=== PATIENT | female | born 1945 | race Hispanic/Latino ===

== ENCOUNTER 2024-02-04 16:41 | Emergency (ER) | payer OTHER ==
[~2024-02-04] VITALS: Ht 152.4 cm; Wt 75.7 kg
[2024-02-04] MEDS: acetaMINOPHEN 500 MG TABLET PO ONE (17:45)
[2024-02-04 19:49] VITALS: BP 136/56; PULSE 60; RESP 16; TEMP 98; O2SAT 98
== END 2024-02-04 19:55 | disposition home or self-care (01) ==
LOC: EDH 16:41
DX: S00.03XA Contusion of scalp, initial encounter (principal); S40.011A Contusion of right shoulder, initial encounter; S20.211A Contusion of right front wall of thorax, initial encounter; E78.00 Pure hypercholesterolemia, unspecified; I11.9 Hypertensive heart disease without heart failure; Z88.8 Allergy status to other drugs, medicaments and biological substances; W01.0XXA Fall on same level from slipping, tripping and stumbling without subsequent striking against object, initial encounter; Y93.89 Activity, other specified; Y92.89 Other specified places as the place of occurrence of the external cause; Y99.8 Other external cause status
CPT/HCPCS: 70450; 71101; 73030

== ENCOUNTER 2025-03-06 18:46 | Inpatient (IN) | payer OTHER ==
[~2025-03-06] VITALS: Ht 147.3 cm; Wt 81.6 kg
[2025-03-06 19:29] LABS: IMMATURE GRANULOCYTE ABSOLUTE 0.02 K/uL (0-1); NUCLEATED RED BLOOD CELLS 0.0 % (0.0-0.19); PLATELET COUNT (AUTO) 297 K/uL (130-400); RED BLOOD CELL COUNT(AUTO) 3.65 MIL/uL (4.00-5.50); RED CELL DISTRIBUTION WIDTH 14.0 % (11.0-15.5); WHITE BLOOD COUNT (AUTO) 6.7 K/uL (4.8-10.8)
--- NOTE | 2025-03-06 19:31 | EKG ---
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
[2025-03-06 19:39] LABS: CREATININE 1.0 mg/dL (0.5-1.0); GLOMERULAR FILTR. RATE CALC 57.0 mL/min (>90); GLUCOSE,RANDOM 98.0 mg/dL (70-105); SODIUM SERUM 144.0 mmol/L (136-145); UREA NITROGEN, BLOOD 17.0 mg/dL (7-18)
[2025-03-06 19:41] LABS: INR 1.01 (0.85-1.15)
--- NOTE | 2025-03-06 20:30 | HMCIMG ---
EXAMINATION: DUPLEX ULTRASOUND EXAMINATION OF THE BILATERAL LOWER EXTREMITY ARTERIES. CLINICAL HISTORY: PAD. COMPARISON: None. FINDINGS: Peak systolic velocities within the right lower arteries are as follows: Common femoral artery: 71 cm/s. Superficial femoral artery: 63 cm/s at proximal, 46 cm/s at mid, and 44 cm/s at distal segments. Popliteal artery: 17 cm/s at proximal and 22 cm/s at distal segments. Posterior tibial artery: 14 cm/s. Anterior tibial artery: 11 cm/s. Dorsalis pedis artery: 22 cm/s. The right lower limb arteries demonstrate monophasic waveforms in all arteries. Peak systolic velocities within the left lower arteries are as follows: Common femoral artery: 85 cm/s. Superficial femoral artery: 55 cm/s at proximal, 37 cm/s at mid, and 40 cm/s at distal segments. Popliteal artery: 19 cm/s at proximal and 25 cm/s at distal segments. Posterior tibial artery: 14 cm/s. Anterior tibial artery: 70 cm/s. Dorsalis pedis artery: 10 cm/s. The left lower limb arteries demonstrate monophasic waveforms in all arteries. There is intimal wall thickening in both the lower limb arteries. IMPRESSION: Mild intimal wall thickening in both the lower limb arteries. Both lower limb arteries demonstrate monophasic post stenotic dampened waveforms. Recommend CT/MRI angiogram including from the abdominal aorta. /[place]
--- NOTE | 2025-03-06 22:47 | HP ---
History of Present Illness History of Present Illness Ms. Peacock is a 79-year-old female that was seen and examined today on 03/06/2025. Patient is a good historian of personal health Patient states that she came to the emergency department with a chief complaint of lower extremity pain. Onset was two weeks ago. Location is to bilateral lower extremities primarily the feet. Duration is on and off. Character is described as sharp and tingling pain. There was no alleviating factors. Symptoms are aggravated with physical activity. Patient reports associated discoloration to tips of her toes. Today in the emergency department CBC unremarkable, chemistry unremarkable, urinalysis unremarkable, arterial ultrasound shows Both lower limb arteries demonstrate monophasic post stenotic dampened waveforms, chest x-ray shows mild COPD, mild atelectatic opacities in the bilateral lung bases. Emergency room physician recommended that patient be admitted with a diagnosis of intractable leg pain and PID. Past Medical History ADDITIONAL PAST MEDICAL HISTORY: [Hyperlipidemia, hypertension, hypothyroidism, peripheral artery disease] SOCIAL HISTORY: [Negative for smoking, alcohol use, drug use. Patient lives with the daughter, Jessica Gomez. Patient is typically independent of her ADLs. Patient denies difficulty paying her bills.] SURGICAL HISTORY: [Denies] Review of Systems General: No Fever, No Chills, No Night Sweats, No Fatigue, No Malaise, No Appetite, No Other HEENT: No Head Aches, No Visual Changes, No Eye Pain, No Ear Pain, No Dysphasia, No Sinus Congestion, No Post Nasal Drip, No Sore Throat, No Other Pulmonary: No Dyspnea, No Cough, No Pleuritic Chest Pain, No Other Cardiovascular: No: Chest Pain, Palpitations, Orthopnea, Paroxysmal Noc. Dyspnea, Edema, Lt Headedness, Other Gastrointestinal: No: Nausea, Vomiting, Abdominal Pain, Diarrhea, Constipation, Melena, Hematochezia, Other Genitourinary: No Dysuria, No Frequency, No Incontinence, No Hematuria, No Retention, No Other Musculoskeletal: leg pain, foot pain; No: other, neck pain, shoulder pain, arm pain, back pain, hand pain Skin: No Urticaria, No Rash, No Other Neurological: No: Weakness, Numbness, Incoordination, Change in speech, Confusion, Seizures, Other Allergies: Coded Allergies: iron (Unverified Allergy, Unknown, 02/04/24) Exam Vital Signs Vital Signs Date Time Temp Pulse Resp B/P (MAP) Pulse Ox O2 Delivery O2 Flow Rate FiO2 03/06/25 21:24 64 18 190/64 97 Room Air* 0 21 03/06/25 18:49 98.1 General Appearance: Alert, Oriented X3, Cooperative, No acute distress HEENT: Atraumatic, EOMI, Mucous membr. moist/pink Respiratory: Clear to auscultation, Normal air movement, NL respiratory effort Cardiovascular: Regular rate, Regular rhythm, Normal S1, Normal S2 Abdominal: Normal bowel sounds, Soft, No tenderness Extremities: Other (Decreased pedal pulses) Skin: Other (Positive erythema, discoloration to bilateral toes) Neuro: Strength at 5/5 X4 ext, Sensation intact, Cranial nerves 3-12 NL Psych/Mental Status: Mental status NL, Mood NL, Thoughts/Content NL Assessment/Plan ASSESSMENT: [ Peripheral artery disease, POA Intractable leg pain, POA Hyperlipidemia Hypertension Hypothyroidism] PLAN: [ Admit patient to medical floor as inpatient status. Physical therapy for evaluation and treatment. DAPT Consider having patient follow up outpatient with her vascular surgeon, Dr. Dank Cline from [facility] Consider consulting in-house cardiology service if patient unable to tolerate PD until her scheduled procedure on 03/17/2025. As needed analgesia with morphine Consider resuming home medications once they have been reconciled At time of admission home medications has been reconciled For now: Atorvastatin 40 mg by mouth once daily Hydralazine 10 mg IV every 4 hours for systolic blood pressure greater than 160 mmHg Check TSH in a.m. GI prophylaxis, famotidine DVT prophylaxis, Lovenox ADVANCED CARE PLANNING 1. Which of the following were discussed? Hospice Care - Yes Therapeutic options - yes Advance Directives - Yes - patient states he does not have any advance directives in place at this time, however her daughter can make decisions for her if she becomes unable. Other discussions - patient wishes to remain a full code 2. Discussed with who? Patient 3. Voluntary nature of this service was explained to the patient? Yes 4. Amount of time spent - ___16 minutes____ 5. Reviewed by Physician? (if this service was performed by NPP) Yes This document was generated in part using voice recognition software, occasional wrong word or sound alike substitutions may have occurred due to the inherent limitations of voice recognition software. Read the chart carefully and recognize using context, where the substitutions have occurred. Although every effort was made to edit the content, coffee break attendant and typing errors may occur ] [facility] Mar 06, 2025 22:47
--- NOTE | 2025-03-06 22:55 | ERN ---
General Chief Complaint: FOOT INJURY/PAIN Stated Complaint: BILATERAL FEET PAIN,NUMBNESS,AND SWELLING Time Seen by MD: 18:49 Time Seen by Midlevel: 18:49 Source: patient History of Present Illness Initial Comments 79-year-old female presents to the emergency department for evaluation of bilateral foot discoloration with the associated numbness and tingling. Patient reports being diagnosed with peripheral artery disease and has a procedure pending on March 17, [address] Amezquita at [facility]. She called his office in the recommended to come to the ER if pain persistent. Patient reports increased bilateral pain to her feet worse with exertion Allergies: Coded Allergies: iron (Unverified Allergy, Unknown, 02/04/24) Past Medical History Past Medical History: High Cholesterol, Hypertension, Hypothyroid Medical History Other: PAD Past Surgical History: None Female( History) History: Not Applicable ROS Dictation CONSTITUTIONAL: Negative except for HPI HEAD/FACE: Negative except for HPI EENT: Negative except for HPI RESPIRATORY: Negative except for HPI GASTROINTESTINAL/ABDOMINAL: Negative except for HPI GENITOURINARY: Negative except for HPI MUSCULOSKELETAL: Negative except for HPI INTEGUMENTARY: Negative except for HPI NEUROLOGICAL/PSYCH: Negative except for HPI HEMATOLOGIC/LYMPHATIC: Negative except for HPI All Systems Negative, Except as noted above. 13 point review of systems assessed and all negative except for above. Physical Exam Physical Exam Dictation Vital Signs reviewed General Appearance: Alert, oriented x 3, no acute distress, well developed, nourished. Head and Face: non-traumatic. Eyes: PERRL, pink conjunctivas, eyelid no trauma, anterior chamber with arcus senilis. Ears: Pinnas intact and no signs of trauma or erythema ear canals clear and no discharge TM no erythema Nose: No discharge, no bleeding. Oropharynx: Mouth normal, tongue pink, pharynx clear,no erythema, tonsils no exudates, no abscesses noted, mucous membrane moist Neck: Supple, non-tender, no thyromegaly, no masses, no JVD, no bruits Breast:Deferred Chest:No tenderness, no crepitus, no paradoxical movement, no retractions Lungs:Clear, well-ventilated, symmetric, no rales, no wheezing, no rhonchi, no stridor, good breath sounds bilaterally Heart: Regular rate, regular rhythm, no murmur, no gallops Vascular: no peripheral edema, Abdomen: Soft, positive bowel sounds, nondistended, no guarding, nontender, no rebound, no masses no hepatomegaly, no splenomegaly, no Valencia's sign, no hernias. Rectal: Deferred Genital: Deferred Neurological: Normal speech, motor function intact, sensory function intact Musculoskeletal: Neck nontender, full range of motion, back nontender, full range of motion, Extremities: nontender, full range of motion Skin: Color pink, dry, no turgor, no rash, no lacerations, no abrasions, no contusions. Lymphatic: Deferred Results Laboratory and Microbiology Lab and Micro Result Laboratory Tests Test 03/06/25 19:23 White Blood Count 6.7 K/uL (4.8-10.8) Red Blood Count 3.65 MIL/uL (4.00-5.50) L Hemoglobin 10.2 g/dL (12.0-16.0) L Hematocrit 32.8 % (36-48) L Mean Corpuscular Volume 89.9 fL (79-99) Mean Corpuscular Hemoglobin 27.9 pg (27.0-33.0) Mean Corpuscular Hemoglobin Concent 31.1 g/dL (32.0-36.0) L Red Cell Distribution Width 14.0 % (11.0-15.5) Platelet Count 297 K/uL (130-400) Mean Platelet Volume 9.3 fL (7.5-10.5) Immature Granulocyte % (Auto) 0.3 % (0-1) Neutrophils (%) (Auto) 62.0 % (40.0-77.0) Lymphocytes (%) (Auto) 25.0 % (21.0-51.0) Monocytes (%) (Auto) 10.5 % (3.0-13.0) Eosinophils (%) (Auto) 1.6 % (0.0-8.0) Basophils (%) (Auto) 0.6 % (0.0-5.0) Neutrophils # (Auto) 4.1 K/uL (1.8-7.7) Lymphocytes # (Auto) 1.7 K/uL (1.0-4.8) Monocytes # (Auto) 0.7 K/uL (0.1-1.0) Eosinophils # (Auto) 0.11 K/uL (0.00-0.70) Basophils # (Auto) 0.04 K/uL (0.00-0.20) Absolute Immature Granulocyte (auto 0.02 K/uL (0-1) Nucleated Red Blood Cells 0.0 % (0.0-0.19) Prothrombin Time 10.7 SEC (9.6-11.6) Prothromb Time International Ratio 1.01 (0.85-1.15) Activated Partial Thromboplast Time 24.8 SEC (26.3-35.5) L Sodium Level 144 mmol/L (136-145) Potassium Level 4.2 mmol/L (3.5-5.1) Chloride Level 107 mmol/L (101-111) Carbon Dioxide Level 28 mmol/L (21-32) Blood Urea Nitrogen 17 mg/dL (7-18) Creatinine 1.0 mg/dL (0.5-1.0) Glomerular Filtration Rate Calc 57 mL/min (>90) Random Glucose 98 mg/dL (70-105) Total Calcium 8.9 mg/dL (8.5-10.1) Troponin I High Sensitivity 36 ng/L (4-50) B-Type Natriuretic Peptide 57 pg/mL (0-100) Labs Reviewed?: Yes MDM MDM: Differential diagnosis: Severe peripheral arterial disease, arterial occlusion, Rationale: Tests considered and ordered secondary to shared decision making include: Previous outside records reviewed: Old ER visits. Risk of complication and/or morbidity or mortality of patient management: None Medications-Per medication reconciliation Need for hospitalization: Patient does meet criteria for hospitalization. Need for emergency major/minor surgery: No There are no social concerns with this patient. Prescription drug management Prescriptions will include symptomatic care Patient's prior external medical records from other ER visits were reviewed by me as indicated. Prior testing and results from previous visits were reviewed. Prior tests were taken into account with medical decision making and resource utilization, independent historian/historians were used to obtain complete medical history. I independently interpreted the test that were performed, results were reviewed by me and considered findings on radiology if ordered. Medical management and examination interpretation discussions were had by me with other qualified healthcare professionals as indicated for the patient's care. ED Course Orders Procedure Category Date Status Time Cbc With Differential LAB 03/06/25 Complete 19:04 Basic Metabolic Panel LAB 03/06/25 Complete 19:04 Pt And Ptt LAB 03/06/25 Complete 19:04 Troponin I High LAB 03/06/25 Complete Sensitivity 19:23 12 Lead Ekg Tracing- EKG 03/06/25 Complete Technical 19:23 Chest 1vw RAD 03/06/25 Taken 19:23 Us Arterial Bilat Low US 03/06/25 Resulted Ext Dupl 19:23 B-Type Natriuretic LAB 03/06/25 Complete Peptide 19:23 Vital Signs Date Time Temp Pulse Resp B/P (MAP) Pulse Ox O2 Delivery O2 Flow Rate FiO2 03/06/25 21:24 64 18 190/64 97 Room Air* 0 21 03/06/25 18:49 98.1 75 18 206/59 97 Room Air [facility] [address] [place] [id number] IMAGING REPORT Signed PATIENT: ROGER DE LEÓN MR#: [id number] : 1945 SEX: F AGE: 79 LOCATION: [facility] ORDER 23 STATUS: REG ER [facility] REPORT#: [id number] SERVICE 22 REASON: PAD ORDERING PHYSICIAN: DESTINEE DEXTER PAC PROCEDURE: ART B LE - US ARTERIAL BILAT LOW EXT DUPL EXAMINATION: DUPLEX ULTRASOUND EXAMINATION OF THE BILATERAL LOWER EXTREMITY ARTERIES. CLINICAL HISTORY: PAD. COMPARISON: None. FINDINGS: Peak systolic velocities within the right lower arteries are as follows: Common femoral artery: 71 cm/s. Superficial femoral artery: 63 cm/s at proximal, 46 cm/s at mid, and 44 cm/s at distal segments. Popliteal artery: 17 cm/s at proximal and 22 cm/s at distal segments. Posterior tibial artery: 14 cm/s. Anterior tibial artery: 11 cm/s. Dorsalis pedis artery: 22 cm/s. The right lower limb arteries demonstrate monophasic waveforms in all arteries. Peak systolic velocities within the left lower arteries are as follows: Common femoral artery: 85 cm/s. Superficial femoral artery: 55 cm/s at proximal, 37 cm/s at mid, and 40 cm/s at distal segments. Popliteal artery: 19 cm/s at proximal and 25 cm/s at distal segments. Posterior tibial artery: 14 cm/s. Anterior tibial artery: 70 cm/s. Dorsalis pedis artery: 10 cm/s. The left lower limb arteries demonstrate monophasic waveforms in all arteries. There is intimal wall thickening in both the lower limb arteries. IMPRESSION: Mild intimal wall thickening in both the lower limb arteries. Both lower limb arteries demonstrate monophasic post stenotic dampened waveforms. Recommend CT/MRI angiogram including from the abdominal aorta. /[place] DICTATED BY: KENRICK DUARTE MD DATE: 03/06/252128 ELECTRONICALLY SIGNED BY: KENRICK DUARTE MD DATE: 03/06/252128 DX & DISP Disposition: Inpatient Departure Impression: Primary Impression: PAD (peripheral artery disease) Additional Impression: Lower extremity pain, bilateral Condition: Stable Referrals: SUZANNA GUARDADO MD (PCP) I have reviewed the case, and I agree with, Diagnosis and Plan I performed the substantive portion of the visit. I have reviewed and loni sargent made and approve the management plan that is documented in the note by myself or the AMRITA. I acknowledge for responsibility for the patient's management plan. DESTINEE DEXTER PAC Mar 06, 2025 22:55
--- NOTE | 2025-03-06 23:18 | HMCIMG ---
EXAM: CR Chest, 1 view CLINICAL HISTORY: Shortness of breath. COMPARISON: None provided. FINDINGS: The lungs show no infiltrates or other acute findings. Mild atelectatic opacities in the bilateral lung bases. No pleural effusion or pneumothorax. Hyperinflated lungs, likely mild COPD. Mild cardiomegaly. Mild atherosclerotic aorta. No acute osseous abnormality. IMPRESSION: Mild COPD. Mild cardiomegaly. Mild atelectatic opacities in the bilateral lung bases. /[place]
[2025-03-07] VITALS (10 sets, daily range): BP systolic 107–174; BP diastolic 45–70; PULSE 61–84; RESP 16–20; TEMP 97.7–98.8; O2SAT 93–97
[2025-03-07] MEDS ORDERED: GABA-529 PO (05:12)
[2025-03-07] MEDS ORDERED: ATOR10 PO ×3 (05:12→05:13)
[2025-03-07] MEDS ORDERED: LISI20TA24 PO (05:12)
[2025-03-07] MEDS ORDERED: METO-391 PO (05:12)
[2025-03-07] MEDS ORDERED: ASPI-1005 PO (05:12)
[2025-03-07] MEDS ORDERED: LEVO88CA5 PO (05:12)
[2025-03-07] MEDS ORDERED: TRAM100T34 PO (05:12)
[2025-03-07] MEDS ORDERED: AMLO-258 PO (05:12)
[2025-03-07 06:41] LABS: IMMATURE GRANULOCYTE ABSOLUTE 0.01 K/uL (0-1); NUCLEATED RED BLOOD CELLS 0.0 % (0.0-0.19); PLATELET COUNT (AUTO) 273 K/uL (130-400); RED BLOOD CELL COUNT(AUTO) 3.53 MIL/uL (4.00-5.50); RED CELL DISTRIBUTION WIDTH 14.0 % (11.0-15.5); WHITE BLOOD COUNT (AUTO) 4.8 K/uL (4.8-10.8)
[2025-03-07 07:03] LABS: CREATININE 0.5 mg/dL (0.5-1.0); GLOMERULAR FILTR. RATE CALC 95.0 mL/min (>90); GLUCOSE,RANDOM 101.0 mg/dL (70-105); PHOSPHORUS 3.4 mg/dL (2.5-4.9); SODIUM SERUM 143.0 mmol/L (136-145); UREA NITROGEN, BLOOD 11.0 mg/dL (7-18)
[2025-03-07] MEDS: FAMOTIDINE 20MG TAB PO SCH (08:34)
[2025-03-07] MEDS: ASPIRIN 81 MG EC TAB PO SCH (08:34)
[2025-03-07] MEDS: ENOXAPARIN SODIUM 30 MG/0.3 ML SQ SCH (08:35)
--- NOTE | 2025-03-07 13:02 | PN ---
[facility] PROGRESS NOTE Date of Service: Mar 07, 2025 Time of Service: 12:57 SUBJECTIVE: [Patient presents to the emergency department with a chief complaint of lower extremity pain. She reports onset of symptoms two weeks ago, primarily affecting both feet. The pain is described as sharp and tingling, occurring intermittently. There are no alleviating factors, and symptoms are aggravated by physical activity. She also reports associated discoloration at the tips of her toes. ] REVIEW OF SYSTEMS CONSTITUTIONAL: Denies fevers, chills, or night sweats. No unintentional weight loss reported. NEUROLOGICAL: Denies headache, amaurosis fugax, motor weakness, sensory deficit, vertigo/spinning sensation, gait abnormalities, or tremors. ENT: No hearing loss, otalgia, otorrhea, rhinitis, rhinorrhea, hoarseness, or sore throat. CARDIOVASCULAR: Denies any exertional angina, dyspnea on exertion, orthopnea, p aroxysmal nocturnal dyspnea, palpitations, life-threatening arrhythmias, claudication. PULMONARY: Denies any shortness of breath, cough, phlegm/sputum, hemoptysis, pleuritic chest pain. SLEEP: Denies morning headaches, daytime somnolence or napping. Denies difficulty falling asleep, staying asleep, waking from sleep. Denies knowledge of snoring. GASTROINTESTINAL: Denies any type of dysphagia to either liquids or solids. Denies nausea, vomiting, pyrosis, early satiety, abdominal pain, diarrhea, constipation, or changes in stool consistency or caliber. Denies coffee-ground emesis, hematemesis, hematochezia, or melanotic stools. GENITOURINARY: Denies frequency, urgency, nocturia, hematuria or incontinence (Storage/Irritative symptoms.) Low urinary stream, straining to void, urinary intermittency or hesitancy, splitting of the voiding stream, terminal dribbling. ENDOCRINOLOGIC: Denies polyuria, polydipsia, polyphagia or heat/cold intolerances. HEMATOLOGIC: Denies thrombophilia/previous clots, or coagulopathy/bleeding disorders. ONCOLOGIC: Denies personal history of malignancy. DERMATOLOGIC: Denies rashes or pruritus. PSYCHIATRIC: Denies any suicidal or homicidal ideation. Denies hallucinations. PHYSICAL EXAM GENERAL APPEARANCE: The patient is awake, alert, and oriented, in no acute cardiopulmonary distress. NEUROLOGICAL: Cranial nerves II-XII grossly intact. Motor is 5/5 in bilateral upper and lower extremities proximal to distal. No sensory deficits. HEENT: Face is symmetric. Pupils are equal and reactive. Extraocular movements are intact. NECK: Supple. No JVD. No thyromegaly. No submental, submandibular, pre- /postauricular, occipital or supraclavicular lymphadenopathy. CHEST: Normal chest expansion. No Telemetry. LUNGS: Absence of any rales, rhonchi or any wheezing. CARDIOVASCULAR: Regular. S1 and S2 normal. No appreciable rubs, murmurs or gallops. ABDOMEN: Soft, nontender, and nondistended. There is no rebound, voluntary guarding, or rigidity. : Deferred. No Pace. EXTREMITIES: Bilateral feet: Severe pain reported, especially to touch. Right 2nd toe: Small ulcer noted. Left 3rd toe: Pain to touch. Plantar surfaces: Blackish discoloration observed. Heels: Pain on palpation. SKIN: No skin breakdown. Vital Signs (last 8hr) Date Time Temp Pulse Resp B/P (MAP) Pulse Ox O2 Delivery O2 Flow Rate FiO2 03/07/25 12:15 65 169/68 03/07/25 11:40 98.4 65 18 169/68 95 Room Air 03/07/25 07:31 98.4 61 18 126/51 93 Room Air 03/07/25 05:21 65 130/61 03/07/25 05:21 65 130/61 LABS: Laboratory: Test 03/07/25 11:09 03/07/25 06:32 03/06/25 19:23 Range/Units Whole Blood Glucose 101 70-110 MG/DL White Blood Count 4.8 # 4.8-10.8 K/uL Red Blood Count 3.53 L 4.00-5.50 MIL/uL Hemoglobin 9.9 L 12.0-16.0 g/dL Hematocrit 30.5 L 36-48 % Mean Corpuscular Volume 86.4 79-99 fL Mean Corpuscular Hemoglobin 28.0 27.0-33.0 pg Mean Corpuscular Hemoglobin Concent 32.5 32.0-36.0 g/dL Red Cell Distribution Width 14.0 11.0-15.5 % Platelet Count 273 130-400 K/uL Mean Platelet Volume 9.3 7.5-10.5 fL Immature Granulocyte % (Auto) 0.2 0-1 % Neutrophils (%) (Auto) 53.4 40.0-77.0 % Lymphocytes (%) (Auto) 31.7 21.0-51.0 % Monocytes (%) (Auto) 10.4 3.0-13.0 % Eosinophils (%) (Auto) 3.1 0.0-8.0 % Basophils (%) (Auto) 1.2 0.0-5.0 % Neutrophils # (Auto) 2.6 1.8-7.7 K/uL Lymphocytes # (Auto) 1.5 1.0-4.8 K/uL Monocytes # (Auto) 0.5 0.1-1.0 K/uL Eosinophils # (Auto) 0.15 0.00-0.70 K/uL Basophils # (Auto) 0.06 0.00-0.20 K/uL Absolute Immature Granulocyte (auto 0.01 0-1 K/uL Nucleated Red Blood Cells 0.0 0.0-0.19 % Sodium Level 143 136-145 mmol/L Potassium Level 4.1 3.5-5.1 mmol/L Chloride Level 107 101-111 mmol/L Carbon Dioxide Level 31 21-32 mmol/L Blood Urea Nitrogen 11 7-18 mg/dL Creatinine 0.5 0.5-1.0 mg/dL Glomerular Filtration Rate Calc 95 >90 mL/min Random Glucose 101 70-105 mg/dL Total Calcium 9.0 8.5-10.1 mg/dL Phosphorus Level 3.4 2.5-4.9 mg/dL Magnesium Level 2.00 1.80-2.40 mg/dL Thyroid Stimulating Hormone (TSH) 3.87 H 0.36-3.74 uIU/mL Prothrombin Time 10.7 9.6-11.6 SEC Prothromb Time International Ratio 1.01 0.85-1.15 Activated Partial Thromboplast Time 24.8 L 26.3-35.5 SEC Troponin I High Sensitivity 36 4-50 ng/L B-Type Natriuretic Peptide 57 0-100 pg/mL Current Medications Medications (Trade) Dose Ordered Sig/Lucie Route PRN Reason Start Time Stop Time Status Last Admin Dose Admin Acetaminophen (TYLenol 325MG TAB) 650 mg Q6H PRN PO TEMPERATURE GREATER THAN 101.5 03/06/25 23:00 04/05/25 22:59 Aspirin (Aspirin 81mg Ec Tab) 81 mg DAILY PO 03/07/25 09:00 04/06/25 08:59 03/07/25 08:34 81 MG Atorvastatin Calcium (LIPItor 40MG) 40 mg HS PO 03/07/25 21:00 04/06/25 20:59 Clopidogrel Bisulfate (plaVIX 75MG) 75 mg DAILY PO 03/07/25 09:00 04/06/25 08:59 03/07/25 08:35 75 MG Enoxaparin Sodium (Lovenox) 30 mg DAILY SQ 03/07/25 09:00 04/06/25 08:59 03/07/25 08:35 30 MG Famotidine (Pepcid 20mg Tab) 20 mg DAILY PO 03/07/25 09:00 04/06/25 08:59 03/07/25 08:34 20 MG Hydralazine HCl (APRESOLine 20MG INJ) 10 mg Q6H PRN IV For:SBP above 160;DBP above 90 03/06/25 23:00 04/05/25 22:59 03/07/25 12:15 10 MG Lactulose (Constulose 20gm/ 30ml Udcup) 20 gm BID PRN PO CONSTIPATION 03/06/25 23:00 04/05/25 22:59 Morphine Sulfate (morPHINE 4MG SYG) 2 mg Q4H PRN IVP SEVERE PAIN (7-10) 03/06/25 23:00 03/13/25 22:59 03/07/25 05:16 2 MG Ondansetron HCl (zoFRAN 4MG INJ) 4 mg Q6H PRN IV NAUSEA/VOMITING 03/06/25 23:00 04/05/25 22:59 03/07/25 00:01 4 MG DIAGNOSTICS / RADIOLOGY: [ ] ASSESSMENT: [Intractable bilateral lower extremity pain Peripheral arterial disease (PAD) Digital discoloration and ulceration, concerning for possible ischemia Hyperlipidemia Hypertension Hypothyroidism PLAN: [Admit patient to medical floor as inpatient status. Physical therapy for evaluation and treatment. Continue dual antiplatelet therapy (DAPT). Consult Dr. Wu, re: abn doppler studies Analgesia as needed with morphine. Resume home medications once reconciled (medication reconciliation completed at time of admission). GI prophylaxis: Famotidine DVT prophylaxis: Lovenox Vascular surgery consult for assessment of lower extremity ischemia. Wound care consult for toe ulcer management. Monitor for progression of discoloration or development of new ulcers. We will repeat labs tomorrow Case discussed with Dr. Rebollar, above plan was formulated ] ATTESTATION BY PHYSICIAN I have seen and examined the patient. I reviewed the documentation, medical decision making, and treatment plan as noted by the mid-level provider above. I agree with the findings and plan of care. Ankit Rebollar IV, MD, [facility] Mar 07, 2025 13:02
[2025-03-07] MEDS ORDERED: IOHEXOL-350 75 ML VIAL IV ONE (16:14)
[2025-03-07] MEDS ORDERED: IOHEXOL-350 50ML VIAL IV ONE (16:14)
--- NOTE | 2025-03-07 18:14 | CONS ---
Cardiology Consult Note Cardiology Attending: Jerry Wu Consulting Physician: Hospitalist Date of Service: 03/07/25 Reason for Consult: PAD HPI: This is an 79-year-old female with a past medical history of HTN, HLP, hypothyroidism, and former tobacco abuse who presents with pain in her bilateral lower extremities, of 8 weeks in duration. The symptoms began spontaneously and over the ensuing timeframe progressively worsened. The pain was specifically located in the bilateral feet and was described as pinprick in quality, 10/10 in intensity, and affects the bilateral feet and digits equally. The pain is exacerbated by walking or prolonged standing, varies in duration from minutes to hours, and improves with the pain medication. Associated symptoms include ulcers on the tips of the digits. Pertinent negatives include fever, chills, he adache, dizziness, syncope, chest pain, chest pressure, palpitations, shortness or breath, dyspnea on exertion, PND, orthopnea, abdominal pain, weight gain, or lower extremity swelling/edema. The persistence of symptoms prompted the patient to come to the hospital where she underwent bilateral lower extremity arterial Dopplers which identified monophasic waveforms in the right-sided infrapopliteal arteries, and monophasic waveforms in all the arteries of the left lower extremity. Cardiology was consulted for treatment recommendations regarding these findings. PMH: listed above PSH: None FH: Significant for CAD, HTN, DMII, and CVA. SH: Positive for former tobacco abuse. Denies alcohol or illicit drug use. Allergies: Coded Allergies: iron (Unverified Allergy, Unknown, 02/04/24) Review of systems: General: Denies fever or chills HEENT: Denies changes in vision, earache or sore throat Neck: Denies pain or stiffness Cardio: As per the HPI Pulm: Denies SOB, coughing or wheezing GI: Denies abdominal pain, nausea, vomiting, diarrhea, or constipation. MSK: As per the HPI. Heme: Denies anemia, easy bruising, or bleeding. Neuro: Denies headache, dizziness, or syncope. Psych: Denies anxiety, depression, or suicidal ideations. Physical Exam: Vital Signs Date Time Temp Pulse Resp B/P (MAP) Pulse Ox O2 Delivery O2 Flow Rate FiO2 03/07/25 15:46 98.8 69 18 119/46 96 Room Air 03/07/25 08:34 0 21 General: Alert and oriented x 3. NAD HEENT: NC/AT. Oral mucosa is moist. Neck: No masses, JVD, or carotid bruits Lungs: NRD. SCM. B/L CTA. No wheezing, rales or rhonchi. Cardio: Rate @ 77bpm. Normal S1 and S2. +S4. PMI was not displaced. Abdomen: Soft. NT. ND. Normal active bowel sounds x 4 quadrants. Extremities: No edema, clubbing or cyanosis. Pulses were not palpable in the bilateral dorsalis pedis or posterior tibial arteries. The bilateral feet are cool to touch. There are small ulcer seen on tips of multiple digits in the bilateral feet. Neuro: CN II-XII were grossly intact. No focal deficits. Labs: Laboratory Tests Test 03/06/25 19:23 03/07/25 06:32 03/07/25 11:09 Range/Units White Blood Count 6.7 4.8 # 4.8-10.8 K/uL Red Blood Count 3.65 L 3.53 L 4.00-5.50 MIL/uL Hemoglobin 10.2 L 9.9 L 12.0-16.0 g/dL Hematocrit 32.8 L 30.5 L 36-48 % Mean Corpuscular Volume 89.9 86.4 79-99 fL Mean Corpuscular Hemoglobin 27.9 28.0 27.0-33.0 pg Mean Corpuscular Hemoglobin Concent 31.1 L 32.5 32.0-36.0 g/dL Red Cell Distribution Width 14.0 14.0 11.0-15.5 % Platelet Count 297 273 130-400 K/uL Mean Platelet Volume 9.3 9.3 7.5-10.5 fL Immature Granulocyte % (Auto) 0.3 0.2 0-1 % Neutrophils (%) (Auto) 62.0 53.4 40.0-77.0 % Lymphocytes (%) (Auto) 25.0 31.7 21.0-51.0 % Monocytes (%) (Auto) 10.5 10.4 3.0-13.0 % Eosinophils (%) (Auto) 1.6 3.1 0.0-8.0 % Basophils (%) (Auto) 0.6 1.2 0.0-5.0 % Neutrophils # (Auto) 4.1 2.6 1.8-7.7 K/uL Lymphocytes # (Auto) 1.7 1.5 1.0-4.8 K/uL Monocytes # (Auto) 0.7 0.5 0.1-1.0 K/uL Eosinophils # (Auto) 0.11 0.15 0.00-0.70 K/uL Basophils # (Auto) 0.04 0.06 0.00-0.20 K/uL Absolute Immature Granulocyte (auto 0.02 0.01 0-1 K/uL Nucleated Red Blood Cells 0.0 0.0 0.0-0.19 % Prothrombin Time 10.7 9.6-11.6 SEC Prothromb Time International Ratio 1.01 0.85-1.15 Activated Partial Thromboplast Time 24.8 L 26.3-35.5 SEC Sodium Level 144 143 136-145 mmol/L Potassium Level 4.2 4.1 3.5-5.1 mmol/L Chloride Level 107 107 101-111 mmol/L Carbon Dioxide Level 28 31 21-32 mmol/L Blood Urea Nitrogen 17 11 7-18 mg/dL Creatinine 1.0 0.5 0.5-1.0 mg/dL Glomerular Filtration Rate Calc 57 95 >90 mL/min Random Glucose 98 101 70-105 mg/dL Total Calcium 8.9 9.0 8.5-10.1 mg/dL Troponin I High Sensitivity 36 4-50 ng/L B-Type Natriuretic Peptide 57 0-100 pg/mL Phosphorus Level 3.4 2.5-4.9 mg/dL Magnesium Level 2.00 1.80-2.40 mg/dL Thyroid Stimulating Hormone (TSH) 3.87 H 0.36-3.74 uIU/mL Whole Blood Glucose 101 70-110 MG/DL Bilateral lower extremity arterial Doppler 03/06/2025 Peak systolic velocities within the right lower arteries are as follows: Common femoral artery: 71 cm/s. Superficial femoral artery: 63 cm/s at proximal, 46 cm/s at mid, and 44 cm/s at distal segments. Popliteal artery: 17 cm/s at proximal and 22 cm/s at distal segments. Posterior tibial artery: 14 cm/s. Anterior tibial artery: 11 cm/s. Dorsalis pedis artery: 22 cm/s. The right lower limb arteries demonstrate monophasic waveforms in all arteries. Peak systolic velocities within the left lower arteries are as follows: Common femoral artery: 85 cm/s. Superficial femoral artery: 55 cm/s at proximal, 37 cm/s at mid, and 40 cm/s at distal segments. Popliteal artery: 19 cm/s at proximal and 25 cm/s at distal segments. Posterior tibial artery: 14 cm/s. Anterior tibial artery: 70 cm/s. Dorsalis pedis artery: 10 cm/s. The left lower limb arteries demonstrate monophasic waveforms in all arteries. There is intimal wall thickening in both the lower limb arteries. IMPRESSION: Mild intimal wall thickening in both the lower limb arteries. Both lower limb arteries demonstrate monophasic post stenotic dampened waveforms. Assessment: 1. PAD, [place] category 5 symptoms, affecting the bilateral lower extremities (R > L) 2. Peripheral neuropathy 3. Former tobacco abuse 3. HTN 4. HLP 5. Hypothyroidism Plan: 1. PAD, [place] category 5 symptoms affecting the bilateral lower extremities (R>L) -Stable -PE: No edema, clubbing or cyanosis. Pulses were not palpable in the bilateral dorsalis pedis or posterior tibial arteries. The bilateral feet are cool to touch. There are small ulcer seen on tips of multiple digits in the bilateral feet. -bilateral lower extremity arterial Doppler 03/06/2025: Monophasic waveforms in the right-sided infrapopliteal arteries. Monophasic waveforms in all the arteries of the left lower extremity. The findings are diagnostic for severe PAD affecting the bilateral lower extremities. -the patient complains of pain in her bilateral lower extremities, of 8 weeks in duration. The symptoms began spontaneously and over the ensuing timeframe progressively worsened. The pain was specifically located in the bilateral feet and was described as pinprick in quality, 10/10 in intensity, and affected the bilateral feet and digits equally. The pain is exacerbated by walking, or prolonged standing, varies in durations from minutes to hours and improves with the pain medication. Associated symptoms include ulcers on the tips of the digits. -the patient's symptoms are suggestive of PAD, [place] category 5 symptoms affecting the bilateral lower extremities. In order to address this issue we recommend a peripheral angiogram with possible intervention (right lower extremity, then left lower extremity. The risks and benefits of the procedure were explained to the patient and she is in agreement with proceeding. In the meantime we will order a CTA of the abdominal aorta with bilateral lower extremity arterial runoff to determine our access point. In addition we will start the patient on cilostazol 100 mg BID. She will continue on aspirin 81 mg daily and statin therapy. We will tentatively plan on doing the procedure on Sunday. Thank you for this interesting consult and allowing us to participate in the care of your patient. Further recommendations to follow. JERRY WU MD Mar 07, 2025 18:14
[2025-03-07] MEDS: LISINOPRIL 20 MG TABLET PO SCH (19:54)
[2025-03-08] VITALS (7 sets, daily range): BP systolic 91–144; BP diastolic 48–67; PULSE 67–73; RESP 16–20; TEMP 97.9–98.1; O2SAT 96–98
[2025-03-08 06:17] LABS: NUCLEATED RED BLOOD CELLS 0.0 % (0.0-0.19); PLATELET COUNT (AUTO) 267 K/uL (130-400); RED BLOOD CELL COUNT(AUTO) 3.46 MIL/uL (4.00-5.50); RED CELL DISTRIBUTION WIDTH 14.3 % (11.0-15.5); WHITE BLOOD COUNT (AUTO) 6.1 K/uL (4.8-10.8)
[2025-03-08 06:35] LABS: ASPARTATE AMINOTRANSFERASE 13.0 U/L (10-37); CREATININE 0.6 mg/dL (0.5-1.0); GLOMERULAR FILTR. RATE CALC 91.0 mL/min (>90); GLUCOSE,RANDOM 136.0 mg/dL (70-105); SODIUM SERUM 143.0 mmol/L (136-145); TOTAL PROTEIN, SERUM 6.3 g/dL (6.0-8.3); UREA NITROGEN, BLOOD 11.0 mg/dL (7-18)
[2025-03-08] MEDS: amLODIPine 5 MG TAB PO SCH (08:14)
[2025-03-08] MEDS: ASPIRIN 81MG CHEW TAB PO SCH (08:15)
[2025-03-08] MEDS ORDERED: TRAMADOL HCL 50 MG PO PRN (09:00)
--- NOTE | 2025-03-08 12:10 | PN ---
[facility] PROGRESS NOTE Date of Service: Mar 08, 2025 Time of Service: 12:01 SUBJECTIVE: [Patient presents to the emergency department with a chief complaint of lower extremity pain. She reports onset of symptoms two weeks ago, primarily affecting both feet. The pain is described as sharp and tingling, occurring intermittently. There are no alleviating factors, and symptoms are aggravated by physical activity. She also reports associated discoloration at the tips of her toes. 03/08/25 Patient was evaluated today, she has been seen by form grader already. Had CT runoff pending reading. Dr Wu recommending Peripheral angio, plans to do tomorrow. We will continue to follow recommendations and managed patient's symptoms. No other complaints, she is afebrile. Labs reviewed. ] REVIEW OF SYSTEMS CONSTITUTIONAL: Denies fevers, chills, or night sweats. No unintentional weight loss reported. NEUROLOGICAL: Denies headache, amaurosis fugax, motor weakness, sensory deficit, vertigo/spinning sensation, gait abnormalities, or tremors. ENT: No hearing loss, otalgia, otorrhea, rhinitis, rhinorrhea, hoarseness, or sore throat. CARDIOVASCULAR: Denies any exertional angina, dyspnea on exertion, orthopnea, paroxysmal nocturnal dyspnea, palpitations, life-threatening arrhythmias, lanre dication. PULMONARY: Denies any shortness of breath, cough, phlegm/sputum, hemoptysis, pleuritic chest pain. SLEEP: Denies morning headaches, daytime somnolence or napping. Denies difficulty falling asleep, staying asleep, waking from sleep. Denies knowledge of snoring. GASTROINTESTINAL: Denies any type of dysphagia to either liquids or solids. Denies nausea, vomiting, pyrosis, early satiety, abdominal pain, diarrhea, constipation, or changes in stool consistency or caliber. Denies coffee-ground emesis, hematemesis, hematochezia, or melanotic stools. GENITOURINARY: Denies frequency, urgency, nocturia, hematuria or incontinence (Storage/Irritative symptoms.) Low urinary stream, straining to void, urinary intermittency or hesitancy, splitting of the voiding stream, terminal dribbling. ENDOCRINOLOGIC: Denies polyuria, polydipsia, polyphagia or heat/cold intolerances. HEMATOLOGIC: Denies thrombophilia/previous clots, or coagulopathy/bleeding disorders. ONCOLOGIC: Denies personal history of malignancy. DERMATOLOGIC: Denies rashes or pruritus. PSYCHIATRIC: Denies any suicidal or homicidal ideation. Denies hallucinations. PHYSICAL EXAM GENERAL APPEARANCE: The patient is awake, alert, and oriented, in no acute cardiopulmonary distress. NEUROLOGICAL: Cranial nerves II-XII grossly intact. Motor is 5/5 in bilateral upper and lower extremities proximal to distal. No sensory deficits. HEENT: Face is symmetric. Pupils are equal and reactive. Extraocular movements are intact. NECK: Supple. No JVD. No thyromegaly. No submental, submandibular, pre- /postauricular, occipital or supraclavicular lymphadenopathy. CHEST: Normal chest expansion. No Telemetry. LUNGS: Absence of any rales, rhonchi or any wheezing. CARDIOVASCULAR: Regular. S1 and S2 normal. No appreciable rubs, murmurs or gallops. ABDOMEN: Soft, nontender, and nondistended. There is no rebound, voluntary guarding, or rigidity. : Deferred. No Pace. EXTREMITIES: Bilateral feet: Severe pain reported, especially to touch. Right 2nd toe: Small ulcer noted. Left 3rd toe: Pain to touch. Plantar surfaces: Blackish discoloration observed. Heels: Pain on palpation. SKIN: No skin breakdown. Vital Signs (last 8hr) Date Time Temp Pulse Resp B/P (MAP) Pulse Ox O2 Delivery O2 Flow Rate FiO2 03/08/25 11:43 98.1 68 18 91/67 94 Room Air 03/08/25 08:14 96 Room Air* 0 21 03/08/25 07:54 97.9 73 18 144/60 96 Room Air LABS: Laboratory: Test 03/08/25 06:08 03/07/25 11:09 03/07/25 06:32 03/06/25 19:23 Range/Units White Blood Count 6.1 # 4.8-10.8 K/uL Red Blood Count 3.46 L 4.00-5.50 MIL/uL Hemoglobin 9.7 L 12.0-16.0 g/dL Hematocrit 31.5 L 36-48 % Mean Corpuscular Volume 91.0 79-99 fL Mean Corpuscular Hemoglobin 28.0 27.0-33.0 pg Mean Corpuscular Hemoglobin Concent 30.8 L 32.0-36.0 g/dL Red Cell Distribution Width 14.3 11.0-15.5 % Platelet Count 267 130-400 K/uL Mean Platelet Volume 9.1 7.5-10.5 fL Nucleated Red Blood Cells 0.0 0.0-0.19 % Red Blood Cell Morphology See comments Sodium Level 143 136-145 mmol/L Potassium Level 3.9 3.5-5.1 mmol/L Chloride Level 107 101-111 mmol/L Carbon Dioxide Level 30 21-32 mmol/L Blood Urea Nitrogen 11 7-18 mg/dL Creatinine 0.6 0.5-1.0 mg/dL Glomerular Filtration Rate Calc 91 >90 mL/min Random Glucose 136 H 70-105 mg/dL Total Calcium 8.7 8.5-10.1 mg/dL Total Bilirubin 0.3 0.2-1.0 mg/dL Aspartate Amino Transf (AST/SGOT) 13 10-37 U/L Alanine Aminotransferase (ALT/SGPT) 11 L 12-78 U/L Alkaline Phosphatase 67 50-136 U/L Total Protein 6.3 6.0-8.3 g/dL Albumin 3.0 L 3.5-5.0 g/dL Whole Blood Glucose 101 70-110 MG/DL Immature Granulocyte % (Auto) 0.2 0-1 % Neutrophils (%) (Auto) 53.4 40.0-77.0 % Lymphocytes (%) (Auto) 31.7 21.0-51.0 % Monocytes (%) (Auto) 10.4 3.0-13.0 % Eosinophils (%) (Auto) 3.1 0.0-8.0 % Basophils (%) (Auto) 1.2 0.0-5.0 % Neutrophils # (Auto) 2.6 1.8-7.7 K/uL Lymphocytes # (Auto) 1.5 1.0-4.8 K/uL Monocytes # (Auto) 0.5 0.1-1.0 K/uL Eosinophils # (Auto) 0.15 0.00-0.70 K/uL Basophils # (Auto) 0.06 0.00-0.20 K/uL Absolute Immature Granulocyte (auto 0.01 0-1 K/uL Phosphorus Level 3.4 2.5-4.9 mg/dL Magnesium Level 2.00 1.80-2.40 mg/dL Thyroid Stimulating Hormone (TSH) 3.87 H 0.36-3.74 uIU/mL Prothrombin Time 10.7 9.6-11.6 SEC Prothromb Time International Ratio 1.01 0.85-1.15 Activated Partial Thromboplast Time 24.8 L 26.3-35.5 SEC Troponin I High Sensitivity 36 4-50 ng/L B-Type Natriuretic Peptide 57 0-100 pg/mL Current Medications Medications (Trade) Dose Ordered Sig/Lucie Route PRN Reason Start Time Stop Time Status Last Admin Dose Admin Acetaminophen (TYLenol 325MG TAB) 650 mg Q6H PRN PO TEMPERATURE GREATER THAN 101.5 03/06/25 23:00 04/05/25 22:59 Amlodipine Besylate (NorvASC 5MG TAB) 10 mg DAILY PO 03/08/25 09:00 04/07/25 08:59 03/08/25 08:14 5 MG Aspirin (Aspirin 81mg Chew Tab) 81 mg DAILY PO 03/08/25 09:00 04/07/25 08:59 03/08/25 08:15 81 MG Aspirin (Aspirin 81mg Ec Tab) 81 mg DAILY PO 03/07/25 09:00 03/07/25 13:12 DC 03/07/25 08:34 81 MG Atorvastatin Calcium (LIPItor 10MG) 10 mg HS PO 03/07/25 21:00 03/07/25 13:14 DC Atorvastatin Calcium (LIPItor 40MG) 40 mg HS PO 03/07/25 21:00 04/06/25 20:59 03/07/25 19:54 40 MG Cilostazol (PLETal 100MG TAB) 100 mg BID PO 03/07/25 21:00 04/06/25 20:59 03/08/25 08:14 100 MG Clopidogrel Bisulfate (plaVIX 75MG) 75 mg DAILY PO 03/07/25 09:00 03/07/25 19:38 DC 03/07/25 08:35 75 MG Enoxaparin Sodium (Lovenox) 30 mg DAILY SQ 03/07/25 09:00 04/06/25 08:59 03/08/25 08:20 30 MG Famotidine (Pepcid 20mg Tab) 20 mg DAILY PO 03/07/25 09:00 04/06/25 08:59 03/08/25 08:14 20 MG Gabapentin (NEURontin 100 mg CAP) 100 mg TID PO 03/07/25 14:00 03/07/25 16:06 DC 03/07/25 13:55 100 MG Home Med (Home Medication) (Tramadol HCl 50MG ER) 1 TAB) Q8H PRN PO MODERATE PAIN (4-6) 03/08/25 09:00 04/07/25 08:59 Hydralazine HCl (APRESOLine 20MG INJ) 10 mg Q6H PRN IV For:SBP above 160;DBP above 90 03/06/25 23:00 04/05/25 22:59 03/07/25 12:15 10 MG Lactulose (Constulose 20gm/ 30ml Udcup) 20 gm BID PRN PO CONSTIPATION 03/06/25 23:00 04/05/25 22:59 Levothyroxine Sodium (SYNTHroid 88MCG TAB) 88 mcg SYN PO 03/08/25 06:30 04/07/25 06:29 03/08/25 06:18 88 MCG Lisinopril (Prinivil 20mg) 20 mg BID PO 03/07/25 21:00 04/06/25 20:59 03/08/25 08:13 20 MG Metoprolol Succinate (TopROL XL) 50 mg DAILY PO 03/08/25 09:00 04/07/25 08:59 03/08/25 08:14 50 MG Morphine Sulfate (morPHINE 4MG SYG) 2 mg Q4H PRN IVP SEVERE PAIN (7-10) 03/06/25 23:00 03/13/25 22:59 03/08/25 00:06 2 MG Ondansetron HCl (zoFRAN 4MG INJ) 4 mg Q6H PRN IV NAUSEA/VOMITING 03/06/25 23:00 04/05/25 22:59 03/07/25 00:01 4 MG Pregabalin ([id number]) 75 mg BID PO 03/07/25 21:00 04/06/25 20:59 03/08/25 08:13 75 MG DIAGNOSTICS / RADIOLOGY: [ ] ASSESSMENT: [Severe Peripheral Arterial Disease (PAD), [place] Category 5: Bilateral lower extremity involvement (R>L) Intractable bilateral lower extremity pain Peripheral arterial disease (PAD) Digital discoloration and ulceration, concerning for possible ischemia Hyperlipidemia Hypertension Hypothyroidism PLAN: [Vascular Imaging and Intervention -Cardio planning peripheral angiogram with possible intervention (right lower extremity first, then left) -Ordered CTA of the abdominal aorta with bilateral lower extremity arterial runoff to determine vascular access- pending final reading Medical Management -Cardio Initiated cilostazol 100 mg PO BID, continue aspirin 81 mg PO daily, continue statin therapy -Analgesia as needed with morphine. -Resumed home medications -GI prophylaxis: Famotidine -DVT prophylaxis: Lovenox Wound Care -Local wound care for digital ulcers -Monitor for signs of infection or progression Pain Management -Continue current pain management regimen as needed Procedure Planning -Tentatively schedule angiogram/intervention for Sunday -Dr. Wu discussed with patient on risks/benefits and consents to proceed Monitoring and Follow-up -Monitor for changes in symptoms, ulcer progression, or signs of critical limb ischemia -Reassess after imaging and intervention Case discussed with Dr. Rebollar, above plan was formulated ] ATTESTATION BY PHYSICIAN I have seen and examined the patient. I reviewed the documentation, medical decision making, and treatment plan as noted by the mid-level provider above. I agree with the findings and plan of care. Ankit Rebollar IV, MD, [facility] Mar 08, 2025 12:10
--- NOTE | 2025-03-08 13:38 | HMCIMG ---
EXAM: CTA Abdomen and Pelvis With Runoff to the Lower Extremities with Intravenous Contrast. CLINICAL HISTORY: PAD TECHNIQUE: Axial CTA images of the abdomen, pelvis and lower extremities with intravenous contrast in the arterial phase with coronal and sagittal reformatted images generated and reviewed. 3-D reformatted images generated on an independent workstation and also reviewed. CONTRAST: was injected intravenously without incident. COMPARISON: None provided. FINDINGS: VASCULATURE: Aorta: Extensive peripheral wall atherocalcific changes along the entire course of abdominal aorta, most prominent in the immediate infrarenal aorta, causing up to 80% luminal stenosis. No abdominal aortic aneurysm. No dissection. Celiac trunk: No acute finding. No occlusion or significant stenosis. Superior mesenteric artery: No acute finding. No occlusion or significant stenosis. Inferior mesenteric artery: No acute finding. No occlusion or significant stenosis. Renal arteries: No acute finding. No occlusion or significant stenosis. Right iliac arteries: Peripheral atherocalcific changes causing up to 50% luminal narrowing. Right femoral arteries: Peripheral atherocalcific changes causing mild luminal narrowing. Right popliteal artery Peripheral atherocalcific changes, not causing significant luminal narrowing. Right calf arteries: Peripheral atherocalcific changes, not causing significant luminal narrowing. Left iliac arteries Peripheral atherocalcific changes causing up to 40% luminal narrowing. Left femoral arteries Peripheral atherocalcific changes causing mild luminal narrowing. Left popliteal artery: Peripheral atherocalcific changes, not causing significant luminal narrowing. Left calf arteries: Peripheral atherocalcific changes, not causing significant luminal narrowing. Lower thorax: Bibasilar atelectasis ABDOMEN: Liver: Unremarkable. No mass. Gallbladder and bile ducts: No calcified stone. No ductal dilation. Pancreas: Unremarkable. No ductal dilation. Spleen: Unremarkable. Adrenals: No mass. Kidneys and ureters: The kidneys enhance symmetrically. No hydronephrosis. No solid mass. Bilateral renal cortical cysts largest of which is 2.8 cm in left kidney. Stomach and bowel: No obstruction. No bowel wall thickening. No CT evidence of acute diverticulitis. Appendix: No evidence of appendicitis. PELVIS: Bladder: Decompressed. Reproductive: Unremarkable as visualized. Peritoneum: No free fluid. No free air. Lymph nodes: No lymphadenopathy is evident. Bones: Degenerative changes along visualized spine. No acute osseous abnormality. LOWER EXTREMITIES: Soft tissues: The soft tissues are unremarkable. Lymph nodes: No lymphadenopathy is evident. Bones: No acute osseous abnormality. IMPRESSION: 1. Extensive peripheral wall atherocalcific changes along the abdominal aorta, most prominent in the immediate infrarenal aorta, causing up to 80% luminal stenosis. 2. Peripheral atherocalcific changes in iliac arteries, causing up to 50% luminal narrowing on the right and up to 40% on the left. 3. Mild atherocalcific changes in femoral, popliteal, and calf arteries bilaterally, without significant stenosis. 4. No other acute findings. /[place]
--- NOTE | 2025-03-08 14:47 | PN ---
This is an 79-year-old female with a history of hypertension, hyperlipidemia, hypothyroidism and former tobacco abuse. She was admitted 03/06/2025 due to bilateral leg pain of eight weeks' duration. She underwent arterial Doppler bilateral lower extremities showing monophasic waveforms in the right-sided infrapopliteal arteries and monophasic waveforms in all arteries of the left lower extremity. She subsequently underwent CTA of the abdominal aorta with runoff which showed extensive peripheral wall atherosclerotic changes along the entire course of the abdominal aorta most prominent in the immediate infrarenal aorta causing up to 80% luminal stenosis without evidence of abdominal aortic aneurysm or dissection. She also had 50% luminal narrowing to the right iliac artery and 40% luminal narrowing to the left iliac artery. Her most recent blood pressure is 91/67. Chest x-ray shows mild chronic obstructive pulmonary disease with mild cardiomegaly and mild atelectatic opacities in the bilateral lung [place]. White blood count 6.1, hemoglobin 9.7, hematocrit 31.5, platelets 267, creatinine 0.6, potassium 3.9. She reports mild persistent pain to bilateral feet. On exam, she is in no acute distress, regular rate and rhythm, lungs are clear to auscultation bilaterally, bilateral feet are cold to touch. She has small ulcerations seen on the tips of multiple digits on bilateral feet. Assessment: 1. 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 2. PAD, [place] category 5 symptoms. 3. Former smoker. 4. Hypertension. 5. Hyperlipidemia. Plan: Discussed with Dr. Wu. 1. She underwent CTA of the abdominal aorta with runoffs and was found to have 80% luminal stenosis of the infrarenal abdominal aorta. We will proceed with peripheral angiogram with possible endoluminal grafting versus axillary to femoral bypass. The procedure was discussed with the patient and her daughter and she wishes to proceed. Dr. Recinos will be consulted regarding the procedure. 2. Continue aspirin 81 mg once daily, atorvastatin 40 mg once daily, cilostazol 100 mg twice daily, lisinopril 20 mg twice daily and metoprolol succinate 50 mg once daily. 3. She is pending echocardiogram. 4. Make NPO after midnight. Hold Lovenox in the a.m.. Vitals/Labs Vital Signs Date Time Temp Pulse Resp B/P (MAP) Pulse Ox O2 Delivery O2 Flow Rate FiO2 10//25 11:43 98.1 68 18 91/67 94 Room Air 03/08/25 08:14 0 21 Laboratory Tests 03/08/25 06:08 ANDREW RAPP PAC Mar 08, 2025 14:47
--- NOTE | 2025-03-08 15:46 | NUR ---
DCP: INITIAL ASSESSMENT Patient lives with daughter, Jessica Peacock. She has [facility] that is coming in X 3 week to do wound care. Patient has BPM at home. She is able to complete ADLs independently and drives. PCP is Dr. Stepan Calderón. Pharmacy is [facility] located on [facility] in [place]. Patient voiced no safety concerns regarding returning home and states she has no difficulty with housing or buying food. DCP is home. Addendum: 03/08/25 at 1548 by MONTY JAMES SS Amended: Links added.
--- NOTE | 2025-03-08 15:50 | NUR ---
EMERGENCY CONTACTS Jessica Peacock (daughter) [phone] Angela Villarreal (daughter) [phone]
[2025-03-09] VITALS (7 sets, daily range): BP systolic 133–168; BP diastolic 48–60; PULSE 65–80; RESP 18–19; TEMP 97.5–98.2; O2SAT 96–97
--- NOTE | 2025-03-09 00:08 | HMCSR ---
APPROVED REPORT EXAM: Two-dimensional and M-mode echocardiogram with Doppler and color Doppler. Study Details: HTN , HLD , PVD INDICATION ICD: Assess LV Function 2D Dimensions RVDd5.4 cmLVEF(%)65.7 (>50%)LVED Vol(simp.)83.2 mL IVSd1.0 (0.7-1.1cm)FS(%)36 %LVES Vol(simp.)44.2 mL LVDd4.0 (3.8-5.6cm)LA (2D)3.9 (1.6-4.0cm)LVEF(%, simp.)47 % PWd0.9 (0.7-1.1cm)Ao Root(2D)3.2 (2.0-3.7cm)LA ESV INDEX (BP)36.32 mL/m2 IVSs1.2 cmLVOT diam2.1 (1.8-2.4cm) LVDs2.6 (2.5-4.0cm) PWs1.2 cm M-Mode Dimensions EPSS0.4 cm LA (MM)3.9 (1.6-4.0cm) Ao Root(MM)2.5 (2.0-3.7cm) Aortic Valve AoV Vmax1.7 m/Elisabeth Peak GR11.8 mmHgLVOT Vmax1.2 m/s AoV VTI0.3 mAo Mean GR5.8 mmHgLVOT VTI0.25 m DOC (VMAX)2.39 cm2AVA (VTI) 2.6 cm2 Mitral Valve MV E Vmax46.1 cm/sDECEL Ljpy137 ms MV A Vmax73.7 cm/sP 1/2 T102 ms E/A ratio0.6MVA (PHT)2.2 cm2 TDI E/E' Drueyp95.8E/E' Gluuqac31.8 Medial E' Peak V4.28 cm/sLateral E' Peak V4.28 cm/s Pulmonary Valve PV Vmax1.0 m/sPV VTI0.24 mPV Mean GR2.3 mmHg PV Peak GR4.1 mmHg Tricuspid Valve TR Vmax2.8 m/sRVSP28.0 mmHg TR Peak GR31.0 mmHg Left Ventricle The left ventricle is normal in size. No regional wall motion abnormalities noted. Mild concentric le ft ventricular hypertrophy. Left ventricular systolic function is normal, estimated LVEF is 55%. Stag e I diastolic dysfunction. Right Ventricle The right ventricle is dilated. The right ventricular systolic function is normal. Atria The left atrium is mildly dilated, 36 mL/m. The right atrium is dilated. Aortic Valve Aortic valve is trileaflet. The leaflets are moderately thickened and calcified. Trace aortic regurgi tation. There is aortic sclerosis without stenosis. Mitral Valve Mild mitral annular calcification is noted. The leaflets are mildly thickened and calcified. Trace mi tral regurgitation. There is no mitral valve stenosis. Tricuspid Valve The tricuspid valve leaflets are mildly thickened. Mild tricuspid regurgitation. RVSP is 31 mmHg. Pulmonic Valve Pulmonic valve is not well visualized. Great Vessels The aortic root is normal in size. The ascending aorta is normal in size. The IVC is normal in size a nd collapses >50% with inspiration. Pericardium No pericardial effusion. Conclusion The left atrium is mildly dilated, 36 mL/m. The right atrium is dilated. The right ventricle is dilated. Mild concentric left ventricular hypertrophy. No regional wall motion abnormalities noted. Left ventricular systolic function is normal, estimated LVEF is 55%. Stage I diastolic dysfunction. Trace aortic regurgitation. Trace mitral regurgitation. Mild tricuspid regurgitation. PASP is 34 mmHg. No pericardial effusion.
[2025-03-09 06:33] LABS: NUCLEATED RED BLOOD CELLS 0.0 % (0.0-0.19); PLATELET COUNT (AUTO) 266.0 K/uL (130-400); RED BLOOD CELL COUNT(AUTO) 3.27 MIL/uL (4.00-5.50); RED CELL DISTRIBUTION WIDTH 14.6 % (11.0-15.5); WHITE BLOOD COUNT (AUTO) 5.0 K/uL (4.8-10.8)
[2025-03-09 06:49] LABS: INR 0.97 (0.85-1.15)
[2025-03-09 06:50] LABS: CREATININE 0.7 mg/dL (0.5-1.0); GLOMERULAR FILTR. RATE CALC 87.0 mL/min (>90); GLUCOSE,RANDOM 117.0 mg/dL (70-105); SODIUM SERUM 141.0 mmol/L (136-145); UREA NITROGEN, BLOOD 13.0 mg/dL (7-18)
--- NOTE | 2025-03-09 12:53 | PN ---
PROBLEM LIST: 1. Critical peripheral vascular disease, [place] class 5 symptoms bilateral lower extremity, right more than left. 2. Diabetes mellitus type 2 with neuropathy. 3. Hypertension. 4. Hyperlipoproteinemia. 5. Hypothyroidism on supplement, history of tobacco use, critical vascular disease by ultrasound studies and by CT angiography. This patient has been evaluated and hospitalized because of recurrent symptoms of bilateral lower extremity discomfort. On carefully questioning her, her symptoms started a number of months ago. She had been seen by Podiatry and was told that she had calluses. She was evaluated by her primary care team and was sent to the vascular specialist in [place] for additional evaluation. Ultrasound studies documented what was described as infrapopliteal disease and the patient was scheduled to undergo a percutaneous intervention. Today that was the scheduling time. Unfortunately, because of resting symptoms that were worsening, the patient was assessed in the Emergency Department and hospitalized. During this hospitalization, she underwent an echocardiogram that documented preserved LV systolic function with moderate concentric left ventricular hypertrophy and grade 1 diastolic dysfunction. There was no significant valvular pathology. Arterial flow studies of the lower extremities had documented severe disease as mentioned previously. The patient was noted to have monophasic flow. CT angiography was performed, which I personally reviewed carefully. The CT angiogram has documented extensive peripheral atherosclerotic changes with a heavily calcified segment in the abdominal aorta just distal to the renal arteries with approximately 80% luminal narrowing stenosis. I also noted a distal aortic shelf-like lesion. The patient had bilateral moderate iliac artery stenosis with mild changes in the femoral and popliteal arteries bilaterally with findings of infrapopliteal disease as well. On evaluating the patient today, her feet are remarkable for pallor and she also has some ulceration on the tip of the toe on the right and a toe on the left. Over the last 24 hours, the patient's vital signs have been stable. She has had no evidence . The patient has been afebrile. Her blood pressure is in the 135-140 systolic range. She is saturating at 97% on room air and appears to be currently comfortable. In my assessment, this patient has critical aortic disease, which is a high risk for any form of intervention and ideally should be considered for endoluminal grafting because of areas of dissection and because of extensive calcification that is not likely to respond well to simple angioplasty. She will likely require lithotripsy of the abdominal aorta, followed by placement of a graft. The patient has infrapopliteal disease, which may need to be addressed either at the same setting or a different setting. At this point, I would like to add clopidogrel to the aspirin and cilostazol as well as the statins. I will also place the bed in reverse Trendelenburg position. I will obtain a Lexiscan Cardiolite because of extensive calcification noted in the coronary arteries on evaluation as the patient may require general anesthesia for endoluminal grafting. I will obtain measurements for potential endoluminal grafting at some time in the future. In the meantime, we will continue to keep the patient with comfort measures for pain. TID: [id number] RECEIPT: [id number]
--- NOTE | 2025-03-09 15:07 | PN ---
[facility] PROGRESS NOTE Date of Service: Mar 09, 2025 Time of Service: 15:04 SUBJECTIVE: [Patient presents to the emergency department with a chief complaint of lower extremity pain. She reports onset of symptoms two weeks ago, primarily affecting both feet. The pain is described as sharp and tingling, occurring intermittently. There are no alleviating factors, and symptoms are aggravated by physical activity. She also reports associated discoloration at the tips of her toes. 03/08/25 Patient was evaluated today, she has been seen by surgical lead already. Had CT runoff pending reading. Dr Wu recommending Peripheral angio, plans to do tomorrow. We will continue to follow recommendations and managed patient's symptoms. No other complaints, she is afebrile. Labs reviewed. 03/09/25 The patient was evaluated in the room. According to the patient and family, the scheduled angiogram was canceled today. Dr. Recinos recommended against proceeding due to the patient's critical aortic stenosis, which presents a high risk for any intervention. He advised that, given the presence of aortic dissection and extensive calcification, the patient is unlikely to benefit from simple angioplasty and should instead be considered for endoluminal grafting. Lithotripsy of the abdominal aorta followed by graft placement will likely be required. Additionally, the patient has infrapopliteal disease, which may need to be addressed either during the same procedure or at a later date. At this time, Dr. Recinos recommended holding clopidogrel, aspirin, cilostazol, and statins. The patient is now scheduled for a Lexiscan Cardiolite study due to extensive coronary artery calcification noted on evaluation, as general anesthesia may be required for the planned endoluminal grafting. No other complaints, we will continue with supportive care as appropriate. The patient and family verbalized understanding of the current plan and recommendations. ] REVIEW OF SYSTEMS CONSTITUTIONAL: Denies fevers, chills, or night sweats. No unintentional weight loss reported. NEUROLOGICAL: Denies headache, amaurosis fugax, motor weakness, sensory deficit, vertigo/spinning sensation, gait abnormalities, or tremors. ENT: No hearing loss, otalgia, otorrhea, rhinitis, rhinorrhea, hoarseness, or sore throat. CARDIOVASCULAR: Denies any exertional angina, dyspnea on exertion, orthopnea, paroxysmal nocturnal dyspnea, palpitations, life-threatening arrhythmias, claudication. PULMONARY: Denies any shortness of breath, cough, phlegm/sputum, hemoptysis, pleuritic chest pain. SLEEP: Denies morning headaches, daytime somnolence or napping. Denies difficulty falling asleep, staying asleep, waking from sleep. Denies knowledge of snoring. GASTROINTESTINAL: Denies any type of dysphagia to either liquids or solids. Denies nausea, vomiting, pyrosis, early satiety, abdominal pain, diarrhea, constipation, or changes in stool consistency or caliber. Denies coffee-ground emesis, hematemesis, hematochezia, or melanotic stools. GENITOURINARY: Denies frequency, urgency, nocturia, hematuria or incontinence (Storage/Irritative symptoms.) Low urinary stream, straining to void, urinary intermittency or hesitancy, splitting of the voiding stream, terminal dribbling. ENDOCRINOLOGIC: Denies polyuria, polydipsia, polyphagia or heat/cold intolerances. HEMATOLOGIC: Denies thrombophilia/previous clots, or coagulopathy/bleeding disorders. ONCOLOGIC: Denies personal history of malignancy. DERMATOLOGIC: Denies rashes or pruritus. PSYCHIATRIC: Denies any suicidal or homicidal ideation. Denies hallucinations. PHYSICAL EXAM GENERAL APPEARANCE: The patient is awake, alert, and oriented, in no acute c ardiopulmonary distress. NEUROLOGICAL: Cranial nerves II-XII grossly intact. Motor is 5/5 in bilateral upper and lower extremities proximal to distal. No sensory deficits. HEENT: Face is symmetric. Pupils are equal and reactive. Extraocular movements are intact. NECK: Supple. No JVD. No thyromegaly. No submental, submandibular, pre- /postauricular, occipital or supraclavicular lymphadenopathy. CHEST: Normal chest expansion. No Telemetry. LUNGS: Absence of any rales, rhonchi or any wheezing. CARDIOVASCULAR: Regular. S1 and S2 normal. No appreciable rubs, murmurs or gallops. ABDOMEN: Soft, nontender, and nondistended. There is no rebound, voluntary guarding, or rigidity. : Deferred. No Pace. EXTREMITIES: Bilateral feet: Severe pain reported, especially to touch. Right 2nd toe: Small ulcer noted. Left 3rd toe: Pain to touch. Plantar surfaces: Blackish discoloration observed. Heels: Pain on palpation. SKIN: No skin breakdown. Vital Signs (last 8hr) Date Time Temp Pulse Resp B/P (MAP) Pulse Ox O2 Delivery O2 Flow Rate FiO2 03/09/25 11:51 97.5 72 18 168/60 95 Nasal Cannula 03/09/25 07:43 97.5 74 18 141/49 97 Room Air LABS: Laboratory: Test 03/09/25 05:58 03/08/25 06:08 Range/Units White Blood Count 5.0 4.8-10.8 K/uL Red Blood Count 3.27 L 4.00-5.50 MIL/uL Hemoglobin 9.1 L 12.0-16.0 g/dL Hematocrit 29.0 L 36-48 % Mean Corpuscular Volume 88.7 79-99 fL Mean Corpuscular Hemoglobin 27.8 27.0-33.0 pg Mean Corpuscular Hemoglobin Concent 31.4 L 32.0-36.0 g/dL Red Cell Distribution Width 14.6 11.0-15.5 % Platelet Count 266 130-400 K/uL Mean Platelet Volume 9.8 7.5-10.5 fL Nucleated Red Blood Cells 0.0 0.0-0.19 % Prothrombin Time 10.3 9.6-11.6 SEC Prothromb Time International Ratio 0.97 0.85-1.15 Activated Partial Thromboplast Time 25.4 L 26.3-35.5 SEC Sodium Level 141 136-145 mmol/L Potassium Level 3.2 L 3.5-5.1 mmol/L Chloride Level 106 101-111 mmol/L Carbon Dioxide Level 27 21-32 mmol/L Blood Urea Nitrogen 13 7-18 mg/dL Creatinine 0.7 0.5-1.0 mg/dL Glomerular Filtration Rate Calc 87 >90 mL/min Random Glucose 117 H 70-105 mg/dL Total Calcium 8.5 8.5-10.1 mg/dL Red Blood Cell Morphology See comments Total Bilirubin 0.3 0.2-1.0 mg/dL Aspartate Amino Transf (AST/SGOT) 13 10-37 U/L Alanine Aminotransferase (ALT/SGPT) 11 L 12-78 U/L Alkaline Phosphatase 67 50-136 U/L Total Protein 6.3 6.0-8.3 g/dL Albumin 3.0 L 3.5-5.0 g/dL Current Medications Medications (Trade) Dose Ordered Sig/Lucie Route PRN Reason Start Time Stop Time Status Last Admin Dose Admin Acetaminophen (TYLenol 325MG TAB) 650 mg Q6H PRN PO TEMPERATURE GREATER THAN 101.5 03/06/25 23:00 04/05/25 22:59 Acetaminophen/ Codeine Phosphate (TYLenol-coDEINE TAB) 1 tab Q6H PRN PO MODERATE PAIN (4-6) 03/09/25 09:30 04/08/25 09:29 Acetaminophen/ Codeine Phosphate (TYLenol-coDEINE TAB) 2 tab Q6H PRN PO SEVERE PAIN (7-10) 03/09/25 09:30 04/08/25 09:29 Amlodipine Besylate (NorvASC 5MG TAB) 10 mg DAILY PO 03/08/25 09:00 04/07/25 08:59 03/08/25 08:14 5 MG Aspirin (Aspirin 81mg Chew Tab) 81 mg DAILY PO 03/08/25 09:00 04/07/25 08:59 03/08/25 08:15 81 MG Aspirin (Aspirin 81mg Ec Tab) 81 mg DAILY PO 03/07/25 09:00 03/07/25 13:12 DC 03/07/25 08:34 81 MG Atorvastatin Calcium (LIPItor 10MG) 10 mg HS PO 03/07/25 21:00 03/07/25 13:14 DC Atorvastatin Calcium (LIPItor 40MG) 40 mg HS PO 03/07/25 21:00 04/06/25 20:59 03/08/25 20:16 40 MG Cilostazol (PLETal 100MG TAB) 100 mg BID PO 03/07/25 21:00 04/06/25 20:59 03/08/25 20:16 100 MG Clopidogrel Bisulfate (plaVIX 75MG) 75 mg DAILY PO 03/07/25 09:00 03/07/25 19:38 DC 03/07/25 08:35 75 MG Clopidogrel Bisulfate (plaVIX 75MG) 75 mg DAILY PO 03/09/25 09:30 04/08/25 09:29 Enoxaparin Sodium (Lovenox) 30 mg DAILY SQ 03/07/25 09:00 04/06/25 08:59 03/08/25 08:20 30 MG Famotidine (Pepcid 20mg Tab) 20 mg DAILY PO 03/07/25 09:00 04/06/25 08:59 03/08/25 08:14 20 MG Gabapentin (NEURontin 100 mg CAP) 100 mg TID PO 03/07/25 14:00 03/07/25 16:06 DC 03/07/25 13:55 100 MG Home Med (Home Medication) (Tramadol HCl 50MG ER) 1 TAB) Q8H PRN PO MODERATE PAIN (4-6) 03/08/25 09:00 04/07/25 08:59 Hydralazine HCl (APRESOLine 20MG INJ) 10 mg Q6H PRN IV For:SBP above 160;DBP above 90 03/06/25 23:00 04/05/25 22:59 03/07/25 12:15 10 MG Lactulose (Constulose 20gm/ 30ml Udcup) 20 gm BID PRN PO CONSTIPATION 03/06/25 23:00 04/05/25 22:59 Levothyroxine Sodium (SYNTHroid 88MCG TAB) 88 mcg SYN PO 03/08/25 06:30 04/07/25 06:29 03/09/25 06:05 88 MCG Lisinopril (Prinivil 20mg) 20 mg BID PO 03/07/25 21:00 04/06/25 20:59 03/08/25 20:16 20 MG Metoprolol Succinate (TopROL XL) 50 mg DAILY PO 03/08/25 09:00 04/07/25 08:59 03/08/25 08:14 50 MG Morphine Sulfate (morPHINE 4MG SYG) 2 mg Q4H PRN IVP SEVERE PAIN (7-10) 03/06/25 23:00 03/09/25 09:27 DC 03/09/25 06:05 2 MG Ondansetron HCl (zoFRAN 4MG INJ) 4 mg Q6H PRN IV NAUSEA/VOMITING 03/06/25 23:00 04/05/25 22:59 03/07/25 00:01 4 MG Pregabalin ([id number]) 75 mg BID PO 03/07/25 21:00 04/06/25 20:59 03/08/25 20:16 75 MG DIAGNOSTICS / RADIOLOGY: [ ] ASSESSMENT: [Severe Peripheral Arterial Disease (PAD), [place] Category 5: Bilateral lower extremity involvement (R>L) Intractable bilateral lower extremity pain Peripheral arterial disease (PAD) Digital discoloration and ulceration, concerning for possible ischemia Hyperlipidemia Hypertension Hypothyroidism PLAN: [Vascular Imaging and Intervention -Angiogram canceled per Dr. Zepeda recommendations. -Patient is not a candidate for simple angioplasty due to critical aortic stenosis, aortic dissection, and extensive vascular calcification. -Plan for possible lithotripsy of the abdominal aorta followed by endoluminal graft placement. -Infrapopliteal disease to be addressed either during the same procedure or at a later date. Cardiac Evaluation: -Proceed with Lexiscan Cardiolite study due to extensive coronary artery calcification and anticipated need for general anesthesia for endoluminal grafting. Supportive Care: -Continue supportive care for other complaints as indicated (e.g., pain management, hemodynamic monitoring, DVT prophylaxis, wound care as appropriate). Medical Management -Hold clopidogrel, aspirin, cilostazol, and statins as per vascular surgery recommendations. -Analgesia as needed with morphine. -Resumed home medications -GI prophylaxis: Famotidine -DVT prophylaxis: Lovenox Wound Care -Local wound care for digital ulcers -Monitor for signs of infection or progression Pain Management -Continue current pain management regimen as needed Follow-up: -Monitor for any changes in clinical status. -Await results of Lexiscan Cardiolite. -Reassess plan following cardiac evaluation and further vascular surgery input. Case discussed with Dr. Rebollar, above plan was formulated ] ATTESTATION BY PHYSICIAN I have seen and examined the patient. I reviewed the documentation, medical decision making, and treatment plan as noted by the mid-level provider above. I agree with the findings and plan of care. Ankit Rebollar IV, MD, [facility] Mar 09, 2025 15:07
[2025-03-10] VITALS (8 sets, daily range): BP systolic 109–169; BP diastolic 44–73; PULSE 68–82; RESP 18; TEMP 97.8–98.7; O2SAT 92–97
[2025-03-10 05:09] LABS: NUCLEATED RED BLOOD CELLS 0.0 % (0.0-0.19); PLATELET COUNT (AUTO) 237.0 K/uL (130-400); RED BLOOD CELL COUNT(AUTO) 3.22 MIL/uL (4.00-5.50); RED CELL DISTRIBUTION WIDTH 14.4 % (11.0-15.5); WHITE BLOOD COUNT (AUTO) 4.8 K/uL (4.8-10.8)
[2025-03-10 05:24] LABS: CREATININE 0.5 mg/dL (0.5-1.0); GLOMERULAR FILTR. RATE CALC 95.0 mL/min (>90); GLUCOSE,RANDOM 121.0 mg/dL (70-105); SODIUM SERUM 143.0 mmol/L (136-145); UREA NITROGEN, BLOOD 11.0 mg/dL (7-18)
--- NOTE | 2025-03-10 07:50 | HMCSR ---
APPROVED REPORT Height: 4 ft 10in Weight: 154 lbs TEST INDICATIONS Peripheral Artery Disease The imaging protocol used to acquire images was Rest Tc-99m/stress Tc-99m 1 day Consent: The procedure was explained and understood by the patient. Informerd consent was witnessed Radha Quiles RN First, low dose rest was performed then high dose stress. RESTING DATA: The resting ekg shows: NSR Rest SPECT myocardial perfusion imaging was performed in supine position minutes following the intra venous injection of 11 mCi of Tc-99 Sestamibi. Time of rest injection: 10:10: Date: 03/09/2025 PHARMACOLOGIC STRESS: Pharmacologic stress test was performed by injecting regadenoson 0.4 mg IV push followed by the intra venous injection of 30 mCi of Tc-99 Sestamibi. Time of stress injection: 11:38: Date: 03/09/2025 Heart Rate at time of stress injection: 71 bpm. Gated Stress SPECT was performed 60 minutes after stress injection. The images were gated to evaluate regional wall motion and calculate left ventricular ejection fracti on. STRESS DETAILS Reason for Termination: Infusion complete Stress Symptoms: Chest Discomfort Max HR Achieved: 90 bpm % of APMHR Achieved: 75 Max Blood Pressure: 182/59 mmHg Stress ECG: NSR Study quality was good. Lung uptake was Normal. Artifact: breast and diaphragmatic artifact LEFT VENTRICLE Size: The left ventricular size is small. Systolic Function:The left ventricular systolic function is hyperdynamic. Wall Motion: No regional wall motion abnormalities noted. The left ventricular ejection fraction was calculated to be 79%.TID = 0.83. LV PERFUSION The rest and stress images show normal perfusion. IMPRESSION Normal pharmacologic nuclear stress test. Global LV Function: Normal Stress ECG Summary: Normal LV Perfusion Summary: Normal Conclusion Normal pharmacologic nuclear stress test. Global LV Function: Normal Stress ECG Summary: Normal LV Perfusion Summary: Normal Low risk scan
[2025-03-10] MEDS: REGADENOSON 0.4 MG/5 ML PF SYG IVP ONE (07:59)
--- NOTE | 2025-03-10 08:05 | PN ---
PROGRESS NOTE PROBLEM LIST: 1. 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 2. PAD, [place] category 5 symptoms. 3. Former smoker. 4. Hypertension. 5. Hyperlipidemia. INTERIM HISTORY OF PRESENT ILLNESS: The patient did have stress testing performed yesterday under the direction of as patient is felt to need endoluminal intervention secondary to critical infrarenal stenosis of greater than 80%. She may also need intervention to infrapopliteal vessels in same setting. Patient currently is in severe pain secondary to occur critical limb ischemia. No tele noted REVIEW OF SYSTEMS: No fever, headache, chest pain, abdominal pain, nausea, vomiting, or diarrhea. VITAL SIGNS Vital Signs Date Time Temp Pulse Resp B/P (MAP) Pulse Ox O2 Delivery O2 Flow Rate FiO2 03/10/25 04:00 97.9 72 18 139/44 95 Room Air 03/09/25 20:00 0 21 Laboratory Tests 03/10/25 04:53 LABS/MEDS Laboratory Tests Test 03/10/25 04:53 White Blood Count 4.8 K/uL (4.8-10.8) Red Blood Count 3.22 MIL/uL (4.00-5.50) L Hemoglobin 9.1 g/dL (12.0-16.0) L Hematocrit 29.2 % (36-48) L Mean Corpuscular Volume 90.7 fL (79-99) Mean Corpuscular Hemoglobin 28.3 pg (27.0-33.0) Mean Corpuscular Hemoglobin Concent 31.2 g/dL (32.0-36.0) L Red Cell Distribution Width 14.4 % (11.0-15.5) Platelet Count 237 K/uL (130-400) Mean Platelet Volume 9.4 fL (7.5-10.5) Nucleated Red Blood Cells 0.0 % (0.0-0.19) Sodium Level 143 mmol/L (136-145) Potassium Level 3.3 mmol/L (3.5-5.1) L Chloride Level 108 mmol/L (101-111) Carbon Dioxide Level 29 mmol/L (21-32) Blood Urea Nitrogen 11 mg/dL (7-18) Creatinine 0.5 mg/dL (0.5-1.0) Glomerular Filtration Rate Calc 95 mL/min (>90) Random Glucose 121 mg/dL (70-105) H Total Calcium 8.7 mg/dL (8.5-10.1) Current Medications Acetaminophen 650 mg Q6H PRN PO; Start 03/06/25 at 23:00; Stop 04/05/25 at 22:59 Aspirin 81 mg DAILY PO Last administered on 03/07/25at 08:34; Start 03/07/25 at 09:00; Stop 03/07/25 at 13:12; Status DC Atorvastatin Calcium 40 mg HS PO Last administered on 03/09/25at 21:24; Start 03/07/25 at 21:00; Stop 04/06/25 at 20:59 Enoxaparin Sodium 30 mg DAILY SQ Last administered on 03/08/25at 08:20; Start 03/07/25 at 09:00; Stop 04/06/25 at 08:59 Famotidine 20 mg DAILY PO Last administered on 03/08/25at 08:14; Start 03/07/25 at 09:00; Stop 04/06/25 at 08:59 Hydralazine HCl 10 mg Q6H PRN IV Last administered on 03/07/25at 12:15; Start 03/06/25 at 23:00; Stop 04/05/25 at 22:59 Lactulose 20 gm BID PRN PO; Start 03/06/25 at 23:00; Stop 04/05/25 at 22:59 Morphine Sulfate 2 mg Q4H PRN IVP Last administered on 03/09/25at 06:05; Start 03/06/25 at 23:00; Stop 03/09/25 at 09:27; Status DC Ondansetron HCl 4 mg Q6H PRN IV Last administered on 03/07/25at 00:01; Start 03/06/25 at 23:00; Stop 04/05/25 at 22:59 Clopidogrel Bisulfate 75 mg DAILY PO Last administered on 03/07/25at 08:35; Start 03/07/25 at 09:00; Stop 03/07/25 at 19:38; Status DC Aspirin 81 mg DAILY PO Last administered on 03/08/25at 08:15; Start 03/08/25 at 09:00; Stop 04/07/25 at 08:59 Atorvastatin Calcium 10 mg HS PO; Start 03/07/25 at 21:00; Stop 03/07/25 at 13:14; Status DC Gabapentin 100 mg TID PO Last administered on 03/07/25at 13:55; Start 03/07/25 at 14:00; Stop 03/07/25 at 16:06; Status DC Lisinopril 20 mg BID PO Last administered on 03/09/25at 21:24; Start 03/07/25 at 21:00; Stop 04/06/25 at 20:59 Metoprolol Succinate 50 mg DAILY PO Last administered on 03/08/25at 08:14; Start 03/08/25 at 09:00; Stop 04/07/25 at 08:59 Amlodipine Besylate 10 mg DAILY PO Last administered on 03/08/25at 08:14; Start 03/08/25 at 09:00; Stop 04/07/25 at 08:59 Levothyroxine Sodium 88 mcg SYN PO Last administered on 03/10/25at 06:10; Start 03/08/25 at 06:30; Stop 04/07/25 at 06:29 Home Med (Tramadol HCl 50MG ER) 1 TAB) Q8H PRN PO; Start 03/08/25 at 09:00; Stop 04/07/25 at 08:59 Pregabalin 75 mg BID PO Last administered on 03/09/25at 21:24; Start 03/07/25 at 21:00; Stop 04/06/25 at 20:59 Iohexol 75 ml STK-MED ONCE IV; Start 03/07/25 at 16:14; Stop 03/07/25 at 16:15; Status DC Iohexol 50 ml STK-MED ONCE IV; Start 03/07/25 at 16:14; Stop 03/07/25 at 16:15; Status DC Cilostazol 100 mg BID PO Last administered on 03/09/25at 21:24; Start 03/07/25 at 21:00; Stop 04/06/25 at 20:59 Acetaminophen/ Codeine Phosphate 1 tab Q6H PRN PO; Start 03/09/25 at 09:30; Stop 04/08/25 at 09:29 Acetaminophen/ Codeine Phosphate 2 tab Q6H PRN PO Last administered on 03/09/25at 22:43; Start 03/09/25 at 09:30; Stop 04/08/25 at 09:29 Clopidogrel Bisulfate 75 mg DAILY PO; Start 03/09/25 at 09:30; Stop 04/08/25 at 09:29 Regadenoson 0.4 mg STK-MED ONCE IVP; Start 03/09/25 at 12:02; Stop 03/09/25 at 12:02; Status DC Bacitracin 1 each DAILY ONCE TP; Start 03/10/25 at 09:00; Stop 03/10/25 at 09:01 PHYSICAL EXAMINATION: GENERAL: No acute distress. HEENT: Normocephalic, atraumatic. EXTREMITIES: No edema bilaterally. NEUROLOGIC: Cranial nerves 2-12 grossly intact. PSYCHIATRIC: Calm. TELEMETRY: None ASSESSMENT: 1. 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 2. PAD, [place] category 5 symptoms. 3. Former smoker. 4. Hypertension. 5. Hyperlipidemia. 6. Normal Lexiscan Cardiolite with a without ischemia or infarct on 03/09/2025 PLAN: At this time patient has been cleared from a cardiac standpoint to proceed with any endoluminal intervention required. This will be discussed further with regarding timing of intervention week. Because the patient's severe pain we will change morphine to q.2 hours and continue with oral medications for pain control. MONICA MARTIN MD Mar 10, 2025 08:05
[2025-03-10] MEDS: BACITRACIN 1 EACH PACKET TP ONE (08:31)
[2025-03-10 10:51] LABS: APPEARANCE,URINE CLEAR (CLEAR); GLUCOSE, URINE (UA) NEGATIVE (NEGATIVE); LEUKOCYTE ESTERASE ,URINE 75 Leu/uL (NEGATIVE); NITRATE,URINE NEGATIVE (NEGATIVE); OCCULT BLOOD,URINE NEGATIVE (NEGATIVE)
[2025-03-10 11:13] LABS: ADD UA MICROSCOPIC YES
[2025-03-10 11:17] LABS: SQUAMOUS EPITHELIAL CELL,UR RARE /HPF (0-2)
--- NOTE | 2025-03-10 16:53 | PN ---
[facility] PROGRESS NOTE Date of Service: Mar 10, 2025 Time of Service: 16:[address] Dixon SUBJECTIVE: [Patient presents to the emergency department with a chief complaint of lower extremity pain. She reports onset of symptoms two weeks ago, primarily affecting both feet. The pain is described as sharp and tingling, occurring intermittently. There are no alleviating factors, and symptoms are aggravated by physical activity. She also reports associated discoloration at the tips of her toes. 03/08/25 Patient was evaluated today, she has been seen by coach mechanic already. Had CT runoff pending reading. Dr Wu recommending Peripheral angio, plans to do tomorrow. We will continue to follow recommendations and managed patient's symptoms. No other complaints, she is afebrile. Labs reviewed. 03/09/25 The patient was evaluated in the room. According to the patient and family, the scheduled angiogram was canceled today. Dr. Recinos recommended against proceeding due to the patient's critical aortic stenosis, which presents a high risk for any intervention. He advised that, given the presence of aortic dissection and extensive calcification, the patient is unlikely to benefit from simple angioplasty and should instead be considered for endoluminal grafting. L ithotripsy of the abdominal aorta followed by graft placement will likely be required. Additionally, the patient has infrapopliteal disease, which may need to be addressed either during the same procedure or at a later date. At this time, Dr. Recinos recommended holding clopidogrel, aspirin, cilostazol, and statins. The patient is now scheduled for a Lexiscan Cardiolite study due to extensive coronary artery calcification noted on evaluation, as general anesthesia may be required for the planned endoluminal grafting. No other complaints, we will continue with supportive care as appropriate. The patient and family verbalized understanding of the current plan and recommendations. ] 03/10/25 patient was seen by MOTOR COACH OPERATOR and physician during rounding in room 324. Jaime becerra was cleared by Dr. Amezquita/coach mechanic for endoluminal grafting to be performed with Dr. Recinos. At this moment we are pending further recommendations regards endoluminal grafting. We will continue to monitor patient in the meantime. A.m. labs. REVIEW OF SYSTEMS CONSTITUTIONAL: Denies fevers, chills, or night sweats. No unintentional weight loss reported. NEUROLOGICAL: Denies headache, amaurosis fugax, motor weakness, sensory defici t, vertigo/spinning sensation, gait abnormalities, or tremors. ENT: No hearing loss, otalgia, otorrhea, rhinitis, rhinorrhea, hoarseness, or sore throat. CARDIOVASCULAR: Denies any exertional angina, dyspnea on exertion, orthopnea, paroxysmal nocturnal dyspnea, palpitations, life-threatening arrhythmias, claudication. PULMONARY: Denies any shortness of breath, cough, phlegm/sputum, hemoptysis, pleuritic chest pain. SLEEP: Denies morning headaches, daytime somnolence or napping. Denies difficulty falling asleep, staying asleep, waking from sleep. Denies knowledge of snoring. GASTROINTESTINAL: Denies any type of dysphagia to either liquids or solids. Denies nausea, vomiting, pyrosis, early satiety, abdominal pain, diarrhea, constipation, or changes in stool consistency or caliber. Denies coffee-ground emesis, hematemesis, hematochezia, or melanotic stools. GENITOURINARY: Denies frequency, urgency, nocturia, hematuria or incontinence (Storage/Irritative symptoms.) Low urinary stream, straining to void, urinary intermittency or hesitancy, splitting of the voiding stream, terminal dribbling. ENDOCRINOLOGIC: Denies polyuria, polydipsia, polyphagia or heat/cold intolerances. HEMATOLOGIC: Denies thrombophilia/previous clots, or coagulopathy/bleeding disorders. ONCOLOGIC: Denies personal history of malignancy. DERMATOLOGIC: Denies rashes or pruritus. PSYCHIATRIC: Denies any suicidal or homicidal ideation. Denies hallucinations. PHYSICAL EXAM GENERAL APPEARANCE: The patient is awake, alert, and oriented, in no acute cardiopulmonary distress. NEUROLOGICAL: Cranial nerves II-XII grossly intact. Motor is 5/5 in bilateral upper and lower extremities proximal to distal. No sensory deficits. HEENT: Face is symmetric. Pupils are equal and reactive. Extraocular movements are intact. NECK: Supple. No JVD. No thyromegaly. No submental, submandibular, pre- /postauricular, occipital or supraclavicular lymphadenopathy. CHEST: Normal chest expansion. No Telemetry. LUNGS: Absence of any rales, rhonchi or any wheezing. CARDIOVASCULAR: Regular. S1 and S2 normal. No appreciable rubs, murmurs or gallops. ABDOMEN: Soft, nontender, and nondistended. There is no rebound, voluntary guarding, or rigidity. : Deferred. No Pace. EXTREMITIES: Bilateral feet: Severe pain reported, especially to touch. Right 2nd toe: Small ulcer noted. Left 3rd toe: Pain to touch. Plantar surfaces: Blackish discoloration observed. Heels: Pain on palpation. SKIN: No skin breakdown. Vital Signs (last 8hr) Date Time Temp Pulse Resp B/P (MAP) Pulse Ox O2 Delivery O2 Flow Rate FiO2 03/10/25 16:00 97.9 78 18 116/52 92 Room Air 03/10/25 11:31 98.1 74 18 121/50 92 Room Air LABS: Laboratory: Test 03/10/25 10:43 03/10/25 04:53 03/09/25 05:58 Range/Units Urine Color LIGHT-YELLOW YELLOW Urine Appearance CLEAR CLEAR Urine pH 6.0 5.0-8.0 Urine Specific [place] 1.005 1.001-1.031 Urine Protein NEGATIVE NEGATIVE mg/dL Urine Glucose (UA) NEGATIVE NEGATIVE mg/dL Urine Ketones NEGATIVE NEGATIVE mg/dL Urine Occult Blood NEGATIVE NEGATIVE Urine Nitrate NEGATIVE NEGATIVE Urine Bilirubin NEGATIVE NEGATIVE mg/dL Urine Urobilinogen 0.2 0.2-1.0 mg/dL Urine Leukocyte Esterase 75 H NEGATIVE [place]/uL Urine RBC None 0-1 /HPF Urine WBC 11-25 H 0-1 /HPF Urine Squamous Epithelial Cells RARE 0-2 /HPF Urine Bacteria MANY None Seen /HPF White Blood Count 4.8 4.8-10.8 K/uL Red Blood Count 3.22 L 4.00-5.50 MIL/uL Hemoglobin 9.1 L 12.0-16.0 g/dL Hematocrit 29.2 L 36-48 % Mean Corpuscular Volume 90.7 79-99 fL Mean Corpuscular Hemoglobin 28.3 27.0-33.0 pg Mean Corpuscular Hemoglobin Concent 31.2 L 32.0-36.0 g/dL Red Cell Distribution Width 14.4 11.0-15.5 % Platelet Count 237 130-400 K/uL Mean Platelet Volume 9.4 7.5-10.5 fL Nucleated Red Blood Cells 0.0 0.0-0.19 % Sodium Level 143 136-145 mmol/L Potassium Level 3.3 L 3.5-5.1 mmol/L Chloride Level 108 101-111 mmol/L Carbon Dioxide Level 29 21-32 mmol/L Blood Urea Nitrogen 11 7-18 mg/dL Creatinine 0.5 0.5-1.0 mg/dL Glomerular Filtration Rate Calc 95 >90 mL/min Random Glucose 121 H 70-105 mg/dL Total Calcium 8.7 8.5-10.1 mg/dL Prothrombin Time 10.3 9.6-11.6 SEC Prothromb Time International Ratio 0.97 0.85-1.15 Activated Partial Thromboplast Time 25.4 L 26.3-35.5 SEC Current Medications Medications (Trade) Dose Ordered Sig/Lucie Route PRN Reason Start Time Stop Time Status Last Admin Dose Admin Acetaminophen (TYLenol 325MG TAB) 650 mg Q6H PRN PO TEMPERATURE GREATER THAN 101.5 03/06/25 23:00 04/05/25 22:59 Acetaminophen/ Codeine Phosphate (TYLenol-coDEINE TAB) 1 tab Q6H PRN PO MODERATE PAIN (4-6) 03/09/25 09:30 04/08/25 09:29 Acetaminophen/ Codeine Phosphate (TYLenol-coDEINE TAB) 2 tab Q4HPRN PRN PO SEVERE PAIN (7-10) 03/10/25 08:00 04/08/25 09:29 Acetaminophen/ Codeine Phosphate (TYLenol-coDEINE TAB) 2 tab Q6H PRN PO SEVERE PAIN (7-10) 03/09/25 09:30 03/10/25 07:57 DC 03/09/25 22:43 2 TAB Amlodipine Besylate (NorvASC 5MG TAB) 10 mg DAILY PO 03/08/25 09:00 04/07/25 08:59 03/10/25 08:30 10 MG Aspirin (Aspirin 81mg Chew Tab) 81 mg DAILY PO 03/08/25 09:00 04/07/25 08:59 03/10/25 08:30 81 MG Aspirin (Aspirin 81mg Ec Tab) 81 mg DAILY PO 03/07/25 09:00 03/07/25 13:12 DC 03/07/25 08:34 81 MG Atorvastatin Calcium (LIPItor 10MG) 10 mg HS PO 03/07/25 21:00 03/07/25 13:14 DC Atorvastatin Calcium (LIPItor 40MG) 40 mg HS PO 03/07/25 21:00 04/06/25 20:59 03/09/25 21:24 40 MG Cilostazol (PLETal 100MG TAB) 100 mg BID PO 03/07/25 21:00 04/06/25 20:59 03/10/25 08:30 100 MG Clopidogrel Bisulfate (plaVIX 75MG) 75 mg DAILY PO 03/07/25 09:00 03/07/25 19:38 DC 03/07/25 08:35 75 MG Clopidogrel Bisulfate (plaVIX 75MG) 75 mg DAILY PO 03/09/25 09:30 04/08/25 09:29 03/10/25 08:30 75 MG Enoxaparin Sodium (Lovenox) 30 mg DAILY SQ 03/07/25 09:00 04/06/25 08:59 03/10/25 08:31 30 MG Famotidine (Pepcid 20mg Tab) 20 mg DAILY PO 03/07/25 09:00 04/06/25 08:59 03/10/25 08:31 20 MG Gabapentin (NEURontin 100 mg CAP) 100 mg TID PO 03/07/25 14:00 03/07/25 16:06 DC 03/07/25 13:55 100 MG Home Med (Home Medication) (Tramadol HCl 50MG ER) 1 TAB) Q8H PRN PO MODERATE PAIN (4-6) 03/08/25 09:00 04/07/25 08:59 Hydralazine HCl (APRESOLine 20MG INJ) 10 mg Q6H PRN IV For:SBP above 160;DBP above 90 03/06/25 23:00 04/05/25 22:59 03/07/25 12:15 10 MG Lactulose (Constulose 20gm/ 30ml Udcup) 20 gm BID PRN PO CONSTIPATION 03/06/25 23:00 04/05/25 22:59 Levothyroxine Sodium (SYNTHroid 88MCG TAB) 88 mcg SYN PO 03/08/25 06:30 04/07/25 06:29 03/10/25 06:10 88 MCG Lisinopril (Prinivil 20mg) 20 mg BID PO 03/07/25 21:00 04/06/25 20:59 03/10/25 08:30 20 MG Metoprolol Succinate (TopROL XL) 50 mg DAILY PO 03/08/25 09:00 04/07/25 08:59 03/10/25 08:30 50 MG Morphine Sulfate (morPHINE 4MG SYG) 2 mg Q4H PRN IVP SEVERE PAIN (7-10) 03/06/25 23:00 03/09/25 09:27 DC 03/09/25 06:05 2 MG Morphine Sulfate (morPHINE 4MG SYG) 3 mg Q2HPRN PRN IVP SEVERE PAIN (7-10) 03/10/25 08:00 03/17/25 07:59 Ondansetron HCl (zoFRAN 4MG INJ) 4 mg Q6H PRN IV NAUSEA/VOMITING 03/06/25 23:00 04/05/25 22:59 03/07/25 00:01 4 MG Pregabalin ([id number]) 75 mg BID PO 03/07/25 21:00 04/06/25 20:59 03/10/25 08:30 75 MG DIAGNOSTICS / RADIOLOGY: [ ] ASSESSMENT: [Severe Peripheral Arterial Disease (PAD), [place] Category 5: Bilateral lower extremity involvement (R>L) Intractable bilateral lower extremity pain Peripheral arterial disease (PAD) Digital discoloration and ulceration, concerning for possible ischemia Hyperlipidemia Hypertension Hypothyroidism PLAN: [ Patient was cleared by Dr. Amezquita/coach mechanic for endoluminal grafting to be performed with Dr. Recinos. At this moment we are pending further recommendations regards endoluminal grafting. We will continue to monitor patient in the meantime. A.m. labs. Vascular Imaging and Intervention -Angiogram canceled per Dr. Zepeda recommendations. -Patient is not a candidate for simple angioplasty due to critical aortic stenosis, aortic dissection, and extensive vascular calcification. -Plan for possible lithotripsy of the abdominal aorta followed by endoluminal graft placement. -Infrapopliteal disease to be addressed either during the same procedure or at a later date. Cardiac Evaluation: -Proceed with Lexiscan Cardiolite study due to extensive coronary artery calcification and anticipated need for general anesthesia for endoluminal grafting. Supportive Care: -Continue supportive care for other complaints as indicated (e.g., pain management, hemodynamic monitoring, DVT prophylaxis, wound care as appropriate). Medical Management -Hold clopidogrel, aspirin, cilostazol, and statins as per vascular surgery recommendations. -Analgesia as needed with morphine. -Resumed home medications -GI prophylaxis: Famotidine -DVT prophylaxis: Lovenox Wound Care -Local wound care for digital ulcers -Monitor for signs of infection or progression Pain Management -Continue current pain management regimen as needed Follow-up: -Monitor for any changes in clinical status. -Await results of Lexiscan Cardiolite. -Reassess plan following cardiac evaluation and further vascular surgery input. Case discussed with Dr. Rebollar, above plan was formulated ] ATTESTATION BY PHYSICIAN I have seen and examined the patient. I reviewed the documentation, medical de cision making, and treatment plan as noted by the mid-level provider above. I agree with the findings and plan of care. Coty Dixon MD, [employer] DIS[employer] PROGRAM NAVIGATOR Mar 10, 2025 16:53
[2025-03-10] MEDS: LACTULOSE 20 GM/30 ML UDCUP PO PRN (18:00)
[2025-03-10] MEDS: PoTASSium chloRIDE 20MEQ ER 20 MEQ ERTAB PO ONE (20:48)
[2025-03-11] VITALS (7 sets, daily range): BP systolic 86–181; BP diastolic 49–60; PULSE 69–72; RESP 16–18; TEMP 97.6–98.6; O2SAT 94–97
[2025-03-11 05:25] LABS: IMMATURE GRANULOCYTE ABSOLUTE 0.01 K/uL (0-1); NUCLEATED RED BLOOD CELLS 0.0 % (0.0-0.19); PLATELET COUNT (AUTO) 249 K/uL (130-400); RED BLOOD CELL COUNT(AUTO) 3.24 MIL/uL (4.00-5.50); RED CELL DISTRIBUTION WIDTH 14.6 % (11.0-15.5); WHITE BLOOD COUNT (AUTO) 5.0 K/uL (4.8-10.8)
[2025-03-11 05:38] LABS: ASPARTATE AMINOTRANSFERASE 16.0 U/L (10-37); CREATININE 0.6 mg/dL (0.5-1.0); GLOMERULAR FILTR. RATE CALC 91.0 mL/min (>90); GLUCOSE,RANDOM 114.0 mg/dL (70-105); SODIUM SERUM 144.0 mmol/L (136-145); TOTAL PROTEIN, SERUM 6.1 g/dL (6.0-8.3); UREA NITROGEN, BLOOD 12.0 mg/dL (7-18)
--- NOTE | 2025-03-11 13:59 | CCATH ---
PROBLEM LIST: * Critical peripheral vascular disease with [place] V classification by symptoms, bilateral lower extremities. * Diabetes mellitus, type 2 with vascular manifestations. * Hypertension. * Hyperlipidemia. * Hypothyroidism, on supplement. * History of tobacco use. 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 * Negative Lexiscan Cardiolite for ischemia on this admission. HISTORY OF PRESENT ILLNESS: This patient has been hospitalized because of critical limb ischemia and resting pain in both lower extremities with ulcerations to the feet. She has documented infrapopliteal disease by prior non-invasive studies; however, the most recent CT angiogram had documented critical disease involving the mid abdominal aorta with extensive calcification and dissection in the distal area of the abdominal aorta. In reviewing the images, I was somewhat concerned about proceeding with any form of intervention for the lower extremities or the abdominal aorta without the protection of an endoluminal graft because of the dissection and the extensive calcification and the potential for rupture with plain balloon angioplasty. It is evident that the patient will likely require shockwave lithotripsy. She will also require evaluation of both lower extremities and proceeding with endoluminal grafting of the abdominal aorta and possibly both iliac arteries depending on the findings on the imaging during the procedure. I had reviewed the findings with the patient's evaluation and her overall status with the patient and with her daughter. The patient has had some improvement in the reverse Trendelenburg position with the legs down; however, she continues to have rest pain. Her exam continues to reveal pallor in both lower extremities with both feet being cold. She does have dystrophic ulcers on the distal toe on both legs. The patient has no calf or thigh tenderness. In anticipation of the procedure, which is scheduled for tomorrow and general anesthesia, a Cardiolite scan was obtained, which has been fairly benign. The patient's vital signs have been stable. She has been afebrile. Her heart rate has been in the 60s and 70s. Her blood pressure is 110-130 systolic range and she is saturating at 96% on room air. Laboratory parameters this morning will be a white count of 5.0, H and H of 9.1 and 28.9 respectively. These are chronic anemic findings for her. The platelet count is 249,000. The chemistries revealed a sodium of 144, potassium 4.9, chloride 109, CO2 is 28. Her BUN is 12. Creatinine is 0.6 with a GFR of 91. The patient's random glucose is 114. Her magnesium is 1.9. Liver enzymes are normal. Albumin is low at 2.7 consistent with protein malnutrition. The patient is currently maintained on morphine, clopidogrel, acetaminophen, amlodipine, metoprolol, baby aspirin, levothyroxine, cilostazol, pregabalin, lisinopril, atorvastatin, famotidine, low-dose Lovenox, and additional p.r.n. medications. PLAN: Today, I have had a detailed discussion with the patient and her daughter once more. I have reviewed alternative modes of management once again. I have discussed the planned procedure with the hope of being able to address her lower extremity disease as well as abdominal disease in the same setting; however, I did explain to them that it may not be possible to tackle all these issues at once in the same setting and that she may require staged procedures. The most important aspect now is addressing the abdominal aorta and the iliac system. They understand the specific risks that we had discussed yesterday and once again today including the potential for complications with bleeding, infection, vascular compromise, loss of limb, kidney failure, and . All their questions were invited and answered. They have requested to proceed. TID: [id number] RECEIPT: [id number]
--- NOTE | 2025-03-11 15:18 | PN ---
[facility] PROGRESS NOTE Date of Service: Mar 11, 2025 Time of Service: 15:[address] Dixon SUBJECTIVE: [Patient presents to the emergency department with a chief complaint of lower extremity pain. She reports onset of symptoms two weeks ago, primarily affecting both feet. The pain is described as sharp and tingling, occurring intermittently. There are no alleviating factors, and symptoms are aggravated by physical activity. She also reports associated discoloration at the tips of her toes. 03/08/25 Patient was evaluated today, she has been seen by gin inspector already. Had CT runoff pending reading. Dr Wu recommending Peripheral angio, plans to do tomorrow. We will continue to follow recommendations and managed patient's symptoms. No other complaints, she is afebrile. Labs reviewed. 03/09/25 The patient was evaluated in the room. According to the patient and family, the scheduled angiogram was canceled today. Dr. Recinos recommended against proceeding due to the patient's critical aortic stenosis, which presents a high risk for any intervention. He advised that, given the presence of aortic dissection and extensive calcification, the patient is unlikely to benefit from simple angioplasty and should instead be considered for endoluminal grafting. L ithotripsy of the abdominal aorta followed by graft placement will likely be required. Additionally, the patient has infrapopliteal disease, which may need to be addressed either during the same procedure or at a later date. At this time, Dr. Recinos recommended holding clopidogrel, aspirin, cilostazol, and statins. The patient is now scheduled for a Lexiscan Cardiolite study due to extensive coronary artery calcification noted on evaluation, as general anesthesia may be required for the planned endoluminal grafting. No other complaints, we will continue with supportive care as appropriate. The patient and family verbalized understanding of the current plan and recommendations. ] 03/10/25 patient was seen by GAS CUTTER and physician during rounding in room 324. Jaime becerra was cleared by Dr. Amezquita/gin inspector for endoluminal grafting to be performed with Dr. Recinos. At this moment we are pending further recommendations regards endoluminal grafting. We will continue to monitor patient in the meantime. A.m. labs. 03/11 patient was seen by nurse practitioner and physician during rounding in room 324. Patient was evaluated by gin inspector and that is pending endoluminal grafting tomorrow 03/12/2025. Patient NPO after midnight. Patient will receive also potassium 40 mEq to replace the potassium of 3.3. Final urine culture pending. As per case management patient to be discharged home once medically cleared. We will continue to monitor patient in the meantime. A.m. labs. REVIEW OF SYSTEMS CONSTITUTIONAL: Denies fevers, chills, or night sweats. No unintentional weight loss reported. NEUROLOGICAL: Denies headache, amaurosis fugax, motor weakness, sensory deficit, vertigo/spinning sensation, gait abnormalities, or tremors. ENT: No hearing loss, otalgia, otorrhea, rhinitis, rhinorrhea, hoarseness, or sore throat. CARDIOVASCULAR: Denies any exertional angina, dyspnea on exertion, orthopnea, paroxysmal nocturnal dyspnea, palpitations, life-threatening arrhythmias, claudication. PULMONARY: Denies any shortness of breath, cough, phlegm/sputum, hemoptysis, pleuritic chest pain. SLEEP: Denies morning headaches, daytime somnolence or napping. Denies difficulty falling asleep, staying asleep, waking from sleep. Denies knowledge of snoring. GASTROINTESTINAL: Denies any type of dysphagia to either liquids or solids. Denies nausea, vomiting, pyrosis, early satiety, abdominal pain, diarrhea, constipation, or changes in stool consistency or caliber. Denies coffee-ground emesis, hematemesis, hematochezia, or melanotic stools. GENITOURINARY: Denies frequency, urgency, nocturia, hematuria or incontinence (Storage/Irritative symptoms.) Low urinary stream, straining to void, urinary intermittency or hesitancy, splitting of the voiding stream, terminal dribbling. ENDOCRINOLOGIC: Denies polyuria, polydipsia, polyphagia or heat/cold intolerances. HEMATOLOGIC: Denies thrombophilia/previous clots, or coagulopathy/bleeding disorders. ONCOLOGIC: Denies personal history of malignancy. DERMATOLOGIC: Denies rashes or pruritus. PSYCHIATRIC: Denies any suicidal or homicidal ideation. Denies hallucinations. PHYSICAL EXAM GENERAL APPEARANCE: The patient is awake, alert, and oriented, in no acute cardiopulmonary distress. NEUROLOGICAL: Cranial nerves II-XII grossly intact. Motor is 5/5 in bilateral upper and lower extremities proximal to distal. No sensory deficits. HEENT: Face is symmetric. Pupils are equal and reactive. Extraocular movements are intact. NECK: Supple. No JVD. No thyromegaly. No submental, submandibular, pre- /postauricular, occipital or supraclavicular lymphadenopathy. CHEST: Normal chest expansion. No Telemetry. LUNGS: Absence of any rales, rhonchi or any wheezing. CARDIOVASCULAR: Regular. S1 and S2 normal. No appreciable rubs, murmurs or gallops. ABDOMEN: Soft, nontender, and nondistended. There is no rebound, voluntary guarding, or rigidity. : Deferred. No Pace. EXTREMITIES: Bilateral feet: Severe pain reported, especially to touch. Right 2nd toe: Small ulcer noted. Left 3rd toe: Pain to touch. Plantar surfaces: Blackish discoloration observed. Heels: Pain on palpation. SKIN: No skin breakdown. Vital Signs (last 8hr) Date Time Temp Pulse Resp B/P (MAP) Pulse Ox O2 Delivery O2 Flow Rate FiO2 03/11/25 11:40 98.1 72 17 130/58 95 Room Air 03/11/25 08:03 98.1 69 17 181/60 97 Room Air 03/11/25 08:00 97 Room Air* 0 21 LABS: Laboratory: Test 03/11/25 05:10 03/10/25 10:43 Range/Units White Blood Count 5.0 4.8-10.8 K/uL Red Blood Count 3.24 L 4.00-5.50 MIL/uL Hemoglobin 9.1 L 12.0-16.0 g/dL Hematocrit 28.9 L 36-48 % Mean Corpuscular Volume 89.2 79-99 fL Mean Corpuscular Hemoglobin 28.1 27.0-33.0 pg Mean Corpuscular Hemoglobin Concent 31.5 L 32.0-36.0 g/dL Red Cell Distribution Width 14.6 11.0-15.5 % Platelet Count 249 130-400 K/uL Mean Platelet Volume 9.5 7.5-10.5 fL Immature Granulocyte % (Auto) 0.2 0-1 % Neutrophils (%) (Auto) 57.5 40.0-77.0 % Lymphocytes (%) (Auto) 26.5 21.0-51.0 % Monocytes (%) (Auto) 11.0 3.0-13.0 % Eosinophils (%) (Auto) 4.0 0.0-8.0 % Basophils (%) (Auto) 0.8 0.0-5.0 % Neutrophils # (Auto) 2.9 1.8-7.7 K/uL Lymphocytes # (Auto) 1.3 1.0-4.8 K/uL Monocytes # (Auto) 0.6 0.1-1.0 K/uL Eosinophils # (Auto) 0.20 0.00-0.70 K/uL Basophils # (Auto) 0.04 0.00-0.20 K/uL Absolute Immature Granulocyte (auto 0.01 0-1 K/uL Nucleated Red Blood Cells 0.0 0.0-0.19 % Sodium Level 144 136-145 mmol/L Potassium Level 4.9 3.5-5.1 mmol/L Chloride Level 109 101-111 mmol/L Carbon Dioxide Level 28 21-32 mmol/L Blood Urea Nitrogen 12 7-18 mg/dL Creatinine 0.6 0.5-1.0 mg/dL Glomerular Filtration Rate Calc 91 >90 mL/min Random Glucose 114 H 70-105 mg/dL Total Calcium 8.8 8.5-10.1 mg/dL Magnesium Level 1.90 1.80-2.40 mg/dL Total Bilirubin 0.2 0.2-1.0 mg/dL Aspartate Amino Transf (AST/SGOT) 16 10-37 U/L Alanine Aminotransferase (ALT/SGPT) 14 12-78 U/L Alkaline Phosphatase 53 50-136 U/L Total Protein 6.1 6.0-8.3 g/dL Albumin 2.7 L 3.5-5.0 g/dL Urine Color LIGHT-YELLOW YELLOW Urine Appearance CLEAR CLEAR Urine pH 6.0 5.0-8.0 Urine Specific [place] 1.005 1.001-1.031 Urine Protein NEGATIVE NEGATIVE mg/dL Urine Glucose (UA) NEGATIVE NEGATIVE mg/dL Urine Ketones NEGATIVE NEGATIVE mg/dL Urine Occult Blood NEGATIVE NEGATIVE Urine Nitrate NEGATIVE NEGATIVE Urine Bilirubin NEGATIVE NEGATIVE mg/dL Urine Urobilinogen 0.2 0.2-1.0 mg/dL Urine Leukocyte Esterase 75 H NEGATIVE [place]asha/uL Urine RBC None 0-1 /HPF Urine WBC 11-25 H 0-1 /HPF Urine Squamous Epithelial Cells RARE 0-2 /HPF Urine Bacteria MANY None Seen /HPF Current Medications Medications (Trade) Dose Ordered Sig/Lucie Route PRN Reason Start Time Stop Time Status Last Admin Dose Admin Acetaminophen (TYLenol 325MG TAB) 650 mg Q6H PRN PO TEMPERATURE GREATER THAN 101.5 03/06/25 23:00 04/05/25 22:59 Acetaminophen/ Codeine Phosphate (TYLenol-coDEINE TAB) 1 tab Q6H PRN PO MODERATE PAIN (4-6) 03/09/25 09:30 04/08/25 09:29 Acetaminophen/ Codeine Phosphate (TYLenol-coDEINE TAB) 2 tab Q4HPRN PRN PO SEVERE PAIN (7-10) 03/10/25 08:00 04/08/25 09:29 03/10/25 22:07 2 TAB Acetaminophen/ Codeine Phosphate (TYLenol-coDEINE TAB) 2 tab Q6H PRN PO SEVERE PAIN (7-10) 03/09/25 09:30 03/10/25 07:57 DC 03/09/25 22:43 2 TAB Amlodipine Besylate (NorvASC 5MG TAB) 10 mg DAILY PO 03/08/25 09:00 04/07/25 08:59 03/11/25 10:25 10 MG Aspirin (Aspirin 81mg Chew Tab) 81 mg DAILY PO 03/08/25 09:00 04/07/25 08:59 03/11/25 10:25 81 MG Aspirin (Aspirin 81mg Ec Tab) 81 mg DAILY PO 03/07/25 09:00 03/07/25 13:12 DC 03/07/25 08:34 81 MG Atorvastatin Calcium (LIPItor 10MG) 10 mg HS PO 03/07/25 21:00 03/07/25 13:14 DC Atorvastatin Calcium (LIPItor 40MG) 40 mg HS PO 03/07/25 21:00 04/06/25 20:59 03/10/25 20:48 40 MG Cilostazol (PLETal 100MG TAB) 100 mg BID PO 03/07/25 21:00 04/06/25 20:59 03/11/25 10:25 100 MG Clopidogrel Bisulfate (plaVIX 75MG) 75 mg DAILY PO 03/07/25 09:00 03/07/25 19:38 DC 03/07/25 08:35 75 MG Clopidogrel Bisulfate (plaVIX 75MG) 75 mg DAILY PO 03/09/25 09:30 04/08/25 09:29 03/11/25 10:25 75 MG Enoxaparin Sodium (Lovenox) 30 mg DAILY SQ 03/07/25 09:00 04/06/25 08:59 03/10/25 08:31 30 MG Famotidine (Pepcid 20mg Tab) 20 mg DAILY PO 03/07/25 09:00 04/06/25 08:59 03/11/25 10:24 20 MG Gabapentin (NEURontin 100 mg CAP) 100 mg TID PO 03/07/25 14:00 03/07/25 16:06 DC 03/07/25 13:55 100 MG Home Med (Home Medication) (Tramadol HCl 50MG ER) 1 TAB) Q8H PRN PO MODERATE PAIN (4-6) 03/08/25 09:00 04/07/25 08:59 Hydralazine HCl (APRESOLine 20MG INJ) 10 mg Q6H PRN IV For:SBP above 160;DBP above 90 03/06/25 23:00 04/05/25 22:59 03/07/25 12:15 10 MG Lactulose (Constulose 20gm/ 30ml Udcup) 20 gm BID PRN PO CONSTIPATION 03/06/25 23:00 04/05/25 22:59 03/10/25 18:00 20 GM Levothyroxine Sodium (SYNTHroid 88MCG TAB) 88 mcg SYN PO 03/08/25 06:30 04/07/25 06:29 03/11/25 06:00 88 MCG Lisinopril (Prinivil 20mg) 20 mg BID PO 03/07/25 21:00 04/06/25 20:59 03/11/25 10:25 20 MG Metoprolol Succinate (TopROL XL) 50 mg DAILY PO 03/08/25 09:00 04/07/25 08:59 03/11/25 10:25 50 MG Morphine Sulfate (morPHINE 4MG SYG) 2 mg Q4H PRN IVP SEVERE PAIN (7-10) 03/06/25 23:00 03/09/25 09:27 DC 03/09/25 06:05 2 MG Morphine Sulfate (morPHINE 4MG SYG) 3 mg Q2HPRN PRN IVP SEVERE PAIN (7-10) 03/10/25 08:00 03/17/25 07:59 03/11/25 10:26 3 MG Ondansetron HCl (zoFRAN 4MG INJ) 4 mg Q6H PRN IV NAUSEA/VOMITING 03/06/25 23:00 04/05/25 22:59 03/07/25 00:01 4 MG Pregabalin ([id number]) 75 mg BID PO 03/07/25 21:00 04/06/25 20:59 03/11/25 10:25 75 MG DIAGNOSTICS / RADIOLOGY: [ ] ASSESSMENT: [Severe Peripheral Arterial Disease (PAD), [place] Category 5: Bilateral lower extremity involvement (R>L) Intractable bilateral lower extremity pain Peripheral arterial disease (PAD) Digital discoloration and ulceration, concerning for possible ischemia Hyperlipidemia Hypertension Hypothyroidism PLAN: [ Patient was cleared by Dr. Amezquita/gin inspector for endoluminal grafting. Patient is pending endoluminal grafting tomorrow 03/12/[address] Recinos We will continue to monitor patient in the meantime. A.m. labs. Vascular Imaging and Intervention -Angiogram canceled per Dr. Zepeda recommendations. -Patient is not a candidate for simple angioplasty due to critical aortic stenosis, aortic dissection, and extensive vascular calcification. -Plan for possible lithotripsy of the abdominal aorta followed by endoluminal graft placement. -Infrapopliteal disease to be addressed either during the same procedure or at a later date. Cardiac Evaluation: -Proceed with Lexiscan Cardiolite study due to extensive coronary artery calcification and anticipated need for general anesthesia for endoluminal grafting. Supportive Care: -Continue supportive care for other complaints as indicated (e.g., pain management, hemodynamic monitoring, DVT prophylaxis, wound care as appropriate). Medical Management -Hold clopidogrel, aspirin, cilostazol, and statins as per vascular surgery recommendations. -Analgesia as needed with morphine. -Resumed home medications -GI prophylaxis: Famotidine -DVT prophylaxis: Lovenox Wound Care -Local wound care for digital ulcers -Monitor for signs of infection or progression Pain Management -Continue current pain management regimen as needed Follow-up: -Monitor for any changes in clinical status. -Await results of Lexiscan Cardiolite. -Reassess plan following cardiac evaluation and further vascular surgery input. Case discussed with Dr. Rebollar, above plan was formulated ] ATTESTATION BY PHYSICIAN I have seen and examined the patient. I reviewed the documentation, medical decision making, and treatment plan as noted by the mid-level provider above. I agree with the findings and plan of care. Coty Dixon MD, [facility] Mar 11, 2025 15:18
--- NOTE | 2025-03-11 15:25 | PN ---
PROGRESS NOTE PROBLEM LIST: 1. 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 2. PAD, [place] category 5 symptoms. 3. Former smoker. 4. Hypertension. 5. Hyperlipidemia. 6. Normal Lexiscan Cardiolite with an ejection fraction at 79% with no ischemia or infarct INTERIM HISTORY OF PRESENT ILLNESS: Patient has been seen and evaluated today by Dr. CHARLOTTE PORTILLO and patient is prepared to proceed with possible endoluminal graft placement tomorrow with possible lithotripsy to be performed. Patient did have a family member at bedside and I did answer all questions to their to light. Plan will be that patient proceed with procedure 1st thing in the morning under general anesthesia. REVIEW OF SYSTEMS: No fever, headache, chest pain, abdominal pain, nausea, vomiting, or diarrhea. VITAL SIGNS Vital Signs Date Time Temp Pulse Resp B/P (MAP) Pulse Ox O2 Delivery O2 Flow Rate FiO2 03/11/25 11:40 98.1 72 17 130/58 95 Room Air 03/11/25 08:00 0 21 Laboratory Tests 03/11/25 05:10 LABS/MEDS Laboratory Tests Test 03/11/25 05:10 White Blood Count 5.0 K/uL (4.8-10.8) Red Blood Count 3.24 MIL/uL (4.00-5.50) L Hemoglobin 9.1 g/dL (12.0-16.0) L Hematocrit 28.9 % (36-48) L Mean Corpuscular Volume 89.2 fL (79-99) Mean Corpuscular Hemoglobin 28.1 pg (27.0-33.0) Mean Corpuscular Hemoglobin Concent 31.5 g/dL (32.0-36.0) L Red Cell Distribution Width 14.6 % (11.0-15.5) Platelet Count 249 K/uL (130-400) Mean Platelet Volume 9.5 fL (7.5-10.5) Immature Granulocyte % (Auto) 0.2 % (0-1) Neutrophils (%) (Auto) 57.5 % (40.0-77.0) Lymphocytes (%) (Auto) 26.5 % (21.0-51.0) Monocytes (%) (Auto) 11.0 % (3.0-13.0) Eosinophils (%) (Auto) 4.0 % (0.0-8.0) Basophils (%) (Auto) 0.8 % (0.0-5.0) Neutrophils # (Auto) 2.9 K/uL (1.8-7.7) Lymphocytes # (Auto) 1.3 K/uL (1.0-4.8) Monocytes # (Auto) 0.6 K/uL (0.1-1.0) Eosinophils # (Auto) 0.20 K/uL (0.00-0.70) Basophils # (Auto) 0.04 K/uL (0.00-0.20) Absolute Immature Granulocyte (auto 0.01 K/uL (0-1) Nucleated Red Blood Cells 0.0 % (0.0-0.19) Sodium Level 144 mmol/L (136-145) Potassium Level 4.9 mmol/L (3.5-5.1) Chloride Level 109 mmol/L (101-111) Carbon Dioxide Level 28 mmol/L (21-32) Blood Urea Nitrogen 12 mg/dL (7-18) Creatinine 0.6 mg/dL (0.5-1.0) Glomerular Filtration Rate Calc 91 mL/min (>90) Random Glucose 114 mg/dL (70-105) H Total Calcium 8.8 mg/dL (8.5-10.1) Magnesium Level 1.90 mg/dL (1.80-2.40) Total Bilirubin 0.2 mg/dL (0.2-1.0) Aspartate Amino Transf (AST/SGOT) 16 U/L (10-37) Alanine Aminotransferase (ALT/SGPT) 14 U/L (12-78) Alkaline Phosphatase 53 U/L (50-136) Total Protein 6.1 g/dL (6.0-8.3) Albumin 2.7 g/dL (3.5-5.0) L Current Medications Acetaminophen 650 mg Q6H PRN PO; Start 03/06/25 at 23:00; Stop 04/05/25 at 22:59 Aspirin 81 mg DAILY PO Last administered on 03/07/25at 08:34; Start 03/07/25 at 09:00; Stop 03/07/25 at 13:12; Status DC Atorvastatin Calcium 40 mg HS PO Last administered on 03/10/25at 20:48; Start 03/07/25 at 21:00; Stop 04/06/25 at 20:59 Enoxaparin Sodium 30 mg DAILY SQ Last administered on 03/10/25at 08:31; Start 03/07/25 at 09:00; Stop 04/06/25 at 08:59 Famotidine 20 mg DAILY PO Last administered on 03/11/25at 10:24; Start 03/07/25 at 09:00; Stop 04/06/25 at 08:59 Hydralazine HCl 10 mg Q6H PRN IV Last administered on 03/07/25at 12:15; Start 03/06/25 at 23:00; Stop 04/05/25 at 22:59 Lactulose 20 gm BID PRN PO Last administered on 03/10/25at 18:00; Start 03/06/25 at 23:00; Stop 04/05/25 at 22:59 Morphine Sulfate 2 mg Q4H PRN IVP Last administered on 03/09/25at 06:05; Start 03/06/25 at 23:00; Stop 03/09/25 at 09:27; Status DC Ondansetron HCl 4 mg Q6H PRN IV Last administered on 03/07/25at 00:01; Start 03/06/25 at 23:00; Stop 04/05/25 at 22:59 Clopidogrel Bisulfate 75 mg DAILY PO Last administered on 03/07/25at 08:35; Start 03/07/25 at 09:00; Stop 03/07/25 at 19:38; Status DC Aspirin 81 mg DAILY PO Last administered on 03/11/25at 10:25; Start 03/08/25 at 09:00; Stop 04/07/25 at 08:59 Atorvastatin Calcium 10 mg HS PO; Start 03/07/25 at 21:00; Stop 03/07/25 at 13:14; Status DC Gabapentin 100 mg TID PO Last administered on 03/07/25at 13:55; Start 03/07/25 at 14:00; Stop 03/07/25 at 16:06; Status DC Lisinopril 20 mg BID PO Last administered on 03/11/25at 10:25; Start 03/07/25 at 21:00; Stop 04/06/25 at 20:59 Metoprolol Succinate 50 mg DAILY PO Last administered on 03/11/25at 10:25; Start 03/08/25 at 09:00; Stop 04/07/25 at 08:59 Amlodipine Besylate 10 mg DAILY PO Last administered on 03/11/25at 10:25; Start 03/08/25 at 09:00; Stop 04/07/25 at 08:59 Levothyroxine Sodium 88 mcg SYN PO Last administered on 03/11/25at 06:00; Start 03/08/25 at 06:30; Stop 04/07/25 at 06:29 Home Med (Tramadol HCl 50MG ER) 1 TAB) Q8H PRN PO; Start 03/08/25 at 09:00; Stop 04/07/25 at 08:59 Pregabalin 75 mg BID PO Last administered on 03/11/25at 10:25; Start 03/07/25 at 21:00; Stop 04/06/25 at 20:59 Iohexol 75 ml STK-MED ONCE IV; Start 03/07/25 at 16:14; Stop 03/07/25 at 16:15; Status DC Iohexol 50 ml STK-MED ONCE IV; Start 03/07/25 at 16:14; Stop 03/07/25 at 16:15; Status DC Cilostazol 100 mg BID PO Last administered on 03/11/25at 10:25; Start 03/07/25 at 21:00; Stop 04/06/25 at 20:59 Acetaminophen/ Codeine Phosphate 1 tab Q6H PRN PO; Start 03/09/25 at 09:30; Stop 04/08/25 at 09:29 Acetaminophen/ Codeine Phosphate 2 tab Q6H PRN PO Last administered on 03/09/25at 22:43; Start 03/09/25 at 09:30; Stop 03/10/25 at 07:57; Status DC Clopidogrel Bisulfate 75 mg DAILY PO Last administered on 03/11/25at 10:25; Start 03/09/25 at 09:30; Stop 04/08/25 at 09:29 Regadenoson 0.4 mg STK-MED ONCE IVP; Start 03/09/25 at 12:02; Stop 03/09/25 at 12:02; Status DC Bacitracin 1 each DAILY ONCE TP Last administered on 03/10/25at 08:31; Start 03/10/25 at 09:00; Stop 03/10/25 at 09:01; Status DC Acetaminophen/ Codeine Phosphate 2 tab Q4HPRN PRN PO Last administered on 03/10/25at 22:07; Start 03/10/25 at 08:00; Stop 04/08/25 at 09:29 Morphine Sulfate 3 mg Q2HPRN PRN IVP Last administered on 03/11/25at 10:26; Start 03/10/25 at 08:00; Stop 03/17/25 at 07:59 Potassium Chloride 40 meq ONCE ONCE PO Last administered on 03/10/25at 20:48; Start 03/10/25 at 21:00; Stop 03/10/25 at 21:01; Status DC PHYSICAL EXAMINATION: GENERAL: No acute distress. HEENT: Normocephalic, atraumatic.y. NEUROLOGIC: Cranial nerves 2-12 grossly intact. PSYCHIATRIC: Calm. TELEMETRY: Not utilized ASSESSMENT: 1. 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 2. PAD, [place] category 5 symptoms. 3. Former smoker. 4. Hypertension. 5. Hyperlipidemia. PLAN: Plan will be to proceed with endoluminal graft placement tomorrow with possible lithotripsy angioplasty as well. Iliac vessels may be involved. Risks and goals of procedure were discussed with the patient and family member and they are willing to proceed. They are aware of potential bleeding risk need for repeat procedure possible infection and other cardiac complications which may ensue with this complex procedure. Informed consent has been obtained. All questions have been answered. MONICA MARTIN MD Mar 11, 2025 15:25
[2025-03-11 19:05] LABS: CREATININE 0.9 mg/dL (0.5-1.0); GLOMERULAR FILTR. RATE CALC 65.0 mL/min (>90); GLUCOSE,RANDOM 127.0 mg/dL (70-105); SODIUM SERUM 144.0 mmol/L (136-145); UREA NITROGEN, BLOOD 14.0 mg/dL (7-18)
[2025-03-11 19:11] LABS: INR 0.97 (0.85-1.15)
[2025-03-12] VITALS (57 sets, daily range): BP systolic 61–185; BP diastolic 34–104; PULSE 74–121; RESP 4–57; TEMP 97.9–101.3; O2SAT 95–100
[2025-03-12 06:05] LABS: IMMATURE GRANULOCYTE ABSOLUTE 0.01 K/uL (0-1); NUCLEATED RED BLOOD CELLS 0.0 % (0.0-0.19); PLATELET COUNT (AUTO) 257 K/uL (130-400); RED BLOOD CELL COUNT(AUTO) 3.26 MIL/uL (4.00-5.50); RED CELL DISTRIBUTION WIDTH 14.6 % (11.0-15.5); WHITE BLOOD COUNT (AUTO) 5.1 K/uL (4.8-10.8)
[2025-03-12] MEDS ORDERED: MIDAZOLAM HCL 1 MG/ML 2ML VIAL ONE (06:43)
[2025-03-12 06:44] LABS: ASPARTATE AMINOTRANSFERASE 16.0 U/L (10-37); CREATININE 0.8 mg/dL (0.5-1.0); GLOMERULAR FILTR. RATE CALC 74.0 mL/min (>90); GLUCOSE,RANDOM 119.0 mg/dL (70-105); SODIUM SERUM 143.0 mmol/L (136-145); TOTAL PROTEIN, SERUM 6.0 g/dL (6.0-8.3); UREA NITROGEN, BLOOD 15.0 mg/dL (7-18)
[2025-03-12] MEDS ORDERED: HEParin-NS 1,000 UNIT/500 ML 1,000 ML IV ONE ×2 (06:56→08:47)
[2025-03-12] MEDS ORDERED: VANCOMYCIN 1G/250ML KIT 250 ML IV ONE (07:10)
[2025-03-12] MEDS ORDERED: IODIXANOL 320 MG/ML 100 ML VIAL ONE (07:31)
--- NOTE | 2025-03-12 07:45 | PN ---
PROBLEM LIST: * Critical peripheral vascular disease with [place] Class IV symptoms with threatened limb, bilateral lower extremities. 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 * Hypertension. * Hyperlipoproteinemia. * Hypothyroidism, on supplement. * History of tobacco use, counseled extensively. 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 * Negative Lexiscan Cardiolite for ischemia. This patient has been hospitalized predominantly because of bilateral lower extremity discomfort at rest. She has been evaluated by multiple disciplines including primary care, Cardiology, and by me for assessment of her aortic disease. On assessing the patient this morning, she states that her leg discomfort is still there; however, she has improved slightly after placing her in a reverse Trendelenburg position and continuing her medications. The patient is afebrile. Her heart rate is in the 70s. She has a respiratory rate of 16-20. Blood pressure is anywhere from 140-145 systolic this morning. She is saturating at 98% on room air. Laboratory studies this morning revealed a white count of 5.1, H and H of 9.2 and 28.2 respectively. The platelet count is currently 257,000. Chemistries revealed a sodium of 143, potassium 4.3, chloride 107, CO2 of 31. BUN is 15, creatinine is 0.8 with a GFR of 74. Liver enzymes are normal and the magnesium is 1.8. The patient's albumin is low at 2.8, consistent with protein malnutrition. The patient's PT and INR were normal. This patient is currently maintained on morphine for pain relief. She is on Tylenol with codeine as well. She is on clopidogrel, amlodipine, metoprolol, baby aspirin, levothyroxine, cilostazol, pregabalin, lisinopril, atorvastatin, famotidine, low-dose Lovenox, and p.r.n. medications. Yesterday, I had a detailed discussion with the patient's family in regards to the findings and her presentation. We reviewed the alternative modes of management including continued medical management and the option of vascular surgical evaluation and consideration for axillobifemoral graft as well as the option of an attempt at endoluminal grafting. After a detailed discussion and review of the alternative modes of management, they have requested to proceed with an attempt at endoluminal grafting of the abdominal aorta for the extensive dissection that she has and the critical stenosis. I have once again reviewed the patient's status and the procedure with benefits, goals, and risks with the patient and her two daughters. They do understand that I have asked Dr. Edouard to be on standby and he has been already informed and will be available for the procedure in the event that he is needed. They understand that the procedure is a higher risk given the critical stenosis of the small size of the distal abdominal aorta in particular. They do understand that we will attempt to evaluate her entire vascular tree for the lower extremities and the abdominal aorta; however, they do understand also that we may not be able to address all issues at the same setting given the extensive nature of her disease. The main goal and focus of our approach today is to address the abdominal aorta and iliac vessels. As mentioned, I will evaluate the lower extremity vessels, but this may be managed at a different setting. We will continue the current supportive measures. All their questions were invited and answered. They have requested to proceed. TID: [id number] RECEIPT: [id number]
[2025-03-12] MEDS ORDERED: GLYCOPYRROLATE 0.2 MG/ML 5 ML VIAL ONE (08:21)
[2025-03-12 08:33] LABS: ABG BASE EXCESS -1.5 mmol/L (-2.0-3.0); ABG HCO3 23.8 mmol/L (21.0-28.0); ABG OXYGEN SATURATION 99.5 % (94.0-98.0); ABG PCO2 43 mmHg (32-45); ABG PH 7.362 (7.350-7.450); CARBON MONOXIDE 0.6 % (0.5-1.5); PO2, ARTERIAL BG 452.8 mmHg (83.0-108.0); TEMPERATURE, CELSIUS BG 37.0 CELSIUS (35.5-37.0); VENT MODE, BG ANT VENT (ROOM AIR)
[2025-03-12 10:33] LABS: ABG BASE EXCESS -5.6 mmol/L (-2.0-3.0); ABG HCO3 20.1 mmol/L (21.0-28.0); ABG OXYGEN SATURATION 99.2 % (94.0-98.0); ABG PCO2 40 mmHg (32-45); ABG PH 7.315 (7.350-7.450); CARBON MONOXIDE 0.4 % (0.5-1.5); PO2, ARTERIAL BG 277.6 mmHg (83.0-108.0); TEMPERATURE, CELSIUS BG 37.0 CELSIUS (35.5-37.0); VENT MODE, BG ANT VENT (ROOM AIR)
[2025-03-12] MEDS ORDERED: SODIUM BICARB 50MEQ 50ML VIAL 50 ML ONE (10:38)
[2025-03-12] MEDS ORDERED: NITROGLYCERIN 50MG/D5W 250ML 250 BOT IV SCH (11:00)
[2025-03-12] MEDS ORDERED: IOHEXOL 350 MG/ML 100ML INFUS..BTL IV ONE (11:11)
--- NOTE | 2025-03-12 11:19 | PN ---
[facility] PROGRESS NOTE Date of Service: Mar 12, 2025 Time of Service: 11:[address] Rebollar SUBJECTIVE: [Patient presents to the emergency department with a chief complaint of lower extremity pain. She reports onset of symptoms two weeks ago, primarily affecting both feet. The pain is described as sharp and tingling, occurring intermittently. There are no alleviating factors, and symptoms are aggravated by physical activity. She also reports associated discoloration at the tips of her toes. 03/08/25 Patient was evaluated today, she has been seen by crimping machine operator already. Had CT runoff pending reading. Dr Wu recommending Peripheral angio, plans to do tomorrow. We will continue to follow recommendations and managed patient's symptoms. No other complaints, she is afebrile. Labs reviewed. 03/09/25 The patient was evaluated in the room. According to the patient and family, the scheduled angiogram was canceled today. Dr. Recnios recommended against proceeding due to the patient's critical aortic stenosis, which presents a high risk for any intervention. He advised that, given the presence of aortic dissection and extensive calcification, the patient is unlikely to benefit from simple angioplasty and should instead be considered for endoluminal grafting. Lithotripsy of the abdominal aorta followed by graft placement will likely be required. Additionally, the patient has infrapopliteal disease, which may need to be addressed either during the same procedure or at a later date. At this time, Dr. Recinos recommended holding clopidogrel, aspirin, cilostazol, and statins. The patient is now scheduled for a Lexiscan Cardiolite study due to extensive coronary artery calcification noted on evaluation, as general anesthesia may be required for the planned endoluminal grafting. No other complaints, we will continue with supportive care as appropriate. The patient and family verbalized understanding of the current plan and recommendations. ] 03/10/25 patient was seen by DRAINAGE ENGINEER and physician during rounding in room 324. Patient was cleared by Dr. Amezquita/crimping machine operator for endoluminal grafting to be performed with Dr. Recinos. At this moment we are pending further recommendations regards endoluminal grafting. We will continue to monitor patient in the meantime. A.m. labs. 03/11 patient was seen by nurse practitioner and physician during rounding in room 324. Patient was evaluated by crimping machine operator and that is pending endoluminal grafting tomorrow 03/12/2025. Patient NPO after midnight. Patient will receive also potassium 40 mEq to replace the potassium of 3.3. Final urine culture pending. As per case management patient to be discharged home once medically cleared. We will continue to monitor patient in the meantime. A.m. labs. 03/12 patient was seen by nurse practitioner and physician during rounding in room 324. Patient is pending endoluminal grafting with Dr. Ashley hdz on standby and we will be for the procedure in the event that if it is needed. Family and the patient understand the procedure is a high-risk given the critical stenosis of the small size of the distal abdominal aorta in particular. They understand that we will attempt to evaluate entire vascular tree for the lower extremities and abdominal aorta. Also they do understand that crimping machine operator might not be able to address all issues at the same settings given the extensive nature of the disease. Continue current supportive measurements. We will continue to monitor patient in the meantime. A.m. labs. After procedure patient will go to ICU. REVIEW OF SYSTEMS CONSTITUTIONAL: Denies fevers, chills, or night sweats. No unintentional weight loss reported. NEUROLOGICAL: Denies headache, amaurosis fugax, motor weakness, sensory defi cit, vertigo/spinning sensation, gait abnormalities, or tremors. ENT: No hearing loss, otalgia, otorrhea, rhinitis, rhinorrhea, hoarseness, or sore throat. CARDIOVASCULAR: Denies any exertional angina, dyspnea on exertion, orthopnea, paroxysmal nocturnal dyspnea, palpitations, life-threatening arrhythmias, claudication. PULMONARY: Denies any shortness of breath, cough, phlegm/sputum, hemoptysis, pleuritic chest pain. SLEEP: Denies morning headaches, daytime somnolence or napping. Denies difficulty falling asleep, staying asleep, waking from sleep. Denies knowledge of snoring. GASTROINTESTINAL: Denies any type of dysphagia to either liquids or solids. Denies nausea, vomiting, pyrosis, early satiety, abdominal pain, diarrhea, constipation, or changes in stool consistency or caliber. Denies coffee-ground emesis, hematemesis, hematochezia, or melanotic stools. GENITOURINARY: Denies frequency, urgency, nocturia, hematuria or incontinence (Storage/Irritative symptoms.) Low urinary stream, straining to void, urinary intermittency or hesitancy, splitting of the voiding stream, terminal dribbling. ENDOCRINOLOGIC: Denies polyuria, polydipsia, polyphagia or heat/cold intolerances. HEMATOLOGIC: Denies thrombophilia/previous clots, or coagulopathy/bleeding disorders. ONCOLOGIC: Denies personal history of malignancy. DERMATOLOGIC: Denies rashes or pruritus. PSYCHIATRIC: Denies any suicidal or homicidal ideation. Denies hallucinations. PHYSICAL EXAM GENERAL APPEARANCE: The patient is awake, alert, and oriented, in no acute cardiopulmonary distress. NEUROLOGICAL: Cranial nerves II-XII grossly intact. Motor is 5/5 in bilateral upper and lower extremities proximal to distal. No sensory deficits. HEENT: Face is symmetric. Pupils are equal and reactive. Extraocular movements are intact. NECK: Supple. No JVD. No thyromegaly. No submental, submandibular, pre- /postauricular, occipital or supraclavicular lymphadenopathy. CHEST: Normal chest expansion. No Telemetry. LUNGS: Absence of any rales, rhonchi or any wheezing. CARDIOVASCULAR: Regular. S1 and S2 normal. No appreciable rubs, murmurs or gallops. ABDOMEN: Soft, nontender, and nondistended. There is no rebound, voluntary guarding, or rigidity. : Deferred. No Pace. EXTREMITIES: Bilateral feet: Severe pain reported, especially to touch. Right 2nd toe: Small ulcer noted. Left 3rd toe: Pain to touch. Plantar surfaces: Blackish discoloration observed. Heels: Pain on palpation. SKIN: No skin breakdown. Vital Signs (last 8hr) Date Time Temp Pulse Resp B/P (MAP) Pulse Ox O2 Delivery O2 Flow Rate FiO2 03/12/25 04:00 98.2 75 20 147/62 98 Room Air LABS: Laboratory: Test 03/12/25 10:30 03/12/25 06:02 03/11/25 18:46 Range/Units Blood Gas Specimen Type Arterial Arterial Blood pH 7.315 L 7.350-7.450 Arterial Blood Partial Pressure CO2 40 32-45 mmHg Arterial Blood Partial Pressure O2 277.6 H 83.0-108.0 mmHg Arterial Blood HCO3 20.1 L 21.0-28.0 mmol/L Arterial Blood Oxygen Saturation 99.2 H 94.0-98.0 % Arterial Blood Base Excess -5.6 L -2.0-3.0 mmol/L Hemoglobin (Blood Gas) 9.1 L 12.0-16.0 g/dL Sodium (Blood Gas) 137 136-145 MMOL/L Bedside Potassium (Blood Gas) 4.1 3.4-4.5 MMOL/L Bedside Chloride (Blood Gas) 112 H 98-107 MMOL/L Bedside Glucose (Blood Gas) 172 H 65-95 MG/DL Bedside Ionized Calcium (Blood Gas) 1.43 H 1.15-1.33 MMOL/L Bedside Lactic Acid (Blood Gas) 1.09 H 0.36-0.75 MMOL/L Blood Gas Temperature 37.0 35.5-37.0 CELSIUS Blood Gas Vent Mode ANT VENT ROOM AIR FiO2 100.0 % Blood Gas Specimen Comment YAN MELENDEZ White Blood Count 5.1 4.8-10.8 K/uL Red Blood Count 3.26 L 4.00-5.50 MIL/uL Hemoglobin 9.2 L 12.0-16.0 g/dL Hematocrit 28.8 L 36-48 % Mean Corpuscular Volume 88.3 79-99 fL Mean Corpuscular Hemoglobin 28.2 27.0-33.0 pg Mean Corpuscular Hemoglobin Concent 31.9 L 32.0-36.0 g/dL Red Cell Distribution Width 14.6 11.0-15.5 % Platelet Count 257 130-400 K/uL Mean Platelet Volume 9.3 7.5-10.5 fL Immature Granulocyte % (Auto) 0.2 0-1 % Neutrophils (%) (Auto) 56.2 40.0-77.0 % Lymphocytes (%) (Auto) 27.3 21.0-51.0 % Monocytes (%) (Auto) 10.4 3.0-13.0 % Eosinophils (%) (Auto) 5.1 0.0-8.0 % Basophils (%) (Auto) 0.8 0.0-5.0 % Neutrophils # (Auto) 2.9 1.8-7.7 K/uL Lymphocytes # (Auto) 1.4 1.0-4.8 K/uL Monocytes # (Auto) 0.5 0.1-1.0 K/uL Eosinophils # (Auto) 0.26 0.00-0.70 K/uL Basophils # (Auto) 0.04 0.00-0.20 K/uL Absolute Immature Granulocyte (auto 0.01 0-1 K/uL Nucleated Red Blood Cells 0.0 0.0-0.19 % Sodium Level 143 136-145 mmol/L Potassium Level 4.3 3.5-5.1 mmol/L Chloride Level 107 101-111 mmol/L Carbon Dioxide Level 31 21-32 mmol/L Blood Urea Nitrogen 15 7-18 mg/dL Creatinine 0.8 0.5-1.0 mg/dL Glomerular Filtration Rate Calc 74 >90 mL/min Random Glucose 119 H 70-105 mg/dL Total Calcium 8.5 8.5-10.1 mg/dL Magnesium Level 1.80 1.80-2.40 mg/dL Total Bilirubin 0.3 0.2-1.0 mg/dL Aspartate Amino Transf (AST/SGOT) 16 10-37 U/L Alanine Aminotransferase (ALT/SGPT) 14 12-78 U/L Alkaline Phosphatase 59 50-136 U/L Total Protein 6.0 6.0-8.3 g/dL Albumin 2.8 L 3.5-5.0 g/dL Prothrombin Time 10.3 9.6-11.6 SEC Prothromb Time International Ratio 0.97 0.85-1.15 Activated Partial Thromboplast Time 25.6 L 26.3-35.5 SEC Current Medications Medications (Trade) Dose Ordered Sig/Lucie Route PRN Reason Start Time Stop Time Status Last Admin Dose Admin Acetaminophen (TYLenol 325MG TAB) 650 mg Q6H PRN PO TEMPERATURE GREATER THAN 101.5 03/06/25 23:00 04/05/25 22:59 Acetaminophen/ Codeine Phosphate (TYLenol-coDEINE TAB) 1 tab Q6H PRN PO MODERATE PAIN (4-6) 03/09/25 09:30 04/08/25 09:29 Acetaminophen/ Codeine Phosphate (TYLenol-coDEINE TAB) 2 tab Q4HPRN PRN PO SEVERE PAIN (7-10) 03/10/25 08:00 04/08/25 09:29 03/11/25 23:53 2 TAB Acetaminophen/ Codeine Phosphate (TYLenol-coDEINE TAB) 2 tab Q6H PRN PO SEVERE PAIN (7-10) 03/09/25 09:30 03/10/25 07:57 DC 03/09/25 22:43 2 TAB Amlodipine Besylate (NorvASC 5MG TAB) 10 mg DAILY PO 03/08/25 09:00 04/07/25 08:59 03/11/25 10:25 10 MG Aspirin (Aspirin 81mg Chew Tab) 81 mg DAILY PO 03/08/25 09:00 04/07/25 08:59 03/11/25 10:25 81 MG Aspirin (Aspirin 81mg Ec Tab) 81 mg DAILY PO 03/07/25 09:00 03/07/25 13:12 DC 03/07/25 08:34 81 MG Atorvastatin Calcium (LIPItor 10MG) 10 mg HS PO 03/07/25 21:00 03/07/25 13:14 DC Atorvastatin Calcium (LIPItor 40MG) 40 mg HS PO 03/07/25 21:00 04/06/25 20:59 03/11/25 21:22 40 MG Cilostazol (PLETal 100MG TAB) 100 mg BID PO 03/07/25 21:00 04/06/25 20:59 03/11/25 21:23 100 MG Clopidogrel Bisulfate (plaVIX 75MG) 75 mg DAILY PO 03/07/25 09:00 03/07/25 19:38 DC 03/07/25 08:35 75 MG Clopidogrel Bisulfate (plaVIX 75MG) 75 mg DAILY PO 03/09/25 09:30 04/08/25 09:29 03/11/25 10:25 75 MG Enoxaparin Sodium (Lovenox) 30 mg DAILY SQ 03/07/25 09:00 04/06/25 08:59 03/10/25 08:31 30 MG Famotidine (Pepcid 20mg Tab) 20 mg DAILY PO 03/07/25 09:00 04/06/25 08:59 03/11/25 10:24 20 MG Gabapentin (NEURontin 100 mg CAP) 100 mg TID PO 03/07/25 14:00 03/07/25 16:06 DC 03/07/25 13:55 100 MG Home Med (Home Medication) (Tramadol HCl 50MG ER) 1 TAB) Q8H PRN PO MODERATE PAIN (4-6) 03/08/25 09:00 04/07/25 08:59 Hydralazine HCl (APRESOLine 20MG INJ) 10 mg Q6H PRN IV For:SBP above 160;DBP above 90 03/06/25 23:00 04/05/25 22:59 03/07/25 12:15 10 MG Lactulose (Constulose 20gm/ 30ml Udcup) 20 gm BID PRN PO CONSTIPATION 03/06/25 23:00 04/05/25 22:59 03/10/25 18:00 20 GM Levothyroxine Sodium (SYNTHroid 88MCG TAB) 88 mcg SYN PO 03/08/25 06:30 04/07/25 06:29 03/11/25 06:00 88 MCG Lisinopril (Prinivil 20mg) 20 mg BID PO 03/07/25 21:00 04/06/25 20:59 03/11/25 21:22 20 MG Metoprolol Succinate (TopROL XL) 50 mg DAILY PO 03/08/25 09:00 04/07/25 08:59 03/11/25 10:25 50 MG Morphine Sulfate (morPHINE 4MG SYG) 2 mg Q4H PRN IVP SEVERE PAIN (7-10) 03/06/25 23:00 03/09/25 09:27 DC 03/09/25 06:05 2 MG Morphine Sulfate (morPHINE 4MG SYG) 3 mg Q2HPRN PRN IVP SEVERE PAIN (7-10) 03/10/25 08:00 03/17/25 07:59 03/11/25 10:26 3 MG Nitroglycerin/ Dextrose 250 ml @ 0 mls/hr PROTOCOL IV 03/12/25 11:00 04/11/25 10:59 Norepinephrine 250 ml @ 0 mls/hr PROTOCOL IV 03/12/25 11:00 04/11/25 10:59 Ondansetron HCl (zoFRAN 4MG INJ) 4 mg Q6H PRN IV NAUSEA/VOMITING 03/06/25 23:00 04/05/25 22:59 03/07/25 00:01 4 MG Pregabalin ([id number]) 75 mg BID PO 03/07/25 21:00 04/06/25 20:59 03/11/25 21:23 75 MG Sodium Chloride 1,000 ml @ 100 mls/hr Q10H IV 03/12/25 11:00 04/11/25 10:59 DIAGNOSTICS / RADIOLOGY: [ ] ASSESSMENT: [Severe Peripheral Arterial Disease (PAD), Dai Category 5: Bilateral lo wer extremity involvement (R>L) Intractable bilateral lower extremity pain Peripheral arterial disease (PAD) Digital discoloration and ulceration, concerning for possible ischemia Hyperlipidemia Hypertension Hypothyroidism PLAN: [ Patient is pending endoluminal grafting with Dr. Ashley Hart node on standby and we will be for the procedure in the event that if it is needed. Family and the patient understand the procedure is a high-risk given the critical stenosis of the small size of the distal abdominal aorta in particular. They understand that we will attempt to evaluate entire vascular tree for the lower extremities and abdominal aorta. Also they do understand that crimping machine operator might not be able to address all issues at the same settings given the extensive nature of the disease. Continue current supportive measurements. We will continue to monitor patient in the meantime. A.m. labs. After procedure patient will go to ICU. Vascular Imaging and Intervention -Angiogram canceled per Dr. Zepeda recommendations. -Patient is not a candidate for simple angioplasty due to critical aortic steno sis, aortic dissection, and extensive vascular calcification. -Infrapopliteal disease to be addressed either during the same procedure or at a later date. Cardiac Evaluation: -Proceed with Lexiscan Cardiolite study due to extensive coronary artery calcifi cation and anticipated need for general anesthesia for endoluminal grafting. Supportive Care: -Continue supportive care for other complaints as indicated (e.g., pain management, hemodynamic monitoring, DVT prophylaxis, wound care as appropriate). Medical Management -Hold clopidogrel, aspirin, cilostazol, and statins as per vascular surgery recommendations. -Analgesia as needed with morphine. -Resumed home medications -GI prophylaxis: Famotidine -DVT prophylaxis: Lovenox Wound Care -Local wound care for digital ulcers -Monitor for signs of infection or progression Pain Management -Continue current pain management regimen as needed Follow-up: -Monitor for any changes in clinical status. -Await results of Lexiscan Cardiolite. -Reassess plan following cardiac evaluation and further vascular surgery input. Case discussed with Dr. Rebollar, above plan was formulated ] ATTESTATION BY PHYSICIAN I have seen and examined the patient. I reviewed the documentation, medical decision making, and treatment plan as noted by the mid-level provider above. I agree with the findings and plan of care. Ankit Rebollar IV, MD, [facility] [employer] Mar 12, 2025 11:19
--- NOTE | 2025-03-12 12:23 | HMCIMG ---
EXAM: CT Abdomen and Pelvis Without IV contrast CLINICAL HISTORY: R/O RETROPERITONEAL BLEED TECHNIQUE: Axial computed tomography images of the abdomen and pelvis without intravenous contrast. CONTRAST: No IV contrast. COMPARISON: None provided. FINDINGS: LUNG BASES: Bilateral mild pleural effusion with subsegmental collapse and consolidation. LIVER: The liver is enlarged in size. The right hepatic lobe measures up to 18 cm. GALLBLADDER AND BILE DUCTS: The gallbladder appears within normal limits. No radioopaque gallstones are seen. No biliary ductal dilatation is evident. PANCREAS: Unremarkable. SPLEEN: Unremarkable. ADRENAL GLANDS: Unremarkable. KIDNEYS, URETERS, AND BLADDER: Few simple cortical cysts in the right kidney. Largest, 4.2 x 6.1 cm, in the lower pole of the right kidney. Simple cortical cyst measuring 4 x 4 cm in the lower pole of the left kidney. Pace's bulb in the urinary bladder. There is hyperdense material in the left retroperitoneum surrounding the left kidney, extending into the anterior pararenal space, tracking along the left psoas muscle, and continuing into the pelvis. The appearance is most consistent with retroperitoneal hemorrhage. Recommend contrast-enhanced CT for further assessment. The kidneys appear within normal limits. There is no hydronephrosis or hydroureter. No urinary calculi are seen. STOMACH AND BOWEL: Unremarkable appearance of the stomach and bowel. No evidence of bowel obstruction. No evidence suggesting enteritis or colitis. APPENDIX: No evidence of acute appendicitis on CT examination. PERITONEUM: No free fluid. No free air. LYMPH NODES: No lymphadenopathy is evident. REPRODUCTIVE: Unremarkable as visualized. VASCULATURE: No evidence of abdominal aortic aneurysm. Extensive atherosclerotic changes in the aorta. Stent in place in the infrarenal aorta. BONES: No aggressive appearing osseous lesion. No acute osseous pathology evident. Severe degenerative changes in the spine. IMPRESSION: 1. Left retroperitoneal hemorrhage extending from the kidney to the pelvis. Recommend contrast-enhanced CT for further assessment. 2. Bilateral mild pleural effusions with subsegmental atelectasis and consolidation. 3. Hepatomegaly with right lobe measuring up to 18 cm. /[place]
[2025-03-12 12:24] LABS: NUCLEATED RED BLOOD CELLS 0.0 % (0.0-0.19); PLATELET COUNT (AUTO) 165.0 K/uL (130-400); RED BLOOD CELL COUNT(AUTO) 2.84 MIL/uL (4.00-5.50); RED CELL DISTRIBUTION WIDTH 14.1 % (11.0-15.5); WHITE BLOOD COUNT (AUTO) 4.0 K/uL (4.8-10.8)
[2025-03-12] MEDS: NOREPINEPHRIN 4MG/NS 250ML 250 ML IV SCH (12:31)
[2025-03-12] MEDS: 0.9%NACL 1000ML 1,000 ML IV SCH (12:47)
--- NOTE | 2025-03-12 13:01 | HMCIMG ---
EXAM: CTA Chest, Abdomen, and Pelvis with and without Intravenous Contrast CLINICAL HISTORY: R/O RETROPERITONEAL BEED TECHNIQUE: Axial CTA images of the abdomen and pelvis with and without intravenous contrast. Reformatted images were created and reviewed. CONTRAST: IV was injected intravenously without incident. COMPARISON: 03/12 - CT - CT ABDOMEN/PELVIS W/O CONTRAST 03/08 - CT - CT ANGIO ABD AORTA IF MYRTLE FINDINGS: VASCULATURE: Aorta: Extensive peripheral wall atherosclerotic changes along the entire course of the abdominal aorta, most prominent in the immediate infrarenal aorta, causing up to 80% luminal stenosis. Stent within the aorta. Great vessels of the aortic arch: No acute finding. No dissection. No arterial occlusion or significant stenosis. Celiac trunk: There is moderate stenosis of the celiac trunk, causing approximately 50% luminal narrowing; however, there is a smooth passage of contrast to its distal branches. No acute finding. No occlusion. Superior mesenteric artery: No acute finding. No occlusion or significant stenosis. Inferior mesenteric artery: No acute finding. No occlusion or significant stenosis. Renal arteries: There is attenuation of contrast-related enhancement in the distal 2/3rd of the left-sided renal artery, causing approximately 40%-50% luminal narrowing; however, there is smooth passage of contrast up to its distal branches No acute finding. No occlusion. Iliac arteries: No acute finding. No occlusion or significant stenosis. There is no acute extravasation of contrast on the scan LUNG BASES: Bilateral mild pleural effusion with subsegmental collapse and consolidation. LIVER: The liver is enlarged in size. The right hepatic lobe measures up to 18 cm. GALLBLADDER AND BILE DUCTS: The gallbladder appears within normal limits. No radioopaque gallstones are seen. No biliary ductal dilatation is evident. PANCREAS: Unremarkable. SPLEEN: Unremarkable. ADRENAL GLANDS: Unremarkable. KIDNEYS, URETERS, AND BLADDER: Few simple cortical cysts in the right kidney. Largest, 4.2 x 6.1 cm, in the lower pole of the right kidney. Simple cortical cyst measuring 4 x 4 cm in the lower pole of the left kidney. Pace's bulb in the urinary bladder. There is hyperdense material in the left retroperitoneum surrounding the left kidney, extending into the anterior pararenal space, tracking along the left psoas muscle, and continuing into the pelvis. The appearance is most consistent with retroperitoneal haemorrhage. There are no significant interval changes compared to the prior report dated October 16th 2025. The kidneys appear within normal limits. There is no hydronephrosis or hydroureter. No urinary calculi are seen. STOMACH AND BOWEL: Unremarkable appearance of the stomach and bowel. No evidence of bowel obstruction. No evidence suggesting enteritis or colitis. APPENDIX: No evidence of acute appendicitis on CT examination. PERITONEUM: No free fluid. No free air. LYMPH NODES: No lymphadenopathy is evident. REPRODUCTIVE: Unremarkable as visualised. BONES: No aggressive appearing osseous lesion. No acute osseous pathology evident. Severe degenerative changes in the spine. IMPRESSION: 1. No acute retroperitoneal hemorrhage. 2. Stable left retroperitoneal hematoma surrounding the left kidney, extending into the anterior pararenal space, along the left psoas muscle, and into the pelvis. 3. Extensive atherosclerotic changes in the abdominal aorta, most prominent in the infrarenal region, causing up to 80% luminal stenosis. 4. Moderate celiac trunk stenosis (approximately 50%). 5. Left renal artery stenosis (40-50%) in the distal 2/3. 6. Bilateral mild pleural effusions with subsegmental collapse and consolidation. 7. Hepatomegaly with right hepatic lobe measuring up to 18 cm. 8. Multiple renal cysts, largest measuring 4.2 x 6.1 cm in the lower pole of the right kidney. 9. Severe degenerative changes in the spine. /[place]
[2025-03-12 16:08] LABS: ABG BASE EXCESS -5.4 mmol/L (-2.0-3.0); ABG HCO3 19.6 mmol/L (21.0-28.0); ABG OXYGEN SATURATION 98.7 % (94.0-98.0); ABG PCO2 36 mmHg (32-45); ABG PH 7.350 (7.350-7.450); CARBON MONOXIDE 0.7 % (0.5-1.5); DEVICE COMMENT ALINE JOSE; PO2, ARTERIAL BG 173.4 mmHg (83.0-108.0); TEMPERATURE, CELSIUS BG 37.0 CELSIUS (35.5-37.0); VENT MODE, BG SIMV PS 10 (ROOM AIR)
[2025-03-12] MEDS: SODIUM BICARB 50MEQ 50ML VIAL IV ONE (16:41)
--- NOTE | 2025-03-12 16:47 | NUR ---
1200 Received patient in bed, accompanied by Sandeep DALE and CATERINA Paige. Patient arrived intubated/sedated, propofol infusing at 20m/hr. Pupils equal, patient not following commands at this time. Patient is hypothermic, unable to obtain oral/axillary temperature, last hugger applied and large blankets. Bilateral pressure dressings noted to groin area, visible dry blood present on patient perineal area as well. Abdomen is firm, but non-tender. Bilateral lower extremity pulses are faint, but palpable. Esmer DALE at bedside to assist with patient and updated. 1230 Patient experiencing an episode of hypotension, BP 75/41. Levophed initiated at this time for blood pressure support. Bilateral lower extremity pulses not palpable at this time, noted only via doppler, right foot is cool to touch. Dr. Recinos notified of CT scan results and of current findings. New orders provided by Dr. Recinos at this time and to continue to monitor patient. 1430 Currently unsuccessful at obtaining body temperature, last hugger therapy continues at this time. Dr. Recinos aware. 1550 Patient oral temperature achieved at this time, current temperature 97.9. 1608 ABG results sent to Dr. Recinos at this time.
[2025-03-12 18:56] LABS: CREATININE 0.7 mg/dL (0.5-1.0); GLOMERULAR FILTR. RATE CALC 87.0 mL/min (>90); GLUCOSE,RANDOM 189.0 mg/dL (70-105); SODIUM SERUM 145.0 mmol/L (136-145); UREA NITROGEN, BLOOD 15.0 mg/dL (7-18)
[2025-03-13] VITALS (105 sets, daily range): BP systolic 81–185; BP diastolic 28–92; PULSE 80–129; RESP 5–20; TEMP 98.1–99.7; O2SAT 96–100
[2025-03-13] MEDS: MAGNESIUM 2GM PREMIX 50ML 50 ML IV PRN (00:13)
[2025-03-13 00:44] LABS: NUCLEATED RED BLOOD CELLS 0.0 % (0.0-0.19); PLATELET COUNT (AUTO) 226.0 K/uL (130-400); RED BLOOD CELL COUNT(AUTO) 4.3 MIL/uL (4.00-5.50); RED CELL DISTRIBUTION WIDTH 14.6 % (11.0-15.5); WHITE BLOOD COUNT (AUTO) 22.4 K/uL (4.8-10.8)
--- NOTE | 2025-03-13 00:49 | CCATH ---
PROCEDURE NOTE PROCEDURES: 1. Placement of a pigtail catheter in the abdominal aorta. 2. Abdominal aortogram. 3. Selective left renal artery angiogram. 4. Left renal artery stent placement. 5. Shockwave lithotripsy of the abdominal aorta. 6. Placement of an endoluminal graft in the abdominal aorta x 3. 7. Placement of an IntraStent in the abdominal aorta. 8. Percutaneous access and repair of the right and left common femoral arteries for 12-St Lucian sheath and 7-St Lucian sheath respectively. INDICATIONS: 1. Critical peripheral vascular disease. 2. Critical limb ischemia with rest pain and foot ulceration. 3. Severe stenosis of the abdominal aorta, heavily calcified. COMPLICATIONS: Possible minimal extravasation of contrast from the calcified segment in the proximal abdominal aorta after IntraStent placement, managed with placement of an additional endoluminal graft. ANESTHESIA: General anesthesia with endotracheal intubation. TOTAL CONTRAST: 165 mL. ESTIMATED BLOOD LOSS: Less than 20 mL. DESCRIPTION OF PROCEDURE: The patient was taken to the [facility] after appropriate operative consents were signed. The patient was prepped and draped in the usual fashion. After general anesthesia was induced, the right and left common femoral artery regions were accessed utilizing ultrasound guidance. The 6-St Lucian sheaths were advanced bilaterally. Perclose sutures were deployed on the right at 12 and 2 o'clock respectively. On the left, we deployed them at 11 and 1 o'clock respectively. The sheaths were upsized to a 9-St Lucian sheath. At this point, attempts at advancing the wires across the distal and mid and proximal abdominal aorta were challenging, so we had to utilize a glidewire to be able to advance the wire to the thoracic aorta. We were able to advance Omniflush Pigtail catheter via the right common femoral artery access. The catheter was placed above the level of the abdominal aorta. Abdominal aortogram was performed in the AP projection with digital acquisition. This identified distal stenosis in the abdominal aorta just proximal to the right renal artery approximately 20%. The right renal artery ostium had 60% ostial stenotic lesion and some evidence of fibromuscular dysplasia, but was nonocclusive. The abdominal aorta had heavily calcified approximately 90% stenotic lesion in the proximal infrarenal abdominal aorta and the distal infrarenal abdominal aorta. There was evidence of extensive calcification and marked lumen restriction. Both iliac arteries and internal and external iliac arteries were patent; however, there were two areas of stenosis in the right and left external iliac artery at 20%. A gradient was obtained across the aortic stenosis in the mid area of the abdominal aorta and the femoral and we obtained a 100-mm gradient. At this point, we were able to advance two shockwave lithotripsy balloons 8 x 60 from the right and the left and they placed side by side in the abdominal aorta and proximal and distal segment and we delivered all the available therapies. Following that, we were able to advance an endoluminal graft in the distal abdominal aorta above the level of the bifurcation that was deployed. Through that, we were able to advance another endoluminal graft within the previously deployed graft to extend all the way to the left renal artery. Because of the proximity of the left renal artery to the calcific segment, the graft had to be placed higher and unfortunately that encroached upon the left renal artery. We then cannulated the left renal artery and placed a Herculink 6 x 12 stent with excellent results and widely patent renal arteries. Because of the calcific lesion and the degree of compromise, particularly on lateral projections, we elected to proceed with an IntraStent and we utilized an IntraStent 36 mm balloon that was deployed on an 18-mm balloon. This was crimped manually and advanced under fluoroscopic guidance and positioned in the proximal area of the abdominal aorta in the previously deployed area where the graft had been placed. This was inflated to normal pressure. Angiography was performed after that and there was suspicion of some minor leak on the left lateral aspect of the endoluminal graft. Given that, we elected to advance a second graft that was placed to cover that area with marked improvement in that contrast leak. The entire body of the graft in the proximal and distal abdominal area was inflated with a [employer] Reliant balloon. The final angiographic result was good with patency of the renals, abdominal aorta, right and left internal and external iliacs. The left internal iliac had a 90% stenotic lesion. At this point, the patient will be monitored closely in the intensive care unit. We will obtain a CT scan of the abdomen without contrast to assess the possibility of retroperitoneal bleed. The patient was given protamine at the end of the procedure. FINAL IMPRESSION: Complex procedure with successful placement of endoluminal graft in the abdominal aorta proximally and distally with IntraStent placement. The patient had an Endurant II 20 x 20 x 82 distally and 24 x 82 proximally and a second 24 x 82 overlapping proximally as well as an IntraStent on an 18-mm balloon with shockwave lithotripsy to prep the lesions with good angiographic results. PLAN: Medical management. TID: [id number] RECEIPT: [id number]
--- NOTE | 2025-03-13 01:57 | HMCIMG ---
EXAM: CR Chest, 1 view CLINICAL HISTORY: PICC line placement. COMPARISON: Chest radiograph dated 03/12/2025. FINDINGS: The right side PICC line tip overlies the proximal superior vena cava. The endotracheal tube tip is 5.7 cm above the jimmy. The gastric tube tip is below the diaphragm and not completely included in this image. Moderate right and small left pleural effusion and lower zone airspace disease. No pneumothorax. The cardiomediastinal silhouette is within normal limits. Mild atherosclerotic aorta. No acute osseous abnormality. IMPRESSION: The right side PICC line tip overlies the proximal superior vena cava. The endotracheal tube tip is 5.7 cm above the jimmy. The gastric tube tip is below the diaphragm and not completely included in this image. Moderate right and small left pleural effusion and lower zone airspace disease. Compared to the prior study, there is no significant interval change. /Mobile
[2025-03-13] MEDS: CALCIUM GLUC 1GM 1 GM in 0.9%NACL 100ML 90 ML IV PRN (02:03)
[2025-03-13] MEDS ORDERED: VASOpressin 20 UNITS/ML 1ML Vi 40 UNITS in 0.9%NACL 50ML 40 ML IV PRN (02:30)
[2025-03-13] MEDS: NOREPINEPHRIN 8MG/250ML NS 250 ML IV PRN (03:25)
[2025-03-13] MEDS ORDERED: COMPOUND IV REFRIGERATED 1 EACH IVSOLN MISC PRN (03:30)
[2025-03-13 04:00] LABS: IMMATURE GRANULOCYTE ABSOLUTE 0.10 K/uL (0-1); NUCLEATED RED BLOOD CELLS 0.0 % (0.0-0.19); PLATELET COUNT (AUTO) 195 K/uL (130-400); RED BLOOD CELL COUNT(AUTO) 3.73 MIL/uL (4.00-5.50); RED CELL DISTRIBUTION WIDTH 14.6 % (11.0-15.5); WHITE BLOOD COUNT (AUTO) 18.1 K/uL (4.8-10.8)
[2025-03-13 04:07] LABS: APPEARANCE,URINE CLEAR (CLEAR); GLUCOSE, URINE (UA) NEGATIVE (NEGATIVE); LEUKOCYTE ESTERASE ,URINE 75 Leu/uL (NEGATIVE); NITRATE,URINE NEGATIVE (NEGATIVE); OCCULT BLOOD,URINE SMALL (NEGATIVE)
[2025-03-13 04:09] LABS: ADD UA MICROSCOPIC YES
[2025-03-13 04:20] LABS: ASPARTATE AMINOTRANSFERASE 19.0 U/L (10-37); CREATININE 0.9 mg/dL (0.5-1.0); GLOMERULAR FILTR. RATE CALC 65.0 mL/min (>90); GLUCOSE,RANDOM 192.0 mg/dL (70-105); SODIUM SERUM 148.0 mmol/L (136-145); TOTAL PROTEIN, SERUM 5.2 g/dL (6.0-8.3); UREA NITROGEN, BLOOD 18.0 mg/dL (7-18)
[2025-03-13 06:34] LABS: NUCLEATED RED BLOOD CELLS 0.0 % (0.0-0.19); PLATELET COUNT (AUTO) 206.0 K/uL (130-400); RED BLOOD CELL COUNT(AUTO) 3.73 MIL/uL (4.00-5.50); RED CELL DISTRIBUTION WIDTH 14.8 % (11.0-15.5); WHITE BLOOD COUNT (AUTO) 18.2 K/uL (4.8-10.8)
[2025-03-13 06:44] LABS: ABG BASE EXCESS -5.8 mmol/L (-2.0-3.0); ABG HCO3 18.4 mmol/L (21.0-28.0); ABG OXYGEN SATURATION 98.1 % (94.0-98.0); ABG PCO2 33 mmHg (32-45); ABG PH 7.365 (7.350-7.450); DEVICE COMMENT ALINE YVONNE; PO2, ARTERIAL BG 113.9 mmHg (83.0-108.0); TEMPERATURE, CELSIUS BG 37.0 CELSIUS (35.5-37.0); VENT MODE, BG SIMV PS 10 (ROOM AIR)
[2025-03-13 06:57] LABS: ASPARTATE AMINOTRANSFERASE 25.0 U/L (10-37); CREATININE 1.0 mg/dL (0.5-1.0); GLOMERULAR FILTR. RATE CALC 57.0 mL/min (>90); GLUCOSE,RANDOM 193.0 mg/dL (70-105); SODIUM SERUM 145.0 mmol/L (136-145); TOTAL PROTEIN, SERUM 5.5 g/dL (6.0-8.3); UREA NITROGEN, BLOOD 19.0 mg/dL (7-18)
[2025-03-13] MEDS: VANCOMYCIN KIT 1 GM/250 ML IV.KIT IV ONE (08:03)
[2025-03-13] MEDS: MAGNESIUM 2GM PREMIX 50ML 50 ML IV SCH (08:03)
--- NOTE | 2025-03-13 08:48 | PN ---
PROBLEM LIST: * Critical limb ischemia with severe peripheral vascular disease, Ocean Class IV symptoms with threatened limbs, and nonhealing ulcers in the toes of both feet. * Diabetes mellitus with vascular manifestations. * Hypertension. * Hyperlipoproteinemia. * Hypothyroidism, on supplement. * History of tobacco use. 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 * Negative Lexiscan Cardiolite for ischemia on this admission. * Status post complex percutaneous intervention for severe stenosis of the abdominal aorta with extensive calcification, requiring shock wave lithotripsy, placement of 3 tube endoluminal grafts, and placement of IntraStent with complications of impingement on the left renal artery treated with left renal artery stenting and retroperitoneal bleeding treated with a covered graft and resolved. This patient has presented to the hospital with severe peripheral vascular disease and critical limb ischemia. She has had rest pain that was not abating. She had been evaluated by the vascular specialist for peripheral artery disease in [place] and the plan was to consider infrapopliteal intervention bilaterally; however, when I assessed the patient in the hospital due to refractory and intractable pain of both legs, my feeling was that the level of disease was at a much higher segment. Indeed, the patient had a CT angiogram that documented critical disease involving the entire infrarenal abdominal aorta with evidence of calcific stenosis of critical magnitude in the proximal segment of the infrarenal abdominal aorta as well as in the distal segment. There was also a small flap of dissection noted in the distal segment. The iliacs appeared to be patent. Yesterday, the patient went to the cardiac label paster for endoluminal graft placement because of the concern about the degree of calcification and potential compromise with balloon angioplasty and shock wave without the protection of an endoluminal graft. The patient had 2 Medtronic endoluminal grafts, one in the proximal segment in the infrarenal area and one in the distal segment, which were overlapping. Because of the fact that the calcium burden was extensive and severe and also was fairly high in the infrarenal abdominal area very close to the renal arteries, we deployed the graft as high as possible. This resulted in some impingement on the left renal artery, which was treated with balloon angioplasty and stent placement with a Herculink stent with good angiographic results. Because of the persistent stenosis in the area of the proximal infrarenal abdominal aorta after shock wave and after endoluminal graft placement and after Reliant balloon inflation, we elected to proceed with placement of an IntraStent, which was sized appropriately to the aortic size. After the IntraStent was placed, the patient developed transient hypotension and angiography confirmed evidence of leaking in the aorta to the left lateral segment. Because of that, we added another graft that covered the area of leakage with resolution of the problem. Because of the critical nature of the patient's presentation, we elected to keep her intubated and monitor her closely. Critical care was involved in her management. I had discussed her care with Dr. Roshan Edouard, who was already aware of her status and we elected to continue with conservative management. CT angiography was obtained and documented sizable left lateral retroperitoneal bleed. Because of that, CT angiography was performed and that documented no additional extravasation or contrast leak. Overnight, the patient has been stable. She has been maintained on ventilatory support at low levels. The patient has had adequate urine output and has felt generally well. On assessing the patient this morning, her abdomen is soft. She is intubated and on low-dose propofol. She is also on low-dose Levophed. She has warm bilateral lower extremities with minimal edema. The pulses are palpable this morning in both dorsalis pedis positions in contrast to her status previously. The patient had a temperature of 101 yesterday; however, currently she is down to 99. I had sent urine for UA and C and S as well as blood cultures. It is important to note that the patient had positive Klebsiella in the urine prior to the procedure. The patient has a blood pressure in the 120-145 systolic range this morning. She is on FiO2 of 40% with a tidal volume of 500 mL and a PEEP of 5 with a pulse oximeter measurement of 100%. Blood gases this morning revealed the patient to be afebrile. Her pH is slightly low at 7.35, the pCO2 is 33, the pO2 is 113.9 and the bicarb is mildly diminished at 18.4 with a base excess of -5.8 and the total CO2 is 19.4. The laboratory studies this morning revealed a white count of 18.1 down from 22.4 last night. H and H have been stable at 10.4 and 32.6 respectively. The platelet count is 195,000. The patient's chemistry revealed sodium 148, potassium 3.5, being managed per protocol, chloride is 114, CO2 is 22, BUN is 18, creatinine is 0.9 with GFR of 65. The patient's random glucose is 192. Calcium is 7.5, however, the albumin is low at 2.4, commensurate with her hypocalcemia and consistent with protein malnutrition. The patient's liver enzymes are normal. Her magnesium had been low at 1.4 and was replaced and is currently 1.8. The lactic acid this morning was mildly elevated at 1.9. The patient is currently maintained on vancomycin, low-dose Levophed, acetaminophen, propofol, morphine, clopidogrel, amlodipine, metoprolol, baby aspirin, levothyroxine, cilostazol, Lyrica, lisinopril, atorvastatin, famotidine, and p.r.n. medications. At this point, I have recommended that we continue the care and supportive measures. I am hopeful that we can wean this patient off of the ventilator as soon as possible. Her PEEP has been reduced to 3. I will discuss her management with pulmonary critical care in the hope of getting her extubated this morning so we can get her ambulated and assess her response. In the meantime, I will give her 1 amp of sodium bicarb. I had a detailed discussion with the patient's daughters in regards to the events that transpired and the complications that we encountered. TID: [id number] RECEIPT: [id number]
[2025-03-13] MEDS: SODIUM BICARB 50MEQ 50ML VIAL IV ONE (09:01)
--- NOTE | 2025-03-13 09:24 | CONS ---
[facility] CONSULTATION NOTE Date Patient Seen: Mar 12, 2025 Time of Visit: 14:22 Supervising Physician: Dr Nate Argueta Reason for Consultation: ICU medical management Primary Care Physician: [ ] Outpatient Specialists: [ ] Inpatient Consults: [ ] PROBLEM LIST: s/p endoluminal graft placement 03/12/2025 Severe Peripheral Arterial Disease Intractable bilateral lower extremity pain Lower limb ischemia Hyperlipidemia Hypertension Hypothyroidism HPI: Patient is an 79-year-old female presenting to the CV unit status post endoluminal graft placement, she is presenting intubated, anesthesia reporting patient tolerated procedure well but requiring boluses of pressors and 1 unit PRBCs. Patient's initially presenting to the hospital with critical limb ischem ia secondary to severe peripheral vascular disease. She has a past medical history for hyperlipidemia, hypertension and hypothyroidism. Patient is sedated, intubated pulses present by Doppler. Critical Care consulted by ICU medical management confirmed full code status PAST MEDICAL HX: see above PAST SURGICAL HX: noncontributory SOCIAL HISTORY: No tobacco, ETOH, or illicit drug use Coded Allergies: iron (Unverified Allergy, Unknown, 02/04/24) REVIEW OF SYSTEMS: 12 point ROS reviewed with patient. Pertinent positives mentioned above. Otherwise negative. PHYSICAL EXAM: GENERAL: alert, weak, awake oriented x 3 HEENT: EOMI, Sclera non icteric, moist mucosa NECK: Supple, no JVD, trachea midline LUNGS: Clear breath sounds bilaterally. No wheezes HEART: Regular rate and rhythm. Normal S1 and S2, without murmurs ABD: Abdomen soft, nontender. Bowel sounds present EXT: No clubbing cyanosis or edema NEURO: Alert and oriented to person, follows commands Vital Signs (last 8hr) Date Time Temp Pulse Resp B/P (MAP) Pulse Ox O2 Delivery O2 Flow Rate FiO2 03/13/25 08:00 98.2 03/13/25 08:00 98 18 129/43 (71) 98 40 142/59 (86) 03/13/25 07:45 98.1 98 18 129/43 (71) 98 40 142/59 (86) 03/13/25 07:30 111 18 133/44 (73) 98 40 03/13/25 07:15 117 17 112/55 (74) 100 40 135/92 (106) 03/13/25 07:00 105 15 90/42 (58) 98 40 98/41 (60) 03/13/25 06:49 87 30 03/13/25 06:46 30 03/13/25 06:45 101 15 124/43 (70) 98 40 03/13/25 06:00 90 9 124/43 (70) 100 40 03/13/25 05:15 83 15 154/58 (90) 100 40 148/48 (81) 03/13/25 05:00 80 129/49 (75) 100 40 136/54 (81) 03/13/25 04:45 82 127/55 (79) 100 40 135/57 (83) 03/13/25 04:30 83 12 122/50 (74) 100 40 127/60 (82) 03/13/25 04:15 94 126/57 (80) 100 40 124/53 (76) 03/13/25 04:00 99.1 104 15 130/50 (76) 98 40 124/64 (84) 03/13/25 04:00 99.1 Ventilator 40 03/13/25 04:00 100 Ventilator+ 0 40 03/13/25 03:45 104 14 156/59 (91) 100 40 155/45 (81) 03/13/25 03:30 102 17 119/37 (64) 100 40 132/32 (65) 03/13/25 03:25 146/67 03/13/25 03:18 101 40 03/13/25 03:15 107 10 85/34 (51) 99 40 90/53 (65) 03/13/25 03:09 104 16 131/47 (75) 100 40 140/64 (89) 03/13/25 03:00 98 16 145/51 (82) 100 40 146/67 (93) 03/13/25 02:45 98 16 117/49 (71) 100 40 134/61 (85) 03/13/25 02:30 98 17 127/49 (75) 100 40 142/59 (86) 03/13/25 02:15 101 16 129/47 (74) 100 40 139/64 (89) 03/13/25 02:02 129/54 03/13/25 02:00 105 16 139/42 (74) 100 40 03/13/25 01:45 99 17 156/55 (88) 100 40 162/66 (98) 03/13/25 01:30 103 16 135/51 (79) 100 40 145/60 (88) LABS: Hematology Labs: Test 03/13/25 06:11 03/13/25 03:48 Range/Units White Blood Count 18.2 H 4.8-10.8 K/uL Red Blood Count 3.73 L 4.00-5.50 MIL/uL Hemoglobin 11.0 L 12.0-16.0 g/dL Hematocrit 32.3 L 36-48 % Mean Corpuscular Volume 86.6 79-99 fL Mean Corpuscular Hemoglobin 29.5 27.0-33.0 pg Mean Corpuscular Hemoglobin Concent 34.1 32.0-36.0 g/dL Red Cell Distribution Width 14.8 11.0-15.5 % Platelet Count 206 130-400 K/uL Mean Platelet Volume 10.2 7.5-10.5 fL Nucleated Red Blood Cells 0.0 0.0-0.19 % Immature Granulocyte % (Auto) 0.6 0-1 % Neutrophils (%) (Auto) 86.3 H 40.0-77.0 % Lymphocytes (%) (Auto) 5.3 L 21.0-51.0 % Monocytes (%) (Auto) 7.6 3.0-13.0 % Eosinophils (%) (Auto) 0.0 0.0-8.0 % Basophils (%) (Auto) 0.2 0.0-5.0 % Neutrophils # (Auto) 15.6 H 1.8-7.7 K/uL Lymphocytes # (Auto) 1.0 1.0-4.8 K/uL Monocytes # (Auto) 1.4 H 0.1-1.0 K/uL Eosinophils # (Auto) 0.00 0.00-0.70 K/uL Basophils # (Auto) 0.04 0.00-0.20 K/uL Absolute Immature Granulocyte (auto 0.10 0-1 K/uL White Cell Morphology Comment See comments Chemistry Labs: Test 03/13/25 06:11 03/13/25 03:48 03/12/25 13:11 Range/Units Sodium Level 145 136-145 mmol/L Potassium Level 4.4 3.5-5.1 mmol/L Chloride Level 112 H 101-111 mmol/L Carbon Dioxide Level 24 21-32 mmol/L Blood Urea Nitrogen 19 H 7-18 mg/dL Creatinine 1.0 0.5-1.0 mg/dL Glomerular Filtration Rate Calc 57 >90 mL/min Random Glucose 193 H 70-105 mg/dL Total Calcium 7.6 L 8.5-10.1 mg/dL Total Bilirubin 0.3 0.2-1.0 mg/dL Aspartate Amino Transf (AST/SGOT) 25 10-37 U/L Alanine Aminotransferase (ALT/SGPT) 17 12-78 U/L Alkaline Phosphatase 54 50-136 U/L Total Protein 5.5 L 6.0-8.3 g/dL Albumin 2.5 L 3.5-5.0 g/dL Lactic Acid Level 1.9 0.8-2.5 mmol/L Magnesium Level 1.80 1.80-2.40 mg/dL Whole Blood Glucose 134 H 70-110 MG/DL Coagulation Labs: Test 03/11/25 18:46 Range/Units Prothrombin Time 10.3 9.6-11.6 SEC Prothromb Time International Ratio 0.97 0.85-1.15 Activated Partial Thromboplast Time 25.6 L 26.3-35.5 SEC DIAGNOSTICS / RADIOLOGY RESULTS: [ ] PLAN Patient admitted to the CV unit, patient intubated, vent management, sedated Pending an ABG, chest x-ray, we will start spontaneous breathing trials Patient requiring low-dose levo, we will wean pressors Neurovascular checks per protocol Pending hemoglobin recheck, we will transfuse if needed NEURO: Minimize central acting medications as possible. Fall Precautions. Well lighted room through the day and minimize interruptions through the night to prevent acute delirium. PULMONARY: Supplemental 02 as needed Titrate Fio2 to keep Spo2 > or = 90% DuoNebs and CPT as needed IS hourly while awake for pulmonary hygiene Out of bed to chair as tolerated VAP Bundle Vent/BIPAP Settings: [ ] Driving pressure: [ ] P Plat: [ ] Static C: [ ] Static R: [ ] P/F Ratio: [ ] CARDIOVASCULAR: Follow hemodynamics. Titrate vasopressor to keep MAP >65 or systolic blood pressure >95mmHg DIPS: [ ] LINES: [ ] GI & NUTRITION: Continue nutritional support Aspirations precautions Prokinetic agents and laxatives as needed KIDNEYS & ELECTROLYTES: Strict monitoring of intake and output Daily weights Avoid nephrotoxic agents Monitor electrolytes and replace as needed Goal urine output of 30mL/hr or 0.5mL/kg/hr Urine output: [ ] Fluid Balance: [ ] ENDOCRINE: Maintain blood glucose between 100-180 at all times. Insulin sliding scale for blood glucose management INFECTIOUS DISEASE: Trend temperature. Cardenas-culture if febrile. Micro: [ ] Antibiotics: [ ] HEMATOLOGY & COAGULATION: Monitor H&H. Keep Hgb > 7 Transfuse 1 unit of PRBC for Hgb < 7 Transfuse 1 pack of platelets of platelets < 20, 000 Watch for any signs and symptoms of bleeding SKIN: Pressure ulcer prevention per facility protocol Rehab: PT/OT Prophylaxis: GI: [ ] DVT: [ ] Code Status: Full Resuscitation Disposition: [ ] Other: Total patient care time exceeds 35 minutes excluding all procedures. Case was discussed and seen with my supervising physician. The above plan was formulated and agreed upon. JERRY THRASHER PAC Mar 13, 2025 09:24
--- NOTE | 2025-03-13 09:37 | PN ---
[facility] PROGRESS NOTE Date Patient Seen: Mar 13, 2025 Time of Visit: 09:34 Supervising Physician: Dr Oscar Flores Primary Care Physician: [ ] Outpatient Specialists: [ ] Inpatient Consults: [ ] PROBLEM LIST: Intubated patient s/p endoluminal graft placement 03/12/2025 Severe Peripheral Arterial Disease Intractable bilateral lower extremity pain Lower limb ischemia Hyperlipidemia Hypertension Hypothyroidism INTERVAL HISTORY: Patient was seen and examined, patient is sedated, intubated, She is status post the endoluminal grafting yesterday, nursing reports pulses by Doppler Extremities are warm Patient remains on low-dose levo, her hemoglobin 11, no transfusions overnight, no active signs of bleeding Her vital signs are stable Good saturations Chest x-ray reveals a moderate right lower pleural effusion otherwise chest is clear She was started on spontaneous breathing this morning and we are weaning sedation Plan: Following cardiology and Cardiothoracic surgery's are postop protocols and recom mendations Patient continues on Lovenox, SCDs and her Plavix has been resumed Vent weaning, spontaneous breathing trials hopefully extubation Trending patient's hemoglobin monitoring for signs of bleeding Telemetry Total critical care time 46 minutes, this excludes any time spent with education or procedures. Patient at high risk for deterioration REVIEW OF SYSTEMS: 12 point ROS reviewed with patient. Pertinent positives mentioned above. Otherwise negative. PHYSICAL EXAM: GENERAL: alert, weak, awake oriented x 3 HEENT: EOMI, Sclera non icteric, moist mucosa NECK: Supple, no JVD, trachea midline LUNGS: Clear breath sounds bilaterally. No wheezes HEART: Regular rate and rhythm. Normal S1 and S2, without murmurs ABD: Abdomen soft, nontender. Bowel sounds present EXT: No clubbing cyanosis or edema NEURO: Alert and oriented to person, follows commands Vital Signs (last 8hr) Date Time Temp Pulse Resp B/P (MAP) Pulse Ox O2 Delivery O2 Flow Rate FiO2 03/13/25 08:00 98.2 03/13/25 08:00 98 18 129/43 (71) 98 40 142/59 (86) 03/13/25 07:45 98.1 98 18 129/43 (71) 98 40 142/59 (86) 03/13/25 07:30 111 18 133/44 (73) 98 40 03/13/25 07:15 117 17 112/55 (74) 100 40 135/92 (106) 03/13/25 07:00 105 15 90/42 (58) 98 40 98/41 (60) 03/13/25 06:49 87 30 03/13/25 06:46 30 03/13/25 06:45 101 15 124/43 (70) 98 40 03/13/25 06:00 90 9 124/43 (70) 100 40 03/13/25 05:15 83 15 154/58 (90) 100 40 148/48 (81) 03/13/25 05:00 80 129/49 (75) 100 40 136/54 (81) 03/13/25 04:45 82 127/55 (79) 100 40 135/57 (83) 03/13/25 04:30 83 12 122/50 (74) 100 40 127/60 (82) 03/13/25 04:15 94 126/57 (80) 100 40 124/53 (76) 03/13/25 04:00 99.1 104 15 130/50 (76) 98 40 124/64 (84) 03/13/25 04:00 99.1 Ventilator 40 03/13/25 04:00 100 Ventilator+ 0 40 03/13/25 03:45 104 14 156/59 (91) 100 40 155/45 (81) 03/13/25 03:30 102 17 119/37 (64) 100 40 132/32 (65) 03/13/25 03:25 146/67 03/13/25 03:18 101 40 03/13/25 03:15 107 10 85/34 (51) 99 40 90/53 (65) 03/13/25 03:09 104 16 131/47 (75) 100 40 140/64 (89) 03/13/25 03:00 98 16 145/51 (82) 100 40 146/67 (93) 03/13/25 02:45 98 16 117/49 (71) 100 40 134/61 (85) 03/13/25 02:30 98 17 127/49 (75) 100 40 142/59 (86) 03/13/25 02:15 101 16 129/47 (74) 100 40 139/64 (89) 03/13/25 02:02 129/54 03/13/25 02:00 105 16 139/42 (74) 100 40 03/13/25 01:45 99 17 156/55 (88) 100 40 162/66 (98) LABS: Hematology Labs: Test 03/13/25 06:11 03/13/25 03:48 Range/Units White Blood Count 18.2 H 4.8-10.8 K/uL Red Blood Count 3.73 L 4.00-5.50 MIL/uL Hemoglobin 11.0 L 12.0-16.0 g/dL Hematocrit 32.3 L 36-48 % Mean Corpuscular Volume 86.6 79-99 fL Mean Corpuscular Hemoglobin 29.5 27.0-33.0 pg Mean Corpuscular Hemoglobin Concent 34.1 32.0-36.0 g/dL Red Cell Distribution Width 14.8 11.0-15.5 % Platelet Count 206 130-400 K/uL Mean Platelet Volume 10.2 7.5-10.5 fL Nucleated Red Blood Cells 0.0 0.0-0.19 % Immature Granulocyte % (Auto) 0.6 0-1 % Neutrophils (%) (Auto) 86.3 H 40.0-77.0 % Lymphocytes (%) (Auto) 5.3 L 21.0-51.0 % Monocytes (%) (Auto) 7.6 3.0-13.0 % Eosinophils (%) (Auto) 0.0 0.0-8.0 % Basophils (%) (Auto) 0.2 0.0-5.0 % Neutrophils # (Auto) 15.6 H 1.8-7.7 K/uL Lymphocytes # (Auto) 1.0 1.0-4.8 K/uL Monocytes # (Auto) 1.4 H 0.1-1.0 K/uL Eosinophils # (Auto) 0.00 0.00-0.70 K/uL Basophils # (Auto) 0.04 0.00-0.20 K/uL Absolute Immature Granulocyte (auto 0.10 0-1 K/uL White Cell Morphology Comment See comments Chemistry Labs: Test 03/13/25 06:11 03/13/25 03:48 03/12/25 13:11 Range/Units Sodium Level 145 136-145 mmol/L Potassium Level 4.4 3.5-5.1 mmol/L Chloride Level 112 H 101-111 mmol/L Carbon Dioxide Level 24 21-32 mmol/L Blood Urea Nitrogen 19 H 7-18 mg/dL Creatinine 1.0 0.5-1.0 mg/dL Glomerular Filtration Rate Calc 57 >90 mL/min Random Glucose 193 H 70-105 mg/dL Total Calcium 7.6 L 8.5-10.1 mg/dL Total Bilirubin 0.3 0.2-1.0 mg/dL Aspartate Amino Transf (AST/SGOT) 25 10-37 U/L Alanine Aminotransferase (ALT/SGPT) 17 12-78 U/L Alkaline Phosphatase 54 50-136 U/L Total Protein 5.5 L 6.0-8.3 g/dL Albumin 2.5 L 3.5-5.0 g/dL Lactic Acid Level 1.9 0.8-2.5 mmol/L Magnesium Level 1.80 1.80-2.40 mg/dL Whole Blood Glucose 134 H 70-110 MG/DL Coagulation Labs: Test 03/11/25 18:46 Range/Units Prothrombin Time 10.3 9.6-11.6 SEC Prothromb Time International Ratio 0.97 0.85-1.15 Activated Partial Thromboplast Time 25.6 L 26.3-35.5 SEC DIAGNOSTICS / RADIOLOGY RESULTS: [ ] PLAN NEURO: Minimize central acting medications as possible. Fall Precautions. Well lighted room through the day and minimize interruptions through the night to prevent acute delirium. PULMONARY: Supplemental 02 as needed Titrate Fio2 to keep Spo2 > or = 90% DuoNebs and CPT as needed IS hourly while awake for pulmonary hygiene Out of bed to chair as tolerated VAP Bundle Vent/BIPAP Settings: [ ] Driving pressure: [ ] P Plat: [ ] Static C: [ ] Static R: [ ] P/F Ratio: [ ] CARDIOVASCULAR: Follow hemodynamics. Titrate vasopressor to keep MAP >65 or systolic blood pressure >95mmHg DIPS: [ ] LINES: [ ] GI & NUTRITION: Continue nutritional support Aspirations precautions Prokinetic agents and laxatives as needed KIDNEYS & ELECTROLYTES: Strict monitoring of intake and output Daily weights Avoid nephrotoxic agents Monitor electrolytes and replace as needed Goal urine output of 30mL/hr or 0.5mL/kg/hr Urine output: [ ] Fluid Balance: [ ] ENDOCRINE: Maintain blood glucose between 100-180 at all times. Insulin sliding scale for blood glucose management INFECTIOUS DISEASE: Trend temperature. Cardenas-culture if febrile. Micro: [ ] Antibiotics: [ ] HEMATOLOGY & COAGULATION: Monitor H&H. Keep Hgb > 7 Transfuse 1 unit of PRBC for Hgb < 7 Transfuse 1 pack of platelets of platelets < 20, 000 Watch for any signs and symptoms of bleeding SKIN: Pressure ulcer prevention per facility protocol Rehab: PT/OT Prophylaxis: GI: [ ] DVT: [ ] Code Status: Full Resuscitation Disposition: [ ] Case was discussed and seen with my supervising physician. The above plan was formulated and agreed upon. JERRY THRASHER PAC Mar 13, 2025 09:37
--- NOTE | 2025-03-13 09:45 | NUR ---
As per , ok to give lovenox dose now.
--- NOTE | 2025-03-13 10:42 | PN ---
[facility] PROGRESS NOTE Date of Service: Mar 13, 2025 Time of Service: 10:[address] Rebollar SUBJECTIVE: [Patient presents to the emergency department with a chief complaint of lower extremity pain. She reports onset of symptoms two weeks ago, primarily affecting both feet. The pain is described as sharp and tingling, occurring intermittently. There are no alleviating factors, and symptoms are aggravated by physical activity. She also reports associated discoloration at the tips of her toes. 03/08/25 Patient was evaluated today, she has been seen by amusement park entertainer already. Had CT runoff pending reading. Dr Wu recommending Peripheral angio, plans to do tomorrow. We will continue to follow recommendations and managed patient's symptoms. No other complaints, she is afebrile. Labs reviewed. 03/09/25 The patient was evaluated in the room. According to the patient and family, the scheduled angiogram was canceled today. Dr. Recinos recommended against proceeding due to the patient's critical aortic stenosis, which presents a high risk for any intervention. He advised that, given the presence of aortic dissection and extensive calcification, the patient is unlikely to benefit from simple angioplasty and should instead be considered for endoluminal grafting. Lithotripsy of the abdominal aorta followed by graft placement will likely be required. Additionally, the patient has infrapopliteal disease, which may need to be addressed either during the same procedure or at a later date. At this time, Dr. Recinos recommended holding clopidogrel, aspirin, cilostazol, and statins. The patient is now scheduled for a Lexiscan Cardiolite study due to extensive coronary artery calcification noted on evaluation, as general anesthesia may be required for the planned endoluminal grafting. No other complaints, we will continue with supportive care as appropriate. The patient and family verbalized understanding of the current plan and recommendations. ] 03/10/25 patient was seen by PROCUREMENT ANALYST and physician during rounding in room 324. Patient was cleared by Dr. Amezquita/amusement park entertainer for endoluminal grafting to be performed with Dr. Recinos. At this moment we are pending further recommendations regards endoluminal grafting. We will continue to monitor patient in the meantime. A.m. labs. 03/11 patient was seen by nurse practitioner and physician during rounding in room 324. Patient was evaluated by amusement park entertainer and that is pending endoluminal grafting tomorrow 03/12/2025. Patient NPO after midnight. Patient will receive also potassium 40 mEq to replace the potassium of 3.3. Final urine culture pending. As per case management patient to be discharged home once medically cleared. We will continue to monitor patient in the meantime. A.m. labs. 03/12 patient was seen by nurse practitioner and physician during rounding in room 324. Patient is pending endoluminal grafting with Dr. Ashley hdz on standby and we will be for the procedure in the event that if it is needed. Family and the patient understand the procedure is a high-risk given the critical stenosis of the small size of the distal abdominal aorta in particular. They understand that we will attempt to evaluate entire vascular tree for the lower extremities and abdominal aorta. Also they do understand that amusement park entertainer might not be able to address all issues at the same settings given the extensive nature of the disease. Continue current supportive measurements. We will continue to monitor patient in the meantime. A.m. labs. After procedure patient will go to ICU. 03/13 patient was seen by nurse practitioner and physician during rounding in room 219. Patient is s/p endoluminal grafting on 03/12/[address] Recinos. After procedure patient was transferred to ICU where at this moment is intubated. Family members at the bedside. Patient continues to be on Lovenox SCDs and Plavix has been resumed. Hopefully patient will be extubated today. Patient continues to be on Levophed drip. We will continue to monitor patient in the meantime. A.m. labs REVIEW OF SYSTEMS 12 point ROS reviewed with patient. Pertinent positives mentioned above. Otherwise negative. PHYSICAL EXAM Patient is intubated Vital Signs (last 8hr) Date Time Temp Pulse Resp B/P (MAP) Pulse Ox O2 Delivery O2 Flow Rate FiO2 03/13/25 10:15 106 30 03/13/25 09:30 102 30 03/13/25 08:00 98.2 03/13/25 08:00 98 Ventilator+ 0 40 03/13/25 08:00 98 18 129/43 (71) 98 40 142/59 (86) 03/13/25 07:45 98.1 98 18 129/43 (71) 98 40 142/59 (86) 03/13/25 07:30 111 18 133/44 (73) 98 40 03/13/25 07:15 117 17 112/55 (74) 100 40 135/92 (106) 03/13/25 07:00 105 15 90/42 (58) 98 40 98/41 (60) 03/13/25 06:49 87 30 03/13/25 06:46 30 03/13/25 06:45 101 15 124/43 (70) 98 40 03/13/25 06:00 90 9 124/43 (70) 100 40 03/13/25 05:15 83 15 154/58 (90) 100 40 148/48 (81) 03/13/25 05:00 80 129/49 (75) 100 40 136/54 (81) 03/13/25 04:45 82 127/55 (79) 100 40 135/57 (83) 03/13/25 04:30 83 12 122/50 (74) 100 40 127/60 (82) 03/13/25 04:15 94 126/57 (80) 100 40 124/53 (76) 03/13/25 04:00 99.1 104 15 130/50 (76) 98 40 124/64 (84) 03/13/25 04:00 99.1 Ventilator 40 03/13/25 04:00 100 Ventilator+ 0 40 03/13/25 03:45 104 14 156/59 (91) 100 40 155/45 (81) 03/13/25 03:30 102 17 119/37 (64) 100 40 132/32 (65) 03/13/25 03:25 146/67 03/13/25 03:18 101 40 03/13/25 03:15 107 10 85/34 (51) 99 40 90/53 (65) 03/13/25 03:09 104 16 131/47 (75) 100 40 140/64 (89) 03/13/25 03:00 98 16 145/51 (82) 100 40 146/67 (93) 03/13/25 02:45 98 16 117/49 (71) 100 40 134/61 (85) LABS: Laboratory: Test 03/13/25 06:42 03/13/25 06:11 03/13/25 03:48 03/13/25 03:40 Range/Units Blood Gas Specimen Type Arterial Arterial Blood pH 7.365 7.350-7.450 Arterial Blood Partial Pressure CO2 33 32-45 mmHg Arterial Blood Partial Pressure O2 113.9 H 83.0-108.0 mmHg Arterial Blood HCO3 18.4 L 21.0-28.0 mmol/L Arterial Blood Oxygen Saturation 98.1 H 94.0-98.0 % Arterial Blood Base Excess -5.8 L -2.0-3.0 mmol/L Blood Gas Temperature 37.0 35.5-37.0 CELSIUS Blood Gas Respiration Rate 8.0 min. Blood Gas Vent Mode SIMV PS 10 ROOM AIR FiO2 40.0 % Blood Gas Tidal Volume 500 ml Blood Gas PEEP 5 cm H2O Blood Gas Specimen Comment [place] White Blood Count 18.2 H 4.8-10.8 K/uL Red Blood Count 3.73 L 4.00-5.50 MIL/uL Hemoglobin 11.0 L 12.0-16.0 g/dL Hematocrit 32.3 L 36-48 % Mean Corpuscular Volume 86.6 79-99 fL Mean Corpuscular Hemoglobin 29.5 27.0-33.0 pg Mean Corpuscular Hemoglobin Concent 34.1 32.0-36.0 g/dL Red Cell Distribution Width 14.8 11.0-15.5 % Platelet Count 206 130-400 K/uL Mean Platelet Volume 10.2 7.5-10.5 fL Nucleated Red Blood Cells 0.0 0.0-0.19 % Sodium Level 145 136-145 mmol/L Potassium Level 4.4 3.5-5.1 mmol/L Chloride Level 112 H 101-111 mmol/L Carbon Dioxide Level 24 21-32 mmol/L Blood Urea Nitrogen 19 H 7-18 mg/dL Creatinine 1.0 0.5-1.0 mg/dL Glomerular Filtration Rate Calc 57 >90 mL/min Random Glucose 193 H 70-105 mg/dL Total Calcium 7.6 L 8.5-10.1 mg/dL Total Bilirubin 0.3 0.2-1.0 mg/dL Aspartate Amino Transf (AST/SGOT) 25 10-37 U/L Alanine Aminotransferase (ALT/SGPT) 17 12-78 U/L Alkaline Phosphatase 54 50-136 U/L Total Protein 5.5 L 6.0-8.3 g/dL Albumin 2.5 L 3.5-5.0 g/dL Immature Granulocyte % (Auto) 0.6 0-1 % Neutrophils (%) (Auto) 86.3 H 40.0-77.0 % Lymphocytes (%) (Auto) 5.3 L 21.0-51.0 % Monocytes (%) (Auto) 7.6 3.0-13.0 % Eosinophils (%) (Auto) 0.0 0.0-8.0 % Basophils (%) (Auto) 0.2 0.0-5.0 % Neutrophils # (Auto) 15.6 H 1.8-7.7 K/uL Lymphocytes # (Auto) 1.0 1.0-4.8 K/uL Monocytes # (Auto) 1.4 H 0.1-1.0 K/uL Eosinophils # (Auto) 0.00 0.00-0.70 K/uL Basophils # (Auto) 0.04 0.00-0.20 K/uL Absolute Immature Granulocyte (auto 0.10 0-1 K/uL White Cell Morphology Comment See comments Lactic Acid Level 1.9 0.8-2.5 mmol/L Magnesium Level 1.80 1.80-2.40 mg/dL Urine Color YELLOW YELLOW Urine Appearance CLEAR CLEAR Urine pH 6.0 5.0-8.0 Urine Specific [place] OVER 1.001-1.031 Urine Protein 50 H NEGATIVE mg/dL Urine Glucose (UA) NEGATIVE NEGATIVE mg/dL Urine Ketones NEGATIVE NEGATIVE mg/dL Urine Occult Blood SMALL H NEGATIVE Urine Nitrate NEGATIVE NEGATIVE Urine Bilirubin NEGATIVE NEGATIVE mg/dL Urine Urobilinogen 0.2 0.2-1.0 mg/dL Urine Leukocyte Esterase 75 H NEGATIVE Dasha/uL Urine RBC 11-25 H 0-1 /HPF Urine WBC 11-25 H 0-1 /HPF Urine Bacteria RARE None Seen /HPF Test 03/12/25 16:07 03/12/25 13:11 03/11/25 18:46 Range/Units Hemoglobin (Blood Gas) 11.9 L 12.0-16.0 g/dL Sodium (Blood Gas) 141 136-145 MMOL/L Bedside Potassium (Blood Gas) 4.3 3.4-4.5 MMOL/L Bedside Chloride (Blood Gas) 111 H 98-107 MMOL/L Bedside Glucose (Blood Gas) 215 H 65-95 MG/DL Bedside Ionized Calcium (Blood Gas) 1.09 L 1.15-1.33 MMOL/L Bedside Lactic Acid (Blood Gas) 1.53 H 0.36-0.75 MMOL/L Whole Blood Glucose 134 H 70-110 MG/DL Prothrombin Time 10.3 9.6-11.6 SEC Prothromb Time International Ratio 0.97 0.85-1.15 Activated Partial Thromboplast Time 25.6 L 26.3-35.5 SEC Current Medications Medications (Trade) Dose Ordered Sig/Lucie Route PRN Reason Start Time Stop Time Status Last Admin Dose Admin Acetaminophen (TYLenol 325MG TAB) 650 mg Q6H PRN PO TEMPERATURE GREATER THAN 101.5 03/06/25 23:00 04/05/25 22:59 Acetaminophen (TYLenol 650MG SUPPOSITORY) 650 mg Q6H PRN RC IF NPO, TEMP GREATER THAN 101 03/12/25 22:00 04/11/25 21:59 Acetaminophen/ Codeine Phosphate (TYLenol-coDEINE TAB) 1 tab Q6H PRN PO MODERATE PAIN (4-6) 03/09/25 09:30 04/08/25 09:29 Acetaminophen/ Codeine Phosphate (TYLenol-coDEINE TAB) 2 tab Q4HPRN PRN PO SEVERE PAIN (7-10) 03/10/25 08:00 04/08/25 09:29 03/11/25 23:53 2 TAB Acetaminophen/ Codeine Phosphate (TYLenol-coDEINE TAB) 2 tab Q6H PRN PO SEVERE PAIN (7-10) 03/09/25 09:30 03/10/25 07:57 DC 03/09/25 22:43 2 TAB Amlodipine Besylate (NorvASC 5MG TAB) 10 mg DAILY PO 03/08/25 09:00 04/07/25 08:59 03/11/25 10:25 10 MG Aspirin (Aspirin 81mg Chew Tab) 81 mg DAILY PO 03/08/25 09:00 04/07/25 08:59 03/13/25 09:51 81 MG Aspirin (Aspirin 81mg Ec Tab) 81 mg DAILY PO 03/07/25 09:00 03/07/25 13:12 DC 03/07/25 08:34 81 MG Atorvastatin Calcium (LIPItor 10MG) 10 mg HS PO 03/07/25 21:00 03/07/25 13:14 DC Atorvastatin Calcium (LIPItor 40MG) 40 mg HS PO 03/07/25 21:00 04/06/25 20:59 03/12/25 21:05 40 MG Calcium Gluconate 1 gm/Sodium Chloride 100 ml @ 0 mls/hr AD PRN IV Serum Calcium Correction 03/12/25 23:00 04/11/25 22:59 03/13/25 02:04 100 MLS/HR Cilostazol (PLETal 100MG TAB) 100 mg BID PO 03/07/25 21:00 04/06/25 20:59 03/13/25 09:32 100 MG Clopidogrel Bisulfate (plaVIX 75MG) 75 mg DAILY PO 03/07/25 09:00 03/07/25 19:38 DC 03/07/25 08:35 75 MG Clopidogrel Bisulfate (plaVIX 75MG) 75 mg DAILY PO 03/09/25 09:30 04/08/25 09:29 03/13/25 09:51 75 MG Enoxaparin Sodium (Lovenox) 30 mg DAILY SQ 03/07/25 09:00 04/06/25 08:59 03/13/25 09:52 30 MG Famotidine (Pepcid 20mg Tab) 20 mg DAILY PO 03/07/25 09:00 04/06/25 08:59 03/13/25 09:51 20 MG Furosemide (LASix 20MG VIAL) 20 mg ONCE IV 03/12/25 18:00 03/12/25 22:00 DC 03/12/25 17:52 20 MG Gabapentin (NEURontin 100 mg CAP) 100 mg TID PO 03/07/25 14:00 03/07/25 16:06 DC 03/07/25 13:55 100 MG Home Med (Home Medication) (Tramadol HCl 50MG ER) 1 TAB) Q8H PRN PO MODERATE PAIN (4-6) 03/08/25 09:00 04/07/25 08:59 Hydralazine HCl (APRESOLine 20MG INJ) 10 mg Q6H PRN IV For:SBP above 160;DBP above 90 03/06/25 23:00 04/05/25 22:59 03/07/25 12:15 10 MG Lactulose (Constulose 20gm/ 30ml Udcup) 20 gm BID PRN PO CONSTIPATION 03/06/25 23:00 04/05/25 22:59 03/10/25 18:00 20 GM Levothyroxine Sodium (SYNTHroid 88MCG TAB) 88 mcg SYN PO 03/08/25 06:30 04/07/25 06:29 03/13/25 06:22 88 MCG Lisinopril (Prinivil 20mg) 20 mg BID PO 03/07/25 21:00 04/06/25 20:59 03/12/25 21:06 20 MG Magnesium Sulfate 50 ml @ 0 mls/hr PROTOCOL IV 03/13/25 07:00 04/12/25 06:59 03/13/25 08:03 25 MLS/HR Magnesium Sulfate 50 ml @ 0 mls/hr PROTOCOL PRN IV MAGNESIUM PROTOCOL 03/12/25 23:00 03/13/25 07:28 DC 03/13/25 00:13 25 MLS/HR Metoprolol Succinate (TopROL XL) 50 mg DAILY PO 03/08/25 09:00 04/07/25 08:59 03/11/25 10:25 50 MG Morphine Sulfate (morPHINE 4MG SYG) 2 mg Q4H PRN IVP SEVERE PAIN (7-10) 03/06/25 23:00 03/09/25 09:27 DC 03/09/25 06:05 2 MG Morphine Sulfate (morPHINE 4MG SYG) 3 mg Q2HPRN PRN IVP SEVERE PAIN (7-10) 03/10/25 08:00 03/17/25 07:59 03/12/25 17:52 3 MG Nitroglycerin/ Dextrose 250 ml @ 0 mls/hr PROTOCOL IV 03/12/25 11:00 04/11/25 10:59 Norepinephrine 250 ml @ 0 mls/hr PROTOCOL IV 03/12/25 11:00 03/13/25 02:30 DC 03/13/25 02:02 137 MLS/HR Norepinephrine Bitartrate 250 ml @ 0 mls/hr AD PRN IV TITRATE 03/13/25 02:30 04/12/25 02:29 03/13/25 10:22 13.76 MLS/HR Ondansetron HCl (zoFRAN 4MG INJ) 4 mg Q6H PRN IV NAUSEA/VOMITING 03/06/25 23:00 04/05/25 22:59 03/12/25 17:52 4 MG Phenylephrine HCl 100 mg/Sodium Chloride 250 ml @ 0 mls/hr AD PRN IV TITRATE 03/13/25 02:30 04/12/25 02:29 Potassium Chloride 100 ml @ 50 mls/hr AD PRN IV POTASSIUM PROTOCOL 03/12/25 23:00 04/11/25 22:59 03/13/25 06:23 50 MLS/HR Potassium Chloride 100 ml @ 100 mls/hr AD PRN IV POTASSIUM PROTOCOL 03/12/25 23:00 04/11/25 22:59 Potassium Chloride (K-Dur/Klor-Con 20meq) 20 meq AD PRN PO POTASSIUM PROTOCOL 03/12/25 23:00 04/11/25 22:59 Potassium Chloride (KCl 10% Elixir 20meq/15ml) 20 meq AD PRN PO POTASSIUM PROTOCOL 03/12/25 23:00 04/11/25 22:59 Pregabalin (BRTpth13ID) 75 mg BID PO 03/07/25 21:00 04/06/25 20:59 03/13/25 09:32 75 MG Propofol (DIPRivan 1000MG/ 100ML) 1,000 mg PROTOCOL PRN IV SEDATION 03/12/25 18:30 04/11/25 18:29 03/13/25 03:26 1,000 MG Sodium Chloride 1,000 ml @ 75 mls/hr [id number] IV 03/12/25 11:00 04/11/25 10:59 03/12/25 23:09 75 MLS/HR Vasopressin 40 units/Sodium Chloride 42 ml @ 0 mls/hr AD PRN IV TITRATE 03/13/25 02:30 04/12/25 02:29 DIAGNOSTICS / RADIOLOGY: [ ] ASSESSMENT: [Patient intubated 03/12/2025 Severe Peripheral Arterial Disease (PAD), Cherry Category 5: Bilateral lower extremity involvement (R>L) S/p endoluminal grafting by Dr. Recinos 03/12/2025 Intractable bilateral lower extremity pain Peripheral arterial disease (PAD) Digital discoloration and ulceration, concerning for possible ischemia Hyperlipidemia Hypertension Hypothyroidism PLAN: [ Patient is s/p endoluminal grafting on 03/12/[address] Recinos. After procedure patient was transferred to ICU where at this moment is intubated. Family members at the bedside. Patient continues to be on Lovenox SCDs and Plavix has been resumed. Hopefully patient will be extubated today. Patient continues to be on Levophed drip. We will continue to monitor patient in the meantime. A.m. labs -Angiogram canceled per Dr. Zepeda recommendations. -Patient is not a candidate for simple angioplasty due to critical aortic stenosis, aortic dissection, and extensive vascular calcification. -Infrapopliteal disease to be addressed either during the same procedure or at a later date. Supportive Care: -Continue supportive care for other complaints as indicated (e.g., pain management, hemodynamic monitoring, DVT prophylaxis, wound care as appropriate). Medical Management -Analgesia as needed with morphine. -Resumed home medications -GI prophylaxis: Famotidine -DVT prophylaxis: Lovenox Wound Care -Local wound care for digital ulcers -Monitor for signs of infection or progression Pain Management -Continue current pain management regimen as needed Follow-up: -Monitor for any changes in clinical status. -Lexiscan normal 03/09/2025 -Reassess plan following cardiac evaluation and further vascular surgery input. Case discussed with Dr. Rebollar, above plan was formulated Total critical care time 46 minutes, this excludes any time spent with education or procedures. Patient at high risk for deterioration ] ATTESTATION BY PHYSICIAN I have seen and examined the patient. I reviewed the documentation, medical decision making, and treatment plan as noted by the mid-level provider above. I agree with the findings and plan of care. Ankit Rebollar IV, MD, [facility] Mar 13, 2025 10:42
[2025-03-13 11:23] LABS: ABG BASE EXCESS -2.1 mmol/L (-2.0-3.0); ABG HCO3 22.0 mmol/L (21.0-28.0); ABG OXYGEN SATURATION 95.9 % (94.0-98.0); ABG PCO2 35 mmHg (32-45); ABG PH 7.413 (7.350-7.450); CARBON MONOXIDE 0.3 % (0.5-1.5); CPAP, BG 3 cm H2O; DEVICE COMMENT ALINE JOSE; PO2, ARTERIAL BG 82.0 mmHg (83.0-108.0); TEMPERATURE, CELSIUS BG 37.0 CELSIUS (35.5-37.0); VENT MODE, BG CPAP PS 10 (ROOM AIR)
--- NOTE | 2025-03-13 11:35 | NUR ---
[facility] ICU Skin Assessment: Patient assessed by wound healing team. Patient with no wounds or skin breakdown noted. Assessment and recommendations provided to primary nurse. Education provided. Addendum: 03/13/25 at 1140 by MONY PIERSON RN RN/ Amended: Links added.
--- NOTE | 2025-03-13 11:49 | NUR ---
Sputum sample taken to lab by toll line mechanic [place].
[2025-03-13 11:56] LABS: NUCLEATED RED BLOOD CELLS 0.0 % (0.0-0.19); PLATELET COUNT (AUTO) 173.0 K/uL (130-400); RED BLOOD CELL COUNT(AUTO) 3.32 MIL/uL (4.00-5.50); RED CELL DISTRIBUTION WIDTH 15.0 % (11.0-15.5); WHITE BLOOD COUNT (AUTO) 16.2 K/uL (4.8-10.8)
--- NOTE | 2025-03-13 13:01 | HMCIMG ---
CHEST 1VW REASON: ET tube placement COMPARISON: The from 03/06/2025 is available. FINDINGS: Single view of the chest was obtained. The cardiac silhouette is within the limits of normal. There is consolidation and/or pleural effusion seen bilaterally right greater than left. There is no pulmonary vascular congestion. Mediastinum and bony thorax appear unremarkable. The endotracheal tube in satisfactory position. IMPRESSION: 1. Endotracheal tube in satisfactory position above the jimmy 2. Bilateral pleural effusion right greater than the left with suspicion for possible airspace consolidation in the right lower lung.
[2025-03-13] MEDS: 0.9%NACL 1000ML 1,000 ML IV SCH (17:14)
--- NOTE | 2025-03-13 18:38 | NUR ---
[employer] paged to report reccurent hypotension, pending call back.
[2025-03-13] MEDS: ALBUMIN (HUMAN) 25% 50 ML IV ONE (19:19)
--- NOTE | 2025-03-13 23:00 | NUR ---
DR. FUCHS CALLED FOR UPDATE ON PT. MD INFORMED OF PTS CURRENT STATUS, PT ALERT, ORIENTED, PT CURRENT VS, HEART RATE RANGE FROM 100S TO 110S, BP CURRENTLY SBP 100S OVER DSP 40S, MAPS FROM 55-65. LEVOPHED HAS BEEN TITRATED UP TO 0.2MCG/KG/MIN. DR. FUCHS STATES TO USE SBP PARAMETERS OF <90 FOR LEVOPHED TITRATION. TEMPERATURE OF 98.8, WITH MINIMAL URINE OUTPUT AT THIS TIME, NS AT 75ML/HR.
[2025-03-14] VITALS (103 sets, daily range): BP systolic 79–244; BP diastolic 25–239; PULSE 82–126; RESP 4–21; TEMP 97.9–98.9; O2SAT 94–98
[2025-03-14 03:19] LABS: IMMATURE GRANULOCYTE ABSOLUTE 0.07 K/uL (0-1); NUCLEATED RED BLOOD CELLS 0.0 % (0.0-0.19); PLATELET COUNT (AUTO) 143 K/uL (130-400); RED BLOOD CELL COUNT(AUTO) 2.73 MIL/uL (4.00-5.50); RED CELL DISTRIBUTION WIDTH 15.3 % (11.0-15.5); WHITE BLOOD COUNT (AUTO) 13.9 K/uL (4.8-10.8)
[2025-03-14 03:41] LABS: ASPARTATE AMINOTRANSFERASE 20.0 U/L (10-37); CREATININE 0.5 mg/dL (0.5-1.0); GLOMERULAR FILTR. RATE CALC 95.0 mL/min (>90); GLUCOSE,RANDOM 107.0 mg/dL (70-105); SODIUM SERUM 147.0 mmol/L (136-145); TOTAL PROTEIN, SERUM 4.6 g/dL (6.0-8.3); UREA NITROGEN, BLOOD 14.0 mg/dL (7-18)
--- NOTE | 2025-03-14 08:25 | NUR ---
As per Dr. Recinos, hold lovenox for now, continue SCDs.
[2025-03-14] MEDS ORDERED: 0.9%NACL 50ML IV SCH (10:00)
[2025-03-14] MEDS: ZOSYN 3.375GM +NS 50ML IVPB SCH (11:12)
--- NOTE | 2025-03-14 11:34 | PN ---
[facility] CARDIOLOGY PROGRESS NOTE Date Patient Seen: Mar 14, 2025 Time of Visit: 11:22 Interval History: [Hb drop 9.5 to 7.9 and hypotension ] Physical Examination: GENERAL: awake] HEAD: [Normal with no signs of head trauma.] EYES: [PERRLA, EOMI, conjunctiva and sclera normal.] ENT: [Hearing grossly intact, normal oropharynx.] NECK: [Supple without JVD. There is no tenderness, lymphadenopathy, or masses. No thyromegaly. Normal carotid upstrokes without bruits.] LUNGS: [CTA bilaterally] HEART: [Normal rate and rhythm. Normal S1 and S2 without mumurs, gallop or rub.] VASC: [Peripheral pulses +2 bilaterally.] ABD: [Bowel sounds normal, soft, nontender, no masses, no organomegaly. No audible bruits.] : [Not examined] LYMPH: [No lymphadenopathy noted.] EXT: [No clubbing, cyanosis or edema.] SKIN: [No rashes or lesions noted.] NEURO: [A&Ox3.] Laboratory: [ ] Hematology Labs: Test 03/14/25 03:13 03/13/25 03:48 Range/Units White Blood Count 13.9 H 4.8-10.8 K/uL Red Blood Count 2.73 L 4.00-5.50 MIL/uL Hemoglobin 7.9 L 12.0-16.0 g/dL Hematocrit 24.4 L 36-48 % Mean Corpuscular Volume 89.4 79-99 fL Mean Corpuscular Hemoglobin 28.9 27.0-33.0 pg Mean Corpuscular Hemoglobin Concent 32.4 32.0-36.0 g/dL Red Cell Distribution Width 15.3 11.0-15.5 % Platelet Count 143 130-400 K/uL Mean Platelet Volume 9.4 7.5-10.5 fL Immature Granulocyte % (Auto) 0.5 0-1 % Neutrophils (%) (Auto) 78.7 H 40.0-77.0 % Lymphocytes (%) (Auto) 10.5 L 21.0-51.0 % Monocytes (%) (Auto) 9.9 3.0-13.0 % Eosinophils (%) (Auto) 0.1 0.0-8.0 % Basophils (%) (Auto) 0.3 0.0-5.0 % Neutrophils # (Auto) 10.9 H 1.8-7.7 K/uL Lymphocytes # (Auto) 1.5 1.0-4.8 K/uL Monocytes # (Auto) 1.4 H 0.1-1.0 K/uL Eosinophils # (Auto) 0.02 0.00-0.70 K/uL Basophils # (Auto) 0.04 0.00-0.20 K/uL Absolute Immature Granulocyte (auto 0.07 0-1 K/uL Nucleated Red Blood Cells 0.0 0.0-0.19 % White Cell Morphology Comment See comments Chemistry Labs: Test 03/14/25 11:09 03/14/25 03:13 Range/Units Whole Blood Glucose 89 70-110 MG/DL Sodium Level 147 H 136-145 mmol/L Potassium Level 3.9 3.5-5.1 mmol/L Chloride Level 113 H 101-111 mmol/L Carbon Dioxide Level 23 21-32 mmol/L Blood Urea Nitrogen 14 7-18 mg/dL Creatinine 0.5 0.5-1.0 mg/dL Glomerular Filtration Rate Calc 95 >90 mL/min Random Glucose 107 H 70-105 mg/dL Lactic Acid Level 0.7 L 0.8-2.5 mmol/L Total Calcium 7.8 L 8.5-10.1 mg/dL Magnesium Level 2.00 1.80-2.40 mg/dL Total Bilirubin 0.4 # 0.2-1.0 mg/dL Aspartate Amino Transf (AST/SGOT) 20 10-37 U/L Alanine Aminotransferase (ALT/SGPT) 12 # 12-78 U/L Alkaline Phosphatase 43 L 50-136 U/L B-Type Natriuretic Peptide 126 H 0-100 pg/mL Total Protein 4.6 L 6.0-8.3 g/dL Albumin 2.1 L 3.5-5.0 g/dL Diagnostics / Radiology: [Copy/Paste Echos/Imaging Report here] Impression and Plan: [ * Critical limb ischemia with severe peripheral vascular disease, Dai Class IV symptoms with threatened limbs, and nonhealing ulcers in the toes of both feet. * Diabetes mellitus with vascular manifestations. * Hypertension. * Hyperlipoproteinemia. * Hypothyroidism, on supplement. * History of tobacco use. 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 * Negative Lexiscan Cardiolite for ischemia on this admission. * Status post complex percutaneous intervention for severe stenosis of the abdominal aorta with extensive calcification, requiring shock wave lithotripsy, placement of 3 tube endoluminal grafts, and placement of IntraStent with complications of impingement on the left renal artery treated with left renal artery stenting and retroperitoneal bleeding treated with a covered graft and resolved. #Critical limb ischemia with severe peripheral vascular disease, [place] Class IV symptoms with threatened limbs, and nonhealing ulcers in the toes of both feet -Status post complex percutaneous intervention for severe stenosis of the abdominal aorta with extensive calcification, requiring shock wave lithotripsy, placement of 3 tube endoluminal grafts, and placement of IntraStent with complications of impingement on the left renal artery treated with left renal artery stenting and retroperitoneal bleeding treated with a covered graft and resolved. #RP bleed - CT abdomen and pelvis was obtained and documented sizable left lateral retroperitoneal bleed. Because of that, on 03/[address] angiography of abdomen and pelvis were performed and that documented no additional extravasation or contrast leak. -Hb drop today from 9.5 to 7.9 -RN spoke to Dr Recinos and updated him on the Hb drop and hypotension, giving IV fluids at this point and midodrine, holding all anti-HTN meds #UTI -The patient had a temperature of 101 yesterday; however, currently she is down to 99. I had sent urine for UA and C and S as well as blood cultures. It is important to note that the patient had positive Klebsiella in the urine prior to the procedure. -WBC downtrending ] MAURO KILGORE MD Mar 14, 2025 11:34
--- NOTE | 2025-03-14 12:46 | PN ---
[facility] PROGRESS NOTE Date Patient Seen: Mar 14, 2025 Time of Visit: 12:45 Supervising Physician: Dr Oscar Flores Primary Care Physician: [ ] Outpatient Specialists: [ ] Inpatient Consults: [ ] PROBLEM LIST: Severe anemia Hypotension Lower limb ischemia s/p endoluminal graft placement 03/12/2025 Severe Peripheral Arterial Disease Intractable bilateral lower extremity pain Hyperlipidemia Hypertension Hypothyroidism INTERVAL HISTORY: Patient was seen and examined, she is sitting comfortably in bed, conversing with multiple family members, she is currently on nasal cannula at 3 L Nursing reports patient with elevated temperature overnight, responding with Tylenol, afebrile at time of examination Patient remains on Kobi and vaso, nursing attempting to wean Patient's white count is downtrending 13.9, the urine culture resulted with Klebsiella susceptible to Zosyn She continues on midodrine 10 mg t.i.d. Patient's hemoglobin has downtrended over the past several days from 12.5-7.9. Pending 1 unit transfusion. A CTA from 03/12 revealed no signs of bleeding. Possible repeat imaging Patient's extremities are warm, pulses present by Doppler Plan: Following cardiology recommendations Transfusion, follow post hemoglobin level SCDs RT treatments, supplemental O2 Weaning pressors Telemetry Total critical care time 48 minutes, this excludes any time spent with education or procedures. Requiring increased pressors to maintain maps High risk for decompensation REVIEW OF SYSTEMS: 12 point ROS reviewed with patient. Pertinent positives mentioned above. Otherwise negative. PHYSICAL EXAM: GENERAL: alert, weak, awake oriented x 3 HEENT: EOMI, Sclera non icteric, moist mucosa NECK: Supple, no JVD, trachea midline LUNGS: Clear breath sounds bilaterally. No wheezes HEART: Regular rate and rhythm. Normal S1 and S2, without murmurs ABD: Abdomen soft, nontender. Bowel sounds present EXT: No clubbing cyanosis or edema NEURO: Alert and oriented to person, follows commands Vital Signs (last 8hr) Date Time Temp Pulse Resp B/P (MAP) Pulse Ox O2 Delivery O2 Flow Rate FiO2 03/14/25 12:00 98 Nasal Cannula* 3 32 03/14/25 11:45 83 21 126/57 (80) 98 32 116/48 (70) 03/14/25 11:30 88 16 114/42 (66) 95 32 03/14/25 11:05 18 N/Cannula Low lpm 3.0 32 03/14/25 11:00 93 16 107/41 (63) 95 32 03/14/25 10:45 108 11 135/59 (84) 95 32 117/55 (75) 03/14/25 10:30 95 13 98/37 (57) 96 32 03/14/25 10:15 90 12 100/45 (63) 96 32 104/36 (58) 03/14/25 10:00 90 16 95/38 (57) 95 32 03/14/25 09:45 88 13 88/53 (65) 94 32 96/50 (65) 03/14/25 09:30 95 18 94/35 (54) 96 32 103/43 (63) 03/14/25 09:15 93 16 244/239 (241) 96 32 111/45 (67) 03/14/25 09:00 97 16 188/177 (181) 95 32 117/34 (61) 03/14/25 08:45 97 15 88/40 (56) 95 32 03/14/25 08:30 98 15 100/25 (50) 98 32 03/14/25 08:15 105 16 124/39 (67) 96 32 129/55 (79) 03/14/25 08:00 98.4 03/14/25 08:00 98 Nasal Cannula* 3 32 03/14/25 08:00 101 16 107/27 (53) 96 32 03/14/25 07:45 98.4 102 15 104/33 (56) 96 32 03/14/25 07:30 100 14 96/32 (53) 89 32 03/14/25 07:15 112 17 125/71 (89) 93 32 85/41 (56) 03/14/25 07:00 112 17 125/63 (83) 98 32 03/14/25 06:40 102 14 100/40 (60) 97 03/14/25 06:39 97 14 109/54 (72) 96 108/45 (66) 03/14/25 06:28 18 N/Cannula Low lpm 3.0 32 03/14/25 06:25 98 16 98/39 (58) 97 03/14/25 06:10 102 9 102/41 (61) 97 03/14/25 06:09 100 105/59 (74) 96 119/49 (72) 03/14/25 06:00 102 12 105/42 (63) 96 03/14/25 05:45 112 6 111/48 (69) 96 03/14/25 05:39 117 7 113/65 (81) 95 113/64 (80) 03/14/25 05:30 119 11 99/42 (61) 96 03/14/25 05:15 115 100/40 (60) 96 03/14/25 05:09 115 4 104/55 (71) 96 116/49 (71) 03/14/25 05:00 123 13 100/43 (62) 96 LABS: Hematology Labs: Test 03/14/25 03:13 03/13/25 03:48 Range/Units White Blood Count 13.9 H 4.8-10.8 K/uL Red Blood Count 2.73 L 4.00-5.50 MIL/uL Hemoglobin 7.9 L 12.0-16.0 g/dL Hematocrit 24.4 L 36-48 % Mean Corpuscular Volume 89.4 79-99 fL Mean Corpuscular Hemoglobin 28.9 27.0-33.0 pg Mean Corpuscular Hemoglobin Concent 32.4 32.0-36.0 g/dL Red Cell Distribution Width 15.3 11.0-15.5 % Platelet Count 143 130-400 K/uL Mean Platelet Volume 9.4 7.5-10.5 fL Immature Granulocyte % (Auto) 0.5 0-1 % Neutrophils (%) (Auto) 78.7 H 40.0-77.0 % Lymphocytes (%) (Auto) 10.5 L 21.0-51.0 % Monocytes (%) (Auto) 9.9 3.0-13.0 % Eosinophils (%) (Auto) 0.1 0.0-8.0 % Basophils (%) (Auto) 0.3 0.0-5.0 % Neutrophils # (Auto) 10.9 H 1.8-7.7 K/uL Lymphocytes # (Auto) 1.5 1.0-4.8 K/uL Monocytes # (Auto) 1.4 H 0.1-1.0 K/uL Eosinophils # (Auto) 0.02 0.00-0.70 K/uL Basophils # (Auto) 0.04 0.00-0.20 K/uL Absolute Immature Granulocyte (auto 0.07 0-1 K/uL Nucleated Red Blood Cells 0.0 0.0-0.19 % White Cell Morphology Comment See comments Chemistry Labs: Test 03/14/25 11:09 03/14/25 03:13 Range/Units Whole Blood Glucose 89 70-110 MG/DL Sodium Level 147 H 136-145 mmol/L Potassium Level 3.9 3.5-5.1 mmol/L Chloride Level 113 H 101-111 mmol/L Carbon Dioxide Level 23 21-32 mmol/L Blood Urea Nitrogen 14 7-18 mg/dL Creatinine 0.5 0.5-1.0 mg/dL Glomerular Filtration Rate Calc 95 >90 mL/min Random Glucose 107 H 70-105 mg/dL Lactic Acid Level 0.7 L 0.8-2.5 mmol/L Total Calcium 7.8 L 8.5-10.1 mg/dL Magnesium Level 2.00 1.80-2.40 mg/dL Total Bilirubin 0.4 # 0.2-1.0 mg/dL Aspartate Amino Transf (AST/SGOT) 20 10-37 U/L Alanine Aminotransferase (ALT/SGPT) 12 # 12-78 U/L Alkaline Phosphatase 43 L 50-136 U/L B-Type Natriuretic Peptide 126 H 0-100 pg/mL Total Protein 4.6 L 6.0-8.3 g/dL Albumin 2.1 L 3.5-5.0 g/dL DIAGNOSTICS / RADIOLOGY RESULTS: [ ] PLAN NEURO: Minimize central acting medications as possible. Maintain fall precautions, adequate lighting during the day PULMONARY: Supplemental 02 as needed. Maintain aspiration precautions at all times CARDIOVASCULAR: Follow hemodynamics. Vital signs per facility protocol GI & NUTRITION: Continue with nutritional support. Continue stool softeners and laxatives as needed. KIDNEYS & ELECTROLYTES: Strict monitoring of intake, output and overall fluid balance. Avoid nephrotoxic medications to the extent possible. Medications to be dosed according to renal function. Monitor electrolytes and replace as needed ENDOCRINE: Maintain blood glucose between 100-180 at all times. Hypoglycemia protocol in place INFECTIOUS DISEASE: Trend temperature, WBC and procalcitonin level Follow cultures, deescalate antibiotics as soon as possible. Panculture if new onset fever ONCOLOGY/HEMATOLOGY/COAGULATION: Monitor for s/s of bleeding Monitor hemoglobin, coagulation studies as needed SKIN: Pressure ulcer prevention per facility protocol Specialty mattress ORTHO/REHAB: Continue PT/OT Prophylaxis: Continue GI and DVT prophylaxis Code Status: Full Resuscitation Disposition: JERRY ZABLAA PAC Mar 14, 2025 12:46
--- NOTE | 2025-03-14 14:19 | PN ---
[facility] PROGRESS NOTE Date of Service: Mar 14, 2025 Time of Service: 14:11 Attending doctor Canales SUBJECTIVE: [Patient presents to the emergency department with a chief complaint of lower extremity pain. She reports onset of symptoms two weeks ago, primarily affecting both feet. The pain is described as sharp and tingling, occurring intermittently. There are no alleviating factors, and symptoms are aggravated by physical activity. She also reports associated discoloration at the tips of her toes. 03/08/25 Patient was evaluated today, she has been seen by rock climbing instructor already. Had CT runoff pending reading. Dr Wu recommending Peripheral angio, plans to do tomorrow. We will continue to follow recommendations and managed patient's symptoms. No other complaints, she is afebrile. Labs reviewed. 03/09/25 The patient was evaluated in the room. According to the patient and family, the scheduled angiogram was canceled today. Dr. Recinos recommended against proceeding due to the patient's critical aortic stenosis, which presents a high risk for any intervention. He advised that, given the presence of aortic dissection and extensive calcification, the patient is unlikely to benefit from simple angioplasty and should instead be considered for endoluminal grafting. L ithotripsy of the abdominal aorta followed by graft placement will likely be required. Additionally, the patient has infrapopliteal disease, which may need to be addressed either during the same procedure or at a later date. At this time, Dr. Recinos recommended holding clopidogrel, aspirin, cilostazol, and statins. The patient is now scheduled for a Lexiscan Cardiolite study due to extensive coronary artery calcification noted on evaluation, as general anesthesia may be required for the planned endoluminal grafting. No other complaints, we will continue with supportive care as appropriate. The patient and family verbalized understanding of the current plan and recommendations. ] 03/10/25 patient was seen by CIGARETTE FILTER INSPECTOR and physician during rounding in room 324. Jaime becerra was cleared by Dr. Amezquita/rock climbing instructor for endoluminal grafting to be performed with Dr. Recinos. At this moment we are pending further recommendations regards endoluminal grafting. We will continue to monitor patient in the meantime. A.m. labs. 03/11 patient was seen by nurse practitioner and physician during rounding in room 324. Patient was evaluated by rock climbing instructor and that is pending endoluminal grafting tomorrow 03/12/2025. Patient NPO after midnight. Patient will receive also potassium 40 mEq to replace the potassium of 3.3. Final urine culture pending. As per case management patient to be discharged home once medically cleared. We will continue to monitor patient in the meantime. A.m. labs. 03/12 patient was seen by nurse practitioner and physician during rounding in room 324. Patient is pending endoluminal grafting with Dr. Ashley hdz on standby and we will be for the procedure in the event that if it is needed. Family and the patient understand the procedure is a high-risk given the critical stenosis of the small size of the distal abdominal aorta in particular. They understand that we will attempt to evaluate entire vascular tree for the lower extremities and abdominal aorta. Also they do understand that rock climbing instructor might not be able to address all issues at the same settings given the extensive nature of the disease. Continue current supportive measurements. We will continue to monitor patient in the meantime. A.m. labs. After procedure patient will go to ICU. 03/13 patient was seen by nurse practitioner and physician during rounding in room 219. Patient is s/p endoluminal grafting on 03/12/[address] Recinos. After procedure patient was transferred to ICU where at this moment is intubated. Family members at the bedside. Patient continues to be on Lovenox SCDs and Plavix has been resumed. Hopefully patient will be extubated today. Patient continues to be on Levophed drip. We will continue to monitor patient in the meantime. A.m. labs 03/14 patient was seen by nurse practitioner and physician during rounding in room 219. Patient is s/p extubation 03/13/2025. As per rock climbing instructor due to hemoglobin dropped from 9.5 to 7.9 orders were given for IV fluids midodrine and holding all antihypertensive medications. WBCs are trending down today at 13.9. Patient is also s/p one PRBC today 03/14/2025 as ordered by ICU attending. Patient currently on 3 L nasal cannula family members at the bedside. Patient remains on Kobi. Urine culture positive for Klebsiella pneumoniae patient was placed on Zosyn. Final sputum culture still pending. Blood culture negative times [address] abdomen/pelvis without contrast pending. We will continue to monitor patient in the meantime. A.m. labs. REVIEW OF SYSTEMS 12 point ROS reviewed with patient. Pertinent positives mentioned above. Otherwise negative. PHYSICAL EXAM PHYSICAL EXAM: GENERAL: alert, weak, awake oriented x 3 HEENT: EOMI, Sclera non icteric, moist mucosa NECK: Supple, no JVD, trachea midline LUNGS: Clear breath sounds bilaterally. No wheezes HEART: Regular rate and rhythm. Normal S1 and S2, without murmurs ABD: Abdomen soft, nontender. Bowel sounds present EXT: No clubbing cyanosis or edema NEURO: Alert and oriented to person, follows commands Vital Signs (last 8hr) Date Time Temp Pulse Resp B/P (MAP) Pulse Ox O2 Delivery O2 Flow Rate FiO2 03/14/25 12:45 93 14 139/60 (86) 96 32 130/47 (74) 03/14/25 12:30 94 15 137/49 (78) 98 32 03/14/25 12:15 82 14 122/40 (67) 97 32 03/14/25 12:00 98.2 03/14/25 12:00 98 Nasal Cannula* 3 32 03/14/25 12:00 98.2 90 16 121/43 (69) 96 32 03/14/25 11:45 83 21 126/57 (80) 98 32 116/48 (70) 03/14/25 11:30 88 16 114/42 (66) 95 32 03/14/25 11:05 18 N/Cannula Low lpm 3.0 32 03/14/25 11:00 93 16 107/41 (63) 95 32 03/14/25 10:45 108 11 135/59 (84) 95 32 117/55 (75) 03/14/25 10:30 95 13 98/37 (57) 96 32 03/14/25 10:15 90 12 100/45 (63) 96 32 104/36 (58) 03/14/25 10:00 90 16 95/38 (57) 95 32 03/14/25 09:45 88 13 88/53 (65) 94 32 96/50 (65) 03/14/25 09:30 95 18 94/35 (54) 96 32 103/43 (63) 03/14/25 09:15 93 16 244/239 (241) 96 32 111/45 (67) 10/18/25 09:00 97 16 188/177 (181) 95 32 117/34 (61) 03/14/25 08:45 97 15 88/40 (56) 95 32 03/14/25 08:30 98 15 100/25 (50) 98 32 03/14/25 08:15 105 16 124/39 (67) 96 32 129/55 (79) 03/14/25 08:00 98.4 03/14/25 08:00 98 Nasal Cannula* 3 32 03/14/25 08:00 101 16 107/27 (53) 96 32 03/14/25 07:45 98.4 102 15 104/33 (56) 96 32 03/14/25 07:30 100 14 96/32 (53) 89 32 03/14/25 07:15 112 17 125/71 (89) 93 32 85/41 (56) 03/14/25 07:00 112 17 125/63 (83) 98 32 03/14/25 06:40 102 14 100/40 (60) 97 03/14/25 06:39 97 14 109/54 (72) 96 108/45 (66) 03/14/25 06:28 18 N/Cannula Low lpm 3.0 32 03/14/25 06:25 98 16 98/39 (58) 97 LABS: Laboratory: Test 03/14/25 11:09 03/14/25 03:13 03/13/25 11:21 03/13/25 06:42 Range/Units Whole Blood Glucose 89 70-110 MG/DL White Blood Count 13.9 H 4.8-10.8 K/uL Red Blood Count 2.73 L 4.00-5.50 MIL/uL Hemoglobin 7.9 L 12.0-16.0 g/dL Hematocrit 24.4 L 36-48 % Mean Corpuscular Volume 89.4 79-99 fL Mean Corpuscular Hemoglobin 28.9 27.0-33.0 pg Mean Corpuscular Hemoglobin Concent 32.4 32.0-36.0 g/dL Red Cell Distribution Width 15.3 11.0-15.5 % Platelet Count 143 130-400 K/uL Mean Platelet Volume 9.4 7.5-10.5 fL Immature Granulocyte % (Auto) 0.5 0-1 % Neutrophils (%) (Auto) 78.7 H 40.0-77.0 % Lymphocytes (%) (Auto) 10.5 L 21.0-51.0 % Monocytes (%) (Auto) 9.9 3.0-13.0 % Eosinophils (%) (Auto) 0.1 0.0-8.0 % Basophils (%) (Auto) 0.3 0.0-5.0 % Neutrophils # (Auto) 10.9 H 1.8-7.7 K/uL Lymphocytes # (Auto) 1.5 1.0-4.8 K/uL Monocytes # (Auto) 1.4 H 0.1-1.0 K/uL Eosinophils # (Auto) 0.02 0.00-0.70 K/uL Basophils # (Auto) 0.04 0.00-0.20 K/uL Absolute Immature Granulocyte (auto 0.07 0-1 K/uL Nucleated Red Blood Cells 0.0 0.0-0.19 % Sodium Level 147 H 136-145 mmol/L Potassium Level 3.9 3.5-5.1 mmol/L Chloride Level 113 H 101-111 mmol/L Carbon Dioxide Level 23 21-32 mmol/L Blood Urea Nitrogen 14 7-18 mg/dL Creatinine 0.5 0.5-1.0 mg/dL Glomerular Filtration Rate Calc 95 >90 mL/min Random Glucose 107 H 70-105 mg/dL Lactic Acid Level 0.7 L 0.8-2.5 mmol/L Total Calcium 7.8 L 8.5-10.1 mg/dL Magnesium Level 2.00 1.80-2.40 mg/dL Total Bilirubin 0.4 # 0.2-1.0 mg/dL Aspartate Amino Transf (AST/SGOT) 20 10-37 U/L Alanine Aminotransferase (ALT/SGPT) 12 # 12-78 U/L Alkaline Phosphatase 43 L 50-136 U/L B-Type Natriuretic Peptide 126 H 0-100 pg/mL Total Protein 4.6 L 6.0-8.3 g/dL Albumin 2.1 L 3.5-5.0 g/dL Blood Gas Specimen Type Arterial Arterial Blood pH 7.413 7.350-7.450 Arterial Blood Partial Pressure CO2 35 32-45 mmHg Arterial Blood Partial Pressure O2 82.0 L 83.0-108.0 mmHg Arterial Blood HCO3 22.0 21.0-28.0 mmol/L Arterial Blood Oxygen Saturation 95.9 94.0-98.0 % Arterial Blood Base Excess -2.1 L -2.0-3.0 mmol/L Hemoglobin (Blood Gas) 10.3 L 12.0-16.0 g/dL Sodium (Blood Gas) 142 136-145 MMOL/L Bedside Potassium (Blood Gas) 4.0 3.4-4.5 MMOL/L Bedside Chloride (Blood Gas) 113 H 98-107 MMOL/L Bedside Glucose (Blood Gas) 168 H 65-95 MG/DL Bedside Ionized Calcium (Blood Gas) 1.12 L 1.15-1.33 MMOL/L Bedside Lactic Acid (Blood Gas) 1.45 H 0.36-0.75 MMOL/L Blood Gas Temperature 37.0 35.5-37.0 CELSIUS Blood Gas Vent Mode CPAP PS 10 ROOM AIR FiO2 30.0 % Blood Gas CPAP 3 cm H2O Blood Gas Specimen Comment NORA MAX Blood Gas Respiration Rate 8.0 min. Blood Gas Tidal Volume 500 ml Blood Gas PEEP 5 cm H2O Test 03/13/25 03:48 03/13/25 03:40 Range/Units White Cell Morphology Comment See comments Urine Color YELLOW YELLOW Urine Appearance CLEAR CLEAR Urine pH 6.0 5.0-8.0 Urine Specific [place] OVER 1.001-1.031 Urine Protein 50 H NEGATIVE mg/dL Urine Glucose (UA) NEGATIVE NEGATIVE mg/dL Urine Ketones NEGATIVE NEGATIVE mg/dL Urine Occult Blood SMALL H NEGATIVE Urine Nitrate NEGATIVE NEGATIVE Urine Bilirubin NEGATIVE NEGATIVE mg/dL Urine Urobilinogen 0.2 0.2-1.0 mg/dL Urine Leukocyte Esterase 75 H NEGATIVE Dasha/uL Urine RBC 11-25 H 0-1 /HPF Urine WBC 11-25 H 0-1 /HPF Urine Bacteria RARE None Seen /HPF Current Medications Medications (Trade) Dose Ordered Sig/Lucie Route PRN Reason Start Time Stop Time Status Last Admin Dose Admin Acetaminophen (TYLenol 325MG TAB) 650 mg Q6H PRN PO TEMPERATURE GREATER THAN 101.5 03/06/25 23:00 04/05/25 22:59 Acetaminophen (TYLenol 650MG SUPPOSITORY) 650 mg Q6H PRN RC IF NPO, TEMP GREATER THAN 101 03/12/25 22:00 04/11/25 21:59 Acetaminophen/ Codeine Phosphate (TYLenol-coDEINE TAB) 1 tab Q6H PRN PO MODERATE PAIN (4-6) 03/09/25 09:30 04/08/25 09:29 03/14/25 08:55 1 TAB Acetaminophen/ Codeine Phosphate (TYLenol-coDEINE TAB) 2 tab Q4HPRN PRN PO SEVERE PAIN (7-10) 03/10/25 08:00 03/13/25 14:30 DC 03/11/25 23:53 2 TAB Acetaminophen/ Codeine Phosphate (TYLenol-coDEINE TAB) 2 tab Q6H PRN PO SEVERE PAIN (7-10) 03/09/25 09:30 03/10/25 07:57 DC 03/09/25 22:43 2 TAB Amlodipine Besylate (NorvASC 5MG TAB) 10 mg DAILY PO 03/08/25 09:00 03/14/25 11:33 DC 03/11/25 10:25 10 MG Aspirin (Aspirin 81mg Chew Tab) 81 mg DAILY PO 03/08/25 09:00 04/07/25 08:59 03/14/25 08:54 81 MG Aspirin (Aspirin 81mg Ec Tab) 81 mg DAILY PO 03/07/25 09:00 03/07/25 13:12 DC 03/07/25 08:34 81 MG Atorvastatin Calcium (LIPItor 10MG) 10 mg HS PO 03/07/25 21:00 03/07/25 13:14 DC Atorvastatin Calcium (LIPItor 40MG) 40 mg HS PO 03/07/25 21:00 04/06/25 20:59 03/13/25 21:07 40 MG Calcium Gluconate 1 gm/Sodium Chloride 100 ml @ 0 mls/hr AD PRN IV Serum Calcium Correction 03/12/25 23:00 04/11/25 22:59 03/13/25 12:18 100 MLS/HR Cilostazol (PLETal 100MG TAB) 100 mg BID PO 03/07/25 21:00 04/06/25 20:59 03/14/25 08:54 100 MG Clopidogrel Bisulfate (plaVIX 75MG) 75 mg DAILY PO 03/07/25 09:00 03/07/25 19:38 DC 03/07/25 08:35 75 MG Clopidogrel Bisulfate (plaVIX 75MG) 75 mg DAILY PO 03/09/25 09:30 04/08/25 09:29 03/14/25 08:54 75 MG Enoxaparin Sodium (Lovenox) 30 mg DAILY SQ 03/07/25 09:00 04/06/25 08:59 Hold 03/13/25 09:52 30 MG Famotidine (Pepcid 20mg Tab) 20 mg DAILY PO 03/07/25 09:00 04/06/25 08:59 03/14/25 08:54 20 MG Furosemide (LASix 20MG VIAL) 20 mg ONCE IV 03/12/25 18:00 03/12/25 22:00 DC 03/12/25 17:52 20 MG Gabapentin (NEURontin 100 mg CAP) 100 mg TID PO 03/07/25 14:00 03/07/25 16:06 DC 03/07/25 13:55 100 MG Home Med (Home Medication) (Tramadol HCl 50MG ER) 1 TAB) Q8H PRN PO MODERATE PAIN (4-6) 03/08/25 09:00 04/07/25 08:59 Hydralazine HCl (APRESOLine 20MG INJ) 10 mg Q6H PRN IV For:SBP above 160;DBP above 90 03/06/25 23:00 04/05/25 22:59 03/07/25 12:15 10 MG Lactulose (Constulose 20gm/ 30ml Udcup) 20 gm BID PRN PO CONSTIPATION 03/06/25 23:00 04/05/25 22:59 03/10/25 18:00 20 GM Levothyroxine Sodium (SYNTHroid 88MCG TAB) 88 mcg SYN PO 03/08/25 06:30 04/07/25 06:29 03/14/25 05:56 88 MCG Lisinopril (Prinivil 20mg) 20 mg BID PO 03/07/25 21:00 03/14/25 11:33 DC 03/12/25 21:06 20 MG Magnesium Sulfate 50 ml @ 0 mls/hr PROTOCOL IV 03/13/25 07:00 04/12/25 06:59 03/13/25 08:03 25 MLS/HR Magnesium Sulfate 50 ml @ 0 mls/hr PROTOCOL PRN IV MAGNESIUM PROTOCOL 03/12/25 23:00 03/13/25 07:28 DC 03/13/25 00:13 25 MLS/HR Metoprolol Succinate (TopROL XL) 50 mg DAILY PO 03/08/25 09:00 03/14/25 11:33 DC 03/11/25 10:25 50 MG Midodrine (PROAMatine 5 MG TABLET) 5 mg TID PO 03/13/25 16:30 03/13/25 18:58 DC 03/13/25 16:20 5 MG Midodrine (PROAMatine 5 MG TABLET) 10 mg Q8H PO 03/13/25 21:00 04/12/25 20:59 03/14/25 13:14 10 MG Morphine Sulfate (morPHINE 4MG SYG) 2 mg Q4H PRN IVP SEVERE PAIN (7-10) 03/06/25 23:00 03/09/25 09:27 DC 03/09/25 06:05 2 MG Morphine Sulfate (morPHINE 4MG SYG) 3 mg Q2HPRN PRN IVP SEVERE PAIN (7-10) 03/10/25 08:00 03/13/25 11:06 DC 03/12/25 17:52 3 MG Morphine Sulfate (morPHINE 4MG SYG) 3 mg Q2HPRN PRN IVP SEVERE PAIN (7-10) 03/13/25 14:30 03/20/25 14:29 03/14/25 05:57 3 MG Nitroglycerin/ Dextrose 250 ml @ 0 mls/hr PROTOCOL IV 03/12/25 11:00 04/11/25 10:59 Norepinephrine 250 ml @ 0 mls/hr PROTOCOL IV 03/12/25 11:00 03/13/25 02:30 DC 03/13/25 02:02 137 MLS/HR Norepinephrine Bitartrate 250 ml @ 0 mls/hr AD PRN IV TITRATE 03/13/25 02:30 04/12/25 02:29 03/14/25 00:09 27.5 MLS/HR Ondansetron HCl (zoFRAN 4MG INJ) 4 mg Q6H PRN IV NAUSEA/VOMITING 03/06/25 23:00 04/05/25 22:59 03/12/25 17:52 4 MG Phenylephrine HCl 100 mg/Sodium Chloride 250 ml @ 0 mls/hr AD PRN IV TITRATE 03/13/25 02:30 04/12/25 02:29 03/14/25 00:59 5.5 MLS/HR Piperacillin Sod/ Tazobactam Sod (Zosyn 3.375gm+NS 50ml) 3.375 gm Q8H IVPB 03/14/25 10:00 03/24/25 09:59 03/14/25 11:12 3.375 GM Potassium Chloride 100 ml @ 50 mls/hr AD PRN IV POTASSIUM PROTOCOL 03/12/25 23:00 04/11/25 22:59 03/13/25 06:23 50 MLS/HR Potassium Chloride 100 ml @ 100 mls/hr AD PRN IV POTASSIUM PROTOCOL 03/12/25 23:00 03/13/25 11:06 DC Potassium Chloride (K-Dur/Klor-Con 20meq) 20 meq AD PRN PO POTASSIUM PROTOCOL 03/12/25 23:00 04/11/25 22:59 Potassium Chloride (KCl 10% Elixir 20meq/15ml) 20 meq AD PRN PO POTASSIUM PROTOCOL 03/12/25 23:00 04/11/25 22:59 Pregabalin ([id number]) 75 mg BID PO 03/07/25 21:00 04/06/25 20:59 03/14/25 08:54 75 MG Propofol (DIPRivan 1000MG/ 100ML) 1,000 mg PROTOCOL PRN IV SEDATION 03/12/25 18:30 04/11/25 18:29 03/13/25 03:26 1,000 MG Sodium Chloride 1,000 ml @ 0 mls/hr Q0M IV 03/13/25 16:30 03/13/25 17:29 DC 03/13/25 17:14 500 MLS/HR Sodium Chloride 1,000 ml @ 75 mls/hr [id number] IV 03/12/25 11:00 04/11/25 10:59 03/14/25 04:48 75 MLS/HR Sodium Chloride (NS 50ml) 50 ml AD IV 03/14/25 10:00 03/14/25 09:50 DC Vasopressin 40 units/Sodium Chloride 42 ml @ 0 mls/hr AD PRN IV TITRATE 03/13/25 02:30 04/12/25 02:29 DIAGNOSTICS / RADIOLOGY: [ ] ASSESSMENT: [Patient intubated 03/12/2025, extubated 03/13/2025 Severe Peripheral Arterial Disease (PAD), Dai Category 5: Bilateral lower extremity involvement (R>L) S/p endoluminal grafting by Dr. Recinos 03/12/2025 Intractable bilateral lower extremity pain Peripheral arterial disease (PAD) Call limb ischemia with severe peripheral vascular disease Rosa fold class four symptoms with the threatened lymphs and nonhealing ulcers in toes of both feet POA Acute complicated cystitis POA Urine culture growing Klebsiella pneumoniae Hyperlipidemia Hypertension Hypothyroidism History of tobacco use PLAN: [ Patient is s/p extubation 03/13/2025. As per rock climbing instructor due to hemoglobin dropped from 9.5 to 7.9 orders were given for IV fluids midodrine and holding all antihypertensive medications. WBCs are trending down today at 13.9. Patient is also s/p one PRBC today 03/14/2025 as ordered by ICU attending. Patient currently on 3 L nasal cannula family members at the bedside. Patient remains on Kobi. Urine culture positive for Klebsiella pneumoniae patient was placed on Zosyn. Final sputum culture still pending. Blood culture negative times [address] abdomen/pelvis without contrast pending. We will continue to monitor patient in the meantime. A.m. labs. -Angiogram canceled per Dr. Zepeda recommendations. -Patient is not a candidate for simple angioplasty due to critical aortic stenosis, aortic dissection, and extensive vascular calcification. -Infrapopliteal disease to be addressed either during the same procedure or at a later date. Supportive Care: -Continue supportive care for other complaints as indicated (e.g., pain management, hemodynamic monitoring, DVT prophylaxis, wound care as appropriate). Medical Management -Analgesia as needed with morphine. -Resumed home medications -GI prophylaxis: Famotidine -DVT prophylaxis: Lovenox Wound Care -Local wound care for digital ulcers -Monitor for signs of infection or progression Pain Management -Continue current pain management regimen as needed Follow-up: -Monitor for any changes in clinical status. -Lexiscan normal 03/09/2025 -Reassess plan following cardiac evaluation and further vascular surgery input. Total critical care time 46 minutes, this excludes any time spent with education or procedures. Patient at high risk for deterioration ] ATTESTATION BY PHYSICIAN I reviewed the documentation, medical decision making, and treatment plan as noted by the mid-level provider above. I agree with the findings and plan of care. Suzanna Canales MD, [facility] Mar 14, 2025 14:19 SUZANNA CANALES MD Mar 16, 2025 13:04
--- NOTE | 2025-03-14 14:53 | EKG ---
[facility] Test Date: 2025-03-14 Test Time: 12:59:38 Pat Name: ROGER DE LEÓN Department: [facility] Room: 219 1 Gender: F Emergency Department Nurse: WINTER : 1945 Requested By: Qamar FUCHS Order Number: [id number] Reading MD: Sung Samuel Measurements Intervals [place] Rate: 85 P: -21 MS: 150 QRS: -20 QRSD: 94 T: 16 QT: 396 QTc: 471 Interpretive Statements Normal sinus rhythm Septal infarct , age undetermined Compared to ECG 03/06/2025 19:25:19 No significant changes Electronically Signed On 03-14-2025 17:47:17 CDT by Sung Samuel Please click the below link to view image of tracing.
[2025-03-15] VITALS (49 sets, daily range): BP systolic 0–166; BP diastolic 0–72; PULSE 79–158; RESP 6–21; TEMP 98–98.9; O2SAT 94–97
[2025-03-15 02:45] LABS: IMMATURE GRANULOCYTE ABSOLUTE 0.03 K/uL (0-1); NUCLEATED RED BLOOD CELLS 0.0 % (0.0-0.19); PLATELET COUNT (AUTO) 134 K/uL (130-400); RED BLOOD CELL COUNT(AUTO) 2.97 MIL/uL (4.00-5.50); RED CELL DISTRIBUTION WIDTH 15.4 % (11.0-15.5); WHITE BLOOD COUNT (AUTO) 9.1 K/uL (4.8-10.8)
[2025-03-15] MEDS: MAGNESIUM 2GM PREMIX 50ML 50 ML IV STA (02:51)
[2025-03-15] MEDS: AMIOdarone 150MG/100ML BAG 100 ML ONE (02:52)
[2025-03-15] MEDS: AMIOdarone 150MG/100ML BAG 100 ML IV ONE ×2 (02:53→03:11)
[2025-03-15 02:59] LABS: CREATININE 0.5 mg/dL (0.5-1.0); GLOMERULAR FILTR. RATE CALC 95.0 mL/min (>90); GLUCOSE,RANDOM 97.0 mg/dL (70-105); SODIUM SERUM 142.0 mmol/L (136-145); UREA NITROGEN, BLOOD 13.0 mg/dL (7-18)
[2025-03-15 03:06] LABS: ASPARTATE AMINOTRANSFERASE 21.0 U/L (10-37); PHOSPHORUS 3.0 mg/dL (2.5-4.9); TOTAL PROTEIN, SERUM 4.8 g/dL (6.0-8.3)
--- NOTE | 2025-03-15 03:22 | NUR ---
023 - INFORMED FARIDEH DESHPANDE OF PT'S CURRENT EKG OF A. FIB RVR SUSTAINING 160S. PT HYPOTENSIVE SBP 80S/40S. NEW ORDERS RECEIVED AT THIS TIME. 314 - PT CONVERTS BACK INTO NSR, FARIDEH DESHPANDE NOTIFIED. 320 - PT BACK IN A.FIB RVR 120S, NEW ORDERS RECEIVED TO INITIATED AMIODARONE GTT.
[2025-03-15] MEDS: AMIODARONE 360MG/200ML BAG 200 ML IV SCH (03:39)
[2025-03-15 03:43] LABS: INR 1.06 (0.85-1.15)
[2025-03-15] MEDS: PoTASSium chl 10% ELIXIR 20MEQ 20 MEQ/15 ML UDCUP PO PRN (03:47)
--- NOTE | 2025-03-15 07:50 | NUR ---
Urine specimen taken to lab at this time.
--- NOTE | 2025-03-15 11:12 | PN ---
[facility] CARDIOLOGY PROGRESS NOTE Date Patient Seen: Mar 15, 2025 Time of Visit: 11:09 Interval History: [Hb up to 8.5 after 1U PRBCs] Physical Examination: GENERAL: awake] HEAD: [Normal with no signs of head trauma.] EYES: [PERRLA, EOMI, conjunctiva and sclera normal.] ENT: [Hearing grossly intact, normal oropharynx.] NECK: [Supple without JVD. There is no tenderness, lymphadenopathy, or masses. No thyromegaly. Normal carotid upstrokes without bruits.] LUNGS: [CTA bilaterally] HEART: [Normal rate and rhythm. Normal S1 and S2 without mumurs, gallop or rub.] VASC: [Peripheral pulses +2 bilaterally.] ABD: [Bowel sounds normal, soft, nontender, no masses, no organomegaly. No audible bruits.] : [Not examined] LYMPH: [No lymphadenopathy noted.] EXT: [No clubbing, cyanosis or edema.] SKIN: [No rashes or lesions noted.] NEURO: [A&Ox3.] Laboratory: [ ] Hematology Labs: Test 03/15/25 02:38 Range/Units White Blood Count 9.1 # 4.8-10.8 K/uL Red Blood Count 2.97 L 4.00-5.50 MIL/uL Hemoglobin 8.5 L 12.0-16.0 g/dL Hematocrit 25.6 L 36-48 % Mean Corpuscular Volume 86.2 79-99 fL Mean Corpuscular Hemoglobin 28.6 27.0-33.0 pg Mean Corpuscular Hemoglobin Concent 33.2 32.0-36.0 g/dL Red Cell Distribution Width 15.4 11.0-15.5 % Platelet Count 134 130-400 K/uL Mean Platelet Volume 10.0 7.5-10.5 fL Immature Granulocyte % (Auto) 0.3 0-1 % Neutrophils (%) (Auto) 80.9 H 40.0-77.0 % Lymphocytes (%) (Auto) 10.5 L 21.0-51.0 % Monocytes (%) (Auto) 7.4 3.0-13.0 % Eosinophils (%) (Auto) 0.7 0.0-8.0 % Basophils (%) (Auto) 0.2 0.0-5.0 % Neutrophils # (Auto) 7.4 1.8-7.7 K/uL Lymphocytes # (Auto) 1.0 1.0-4.8 K/uL Monocytes # (Auto) 0.7 0.1-1.0 K/uL Eosinophils # (Auto) 0.06 0.00-0.70 K/uL Basophils # (Auto) 0.02 0.00-0.20 K/uL Absolute Immature Granulocyte (auto 0.03 0-1 K/uL Nucleated Red Blood Cells 0.0 0.0-0.19 % Chemistry Labs: Test 03/15/25 09:55 03/15/25 02:38 03/14/25 11:09 Range/Units Potassium Level 3.9 3.5-5.1 mmol/L Magnesium Level 2.10 1.80-2.40 mg/dL Sodium Level 142 136-145 mmol/L Chloride Level 109 101-111 mmol/L Carbon Dioxide Level 23 21-32 mmol/L Blood Urea Nitrogen 13 7-18 mg/dL Creatinine 0.5 0.5-1.0 mg/dL Glomerular Filtration Rate Calc 95 >90 mL/min Random Glucose 97 70-105 mg/dL Lactic Acid Level 0.8 0.8-2.5 mmol/L Total Calcium 7.6 L 8.5-10.1 mg/dL Phosphorus Level 3.0 2.5-4.9 mg/dL Total Bilirubin 0.8 # 0.2-1.0 mg/dL Direct Bilirubin 0.3 0.0-0.3 mg/dL Aspartate Amino Transf (AST/SGOT) 21 10-37 U/L Alanine Aminotransferase (ALT/SGPT) 12 12-78 U/L Alkaline Phosphatase 52 50-136 U/L Ammonia 15 11-32 umol/L Troponin I High Sensitivity 323 *H 4-50 ng/L B-Type Natriuretic Peptide 278 H 0-100 pg/mL Total Protein 4.8 L 6.0-8.3 g/dL Albumin 2.0 L 3.5-5.0 g/dL Lipase 12 L 16-77 U/L Procalcitonin 0.13 0.05-0.5 ng/mL Whole Blood Glucose 89 70-110 MG/DL Coagulation Labs: Test 03/15/25 02:57 Range/Units Prothrombin Time 11.2 9.6-11.6 SEC Prothromb Time International Ratio 1.06 0.85-1.15 Activated Partial Thromboplast Time 34.5 26.3-35.5 SEC D-Dimer Quantitative (PE/DVT) 1541 *H 0-500 ng/mL Diagnostics / Radiology: [Copy/Paste Echos/Imaging Report here] Impression and Plan: [ * Critical limb ischemia with severe peripheral vascular disease, [place] Class IV symptoms with threatened limbs, and nonhealing ulcers in the toes of both feet. * Diabetes mellitus with vascular manifestations. * Hypertension. * Hyperlipoproteinemia. * Hypothyroidism, on supplement. * History of tobacco use. 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 * Negative Lexiscan Cardiolite for ischemia on this admission. * Status post complex percutaneous intervention for severe stenosis of the abdominal aorta with extensive calcification, requiring shock wave lithotripsy, placement of 3 tube endoluminal grafts, and placement of IntraStent with complications of impingement on the left renal artery treated with left renal artery stenting and retroperitoneal bleeding treated with a covered graft and resolved. #Critical limb ischemia with severe peripheral vascular disease, Dai Class IV symptoms with threatened limbs, and nonhealing ulcers in the toes of both feet -Status post complex percutaneous intervention for severe stenosis of the abdominal aorta with extensive calcification, requiring shock wave lithotripsy, placement of 3 tube endoluminal grafts, and placement of IntraStent with complications of impingement on the left renal artery treated with left renal artery stenting and retroperitoneal bleeding treated with a covered graft and resolved. #RP bleed - CT abdomen and pelvis was obtained and documented sizable left lateral retroperitoneal bleed. Because of that, on 03/[address] angiography of abdomen and pelvis were performed and that documented no additional extravasation or contrast leak. -Hb drop up to 8.5 after 1 U PRBC #UTI due to Klebsiella -neg blood cx -WBC downtrending on Zosyn ] MAURO KILGORE MD Mar 15, 2025 11:12
--- NOTE | 2025-03-15 11:21 | PN ---
[facility] PROGRESS NOTE Date of Service: Mar 15, 2025 Time of Service: 11:16 Attending doctor Canales SUBJECTIVE: [Patient presents to the emergency department with a chief complaint of lower extremity pain. She reports onset of symptoms two weeks ago, primarily affecting both feet. The pain is described as sharp and tingling, occurring intermittently. There are no alleviating factors, and symptoms are aggravated by physical activity. She also reports associated discoloration at the tips of her toes. 03/08/25 Patient was evaluated today, she has been seen by rn float already. Had CT runoff pending reading. Dr Wu recommending Peripheral angio, plans to do tomorrow. We will continue to follow recommendations and managed patient's symptoms. No other complaints, she is afebrile. Labs reviewed. 03/09/25 The patient was evaluated in the room. According to the patient and family, the scheduled angiogram was canceled today. Dr. Recinos recommended against proceeding due to the patient's critical aortic stenosis, which presents a high risk for any intervention. He advised that, given the presence of aortic dissection and extensive calcification, the patient is unlikely to benefit from simple angioplasty and should instead be considered for endoluminal grafting. L ithotripsy of the abdominal aorta followed by graft placement will likely be required. Additionally, the patient has infrapopliteal disease, which may need to be addressed either during the same procedure or at a later date. At this time, Dr. Recinos recommended holding clopidogrel, aspirin, cilostazol, and statins. The patient is now scheduled for a Lexiscan Cardiolite study due to extensive coronary artery calcification noted on evaluation, as general anesthesia may be required for the planned endoluminal grafting. No other complaints, we will continue with supportive care as appropriate. The patient and family verbalized understanding of the current plan and recommendations. ] 03/10/25 patient was seen by PREMIUM REPRESENTATIVE and physician during rounding in room 324. Jaime becerra was cleared by Dr. Amezquita/rn float for endoluminal grafting to be performed with Dr. Recinos. At this moment we are pending further recommendations regards endoluminal grafting. We will continue to monitor patient in the meantime. A.m. labs. 03/11 patient was seen by nurse practitioner and physician during rounding in room 324. Patient was evaluated by rn float and that is pending endoluminal grafting tomorrow 03/12/2025. Patient NPO after midnight. Patient will receive also potassium 40 mEq to replace the potassium of 3.3. Final urine culture pending. As per case management patient to be discharged home once medically cleared. We will continue to monitor patient in the meantime. A.m. labs. 03/12 patient was seen by nurse practitioner and physician during rounding in room 324. Patient is pending endoluminal grafting with Dr. Ashley hdz on standby and we will be for the procedure in the event that if it is needed. Family and the patient understand the procedure is a high-risk given the critical stenosis of the small size of the distal abdominal aorta in particular. They understand that we will attempt to evaluate entire vascular tree for the lower extremities and abdominal aorta. Also they do understand that rn float might not be able to address all issues at the same settings given the extensive nature of the disease. Continue current supportive measurements. We will continue to monitor patient in the meantime. A.m. labs. After procedure patient will go to ICU. 03/13 patient was seen by nurse practitioner and physician during rounding in room 219. Patient is s/p endoluminal grafting on 03/12/[address] Recinos. After procedure patient was transferred to ICU where at this moment is intubated. Family members at the bedside. Patient continues to be on Lovenox SCDs and Plavix has been resumed. Hopefully patient will be extubated today. Patient continues to be on Levophed drip. We will continue to monitor patient in the meantime. A.m. labs 03/14 patient was seen by nurse practitioner and physician during rounding in room 219. Patient is s/p extubation 03/13/2025. As per rn float due to hemoglobin dropped from 9.5 to 7.9 orders were given for IV fluids midodrine and holding all antihypertensive medications. WBCs are trending down today at 13.9. Patient is also s/p one PRBC today 03/14/2025 as ordered by ICU attending. Patient currently on 3 L nasal cannula family members at the bedside. Patient remains on Kobi. Urine culture positive for Klebsiella pneumoniae patient was placed on Zosyn. Final sputum culture still pending. Blood culture negative times [address] abdomen/pelvis without contrast pending. We will continue to monitor patient in the meantime. A.m. labs. 03/15 patient was seen by nurse practitioner and physician during rounding in room 219. Final urine culture grew Klebsiella pneumoniae and patient was placed on Zosyn. Blood culture negative times 48 hours as of now. WBC 9.1 hemoglobin 8.5 hematocrit 25.6 platelets 134. Patient is s/p one PRBC yesterday 03/14/2025. Patient was placed on hypokalemia hypomagnesemia protocol. Potassium magnesium to be replaced per RN per protocol. As per rn float hold antihypertensive medications for now. We will continue to monitor patient in the meantime. A.m. labs REVIEW OF SYSTEMS 12 point ROS reviewed with patient. Pertinent positives mentioned above. Otherwise negative. PHYSICAL EXAM PHYSICAL EXAM: GENERAL: alert, weak, awake oriented x 3 HEENT: EOMI, Sclera non icteric, moist mucosa NECK: Supple, no JVD, trachea midline LUNGS: Clear breath sounds bilaterally. No wheezes HEART: Regular rate and rhythm. Normal S1 and S2, without murmurs ABD: Abdomen soft, nontender. Bowel sounds present EXT: No clubbing cyanosis or edema NEURO: Alert and oriented to person, follows commands Vital Signs (last 8hr) Date Time Temp Pulse Resp B/P (MAP) Pulse Ox O2 Delivery O2 Flow Rate FiO2 03/15/25 10:00 03/15/25 09:45 87 18 97/57 (70) 97 03/15/25 09:30 89 19 124/47 (72) 100 03/15/25 09:00 89 14 113/51 (71) 100 106/58 (74) 03/15/25 08:35 88 17 100/43 (62) 100 03/15/25 08:15 94 17 133/52 (79) 93 03/15/25 08:00 98.2 97 17 128/44 (72) 96 03/15/25 08:00 96 Nasal Cannula* 5 40 03/15/25 08:00 98.2 03/15/25 07:30 97 18 114/51 (72) 99 131/47 (75) 03/15/25 07:15 90 15 134/42 (72) 96 03/15/25 07:00 91 13 122/40 (67) 98 03/15/25 06:45 93 18 139/45 (76) 97 03/15/25 06:40 91 20 132/55 (80) 98 127/60 (82) 03/15/25 06:30 91 18 121/43 (69) 98 03/15/25 06:15 90 11 126/46 (72) 97 03/15/25 06:13 89 18 N/Cannula Low lpm 5.0 40 03/15/25 06:00 90 18 133/47 (75) 97 03/15/25 05:39 90 17 117/50 (72) 97 132/63 (86) 03/15/25 05:30 86 17 121/42 (68) 97 03/15/25 05:15 89 16 126/49 (74) 97 03/15/25 05:00 91 15 139/52 (81) 97 03/15/25 04:45 88 12 132/49 (76) 95 03/15/25 04:39 86 6 118/60 (79) 94 131/52 (78) 03/15/25 04:30 91 17 121/47 (71) 95 03/15/25 04:15 95 14 103/39 (60) 95 03/15/25 04:00 91 91/40 (57) 94 03/15/25 03:45 90 131/45 (73) 94 03/15/25 03:39 91 6 143/61 (88) 94 132/63 (86) 03/15/25 03:30 95 15 146/52 (83) 95 03/15/25 03:30 95 Nasal Cannula* 5 40 LABS: Laboratory: Test 03/15/25 09:55 03/15/25 02:57 03/15/25 02:38 03/14/25 11:09 Range/Units Potassium Level 3.9 3.5-5.1 mmol/L Magnesium Level 2.10 1.80-2.40 mg/dL Prothrombin Time 11.2 9.6-11.6 SEC Prothromb Time International Ratio 1.06 0.85-1.15 Activated Partial Thromboplast Time 34.5 26.3-35.5 SEC D-Dimer Quantitative (PE/DVT) 1541 *H 0-500 ng/mL White Blood Count 9.1 # 4.8-10.8 K/uL Red Blood Count 2.97 L 4.00-5.50 MIL/uL Hemoglobin 8.5 L 12.0-16.0 g/dL Hematocrit 25.6 L 36-48 % Mean Corpuscular Volume 86.2 79-99 fL Mean Corpuscular Hemoglobin 28.6 27.0-33.0 pg Mean Corpuscular Hemoglobin Concent 33.2 32.0-36.0 g/dL Red Cell Distribution Width 15.4 11.0-15.5 % Platelet Count 134 130-400 K/uL Mean Platelet Volume 10.0 7.5-10.5 fL Immature Granulocyte % (Auto) 0.3 0-1 % Neutrophils (%) (Auto) 80.9 H 40.0-77.0 % Lymphocytes (%) (Auto) 10.5 L 21.0-51.0 % Monocytes (%) (Auto) 7.4 3.0-13.0 % Eosinophils (%) (Auto) 0.7 0.0-8.0 % Basophils (%) (Auto) 0.2 0.0-5.0 % Neutrophils # (Auto) 7.4 1.8-7.7 K/uL Lymphocytes # (Auto) 1.0 1.0-4.8 K/uL Monocytes # (Auto) 0.7 0.1-1.0 K/uL Eosinophils # (Auto) 0.06 0.00-0.70 K/uL Basophils # (Auto) 0.02 0.00-0.20 K/uL Absolute Immature Granulocyte (auto 0.03 0-1 K/uL Nucleated Red Blood Cells 0.0 0.0-0.19 % Sodium Level 142 136-145 mmol/L Chloride Level 109 101-111 mmol/L Carbon Dioxide Level 23 21-32 mmol/L Blood Urea Nitrogen 13 7-18 mg/dL Creatinine 0.5 0.5-1.0 mg/dL Glomerular Filtration Rate Calc 95 >90 mL/min Random Glucose 97 70-105 mg/dL Lactic Acid Level 0.8 0.8-2.5 mmol/L Total Calcium 7.6 L 8.5-10.1 mg/dL Phosphorus Level 3.0 2.5-4.9 mg/dL Total Bilirubin 0.8 # 0.2-1.0 mg/dL Direct Bilirubin 0.3 0.0-0.3 mg/dL Aspartate Amino Transf (AST/SGOT) 21 10-37 U/L Alanine Aminotransferase (ALT/SGPT) 12 12-78 U/L Alkaline Phosphatase 52 50-136 U/L Ammonia 15 11-32 umol/L Troponin I High Sensitivity 323 *H 4-50 ng/L B-Type Natriuretic Peptide 278 H 0-100 pg/mL Total Protein 4.8 L 6.0-8.3 g/dL Albumin 2.0 L 3.5-5.0 g/dL Lipase 12 L 16-77 U/L Procalcitonin 0.13 0.05-0.5 ng/mL Whole Blood Glucose 89 70-110 MG/DL Test 03/13/25 11:21 Range/Units Blood Gas Specimen Type Arterial Arterial Blood pH 7.413 7.350-7.450 Arterial Blood Partial Pressure CO2 35 32-45 mmHg Arterial Blood Partial Pressure O2 82.0 L 83.0-108.0 mmHg Arterial Blood HCO3 22.0 21.0-28.0 mmol/L Arterial Blood Oxygen Saturation 95.9 94.0-98.0 % Arterial Blood Base Excess -2.1 L -2.0-3.0 mmol/L Hemoglobin (Blood Gas) 10.3 L 12.0-16.0 g/dL Sodium (Blood Gas) 142 136-145 MMOL/L Bedside Potassium (Blood Gas) 4.0 3.4-4.5 MMOL/L Bedside Chloride (Blood Gas) 113 H 98-107 MMOL/L Bedside Glucose (Blood Gas) 168 H 65-95 MG/DL Bedside Ionized Calcium (Blood Gas) 1.12 L 1.15-1.33 MMOL/L Bedside Lactic Acid (Blood Gas) 1.45 H 0.36-0.75 MMOL/L Blood Gas Temperature 37.0 35.5-37.0 CELSIUS Blood Gas Vent Mode CPAP PS 10 ROOM AIR FiO2 30.0 % Blood Gas CPAP 3 cm H2O Blood Gas Specimen Comment NORA MAX Current Medications Medications (Trade) Dose Ordered Sig/Lucie Route PRN Reason Start Time Stop Time Status Last Admin Dose Admin Acetaminophen (TYLenol 325MG TAB) 650 mg Q6H PRN PO TEMPERATURE GREATER THAN 101.5 03/06/25 23:00 04/05/25 22:59 Acetaminophen (TYLenol 650MG SUPPOSITORY) 650 mg Q6H PRN RC IF NPO, TEMP GREATER THAN 101 03/12/25 22:00 04/11/25 21:59 Acetaminophen/ Codeine Phosphate (TYLenol-coDEINE TAB) 1 tab Q6H PRN PO MODERATE PAIN (4-6) 03/09/25 09:30 04/08/25 09:29 03/14/25 18:26 1 TAB Acetaminophen/ Codeine Phosphate (TYLenol-coDEINE TAB) 2 tab Q4HPRN PRN PO SEVERE PAIN (7-10) 03/10/25 08:00 03/13/25 14:30 DC 03/11/25 23:53 2 TAB Acetaminophen/ Codeine Phosphate (TYLenol-coDEINE TAB) 2 tab Q6H PRN PO SEVERE PAIN (7-10) 03/09/25 09:30 03/10/25 07:57 DC 03/09/25 22:43 2 TAB Amiodarone HCL/ Dextrose 207.2 ml @ 33.3 mls/hr AD IV 03/15/25 03:30 04/14/25 03:29 03/15/25 03:39 33.3 MLS/HR Amlodipine Besylate (NorvASC 5MG TAB) 10 mg DAILY PO 03/08/25 09:00 03/14/25 11:33 DC 03/11/25 10:25 10 MG Aspirin (Aspirin 81mg Chew Tab) 81 mg DAILY PO 03/08/25 09:00 04/07/25 08:59 03/15/25 08:31 81 MG Aspirin (Aspirin 81mg Ec Tab) 81 mg DAILY PO 03/07/25 09:00 03/07/25 13:12 DC 03/07/25 08:34 81 MG Atorvastatin Calcium (LIPItor 10MG) 10 mg HS PO 03/07/25 21:00 03/07/25 13:14 DC Atorvastatin Calcium (LIPItor 40MG) 40 mg HS PO 03/07/25 21:00 04/06/25 20:59 03/14/25 19:59 40 MG Calcium Gluconate 1 gm/Sodium Chloride 100 ml @ 0 mls/hr AD PRN IV Serum Calcium Correction 03/12/25 23:00 04/11/25 22:59 03/13/25 12:18 100 MLS/HR Cilostazol (PLETal 100MG TAB) 100 mg BID PO 03/07/25 21:00 04/06/25 20:59 03/15/25 08:31 100 MG Clopidogrel Bisulfate (plaVIX 75MG) 75 mg DAILY PO 03/07/25 09:00 03/07/25 19:38 DC 03/07/25 08:35 75 MG Clopidogrel Bisulfate (plaVIX 75MG) 75 mg DAILY PO 03/09/25 09:30 04/08/25 09:29 03/15/25 08:31 75 MG Enoxaparin Sodium (Lovenox) 30 mg DAILY SQ 03/07/25 09:00 04/06/25 08:59 Hold 03/13/25 09:52 30 MG Famotidine (Pepcid 20mg Tab) 20 mg DAILY PO 03/07/25 09:00 04/06/25 08:59 03/15/25 08:31 20 MG Furosemide (LASix 20MG VIAL) 20 mg ONCE IV 03/12/25 18:00 03/12/25 22:00 DC 03/12/25 17:52 20 MG Gabapentin (NEURontin 100 mg CAP) 100 mg TID PO 03/07/25 14:00 03/07/25 16:06 DC 03/07/25 13:55 100 MG Home Med (Home Medication) (Tramadol HCl 50MG ER) 1 TAB) Q8H PRN PO MODERATE PAIN (4-6) 03/08/25 09:00 04/07/25 08:59 Hydralazine HCl (APRESOLine 20MG INJ) 10 mg Q6H PRN IV For:SBP above 160;DBP above 90 03/06/25 23:00 04/05/25 22:59 03/07/25 12:15 10 MG Lactulose (Constulose 20gm/ 30ml Udcup) 20 gm BID PRN PO CONSTIPATION 03/06/25 23:00 04/05/25 22:59 03/10/25 18:00 20 GM Levothyroxine Sodium (SYNTHroid 88MCG TAB) 88 mcg SYN PO 03/08/25 06:30 04/07/25 06:29 03/15/25 05:57 88 MCG Lisinopril (Prinivil 20mg) 20 mg BID PO 03/07/25 21:00 03/14/25 11:33 DC 03/12/25 21:06 20 MG Magnesium Sulfate 50 ml @ 0 mls/hr ONCE STAT IV 03/15/25 02:42 03/15/25 02:51 DC 03/15/25 02:51 0 MLS/HR Magnesium Sulfate 50 ml @ 0 mls/hr PROTOCOL IV 03/13/25 07:00 04/12/25 06:59 03/13/25 08:03 25 MLS/HR Magnesium Sulfate 50 ml @ 0 mls/hr PROTOCOL PRN IV MAGNESIUM PROTOCOL 03/12/25 23:00 03/13/25 07:28 DC 03/13/25 00:13 25 MLS/HR Metoprolol Succinate (TopROL XL) 50 mg DAILY PO 03/08/25 09:00 03/14/25 11:33 DC 03/11/25 10:25 50 MG Midodrine (PROAMatine 5 MG TABLET) 5 mg TID PO 03/13/25 16:30 03/13/25 18:58 DC 03/13/25 16:20 5 MG Midodrine (PROAMatine 5 MG TABLET) 10 mg Q8H PO 03/13/25 21:00 04/12/25 20:59 03/15/25 05:57 10 MG Morphine Sulfate (morPHINE 4MG SYG) 2 mg Q4H PRN IVP SEVERE PAIN (7-10) 03/06/25 23:00 03/09/25 09:27 DC 03/09/25 06:05 2 MG Morphine Sulfate (morPHINE 4MG SYG) 3 mg Q2HPRN PRN IVP SEVERE PAIN (7-10) 03/10/25 08:00 03/13/25 11:06 DC 03/12/25 17:52 3 MG Morphine Sulfate (morPHINE 4MG SYG) 3 mg Q2HPRN PRN IVP SEVERE PAIN (7-10) 03/13/25 14:30 03/20/25 14:29 03/14/25 16:58 3 MG Nitroglycerin/ Dextrose 250 ml @ 0 mls/hr PROTOCOL IV 03/12/25 11:00 04/11/25 10:59 Norepinephrine 250 ml @ 0 mls/hr PROTOCOL IV 03/12/25 11:00 03/13/25 02:30 DC 03/13/25 02:02 137 MLS/HR Norepinephrine Bitartrate 250 ml @ 0 mls/hr AD PRN IV TITRATE 03/13/25 02:30 04/12/25 02:29 03/14/25 00:09 27.5 MLS/HR Ondansetron HCl (zoFRAN 4MG INJ) 4 mg Q6H PRN IV NAUSEA/VOMITING 03/06/25 23:00 04/05/25 22:59 03/12/25 17:52 4 MG Phenylephrine HCl 100 mg/Sodium Chloride 250 ml @ 0 mls/hr AD PRN IV TITRATE 03/13/25 02:30 04/12/25 02:29 03/14/25 00:59 5.5 MLS/HR Piperacillin Sod/ Tazobactam Sod (Zosyn 3.375gm+NS 50ml) 3.375 gm Q8H IVPB 03/14/25 10:00 03/24/25 09:59 03/15/25 10:33 3.375 GM Potassium Chloride 100 ml @ 50 mls/hr AD PRN IV POTASSIUM PROTOCOL 03/12/25 23:00 04/11/25 22:59 03/15/25 05:57 50 MLS/HR Potassium Chloride 100 ml @ 100 mls/hr AD PRN IV POTASSIUM PROTOCOL 03/12/25 23:00 03/13/25 11:06 DC Potassium Chloride (K-Dur/Klor-Con 20meq) 20 meq AD PRN PO POTASSIUM PROTOCOL 03/12/25 23:00 04/11/25 22:59 Potassium Chloride (KCl 10% Elixir 20meq/15ml) 20 meq AD PRN PO POTASSIUM PROTOCOL 03/12/25 23:00 04/11/25 22:59 Pregabalin ([id number]) 75 mg BID PO 03/07/25 21:00 04/06/25 20:59 03/15/25 08:31 75 MG Propofol (DIPRivan 1000MG/ 100ML) 1,000 mg PROTOCOL PRN IV SEDATION 03/12/25 18:30 04/11/25 18:29 03/13/25 03:26 1,000 MG Sodium Chloride 1,000 ml @ 0 mls/hr Q0M IV 03/13/25 16:30 03/13/25 17:29 DC 03/13/25 17:14 500 MLS/HR Sodium Chloride 1,000 ml @ 75 mls/hr [id number] IV 03/12/25 11:00 04/11/25 10:59 03/14/25 04:48 75 MLS/HR Sodium Chloride (NS 50ml) 50 ml AD IV 03/14/25 10:00 03/14/25 09:50 DC Vasopressin 40 units/Sodium Chloride 42 ml @ 0 mls/hr AD PRN IV TITRATE 03/13/25 02:30 04/12/25 02:29 DIAGNOSTICS / RADIOLOGY: [ ] ASSESSMENT: [Patient intubated 03/12/2025, extubated 03/13/2025 Severe Peripheral Arterial Disease (PAD), [place] Category 5: Bilateral lower extremity involvement (R>L) S/p endoluminal grafting by Dr. Recinos 03/12/2025 Intractable bilateral lower extremity pain Peripheral arterial disease (PAD) Call limb ischemia with severe peripheral vascular disease Rosa fold class four symptoms with the threatened lymphs and nonhealing ulcers in toes of both feet POA Acute complicated cystitis POA Urine culture growing Klebsiella pneumoniae Hyperlipidemia Hypertension Hypothyroidism History of tobacco use PLAN: Final urine culture grew Klebsiella pneumoniae and patient was placed on Zosyn. Blood culture negative times 48 hours as of now. WBC 9.1 hemoglobin 8.5 hematocrit 25.6 platelets 134. Patient is s/p one PRBC yesterday 03/14/2025. Patient was placed on hypokalemia hypomagnesemia protocol. Potassium magnesium to be replaced per RN per protocol. As per rn float hold antihypertensive medications for now. We will continue to monitor patient in the meantime. A.m. labs -Angiogram canceled per Dr. Zepeda recommendations. -Patient is not a candidate for simple angioplasty due to critical aortic stenosis, aortic dissection, and extensive vascular calcification. -Infrapopliteal disease to be addressed either during the same procedure or at a later date. Supportive Care: -Continue supportive care for other complaints as indicated (e.g., pain management, hemodynamic monitoring, DVT prophylaxis, wound care as appropriate). Medical Management -Analgesia as needed with morphine. -Resumed home medications -GI prophylaxis: Famotidine -DVT prophylaxis: Lovenox Wound Care -Local wound care for digital ulcers -Monitor for signs of infection or progression Pain Management -Continue current pain management regimen as needed Follow-up: -Monitor for any changes in clinical status. -Lexiscan normal 03/09/2025 -Reassess plan following cardiac evaluation and further vascular surgery input. Total critical care time 46 minutes, this excludes any time spent with education or procedures. Patient at high risk for deterioration ] ATTESTATION BY PHYSICIAN I reviewed the documentation, medical decision making, and treatment plan as noted by the mid-level provider above. I agree with the findings and plan of care. Suzanna Canales MD, [facility] Mar 15, 2025 11:21 SUZANNA CANALES MD Mar 16, 2025 13:03
[2025-03-15] MEDS ORDERED: PoTASSium chl 10% ELIXIR 20MEQ 20 MEQ/15 ML UDCUP PO PRN (11:30)
[2025-03-15] MEDS ORDERED: PoTASSium chloRIDE 20MEQ ER 20 MEQ ERTAB PO PRN (11:30)
[2025-03-15] MEDS ORDERED: MAGNESIUM 2GM PREMIX 50ML 50 ML IV PRN (11:30)
--- NOTE | 2025-03-15 13:37 | EKG ---
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1945 Requested By: CHARLEE HAN Order Number: [id number] Reading MD: Jaqueline Whitney Measurements Intervals [place] Rate: 163 P: 0 GA: 0 QRS: -49 QRSD: 92 T: 134 QT: 298 QTc: 490 Interpretive Statements Atrial fibrillation with rapid ventricular response Left axis deviation Cannot rule out Anterior infarct , age undetermined Lateral ST depressions Compared to ECG 03/14/2025 12:59:38 Left-axis deviation now present Low QRS voltage now present Sinus rhythm no longer present Myocardial infarct finding still present Electronically Signed On 03-16-2025 20:16:42 CDT by Jaqueline Whitney Please click the below link to view image of tracing.
--- NOTE | 2025-03-15 14:44 | PN ---
[facility] PROGRESS NOTE Date Patient Seen: Mar 15, 2025 Time of Visit: 14:41 Supervising Physician: Dr Oscar Flores Primary Care Physician: [ ] Outpatient Specialists: [ ] Inpatient Consults: [ ] PROBLEM LIST: Severe anemia Hypotension Lower limb ischemia s/p endoluminal graft placement 03/12/2025 Severe Peripheral Arterial Disease Intractable bilateral lower extremity pain Hyperlipidemia Hypertension Hypothyroidism INTERVAL HISTORY: Patient was seen and examined, patient lying in bed, reporting her pain con trolled She has been off Kobi since 7:00 a.m. She continues on the midodrine 10 t.i.d. Later she was observed out of [id number] She continues on an amnio drip for AFib RVR She is tolerating her diet, passing gas, hemoglobin unchanged from overnight af ter receiving 1 unit, platelets are downtrending to 134 Good pulses by Doppler Plan: Following cardiology recommendations Monitoring hemoglobin level, we have a recheck this afternoon, monitoring for signs of bleeding SCDs RT treatments, supplemental O2 Off pressors Telemetry Total critical care time 48 minutes, this excludes any time spent with education or procedures. Patient remaining critical, requiring close monitoring, high-risk for decompensation REVIEW OF SYSTEMS: 12 point ROS reviewed with patient. Pertinent positives mentioned above. Otherwise negative. PHYSICAL EXAM: GENERAL: alert, weak, awake oriented x 3 HEENT: EOMI, Sclera non icteric, moist mucosa NECK: Supple, no JVD, trachea midline LUNGS: Clear breath sounds bilaterally. No wheezes HEART: Regular rate and rhythm. Normal S1 and S2, without murmurs ABD: Abdomen soft, nontender. Bowel sounds present EXT: No clubbing cyanosis or edema NEURO: Alert and oriented to person, follows commands Vital Signs (last 8hr) Date Time Temp Pulse Resp B/P (MAP) Pulse Ox O2 Delivery O2 Flow Rate FiO2 03/15/25 12:00 96 Nasal Cannula* 3 32 03/15/25 12:00 98.4 03/15/25 10:00 03/15/25 09:45 87 18 97/57 (70) 97 03/15/25 09:30 89 19 124/47 (72) 100 03/15/25 09:00 89 14 113/51 (71) 100 106/58 (74) 03/15/25 08:35 88 17 100/43 (62) 100 03/15/25 08:15 94 17 133/52 (79) 93 03/15/25 08:00 98.2 97 17 128/44 (72) 96 03/15/25 08:00 96 Nasal Cannula* 5 40 03/15/25 08:00 98.2 03/15/25 07:30 97 18 114/51 (72) 99 131/47 (75) 03/15/25 07:15 90 15 134/42 (72) 96 03/15/25 07:00 91 13 122/40 (67) 98 03/15/25 06:45 93 18 139/45 (76) 97 LABS: Hematology Labs: Test 03/15/25 02:38 Range/Units White Blood Count 9.1 # 4.8-10.8 K/uL Red Blood Count 2.97 L 4.00-5.50 MIL/uL Hemoglobin 8.5 L 12.0-16.0 g/dL Hematocrit 25.6 L 36-48 % Mean Corpuscular Volume 86.2 79-99 fL Mean Corpuscular Hemoglobin 28.6 27.0-33.0 pg Mean Corpuscular Hemoglobin Concent 33.2 32.0-36.0 g/dL Red Cell Distribution Width 15.4 11.0-15.5 % Platelet Count 134 130-400 K/uL Mean Platelet Volume 10.0 7.5-10.5 fL Immature Granulocyte % (Auto) 0.3 0-1 % Neutrophils (%) (Auto) 80.9 H 40.0-77.0 % Lymphocytes (%) (Auto) 10.5 L 21.0-51.0 % Monocytes (%) (Auto) 7.4 3.0-13.0 % Eosinophils (%) (Auto) 0.7 0.0-8.0 % Basophils (%) (Auto) 0.2 0.0-5.0 % Neutrophils # (Auto) 7.4 1.8-7.7 K/uL Lymphocytes # (Auto) 1.0 1.0-4.8 K/uL Monocytes # (Auto) 0.7 0.1-1.0 K/uL Eosinophils # (Auto) 0.06 0.00-0.70 K/uL Basophils # (Auto) 0.02 0.00-0.20 K/uL Absolute Immature Granulocyte (auto 0.03 0-1 K/uL Nucleated Red Blood Cells 0.0 0.0-0.19 % Chemistry Labs: Test 03/15/25 09:55 03/15/25 02:38 03/14/25 11:09 Range/Units Potassium Level 3.9 3.5-5.1 mmol/L Magnesium Level 2.10 1.80-2.40 mg/dL Sodium Level 142 136-145 mmol/L Chloride Level 109 101-111 mmol/L Carbon Dioxide Level 23 21-32 mmol/L Blood Urea Nitrogen 13 7-18 mg/dL Creatinine 0.5 0.5-1.0 mg/dL Glomerular Filtration Rate Calc 95 >90 mL/min Random Glucose 97 70-105 mg/dL Lactic Acid Level 0.8 0.8-2.5 mmol/L Total Calcium 7.6 L 8.5-10.1 mg/dL Phosphorus Level 3.0 2.5-4.9 mg/dL Total Bilirubin 0.8 # 0.2-1.0 mg/dL Direct Bilirubin 0.3 0.0-0.3 mg/dL Aspartate Amino Transf (AST/SGOT) 21 10-37 U/L Alanine Aminotransferase (ALT/SGPT) 12 12-78 U/L Alkaline Phosphatase 52 50-136 U/L Ammonia 15 11-32 umol/L Troponin I High Sensitivity 323 *H 4-50 ng/L B-Type Natriuretic Peptide 278 H 0-100 pg/mL Total Protein 4.8 L 6.0-8.3 g/dL Albumin 2.0 L 3.5-5.0 g/dL Lipase 12 L 16-77 U/L Procalcitonin 0.13 0.05-0.5 ng/mL Whole Blood Glucose 89 70-110 MG/DL Coagulation Labs: Test 03/15/25 02:57 Range/Units Prothrombin Time 11.2 9.6-11.6 SEC Prothromb Time International Ratio 1.06 0.85-1.15 Activated Partial Thromboplast Time 34.5 26.3-35.5 SEC D-Dimer Quantitative (PE/DVT) 1541 *H 0-500 ng/mL DIAGNOSTICS / RADIOLOGY RESULTS: [ ] PLAN NEURO: Minimize central acting medications as possible. Fall Precautions. Well lighted room through the day and minimize interruptions through the night to prevent acute delirium. PULMONARY: Supplemental 02 as needed Titrate Fio2 to keep Spo2 > or = 90% DuoNebs and CPT as needed IS hourly while awake for pulmonary hygiene Out of bed to chair as tolerated VAP Bundle Vent/BIPAP Settings: [ ] Driving pressure: [ ] P Plat: [ ] Static C: [ ] Static R: [ ] P/F Ratio: [ ] CARDIOVASCULAR: Follow hemodynamics. Titrate vasopressor to keep MAP >65 or systolic blood pressure >95mmHg DIPS: [ ] LINES: [ ] GI & NUTRITION: Continue nutritional support Aspirations precautions Prokinetic agents and laxatives as needed KIDNEYS & ELECTROLYTES: Strict monitoring of intake and output Daily weights Avoid nephrotoxic agents Monitor electrolytes and replace as needed Goal urine output of 30mL/hr or 0.5mL/kg/hr Urine output: [ ] Fluid Balance: [ ] ENDOCRINE: Maintain blood glucose between 100-180 at all times. Insulin sliding scale for blood glucose management INFECTIOUS DISEASE: Trend temperature. Cardenas-culture if febrile. Micro: [ ] Antibiotics: [ ] HEMATOLOGY & COAGULATION: Monitor H&H. Keep Hgb > 7 Transfuse 1 unit of PRBC for Hgb < 7 Transfuse 1 pack of platelets of platelets < 20, 000 Watch for any signs and symptoms of bleeding SKIN: Pressure ulcer prevention per facility protocol Rehab: PT/OT Prophylaxis: GI: [ ] DVT: [ ] Code Status: Full Resuscitation Disposition: [ ] Case was discussed and seen with my supervising physician. The above plan was formulated and agreed upon. JERRY THRASHER PAC Mar 15, 2025 14:44
[2025-03-16] VITALS (8 sets, daily range): BP systolic 123–171; BP diastolic 55–96; PULSE 104–112; RESP 18–20; TEMP 97.9–98.9; O2SAT 93–96
--- NOTE | 2025-03-16 02:47 | HMCIMG ---
EXAM: CR Chest, 1 view CLINICAL HISTORY: Post procedure. COMPARISON: Chest radiograph dated 03/13/2025. FINDINGS: The right side PICC line tip overlies the proximal superior vena cava. Interval removal of endotracheal and gastric tubes. Moderate right and small left pleural effusion and lower zone airspace disease. No pneumothorax. The cardiomediastinal silhouette is within normal limits. Mild atherosclerotic aorta. No acute osseous abnormality. IMPRESSION: 1. Moderate right and small left pleural effusions with lower zone airspace disease. 2. Right PICC line tip in the proximal superior vena cava. 3. Interval removal of endotracheal and gastric tubes. 4. No pneumothorax. 5. Mild atherosclerotic aorta. /Donald
[2025-03-16 04:19] LABS: IMMATURE GRANULOCYTE ABSOLUTE 0.02 K/uL (0-1); NUCLEATED RED BLOOD CELLS 0.0 % (0.0-0.19); PLATELET COUNT (AUTO) 165 K/uL (130-400); RED BLOOD CELL COUNT(AUTO) 2.88 MIL/uL (4.00-5.50); RED CELL DISTRIBUTION WIDTH 15.0 % (11.0-15.5); WHITE BLOOD COUNT (AUTO) 5.9 K/uL (4.8-10.8)
[2025-03-16 04:29] LABS: ASPARTATE AMINOTRANSFERASE 22.0 U/L (10-37); CREATININE 0.5 mg/dL (0.5-1.0); GLOMERULAR FILTR. RATE CALC 95.0 mL/min (>90); GLUCOSE,RANDOM 92.0 mg/dL (70-105); SODIUM SERUM 142.0 mmol/L (136-145); TOTAL PROTEIN, SERUM 5.1 g/dL (6.0-8.3); UREA NITROGEN, BLOOD 8.0 mg/dL (7-18)
[2025-03-16] MEDS: PoTASSium chloRIDE 20MEQ ER 20 MEQ ERTAB PO PRN (05:44)
--- NOTE | 2025-03-16 08:26 | PN ---
PROBLEM LIST: 1. Critical limb ischemia with severe peripheral vascular disease, Dai class 5 symptoms with threatened limbs and nonhealing ulcers in the toes of both feet. 2. Diabetes mellitus with vascular manifestations. 3. Hypertension. 4. Hyperlipidemia. 5. Hypothyroidism, supplement. 6. History of tobacco use, counseled extensively. 7. 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 8. Negative Lexiscan Cardiolite for ischemia this admission. 9. Status post complex percutaneous intervention for severe stenosis of the abdominal aorta with extensive calcification, requiring shockwave lithotripsy, placement of 3 endoluminal tube grafts and placement of an intra stent with complication of impingement on the left renal artery, treated with left renal artery stenting with good results with additional complication of retroperitoneal bleeding, treated with a covered endoluminal graft and resolved. 10. Postoperative anemia. SUBJECTIVE: This patient has been stable from hemodynamic standpoint. She has been having some complaints of back discomfort and some mild edema. Overnight, the patient has had no additional medications for pain. She is afebrile this morning. Her heart rate is 95-105 per minute range. The patient has respiratory rate of 18 and her blood pressure is in the 120-125 systolic range. She is saturating at 95% on nasal cannula. The patient's daughter reports that her mother has been somewhat confused intermittently overnight, which is likely a er syndrome in addition to her current pain medications. The patient is currently maintained on amiodarone at 200 p.o. b.i.d., Zosyn, midodrine, which has not been utilized, morphine, she has not had any doses since yesterday evening, pressors, which have not been utilized, clopidogrel, baby aspirin, levothyroxine, cilostazol, pregabalin, atorvastatin, famotidine and additional p.r.n. medications. On assessing the patient this morning, she appears to be comfortable. She does have some complaint of back pain; however, she did have a retroperitoneal bleed, which can give her persistent symptoms for a while. OBJECTIVE: The patient's exam, however, reflects a soft, benign abdomen. She has palpable strong pulses in the dorsalis pedis position bilaterally. Her feet are now warm and well perfused with excellent capillary refill. There is minimal edema, likely due to the reverse Trendelenburg position and her fluid administration that she has had. DIAGNOSTIC DATA: Laboratory studies this morning revealed sodium of 142, potassium 3.8, chloride is 108, CO2 of 25, BUN is 8, creatinine is 0.5 with GFR of 95. The patient's random glucose is 92. Her total calcium is 7.8. The magnesium is 1.9. Liver enzymes are normal. The patient's total protein is low at 5.1 with an albumin that is low at 1.9, consistent with significant protein malnutrition. White count is 5.9, down from 16.2 on 03/13. H and H have remained at 8.2 and 25.4 and the platelet count is currently 165,000. ASSESSMENT AND PLAN: At this point, I think the patient should be ambulated. I have also recommended addition of ferrous gluconate and vitamin B complex. The patient has had QUESTIONABLE ALLERGY TO IRON SUPPLEMENT; HOWEVER, WHEN I ASKED HER SPECIFICALLY, SHE BASICALLY STATED THAT SHE WOULD HAVE SOME UPSET STOMACH. We will try ferrous gluconate instead. The patient should be ambulated with physical therapy. We will continue progressive care. Ideally, nutritional support should be increased given her significant protein malnutrition. We will watch her laboratory parameters carefully. TID: [id number] RECEIPT: [id number]
--- NOTE | 2025-03-16 09:50 | PN ---
[facility] PROGRESS NOTE Date Patient Seen: Mar 16, 2025 Time of Visit: 09:46 Supervising Physician: Dr Chay Hinojosa Primary Care Physician: [ ] Outpatient Specialists: [ ] Inpatient Consults: [ ] PROBLEM LIST: Severe anemia AFib RVR Hypotension Lower limb ischemia s/p endoluminal graft placement 03/12/2025 Severe Peripheral Arterial Disease Intractable bilateral lower extremity pain Hyperlipidemia Hypertension Hypothyroidism INTERVAL HISTORY: Patient was seen and examined, patient comfortable in bed, reporting pain more controlled Off any pressors, continues on the midodrine Cardiology has her on Plavix, aspirin and statin she continues on Zosyn for the Klebsiella to urine Converted from the amiodarone drip to oral for her AFib RVR, heart rate in the 9 0s Hemoglobin remained stable minimal change overnight No signs of reported bleeding Good pulses by Doppler Afebrile Good sats on room air Plan: Following cardiology recommendations Aspirin, statin, Plavix Continue to hold the Lovenox, monitoring for signs of bleeding Trending hemoglobin Following cultures, antibiotics Total care time 41 minutes, this excludes any time spent with education or procedures. REVIEW OF SYSTEMS: 12 point ROS reviewed with patient. Pertinent positives mentioned above. Otherwise negative. PHYSICAL EXAM: GENERAL: alert, weak, awake oriented x 3 HEENT: EOMI, Sclera non icteric, moist mucosa NECK: Supple, no JVD, trachea midline LUNGS: Clear breath sounds bilaterally. No wheezes HEART: Regular rate and rhythm. Normal S1 and S2, without murmurs ABD: Abdomen soft, nontender. Bowel sounds present EXT: No clubbing cyanosis or edema NEURO: Alert and oriented to person, follows commands Vital Signs (last 8hr) Date Time Temp Pulse Resp B/P (MAP) Pulse Ox O2 Delivery O2 Flow Rate FiO2 03/16/25 08:00 97.9 108 20 154/71 96 Nasal Cannula 2.0 03/16/25 03:30 99.0 104 18 123/62 95 Nasal Cannula 2.0 LABS: Hematology Labs: Test 03/16/25 03:45 Range/Units White Blood Count 5.9 4.8-10.8 K/uL Red Blood Count 2.88 L 4.00-5.50 MIL/uL Hemoglobin 8.2 L 12.0-16.0 g/dL Hematocrit 25.4 L 36-48 % Mean Corpuscular Volume 88.2 79-99 fL Mean Corpuscular Hemoglobin 28.5 27.0-33.0 pg Mean Corpuscular Hemoglobin Concent 32.3 32.0-36.0 g/dL Red Cell Distribution Width 15.0 11.0-15.5 % Platelet Count 165 130-400 K/uL Mean Platelet Volume 10.2 7.5-10.5 fL Immature Granulocyte % (Auto) 0.3 0-1 % Neutrophils (%) (Auto) 75.5 40.0-77.0 % Lymphocytes (%) (Auto) 13.5 L 21.0-51.0 % Monocytes (%) (Auto) 8.9 3.0-13.0 % Eosinophils (%) (Auto) 1.5 0.0-8.0 % Basophils (%) (Auto) 0.3 0.0-5.0 % Neutrophils # (Auto) 4.4 1.8-7.7 K/uL Lymphocytes # (Auto) 0.8 L 1.0-4.8 K/uL Monocytes # (Auto) 0.5 0.1-1.0 K/uL Eosinophils # (Auto) 0.09 0.00-0.70 K/uL Basophils # (Auto) 0.02 0.00-0.20 K/uL Absolute Immature Granulocyte (auto 0.02 0-1 K/uL Nucleated Red Blood Cells 0.0 0.0-0.19 % Chemistry Labs: Test 03/16/25 03:45 03/15/25 02:38 03/14/25 11:09 Range/Units Sodium Level 142 136-145 mmol/L Potassium Level 3.8 3.5-5.1 mmol/L Chloride Level 108 101-111 mmol/L Carbon Dioxide Level 25 21-32 mmol/L Blood Urea Nitrogen 8 7-18 mg/dL Creatinine 0.5 0.5-1.0 mg/dL Glomerular Filtration Rate Calc 95 >90 mL/min Random Glucose 92 70-105 mg/dL Total Calcium 7.8 L 8.5-10.1 mg/dL Magnesium Level 1.90 1.80-2.40 mg/dL Total Bilirubin 0.9 0.2-1.0 mg/dL Aspartate Amino Transf (AST/SGOT) 22 10-37 U/L Alanine Aminotransferase (ALT/SGPT) 14 12-78 U/L Alkaline Phosphatase 57 50-136 U/L Total Protein 5.1 L 6.0-8.3 g/dL Albumin 1.9 L 3.5-5.0 g/dL Lactic Acid Level 0.8 0.8-2.5 mmol/L Phosphorus Level 3.0 2.5-4.9 mg/dL Direct Bilirubin 0.3 0.0-0.3 mg/dL Ammonia 15 11-32 umol/L Troponin I High Sensitivity 323 *H 4-50 ng/L B-Type Natriuretic Peptide 278 H 0-100 pg/mL Lipase 12 L 16-77 U/L Procalcitonin 0.13 0.05-0.5 ng/mL Whole Blood Glucose 89 70-110 MG/DL Coagulation Labs: Test 03/15/25 02:57 Range/Units Prothrombin Time 11.2 9.6-11.6 SEC Prothromb Time International Ratio 1.06 0.85-1.15 Activated Partial Thromboplast Time 34.5 26.3-35.5 SEC D-Dimer Quantitative (PE/DVT) 1541 *H 0-500 ng/mL DIAGNOSTICS / RADIOLOGY RESULTS: [ ] PLAN NEURO: Minimize central acting medications as possible. Maintain fall precautions, adequate lighting during the day PULMONARY: Supplemental 02 as needed. Maintain aspiration precautions at all times CARDIOVASCULAR: Follow hemodynamics. Vital signs per facility protocol GI & NUTRITION: Continue with nutritional support. Continue stool softeners and laxatives as needed. KIDNEYS & ELECTROLYTES: Strict monitoring of intake, output and overall fluid balance. Avoid nephrotoxic medications to the extent possible. Medications to be dosed according to renal function. Monitor electrolytes and replace as needed ENDOCRINE: Maintain blood glucose between 100-180 at all times. Hypoglycemia protocol in place INFECTIOUS DISEASE: Trend temperature, WBC and procalcitonin level Follow cultures, deescalate antibiotics as soon as possible. Panculture if new onset fever ONCOLOGY/HEMATOLOGY/COAGULATION: Monitor for s/s of bleeding Monitor hemoglobin, coagulation studies as needed SKIN: Pressure ulcer prevention per facility protocol Specialty mattress ORTHO/REHAB: Continue PT/OT Prophylaxis: Continue GI and DVT prophylaxis Code Status: Full Resuscitation Disposition: JERRY ZABALA PAC Mar 16, 2025 09:50
[2025-03-16] MEDS: FERROUS GLUCONATE 324MG TABLET.DR PO SCH (09:56)
[2025-03-16] MEDS: VITAMIN B COMPLEX 1 CAPSULE PO SCH (09:56)
[2025-03-16] MEDS ORDERED: ZOSYN 3.375GM +NS 50ML IVPB SCH (10:00)
[2025-03-16] MEDS: LIDOCAINE 4% ADH..PATCH TP SCH (10:01)
--- NOTE | 2025-03-16 12:20 | PN ---
[facility] PROGRESS NOTE Date of Service: Mar 16, 2025 Time of Service: 12:18 SUBJECTIVE: [Patient presents to the emergency department with a chief complaint of lower extremity pain. She reports onset of symptoms two weeks ago, primarily affecting both feet. The pain is described as sharp and tingling, occurring intermittently. There are no alleviating factors, and symptoms are aggravated by physical activity. She also reports associated discoloration at the tips of her toes. 03/08/25 Patient was evaluated today, she has been seen by poker in already. Had CT runoff pending reading. Dr Wu recommending Peripheral angio, plans to do tomorrow. We will continue to follow recommendations and managed patient's symptoms. No other complaints, she is afebrile. Labs reviewed. 03/09/25 The patient was evaluated in the room. According to the patient and family, the scheduled angiogram was canceled today. Dr. Recinos recommended against proceeding due to the patient's critical aortic stenosis, which presents a high risk for any intervention. He advised that, given the presence of aortic dissection and extensive calcification, the patient is unlikely to benefit from simple angioplasty and should instead be considered for endoluminal grafting. Lithotripsy of the abdominal aorta followed by graft placement will likely be required. Additionally, the patient has infrapopliteal disease, which may need to be addressed either during the same procedure or at a later date. At this time, Dr. Recinos recommended holding clopidogrel, aspirin, cilostazol, and statins. The patient is now scheduled for a Lexiscan Cardiolite study due to extensive coronary artery calcification noted on evaluation, as general anesthesia may be required for the planned endoluminal grafting. No other complaints, we will continue with supportive care as appropriate. The patient and family verbalized understanding of the current plan and recommendations. ] 03/10/25 patient was seen by JD [employer] CONSULTANT and physician during rounding in room 324. Patient was cleared by Dr. Amezquita/poker in for endoluminal grafting to be performed with Dr. Recinos. At this moment we are pending further recommendations regards endoluminal grafting. We will continue to monitor patient in the meantime. A.m. labs. 03/11 patient was seen by nurse practitioner and physician during rounding in room 324. Patient was evaluated by poker in and that is pending endoluminal grafting tomorrow 03/12/2025. Patient NPO after midnight. Patient will receive also potassium 40 mEq to replace the potassium of 3.3. Final urine culture pending. As per case management patient to be discharged home once medically cleared. We will continue to monitor patient in the meantime. A.m. labs. 03/12 patient was seen by nurse practitioner and physician during rounding in room 324. Patient is pending endoluminal grafting with Dr. Ashley hdz on standby and we will be for the procedure in the event that if it is needed. Family and the patient understand the procedure is a high-risk given the critical stenosis of the small size of the distal abdominal aorta in particular. They understand that we will attempt to evaluate entire vascular tree for the lower extremities and abdominal aorta. Also they do understand that poker in might not be able to address all issues at the same settings given the extensive nature of the disease. Continue current supportive measurements. We will continue to monitor patient in the meantime. A.m. labs. After procedure patient will go to ICU. 03/13 patient was seen by nurse practitioner and physician during rounding in room 219. Patient is s/p endoluminal grafting on 03/12/[address] Recinos. After procedure patient was transferred to ICU where at this moment is intubated. Family members at the bedside. Patient continues to be on Lovenox SCDs and Plavix has been resumed. Hopefully patient will be extubated today. Patient continues to be on Levophed drip. We will continue to monitor patient in the meantime. A.m. labs 03/14 patient was seen by nurse practitioner and physician during rounding in room 219. Patient is s/p extubation 03/13/2025. As per poker in due to hemoglobin dropped from 9.5 to 7.9 orders were given for IV fluids midodrine and holding all antihypertensive medications. WBCs are trending down today at 13.9. Patient is also s/p one PRBC today 03/14/2025 as ordered by ICU attending. Patient currently on 3 L nasal cannula family members at the bedside. Patient remains on Kobi. Urine culture positive for Klebsiella pneumoniae patient was placed on Zosyn. Final sputum culture still pending. Blood culture negative times [address] abdomen/pelvis without contrast pending. We will continue to monitor patient in the meantime. A.m. labs. 03/15 patient was seen by nurse practitioner and physician during rounding in room 219. Final urine culture grew Klebsiella pneumoniae and patient was placed on Zosyn. Blood culture negative times 48 hours as of now. WBC 9.1 hemoglobin 8.5 hematocrit 25.6 platelets 134. Patient is s/p one PRBC yesterday 03/14/2025. Patient was placed on hypokalemia hypomagnesemia protocol. Potassium magnesium to be replaced per RN per protocol. As per poker in hold antihypertensive medications for now. We will continue to monitor patient in the meantime. A.m. labs 03/16 patient is seen and examined at bedside, case discussed with the RN, no acute events overnight. At the time of my visit patient awake, following commands, using bedside commode, daughters at bedside. The patient with mild low back pain, we will apply a lidocaine patch. Results of urine culture positive for Klebsiella pneumoniae, on IV antibiotics. We will request Physical therapy to evaluate the patient, wound care consultation requested, apply bacitracin ointment two small ulcers of the right foot. Decrease the dose of morphine to 1 mg IV every 4 hours as needed, monitor mental status. Cardiology input noted and appreciated. Patient looks mildly swollen, on both lower extremities, Doppler negative for DVT, continue diuretic with Lasix, close monitoring of the patient's renal function and electrolytes in a.m.. REVIEW OF SYSTEMS 12 point ROS reviewed with patient. Pertinent positives mentioned above. Otherwise negative. PHYSICAL EXAM PHYSICAL EXAM: GENERAL: alert, weak, awake oriented x 3 HEENT: EOMI, Sclera non icteric, moist mucosa NECK: Supple, no JVD, trachea midline LUNGS: Clear breath sounds bilaterally. No wheezes HEART: Regular rate and rhythm. Normal S1 and S2, without murmurs ABD: Abdomen soft, nontender. Bowel sounds present EXT: No clubbing cyanosis or edema NEURO: Alert and oriented to person, follows commands Vital Signs (last 8hr) Date Time Temp Pulse Resp B/P (MAP) Pulse Ox O2 Delivery O2 Flow Rate FiO2 03/16/25 11:45 18 N/A Room Air 03/16/25 09:47 18 N/A Room Air 03/16/25 08:00 97.9 108 20 154/71 96 Nasal Cannula 2.0 LABS: Laboratory: Test 03/16/25 03:45 03/15/25 02:57 03/15/25 02:38 Range/Units White Blood Count 5.9 4.8-10.8 K/uL Red Blood Count 2.88 L 4.00-5.50 MIL/uL Hemoglobin 8.2 L 12.0-16.0 g/dL Hematocrit 25.4 L 36-48 % Mean Corpuscular Volume 88.2 79-99 fL Mean Corpuscular Hemoglobin 28.5 27.0-33.0 pg Mean Corpuscular Hemoglobin Concent 32.3 32.0-36.0 g/dL Red Cell Distribution Width 15.0 11.0-15.5 % Platelet Count 165 130-400 K/uL Mean Platelet Volume 10.2 7.5-10.5 fL Immature Granulocyte % (Auto) 0.3 0-1 % Neutrophils (%) (Auto) 75.5 40.0-77.0 % Lymphocytes (%) (Auto) 13.5 L 21.0-51.0 % Monocytes (%) (Auto) 8.9 3.0-13.0 % Eosinophils (%) (Auto) 1.5 0.0-8.0 % Basophils (%) (Auto) 0.3 0.0-5.0 % Neutrophils # (Auto) 4.4 1.8-7.7 K/uL Lymphocytes # (Auto) 0.8 L 1.0-4.8 K/uL Monocytes # (Auto) 0.5 0.1-1.0 K/uL Eosinophils # (Auto) 0.09 0.00-0.70 K/uL Basophils # (Auto) 0.02 0.00-0.20 K/uL Absolute Immature Granulocyte (auto 0.02 0-1 K/uL Nucleated Red Blood Cells 0.0 0.0-0.19 % Sodium Level 142 136-145 mmol/L Potassium Level 3.8 3.5-5.1 mmol/L Chloride Level 108 101-111 mmol/L Carbon Dioxide Level 25 21-32 mmol/L Blood Urea Nitrogen 8 7-18 mg/dL Creatinine 0.5 0.5-1.0 mg/dL Glomerular Filtration Rate Calc 95 >90 mL/min Random Glucose 92 70-105 mg/dL Total Calcium 7.8 L 8.5-10.1 mg/dL Magnesium Level 1.90 1.80-2.40 mg/dL Total Bilirubin 0.9 0.2-1.0 mg/dL Aspartate Amino Transf (AST/SGOT) 22 10-37 U/L Alanine Aminotransferase (ALT/SGPT) 14 12-78 U/L Alkaline Phosphatase 57 50-136 U/L Total Protein 5.1 L 6.0-8.3 g/dL Albumin 1.9 L 3.5-5.0 g/dL Prothrombin Time 11.2 9.6-11.6 SEC Prothromb Time International Ratio 1.06 0.85-1.15 Activated Partial Thromboplast Time 34.5 26.3-35.5 SEC D-Dimer Quantitative (PE/DVT) 1541 *H 0-500 ng/mL Lactic Acid Level 0.8 0.8-2.5 mmol/L Phosphorus Level 3.0 2.5-4.9 mg/dL Direct Bilirubin 0.3 0.0-0.3 mg/dL Ammonia 15 11-32 umol/L Troponin I High Sensitivity 323 *H 4-50 ng/L B-Type Natriuretic Peptide 278 H 0-100 pg/mL Lipase 12 L 16-77 U/L Procalcitonin 0.13 0.05-0.5 ng/mL Current Medications Medications (Trade) Dose Ordered Sig/Lucie Route PRN Reason Start Time Stop Time Status Last Admin Dose Admin Acetaminophen (TYLenol 325MG TAB) 650 mg Q6H PRN PO TEMPERATURE GREATER THAN 101.5 03/06/25 23:00 04/05/25 22:59 Acetaminophen (TYLenol 650MG SUPPOSITORY) 650 mg Q6H PRN RC IF NPO, TEMP GREATER THAN 101 03/12/25 22:00 04/11/25 21:59 Acetaminophen/ Codeine Phosphate (TYLenol-coDEINE TAB) 1 tab Q6H PRN PO MODERATE PAIN (4-6) 03/09/25 09:30 04/08/25 09:29 03/15/25 21:45 1 TAB Acetaminophen/ Codeine Phosphate (TYLenol-coDEINE TAB) 2 tab Q4HPRN PRN PO SEVERE PAIN (7-10) 03/10/25 08:00 03/13/25 14:30 DC 03/11/25 23:53 2 TAB Acetaminophen/ Codeine Phosphate (TYLenol-coDEINE TAB) 2 tab Q6H PRN PO SEVERE PAIN (7-10) 03/09/25 09:30 03/10/25 07:57 DC 03/09/25 22:43 2 TAB Amiodarone HCl (pacERONE 200MG) 200 mg BID PO 03/15/25 21:00 04/14/25 20:59 03/16/25 09:56 200 MG Amiodarone HCL/ Dextrose 207.2 ml @ 33.3 mls/hr AD IV 03/15/25 03:30 03/16/25 07:39 DC 03/15/25 03:39 33.3 MLS/HR Amlodipine Besylate (NorvASC 5MG TAB) 10 mg DAILY PO 03/08/25 09:00 03/14/25 11:33 DC 03/11/25 10:25 10 MG Aspirin (Aspirin 81mg Chew Tab) 81 mg DAILY PO 03/08/25 09:00 04/07/25 08:59 03/16/25 09:56 81 MG Aspirin (Aspirin 81mg Ec Tab) 81 mg DAILY PO 03/07/25 09:00 03/07/25 13:12 DC 03/07/25 08:34 81 MG Atorvastatin Calcium (LIPItor 10MG) 10 mg HS PO 03/07/25 21:00 03/07/25 13:14 DC Atorvastatin Calcium (LIPItor 40MG) 40 mg HS PO 03/07/25 21:00 04/06/25 20:59 03/15/25 21:34 40 MG Calcium Gluconate 1 gm/Sodium Chloride 100 ml @ 0 mls/hr AD PRN IV Serum Calcium Correction 03/12/25 23:00 04/11/25 22:59 03/13/25 12:18 100 MLS/HR Ceftriaxone Sodium (ROCEphine 1G INJ) 1 gm Q24H IVPB 03/16/25 10:00 03/26/25 09:59 03/16/25 10:13 1 GM Cilostazol (PLETal 100MG TAB) 100 mg BID PO 03/07/25 21:00 04/06/25 20:59 03/16/25 09:56 100 MG Clopidogrel Bisulfate (plaVIX 75MG) 75 mg DAILY PO 03/07/25 09:00 03/07/25 19:38 DC 03/07/25 08:35 75 MG Clopidogrel Bisulfate (plaVIX 75MG) 75 mg DAILY PO 03/09/25 09:30 04/08/25 09:29 03/16/25 09:56 75 MG Enoxaparin Sodium (Lovenox) 30 mg DAILY SQ 03/07/25 09:00 03/16/25 09:50 DC 03/13/25 09:52 30 MG Famotidine (Pepcid 20mg Tab) 20 mg DAILY PO 03/07/25 09:00 04/06/25 08:59 03/16/25 09:56 20 MG Ferrous Gluconate (Ferrous Gluconate) 324 mg DAILY PO 03/16/25 09:00 04/15/25 12:59 03/16/25 09:56 324 MG Ferrous Gluconate (Ferrous Gluconate) 324 mg Q8H5 PO 03/16/25 13:00 03/16/25 08:11 DC Furosemide (LASix 20MG TAB) 20 mg Q12H PO 03/16/25 10:00 04/15/25 09:59 03/16/25 10:01 20 MG Furosemide (LASix 20MG VIAL) 20 mg ONCE IV 03/12/25 18:00 03/12/25 22:00 DC 03/12/25 17:52 20 MG Gabapentin (NEURontin 100 mg CAP) 100 mg TID PO 03/07/25 14:00 03/07/25 16:06 DC 03/07/25 13:55 100 MG Home Med (Home Medication) (Tramadol HCl 50MG ER) 1 TAB) Q8H PRN PO MODERATE PAIN (4-6) 03/08/25 09:00 04/07/25 08:59 Hydralazine HCl (APRESOLine 20MG INJ) 5 mg Q6H PRN IV For:SBP above 160;DBP above 90 03/16/25 11:00 04/15/25 10:59 Hydralazine HCl (APRESOLine 20MG INJ) 10 mg Q6H PRN IV For:SBP above 160;DBP above 90 03/06/25 23:00 03/16/25 09:45 DC 03/07/25 12:15 10 MG Lactulose (Constulose 20gm/ 30ml Udcup) 20 gm BID PRN PO CONSTIPATION 03/06/25 23:00 04/05/25 22:59 03/10/25 18:00 20 GM Levothyroxine Sodium (SYNTHroid 88MCG TAB) 88 mcg SYN PO 03/08/25 06:30 04/07/25 06:29 03/16/25 05:44 88 MCG Lidocaine (Lidocaine Patch 4%) 1 each DAILY TP 03/16/25 10:00 04/15/25 09:59 03/16/25 10:01 1 EACH Lisinopril (Prinivil 20mg) 20 mg BID PO 03/07/25 21:00 03/14/25 11:33 DC 03/12/25 21:06 20 MG Magnesium Sulfate 50 ml @ 0 mls/hr ONCE STAT IV 03/15/25 02:42 03/15/25 02:51 DC 03/15/25 02:51 0 MLS/HR Magnesium Sulfate 50 ml @ 0 mls/hr PROTOCOL IV 03/13/25 07:00 04/12/25 06:59 03/13/25 08:03 25 MLS/HR Magnesium Sulfate 50 ml @ 0 mls/hr PROTOCOL PRN IV MAGNESIUM PROTOCOL 03/12/25 23:00 03/13/25 07:28 DC 03/13/25 00:13 25 MLS/HR Magnesium Sulfate 50 ml @ 0 mls/hr PROTOCOL PRN IV other 03/15/25 11:30 03/15/25 11:21 DC Metoprolol Succinate (TopROL XL) 50 mg DAILY PO 03/08/25 09:00 03/14/25 11:33 DC 03/11/25 10:25 50 MG Midodrine (PROAMatine 5 MG TABLET) 5 mg TID PO 03/13/25 16:30 03/13/25 18:58 DC 03/13/25 16:20 5 MG Midodrine (PROAMatine 5 MG TABLET) 10 mg Q8H PO 03/13/25 21:00 04/12/25 20:59 03/15/25 05:57 10 MG Morphine Sulfate (morPHINE 2MG SYG) 1 mg Q4HPRN PRN IVP SEVERE PAIN (7-10) 03/16/25 10:00 03/20/25 14:29 Morphine Sulfate (morPHINE 4MG SYG) 2 mg Q4H PRN IVP SEVERE PAIN (7-10) 03/06/25 23:00 03/09/25 09:27 DC 03/09/25 06:05 2 MG Morphine Sulfate (morPHINE 4MG SYG) 3 mg Q2HPRN PRN IVP SEVERE PAIN (7-10) 03/10/25 08:00 03/13/25 11:06 DC 03/12/25 17:52 3 MG Morphine Sulfate (morPHINE 4MG SYG) 3 mg Q2HPRN PRN IVP SEVERE PAIN (7-10) 03/13/25 14:30 03/16/25 09:45 DC 03/15/25 19:48 3 MG Nitroglycerin/ Dextrose 250 ml @ 0 mls/hr PROTOCOL IV 03/12/25 11:00 04/11/25 10:59 Norepinephrine 250 ml @ 0 mls/hr PROTOCOL IV 03/12/25 11:00 03/13/25 02:30 DC 03/13/25 02:02 137 MLS/HR Norepinephrine Bitartrate 250 ml @ 0 mls/hr AD PRN IV TITRATE 03/13/25 02:30 03/16/25 09:45 DC 03/14/25 00:09 27.5 MLS/HR Ondansetron HCl (zoFRAN 4MG INJ) 4 mg Q6H PRN IV NAUSEA/VOMITING 03/06/25 23:00 04/05/25 22:59 03/12/25 17:52 4 MG Phenylephrine HCl 100 mg/Sodium Chloride 250 ml @ 0 mls/hr AD PRN IV TITRATE 03/13/25 02:30 03/16/25 09:45 DC 03/14/25 00:59 5.5 MLS/HR Piperacillin Sod/ Tazobactam Sod (Zosyn 3.375gm+NS 50ml) 3.375 gm Q8H IVPB 03/14/25 10:00 03/16/25 08:11 DC 03/16/25 01:51 3.375 GM Piperacillin Sod/ Tazobactam Sod (Zosyn 3.375gm+NS 50ml) 3.375 gm Q8H IVPB 03/16/25 10:00 03/16/25 09:45 DC Potassium Chloride 100 ml @ 50 mls/hr AD PRN IV POTASSIUM PROTOCOL 03/12/25 23:00 04/11/25 22:59 03/15/25 05:57 50 MLS/HR Potassium Chloride 100 ml @ 100 mls/hr AD PRN IV POTASSIUM PROTOCOL 03/12/25 23:00 03/13/25 11:06 DC Potassium Chloride 100 ml @ 100 mls/hr AD PRN IV POTASSIUM PROTOCOL 03/15/25 11:30 03/16/25 07:39 DC Potassium Chloride (K-Dur/Klor-Con 20meq) 20 meq AD PRN PO POTASSIUM PROTOCOL 03/12/25 23:00 04/11/25 22:59 03/16/25 05:44 20 MEQ Potassium Chloride (K-Dur/Klor-Con 20meq) 20 meq AD PRN PO POTASSIUM PROTOCOL 03/15/25 11:30 03/15/25 11:21 DC Potassium Chloride (KCl 10% Elixir 20meq/15ml) 20 meq AD PRN PO POTASSIUM PROTOCOL 03/12/25 23:00 04/11/25 22:59 Potassium Chloride (KCl 10% Elixir 20meq/15ml) 20 meq AD PRN PO POTASSIUM PROTOCOL 03/15/25 11:30 03/15/25 11:21 DC Pregabalin ([id number]) 75 mg BID PO 03/07/25 21:00 04/06/25 20:59 03/16/25 09:56 75 MG Propofol (DIPRivan 1000MG/ 100ML) 1,000 mg PROTOCOL PRN IV SEDATION 03/12/25 18:30 03/16/25 09:45 DC 03/13/25 03:26 1,000 MG Sodium Chloride 1,000 ml @ 0 mls/hr Q0M IV 03/13/25 16:30 03/13/25 17:29 DC 03/13/25 17:14 500 MLS/HR Sodium Chloride 1,000 ml @ 75 mls/hr [id number] IV 03/12/25 11:00 04/11/25 10:59 03/14/25 04:48 75 MLS/HR Sodium Chloride (NS 50ml) 50 ml AD IV 03/14/25 10:00 03/14/25 09:50 DC Vasopressin 40 units/Sodium Chloride 42 ml @ 0 mls/hr AD PRN IV TITRATE 03/13/25 02:30 03/16/25 09:45 DC Vitamin B Complex/ Folic Acid (B Complex) 1 cap DAILY PO 03/16/25 09:00 04/15/25 08:59 03/16/25 09:56 1 CAP DIAGNOSTICS / RADIOLOGY: [ ] ASSESSMENT: [Patient intubated 03/12/2025, extubated 03/13/2025 Severe Peripheral Arterial Disease (PAD), [place] Category 5: Bilateral lower extremity involvement (R>L) S/p endoluminal grafting by Dr. Recinos 03/12/2025 Intractable bilateral lower extremity pain Peripheral arterial disease (PAD) Call limb ischemia with severe peripheral vascular disease Rosa fold class four symptoms with the threatened lymphs and nonhealing ulcers in toes of both feet POA Acute complicated cystitis POA Urine culture growing Klebsiella pneumoniae Hyperlipidemia Hypertension Hypothyroidism History of tobacco use PLAN: patient is seen and examined at bedside, case discussed with the RN, no acute events overnight. At the time of my visit patient awake, following commands, using bedside commode, daughters at bedside. The patient with mild low back pain, we will apply a lidocaine patch. Results of urine culture positive for Klebsiella pneumoniae, on IV antibiotics. We will request Physical therapy to evaluate the patient, wound care consultation requested, apply bacitracin ointment two small ulcers of the right foot. Decrease the dose of morphine to 1 mg IV every 4 hours as needed, monitor mental status. Cardiology input noted and appreciated. Patient looks mildly swollen, on both lower extremities, Doppler negative for DVT, continue diuretic with Lasix, close monitoring of the patient's renal function and electrolytes in a.m.. NEURO: Minimize central acting medications as possible. Fall Precautions. Well lighted room through the day and minimize interruptions through the night to prevent acute delirium. PULMONARY: Supplemental 02 as needed BiPAP as necessary, for respiratory distress Titrate Fio2 to keep Spo2 > or = 90% DuoNebs and CPT as needed IS hourly while awake for pulmonary hygiene prn Out of bed to chair as tolerated Maintain aspiration precautions at all times CARDIOVASCULAR: Follow hemodynamics. Vital signs per facility protocol GI & NUTRITION: Continue nutritional support Aspirations precautions Prokinetic agents and laxatives as needed KIDNEYS & ELECTROLYTES: Strict monitoring of intake and output Daily weights Avoid nephrotoxic agents Monitor electrolytes and replace as needed Goal urine output of 30mL/hr or 0.5mL/kg/hr Medications to be dosed according to renal function. Avoid contrast if possible ENDOCRINE: Maintain blood glucose between 100-180 at all times. Insulin sliding scale for blood glucose management Hypoglycemia and hyperglycemia protocol in place INFECTIOUS DISEASE: Trend temperature, WBC and procalcitonin level Follow cultures, deescalate antibiotics as soon as possible. Panculture if new onset fever HEMATOLOGY & COAGULATION: Monitor H&H. Keep Hgb > 7 Transfuse 1 unit of PRBC for Hgb < 7 Transfuse 1 pack of platelets of platelets < 20, 000 Watch for any signs and symptoms of bleeding SKIN: Pressure ulcer prevention per facility protocol Specialty mattress as needed ORTHO/REHAB Continue PT/OT PRN: MEDICATIONS Tylenol 650 mg po every 4 hrs for fever zofran 4 mg IV every 6 hrs for n/v Hydralazine 5 mg IV every 4 hrs systolic pressure > 160 bowel regiment: lactulose 20 gm PO BID PRN constipation Supportive measures: Continue GI and DVT prophylaxis Disposition: Pending improvement in clinical condition All questions answered time spent: > 35 min EMILY CARTER MD Mar 16, 2025 12:20
[2025-03-16] MEDS ORDERED: FERROUS GLUCONATE 324MG TABLET.DR PO SCH (13:00)
[2025-03-17] VITALS: BP 165/78; PULSE 109; RESP 18; TEMP 98
[2025-03-17 04:00] VITALS: BP_SYST 157; BP_SYST 160; BP_DIAS 74; BP_DIAS 80; PULSE 18; PULSE 82; RESP 18; TEMP 98; TEMP 98.3
[2025-03-17 05:27] LABS: IMMATURE GRANULOCYTE ABSOLUTE 0.02 K/uL (0-1); NUCLEATED RED BLOOD CELLS 0.0 % (0.0-0.19); PLATELET COUNT (AUTO) 218 K/uL (130-400); RED BLOOD CELL COUNT(AUTO) 3.15 MIL/uL (4.00-5.50); RED CELL DISTRIBUTION WIDTH 14.9 % (11.0-15.5); WHITE BLOOD COUNT (AUTO) 5.3 K/uL (4.8-10.8)
--- NOTE | 2025-03-17 05:43 | PN ---
[facility] CARDIOLOGY PROGRESS NOTE Date Patient Seen: Mar 17, 2025 Time of Visit: 05:27 Problem List: 1. Critical limb ischemia with severe peripheral vascular disease, Dai class 5 symptoms with threatened limbs and nonhealing ulcers in the toes of both feet. 2. Diabetes mellitus with vascular manifestations. 3. Hypertension. 4. Hyperlipidemia. 5. Hypothyroidism, supplement. 6. History of tobacco use, counseled extensively. 7. 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 8. Negative Lexiscan Cardiolite for ischemia this admission. 9. Status post complex percutaneous intervention for severe stenosis of the abdominal aorta with extensive calcification, requiring shockwave lithotripsy, placement of 3 endoluminal tube grafts and placement of an intra stent with complication of impingement on the left renal artery, treated with left renal artery stenting with good results with additional complication of retroperitoneal bleeding, treated with a covered endoluminal graft and resolved. 10. Postoperative anemia, requiring transfusion of PRBCs 11. Delirium 12. Protein Calorie Malnutrition 13. Resolving Sepsis from UTI - Klebsiella 14. Debilitation/Advanced age Interval History: Pt with stabilized BP, she has improved alertness, but remains confused intermit tently. She is hypertensive now so the midodrine will be changed to as needed and we will initiate her metoprolol and up titrate as tolerated. Her hgb is holding without any evidence of bleeding now. She has adequate perfusion to BLE with palpable pulses to BLE. Her CXR showed small to mod pleural effusion, she continues on gentle diuresis. Physical Examination: GENERAL: awake, confused intermittently, frail. HEAD: [Normal with no signs of head trauma.] EYES: [PERRLA, EOMI, conjunctiva and sclera normal.] ENT: [Hearing grossly intact, normal oropharynx.] NECK: [Supple without JVD. There is no tenderness, lymphadenopathy, or masses. No thyromegaly. Normal carotid upstrokes without bruits.] LUNGS: Diminished bases bilaterally] HEART: Regular rate and rhythm. Normal S1 and S2 without murmurs, gallop or rub.] VASC: [Peripheral pulses +2 bilaterally.] ABD: [Bowel sounds normal, soft, mildly distended, nontender, no masses, no organomegaly. No audible bruits.] :Pace in place LYMPH: [No lymphadenopathy noted.] EXT: [No clubbing, cyanosis, no edema.] SKIN: Ulcers to Massimo toes NEURO: [A&Ox2-3 intermittently.] Laboratory: [ ] Hematology Labs: Test 03/16/25 03:45 Range/Units White Blood Count 5.9 4.8-10.8 K/uL Red Blood Count 2.88 L 4.00-5.50 MIL/uL Hemoglobin 8.2 L 12.0-16.0 g/dL Hematocrit 25.4 L 36-48 % Mean Corpuscular Volume 88.2 79-99 fL Mean Corpuscular Hemoglobin 28.5 27.0-33.0 pg Mean Corpuscular Hemoglobin Concent 32.3 32.0-36.0 g/dL Red Cell Distribution Width 15.0 11.0-15.5 % Platelet Count 165 130-400 K/uL Mean Platelet Volume 10.2 7.5-10.5 fL Immature Granulocyte % (Auto) 0.3 0-1 % Neutrophils (%) (Auto) 75.5 40.0-77.0 % Lymphocytes (%) (Auto) 13.5 L 21.0-51.0 % Monocytes (%) (Auto) 8.9 3.0-13.0 % Eosinophils (%) (Auto) 1.5 0.0-8.0 % Basophils (%) (Auto) 0.3 0.0-5.0 % Neutrophils # (Auto) 4.4 1.8-7.7 K/uL Lymphocytes # (Auto) 0.8 L 1.0-4.8 K/uL Monocytes # (Auto) 0.5 0.1-1.0 K/uL Eosinophils # (Auto) 0.09 0.00-0.70 K/uL Basophils # (Auto) 0.02 0.00-0.20 K/uL Absolute Immature Granulocyte (auto 0.02 0-1 K/uL Nucleated Red Blood Cells 0.0 0.0-0.19 % Chemistry Labs: Test 03/16/25 03:45 Range/Units Sodium Level 142 136-145 mmol/L Potassium Level 3.8 3.5-5.1 mmol/L Chloride Level 108 101-111 mmol/L Carbon Dioxide Level 25 21-32 mmol/L Blood Urea Nitrogen 8 7-18 mg/dL Creatinine 0.5 0.5-1.0 mg/dL Glomerular Filtration Rate Calc 95 >90 mL/min Random Glucose 92 70-105 mg/dL Total Calcium 7.8 L 8.5-10.1 mg/dL Magnesium Level 1.90 1.80-2.40 mg/dL Total Bilirubin 0.9 0.2-1.0 mg/dL Aspartate Amino Transf (AST/SGOT) 22 10-37 U/L Alanine Aminotransferase (ALT/SGPT) 14 12-78 U/L Alkaline Phosphatase 57 50-136 U/L Total Protein 5.1 L 6.0-8.3 g/dL Albumin 1.9 L 3.5-5.0 g/dL Diagnostics / Radiology: [Copy/Paste Echos/Imaging Report here] Impression and Plan: Monitor perfusion of lower ext Monitor BP/HR response to metoprolol 25mg po bid added to regimen PRN midodrine 5mg po tid prn for sbp <100 Follow up labs, monitor h/h Continue PT, consider rehab placement Dietary consultation for nutritional supplement Monitor respiratory status, encourage IS Continue Furosemide 20mg po bid Monitor electrolytes Pt high risk for decompensation, but currently improving JUAN DIEGO [facility] Mar 17, 2025 05:43
[2025-03-17 05:44] LABS: ASPARTATE AMINOTRANSFERASE 21.0 U/L (10-37); CREATININE 0.6 mg/dL (0.5-1.0); GLOMERULAR FILTR. RATE CALC 91.0 mL/min (>90); GLUCOSE,RANDOM 94.0 mg/dL (70-105); SODIUM SERUM 143.0 mmol/L (136-145); TOTAL PROTEIN, SERUM 5.5 g/dL (6.0-8.3); UREA NITROGEN, BLOOD 7.0 mg/dL (7-18)
[2025-03-17 06:10] LABS: BAND NEUTROPHILS % (MANUAL) 2 % (0-2); EOSINOPHILS % (MANUAL) 2 % (1-6); LYMPHOCYTES % (MANUAL) 12 % (22-44); MAN.DIFF COMMENT-IMPRESSION MANUAL DIFFERENTIAL; MONOCYTES % (MANUAL) 9 % (2-9); SEGMENTED NEUTROPHILS % 75 % (40-70)
[2025-03-17 07:00] VITALS: BP 152/73; PULSE 101; RESP 20; TEMP 98
[2025-03-17 08:00] VITALS: O2SAT 94
[2025-03-17] MEDS: PoTASSium chloRIDE 20MEQ ER 20 MEQ ERTAB PO ONE (10:35)
[2025-03-17 11:00] VITALS: BP 162/78; PULSE 98; RESP 20; TEMP 98.1
--- NOTE | 2025-03-17 14:57 | NUR ---
Nutrition consult per poor PO intake Reviewed labs, notes, and medications. Pt passing gas, on HH+ ensure HP BID w/ am and dinner tray, IV fluids, lasix, b-complex, Fe, Ca 8(L), elevated troponin, alb(L) per chart view. Wt via bed scale, no edema, last BM 03/12/25, groin puncture, -227 ml balance 03/16/25 per nursing. Family present during visit. Family reported Pt with poor appetite, has been eating ~50% of tray, they have been delivering outside food, no issues chewing or swallowing, agreeable to senior energy trader salads (small) w/ lunch and ensure BID w/ am and dinner tray. Pt with non-severe PCM, Supplement thiamin 100 mg/day for 5-7 days + MVI QD for at least 10 days. Visually assessed mild muscle loss, may be due to sarcopenia. Recommendations: -Provide HH+ ensure BID w/ am and dinner tray -Godwin Pt's preferences -Monitor PO intake -Encourage PO intake as able -If poor PO intake continues consider appetite stimulant -Monitor BM -If no BM >3 days consider stool softener -Monitor electrolytes -Replenish electrolytes per protocol -Monitor wts -Reweigh as able -Order Vit D, vit b-12 labs to rule out deficiencies -Provide MVI QD -Texture per STEAM BLOCKER recs -Recommend Pt to follow up with PCP -Monitor goals of care RD to follow + available for consult per protocol Addendum: 03/17/25 at [address] Amended: Links added.
--- NOTE | 2025-03-17 16:10 | NUR ---
ATTEMPTED TO CALL REPORT TO [facility], [phone], NO ANSWER.
--- NOTE | 2025-03-17 16:37 | NUR ---
REPORT CALLED TO SUYAP[facility] DIMAS, STATED PATIENT WILL BE PICKED UP AROUND 6PM.
--- NOTE | 2025-03-17 16:50 | NUR ---
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
[2025-03-17 17:11] VITALS: TEMP 100
--- NOTE | 2025-03-17 17:20 | NUR ---
PRIOR TO DISCHARGE PER PROTOCOL PICTURES TAKEN OF LEFT ARM AND BILATERAL GROIN AREAS.
--- NOTE | 2025-03-17 17:25 | NUR ---
GIVEN TYLENOL 650MG PO FOR TEMP OF 100.0,UPDATED SUYAPA VALENCIA AT [facility].
--- NOTE | 2025-03-17 17:35 | NUR ---
TAKEN TO [facility] TRANSPORT VAN VIA WHEELCHAIR BY TRANSPORTER AFTER BEING GIVEN DISCHARGE INSTRUCTIONS. VERBLAIZED UNDERSTANDING. REMOVED TELE PACK.
--- NOTE | 2025-03-18 09:25 | DS ---
Discharge Summary Hospital Course Summary: Date of service 03/17/2025 The patient admitted to the hospital March 06, 2025 with the following history of the present illness: This is an 79-year-old female with a past medical history of HTN, HLP, hypothyroidism, and former tobacco abuse who presents with pain in her bilateral lower extremities, of 8 weeks in duration. The symptoms began spontaneously and over the ensuing timeframe progressively worsened. The pain was specifically located in the bilateral feet and was described as pinprick in quality, 10/10 in intensity, and affects the bilateral feet and digits equally. The pain is exacerbated by walking or prolonged standing, varies in duration from minutes to hours, and improves with the pain medication. Associated symptoms include ulcers on the tips of the digits. Pertinent negatives include fever, chills, headache, dizziness, syncope, chest pain, chest pressure, palpitations, shortness or breath, dyspnea on exertion, PND, orthopnea, abdominal pain, weight gain, or lower extremity swelling/edema. The persistence of symptoms prompted the patient to come to the hospital where she underwent bilateral lower extremity arterial Dopplers which identified monophasic waveforms in the right- sided infrapopliteal arteries, and monophasic waveforms in all the arteries of the left lower extremity. HOSPITAL COURSE 03/08/25 Patient was evaluated today, she has been seen by slitter helper already. Had CT runoff pending reading. Dr Wu recommending Peripheral angio, plans to do tomorrow. We will continue to follow recommendations and managed patient's symptoms. No other complaints, she is afebrile. Labs reviewed. 03/09/25 The patient was evaluated in the room. According to the patient and family, the scheduled angiogram was canceled today. Dr. Recinos recommended against proceeding due to the patient's critical aortic stenosis, which presents a high risk for any intervention. He advised that, given the presence of aortic dissection and extensive calcification, the patient is unlikely to benefit from simple angioplasty and should instead be considered for endoluminal grafting. Lithotripsy of the abdominal aorta followed by graft placement will likely be required. Additionally, the patient has infrapopliteal disease, which may need to be addressed either during the same procedure or at a later date. At this time, Dr. Recinos recommended holding clopidogrel, aspirin, cilostazol, and statins. The patient is now scheduled for a Lexiscan Cardiolite study due to extensive coronary artery calcification noted on evaluation, as general anesthesia may be required for the planned endoluminal grafting. No other complaints, we will continue with supportive care as appropriate. The patient and family verbalized understanding of the current plan and recommendations. ] 03/10/25 patient was seen by SIMULATION SOFTWARE ENGINEER and physician during rounding in room 324. Patient was cleared by Dr. Amezquita/slitter helper for endoluminal grafting to be performed with Dr. Recinos. At this moment we are pending further recommendations regards endoluminal grafting. We will continue to monitor patient in the meantime. A.m. labs. 03/11 patient was seen by nurse practitioner and physician during rounding in room 324. Patient was evaluated by slitter helper and that is pending endoluminal grafting tomorrow 03/12/2025. Patient NPO after midnight. Patient will receive also potassium 40 mEq to replace the potassium of 3.3. Final urine culture pending. As per case management patient to be discharged home once medically cleared. We will continue to monitor patient in the meantime. A.m. labs. 03/12 patient was seen by nurse practitioner and physician during rounding in room 324. Patient is pending endoluminal grafting with Dr. Ashley hdz on standby and we will be for the procedure in the event that if it is needed. Family and the patient understand the procedure is a high-risk given the critical stenosis of the small size of the distal abdominal aorta in particular. They understand that we will attempt to evaluate entire vascular tree for the lower extremities and abdominal aorta. Also they do understand that slitter helper might not be able to address all issues at the same settings given the extensive nature of the disease. Continue current supportive measurements. We will continue to monitor patient in the meantime. A.m. labs. After procedure patient will go to ICU. 03/13 patient was seen by nurse practitioner and physician during rounding in room 219. Patient is s/p endoluminal grafting on 03/12/[address] Recinos. After procedure patient was transferred to ICU where at this moment is intubated. Family members at the bedside. Patient continues to be on Lovenox SCDs and Plavix has been resumed. Hopefully patient will be extubated today. Patient continues to be on Levophed drip. We will continue to monitor patient in the meantime. A.m. labs 03/14 patient was seen by nurse practitioner and physician during rounding in room 219. Patient is s/p extubation 03/13/2025. As per slitter helper due to hemoglobin dropped from 9.5 to 7.9 orders were given for IV fluids midodrine and holding all antihypertensive medications. WBCs are trending down today at 13.9. Patient is also s/p one PRBC today 03/14/2025 as ordered by ICU attending. Patient currently on 3 L nasal cannula family members at the bedside. Patient remains on Kobi. Urine culture positive for Klebsiella pneumoniae patient was placed on Zosyn. Final sputum culture still pending. Blood culture negative times [address] abdomen/pelvis without contrast pending. We will continue to monitor patient in the meantime. A.m. labs. 03/15 patient was seen by nurse practitioner and physician during rounding in room 219. Final urine culture grew Klebsiella pneumoniae and patient was placed on Zosyn. Blood culture negative times 48 hours as of now. WBC 9.1 hemoglobin 8.5 hematocrit 25.6 platelets 134. Patient is s/p one PRBC yesterday 03/14/2025. Patient was placed on hypokalemia hypomagnesemia protocol. Potassium magnesium to be replaced per RN per protocol. As per slitter helper hold antihypertensive medications for now. We will continue to monitor patient in the meantime. A.m. labs 03/16 patient is seen and examined at bedside, case discussed with the RN, no acute events overnight. At the time of my visit patient awake, following commands, using bedside commode, daughters at bedside. The patient with mild low back pain, we will apply a lidocaine patch. Results of urine culture positive for Klebsiella pneumoniae, on IV antibiotics. We will request Physical therapy to evaluate the patient, wound care consultation requested, apply bacitracin ointment two small ulcers of the right foot. Decrease the dose of morphine to 1 mg IV every 4 hours as needed, monitor mental status. Cardiology input noted and appreciated. Patient looks mildly swollen, on both lower extremities, Doppler negative for DVT, continue diuretic with Lasix, close monitoring of the patient's renal function and electrolytes in a.m.. 03/17 PATIENT IS SEEN AND EXAMINED, NO ACUTE EVENTS OVERNIGHT, DISCHARGE PLAN DISCUSSED WITH CASE MANAGEMENT, [facility]ATION OF [facility]ICAL CARE. Distillery Manager(s): CARDIOLOGY AND PULMONARY SERVICE Assessment/Plan: FINAL DIAGNOSIS [Patient intubated 03/12/2025, extubated 03/13/2025 Severe Peripheral Arterial Disease (PAD), Perkins Category 5: Bilateral lower extremity involvement (R>L) S/p endoluminal grafting by Dr. Recinos 03/12/2025 Intractable bilateral lower extremity pain Peripheral arterial disease (PAD) Call limb ischemia with severe peripheral vascular disease Rosa fold class four symptoms with the threatened lymphs and nonhealing ulcers in toes of both feet POA Acute complicated cystitis POA Urine culture growing Klebsiella pneumoniae Hyperlipidemia Hypertension Hypothyroidism History of tobacco use Discharge Instructions: PATIENT TO BE DISCHARGED TO [facility]. PATIENT TO RETURN TO THE HOSPITAL IF CONDITION CHANGES. PATIENT AND FAMILY IN AGREEMENT. Home Medications: Reported Medications Atorvastatin Calcium (LIPITOR) 20 Mg Tab, 1 TAB PO HS for 30 Days, #30 TAB 0 Refills 03/07/25 Levothyroxine Sodium (Levothyroxine) 88 Mcg Capsule, 1 CAP PO DAILY for 30 Days, #30 CAP 0 Refills 03/07/25 Aspirin (ASPIRIN 81MG CHEW TAB) 81 Mg Tab.chew, 1 TAB PO DAILY for 30 Days, #30 TAB 0 Refills 03/07/25 Lisinopril (Lisinopril) 20 Mg Tablet, 20 MG PO BID, TAB 03/07/25 Discontinued Reported Medications Tramadol HCl (Tramadol HCl ER) 100 Mg Tab.er.24h, 0.5 TAB PO q8hprn for 30 Days, #30 TAB 0 Refills 03/07/25 Gabapentin (Gabapentin) 100 Mg Capsule, 1 CAP PO TID for 30 Days, #90 CAP 0 Refills 03/07/25 Amlodipine Besylate (Amlodipine Besylate) 10 Mg Tablet, 1 TAB PO DAILY for 30 Days, #30 TAB 0 Refills 03/07/25 Metoprolol Succinate (Metoprolol Succinate) 50 Mg Tab.er.24h, 1 TAB PO DAILY for 30 Days, #30 TAB 0 Refills 03/07/25 Time spent arranging discharge: 31-60 minutes EMILY CARTER MD Mar 18, 2025 09:25
== END 2025-03-17 17:15 | DRG 269 ==
LOC: EDH 18:46 → EDHIP 22:44 → 3DH 03-07 03:36 → 2CV 03-12 07:52 → 2CH 03-12 22:19 → 2AH 03-15 17:24
PROVIDERS: ADMIT Internal Medicine; ATTEND Internal Medicine
PROC: 4A02XM4 Measurement of Cardiac Total Activity, External Approach (ICD-10-PCS; 2025-03-09)
PROC: 3E073KZ Introduction of Other Diagnostic Substance into Coronary Artery, Percutaneous Approach (ICD-10-PCS; 2025-03-09)
PROC: 04U Lower Arteries, Supplement (ICD-10-PCS; principal; 2025-03-12)
PROC: 04HA3DZ Insertion of Intraluminal Device into Left Renal Artery, Percutaneous Approach (ICD-10-PCS; 2025-03-12)
PROC: B41D1ZZ Fluoroscopy of Aorta and Bilateral Lower Extremity Arteries using Low Osmolar Contrast (ICD-10-PCS; 2025-03-12)
PROC: 04FY3ZZ Fragmentation of Lower Artery, Percutaneous Approach (ICD-10-PCS; 2025-03-12)
PROC: 04703DZ Dilation of Abdominal Aorta with Intraluminal Device, Percutaneous Approach (ICD-10-PCS; 2025-03-12)
PROC: 30233N1 Transfusion of Nonautologous Red Blood Cells into Peripheral Vein, Percutaneous Approach (ICD-10-PCS; 2025-03-12)
PROC: B4171ZZ Fluoroscopy of Left Renal Artery using Low Osmolar Contrast (ICD-10-PCS; 2025-03-12)
PROC: 0BH17EZ Insertion of Endotracheal Airway into Trachea, Via Natural or Artificial Opening (ICD-10-PCS; 2025-03-12)
PROC: 5A1935Z Respiratory Ventilation, Less than 24 Consecutive Hours (ICD-10-PCS; 2025-03-12)
PROC: 02HV33Z Insertion of Infusion Device into Superior Vena Cava, Percutaneous Approach (ICD-10-PCS; 2025-03-13)
DX: E11.51 Type 2 diabetes mellitus with diabetic peripheral angiopathy without gangrene (principal); E46 Unspecified protein-calorie malnutrition; N30.00 Acute cystitis without hematuria; J90 Pleural effusion, not elsewhere classified; I71.00 Dissection of unspecified site of aorta; E11.40 Type 2 diabetes mellitus with diabetic neuropathy, unspecified; E78.5 Hyperlipidemia, unspecified; I10 Essential (primary) hypertension; I70.0 Atherosclerosis of aorta; I25.10 Atherosclerotic heart disease of native coronary artery without angina pectoris; E03.9 Hypothyroidism, unspecified; J44.9 Chronic obstructive pulmonary disease, unspecified; B96.1 Klebsiella pneumoniae [K. pneumoniae] as the cause of diseases classified elsewhere; D64.89 Other specified anemias; E11.621 Type 2 diabetes mellitus with foot ulcer; E78.00 Pure hypercholesterolemia, unspecified; E83.51 Hypocalcemia; I35.0 Nonrheumatic aortic (valve) stenosis; I48.91 Unspecified atrial fibrillation; L97.529 Non-pressure chronic ulcer of other part of left foot with unspecified severity; L97.519 Non-pressure chronic ulcer of other part of right foot with unspecified severity; N73.9 Female pelvic inflammatory disease, unspecified; Z79.02 Long term (current) use of antithrombotics/antiplatelets; Z79.899 Other long term (current) drug therapy; Z87.891 Personal history of nicotine dependence; Z68.37 Body mass index [BMI] 37.0-37.9, adult
CPT/HCPCS: 34701; 34713; 36415; 36430; 37236; 71045; 74174; 74176; 75635; 78452; 80048; 80053; 80076; 81001; 82140; 82435; 82803; 82947; 82948; 83605; 83690; 83735; 83880; 84100; 84132; 84145; 84295; 84443; 84484; 85014; 85018; 85025; 85027; 85347; 85378; 85610; 85730; 86850; 86900; 86901; 86923; 87040; 87071; 87086; 87186; 87205; 93005; 93017; 93306; 93925; 94002; 94003; 94150; 99285; A4344; A9500; C1725; C1760; C1769; C1876; C1887; C1894; C9765; G0378; J0282; J0360; J0612; J0690; J0696; J1644; J1650; J1938; J2250; J2270; J2371; J2405; J2543; J2704; J2720; J2785; J3010; J3373; J3475; J3480; J3490; J7050; J7060; P9016; P9047; Q9967; A9900; J0283

== ENCOUNTER 2025-05-04 14:42 | Observation (INO) | payer OTHER ==
[~2025-05-04] VITALS: Ht 152.4 cm; Wt 52.7 kg
--- NOTE | 2025-05-04 15:08 | EKG ---
[facility] Test Date: 2025-05-04 Test Time: 15:03:05 Pat Name: ROGER DE LEÓN Department: [facility] Room: ED Gender: F Supervisor Remelt: [id number] : [id number] Requested By: ISAC GAMA Order Number: [id number] Reading MD: Allan Walters Measurements Intervals [place] Rate: 60 P: 33 NM: 202 QRS: -29 QRSD: 108 T: 6 QT: 437 QTc: 437 Interpretive Statements Sinus rhythm Anteroseptal infarct, age indeterminate Compared to ECG 03/15/2025 02:38:56 Atrial fibrillation no longer present Left-axis deviation no longer present ST (T wave) deviation no longer present Myocardial infarct finding still present Electronically Signed On 05-05-2025 20:11:24 PLACER MINER by Allan Walters Please click the below link to view image of tracing.
--- NOTE | 2025-05-04 15:55 | ERN ---
General Chief Complaint: Lower Extremity Pain/Injury Stated Complaint: BLE SWELLING, AORTIC REPAIR 03/21 Time Seen by MD: 14:58 Source: patient, family History of Present Illness Initial Comments Ms Ryan, 79 F with past medical history of aortic aneurysm repair, peripheral artery disease, atrial fibrillation came to ED with chief complaint of severe left leg swelling and numbness [id number] since 2 weeks. She reports that she had aortic aneurysm repair in February 2025 and had stayed in alf for 3 weeks. She has been complaint with all her medications but has developed swelling of the feet below-knee and numbness that had been progressing and today she will having severe pain and foot that prompted her to come to the ED. she reports no smoking or alcohol. Timing/Duration: constant Severity: severe Associated Symptoms: weakness Allergies: Coded Allergies: iron (Unverified Allergy, Unknown, 02/04/24) Home Meds Reported Medications Atorvastatin Calcium (LIPITOR) 20 Mg Tab, 1 TAB PO HS for 30 Days, #30 TAB 0 Refills 03/07/25 Levothyroxine Sodium (Levothyroxine) 88 Mcg Capsule, 1 CAP PO DAILY for 30 Days, #30 CAP 0 Refills 03/07/25 Aspirin (ASPIRIN 81MG CHEW TAB) 81 Mg Tab.chew, 1 TAB PO DAILY for 30 Days, #30 TAB 0 Refills 03/07/25 Lisinopril (Lisinopril) 20 Mg Tablet, 20 MG PO BID, TAB 03/07/25 Past Medical History Past Medical History: High Cholesterol, Heart Disease, Hypertension, Hypothyroid, Vascular Disease Medical History Other: PAD Past Surgical History: Other, None Female( History) History: Not Applicable Constitutional: (-) chills, (-) diaphoresis, (-) fever, (-) malaise, (-) weakness, (-) other documentation EENTM: (-) eye pain, (-) blurred vision, (-) tearing, (-) double vision, (-) ear pain, (-) ear discharge, (-) nose pain, (-) nose congestion, (-) throat p ain, (-) Throat swelling, (-) mouth pain, (-) tooth pain, (-) mouth swelling, (- ) other documentation Respiratory: (+) short of breath; (-) cough, (-) orthopnea, (-) stridor, (-) wheezing, (-) other documentation Cardiovascular: (+) edema, (+) dyspnea on exertion; (-) chest pain, (-) palpitations, (-) syncope, (-) other documentation Gastrointestinal/Abdominal: (-) nausea, (-) vomiting, (-) diarrhea, (-) abdominal pain, (-) abdominal distention, (-) constipation, (-) rectal bleeding, (-) dark stool/melena, (-) other documentation Genitourinary: (-) vaginal discharge, (-) vaginal bleeding, (-) dysuria, (-) frequency, (-) hematuria, (-) pain, (-) other documentation Musculoskeletal: (+) joint pain; (-) Neck pain, (-) back pain, (-) Flank Pain, (-) joint swelling, (-) muscle pain, (-) muscle stiffness, (-) gout, (-) other documentation Skin: (-) laceration, (-) contusion, (-) abrasion, (-) abscess, (-) rash, (-) change in color, (-) change in hair, (-) change in nails, (-) diaphoresis, (-) dryness, (-) other documentation Neuro: (+) numbness; (-) altered mental status, (-) headache, (-) syncope, (-) paralysis, (-) seizure, (-) pre-existing deficit, (-) tremors, (-) weakness, (-) dizziness, (-) slurred speech, (-) vertigo, (-) other documentation Psych: (-) depression, (-) suicidal ideation, (-) anxiety, (-) emotional problems, (-) auditory hallucinations, (-) visual hallucinations Hematologic/Lymphatic: (-) anemia, (-) blood clots, (-) easy bleeding, (-) easy bruising, (-) swollen glands, (-) other documentation Immunological/Allergic: (-) food allergy, (-) grass allergy, (-) mold allergy, (-) pollen allergy, (-) HIV/AIDS, (-) transplant, (-) othe documentation Review of Systems: was completed, & the rest were negative. Physical Exam General Appearance: (+) mild distress Orientation: (+) alert, (+) oriented x 3 Head/Face Trauma: No Eye: bilateral eye normal inspection Ear, Nose, Throat: (+) hearing grossly normal, (+) normal ENT inspection, (+) moist mucous membraine, (+) normal pharynx Neck: (+) normal inspection, (+) supple, (+) full range of motion Respiratory: (+) chest non-tender, (+) lungs clear, (+) well ventilated Heart: (+) regular, (+) no gallop Vascular: (+) abnormal peripheral pulse, (+) edema Gastrointestinal: (+) soft, (+) non-tender, (+) bowel sound present Breast Exam: (+) deferred Genital: (+) deferred Rectal: (+) deferred Extremities: (+) pedal edema, (+) slow capillary refill, (+) swelling Neurologic/Psychiatric: (+) normal speech, (+) no motor defecits, (+) abnormal gait Skin: (+) pallor Lymphatic: (-) no adenopathy, (-) axilla node tender (R), (-) axilla node tender (L), (-) inguinal node tender (R), (-) inguinal node tender (L), (-) other Results Laboratory and Microbiology Lab and Micro Result Laboratory Tests Test 05/04/25 15:12 05/04/25 17:45 White Blood Count 5.3 K/uL (4.8-10.8) Red Blood Count 4.10 MIL/uL (4.00-5.50) Hemoglobin 12.8 g/dL (12.0-16.0) Hematocrit 39.7 % (36-48) Mean Corpuscular Volume 96.8 fL (79-99) Mean Corpuscular Hemoglobin 31.2 pg (27.0-33.0) Mean Corpuscular Hemoglobin Concent 32.2 g/dL (32.0-36.0) Red Cell Distribution Width 18.6 % (11.0-15.5) H Platelet Count 265 K/uL (130-400) Mean Platelet Volume 10.1 fL (7.5-10.5) Nucleated Red Blood Cells 0.0 % (0.0-0.19) Red Blood Cell Morphology See comments Sodium Level 144 mmol/L (136-145) Potassium Level 3.5 mmol/L (3.5-5.1) Chloride Level 104 mmol/L (101-111) Carbon Dioxide Level 31 mmol/L (21-32) Blood Urea Nitrogen 9 mg/dL (7-18) Creatinine 0.7 mg/dL (0.5-1.0) Glomerular Filtration Rate Calc 87 mL/min (>90) Random Glucose 133 mg/dL (70-105) H Total Calcium 9.2 mg/dL (8.5-10.1) Urine Color LIGHT-YELLOW (YELLOW) Urine Appearance CLEAR (CLEAR) Urine pH 7.0 (5.0-8.0) Urine Specific [place] 1.008 (1.001-1.031) Urine Protein NEGATIVE mg/dL (NEGATIVE) Urine Glucose (UA) NEGATIVE mg/dL (NEGATIVE) Urine Ketones NEGATIVE mg/dL (NEGATIVE) Urine Occult Blood NEGATIVE (NEGATIVE) Urine Nitrate NEGATIVE (NEGATIVE) Urine Bilirubin NEGATIVE mg/dL (NEGATIVE) Urine Urobilinogen 0.2 mg/dL (0.2-1.0) Urine Leukocyte Esterase NEGATIVE Dasha/uL Urine RBC 2-5 /HPF (0-1) H Urine WBC 2-5 /HPF (0-1) H Urine Squamous Epithelial Cells RARE /HPF (0-2) Urine Bacteria MOD /HPF (None Seen) EKG/XRAY/US/CT/MRI EKG Comment RATE 60 DE 202 QRSD 108 QT 437 Normal sinus rhythm MDM Differential diagnosis: Peripheral arterial steonis with history of aortic aneurysm repair The patient came to the ED with severe left leg swelling and numbness1 week Rationale: This consult and ordered secondary to share decision-making include CBC, BMP, urinalysis, EKG, venous Doppler ultrasound and arterial bilateral lower extremity ultrasound Previous outside records reviewed: Old ER visits Medications-per medication reconciliation Need for hospitalization: Patient does meet criteria for hospitalization. Patient will be admitted and will be under the care of hospitalist and card iologist Need for emergency major/minor surgery: No There are no social concerns with this patient Prescription drug management Description we will include symptomatic care I independently interpreted the test that were performed, results were reviewed by me and considered finding from Radiology ordered Medical management and examination interpretation discussions were had by me with other qualified health rn progressive care unit as indicated for the patient's care ED Course Orders Procedure Category Date Status Time Ondansetron 4mg Inj PHA 05/04/25 Complete (Zofran 4mg Inj) 15:00 Hydromorphone 0.5mg PHA 05/04/25 Complete Syg (Dilaudid 0.5mg 15:00 12 Lead Ekg Tracing- EKG 05/04/25 Complete Technical 14:58 Us Arterial Bilat Low US 05/04/25 Resulted Ext Dupl 15:47 Us Venous Doppler US 05/04/25 Resulted Bilateral 15:47 Cbc Without LAB 05/04/25 Complete Differential 15:51 Basic Metabolic Panel LAB 05/04/25 Complete 15:51 Urinalysis Profile LAB 05/04/25 Complete 17:42 Cardiology Consult CONPHYSVC 05/04/25 Transmitted 18:14 Current Medications Medications (Trade) Dose Ordered Sig/Lucie Route PRN Reason Start Time Stop Time Status Last Admin Dose Admin Hydromorphone HCl (DiLAUDid 0.5MG INJ) 0.5 mg ONCE ONCE IM 05/04/25 15:00 05/04/25 15:05 DC Ondansetron HCl (zoFRAN 4MG INJ) 4 mg ONCE ONCE IVP 05/04/25 15:00 05/04/25 15:05 DC Vital Signs Date Time Temp Pulse Resp B/P (MAP) Pulse Ox O2 Delivery O2 Flow Rate FiO2 05/04/25 17:05 98.8 69 20 187/82 95 Room Air* 0 21 05/04/25 14:44 97.9 61 16 183/82 99 Room Air 0 DX & DISP Disposition: Inpatient Decision to Admit Time: 18:32 Departure Impression: Primary Impression: Stenosis of artery of left lower extremity Critical Time: 30 minutes Condition: Stable Referrals: SUZANNA GUARDADO MD (PCP) MARCELL THAKUR MD May 04, 2025 15:55 ISAC GAMA MD May 04, 2025 18:35
[2025-05-04 16:05] LABS: NUCLEATED RED BLOOD CELLS 0.0 % (0.0-0.19); PLATELET COUNT (AUTO) 265 K/uL (130-400); RED BLOOD CELL COUNT(AUTO) 4.10 MIL/uL (4.00-5.50); RED CELL DISTRIBUTION WIDTH 18.6 % (11.0-15.5); WHITE BLOOD COUNT (AUTO) 5.3 K/uL (4.8-10.8)
[2025-05-04 16:15] LABS: CREATININE 0.7 mg/dL (0.5-1.0); GLOMERULAR FILTR. RATE CALC 87.0 mL/min (>90); GLUCOSE,RANDOM 133.0 mg/dL (70-105); SODIUM SERUM 144.0 mmol/L (136-145); UREA NITROGEN, BLOOD 9.0 mg/dL (7-18)
--- NOTE | 2025-05-04 17:03 | HMCIMG ---
EXAM: US for Deep Venous Thrombosis, bilateral Lower Extremity. CLINICAL HISTORY: Leg Pain and Swelling TECHNIQUE: Real-time ultrasound scan of the veins of the bilateral lower extremity with color Doppler flow, spectral waveform analysis and compression. COMPARISON: None provided. FINDINGS: DEEP VEINS: The common femoral, superficial femoral, and popliteal veins are echolucent and compressible. There is normal color Doppler flow throughout. The visualized calf veins appear patent. SOFT TISSUES: There is a 3.1 x 1.9 x 6.0 cm 's popliteal cyst within the right popliteal fossa. IMPRESSION: No deep venous thrombosis evident on bilateral lower extremity examination. Right 's popliteal cyst. /[place]
--- NOTE | 2025-05-04 17:46 | HMCIMG ---
EXAM: US Duplex Bilateral Lower Extremity Arteries. CLINICAL HISTORY: Lower Limb edema TECHNIQUE: Real-time ultrasound scan of the arteries of bilateral lower extremity with 2-D james scale, color Doppler flow and spectral waveform analysis. COMPARISON: None provided. FINDINGS: RIGHT LOWER LIMB: Common femoral artery shows >80% stenosis with PSV 376 cm/s and triphasic flow. Posterior tibial artery PSV is 46 cm/s, with monophasic flow in post-stenotic vessel. Anterior tibial artery distal PSV is 256 cm/s, with monophasic flow . Dorsalis pedis artery PSV is 139 cm/s, with monophasic hyperemic flow LEFT LOWER LIMB: Common femoral artery PSV 249 cm/s with 5080% stenosis, triphasic flow. Distal popliteal artery PSV is 60 cm/s, monophasic flow. Posterior tibial artery PSV is 87 cm/s, monophasic flow. Anterior tibial artery PSV 175 cm/s, monophasic flow. Dorsalis pedis artery PSV 146 cm/s, monophasic with hyperemic flow. IMPRESSION: Severe stenosis (>80%) of the right common femoral artery. Moderate stenosis (5080%) in the left common femoral artery and distal right anterior tibial arteries. Post-stenotic monophasic flow in distal arteries indicates hemodynamically significant obstruction. Hyperemic flow in distal anterior tibial and dorsalis pedis arteries Multilevel atherosclerotic arterial disease is present. /[place]
[2025-05-04 18:25] LABS: APPEARANCE,URINE CLEAR (CLEAR); GLUCOSE, URINE (UA) NEGATIVE (NEGATIVE); LEUKOCYTE ESTERASE ,URINE NEGATIVE Leu/uL (NEGATIVE); NITRATE,URINE NEGATIVE (NEGATIVE); OCCULT BLOOD,URINE NEGATIVE (NEGATIVE)
[2025-05-04 18:27] LABS: ADD UA MICROSCOPIC YES; SQUAMOUS EPITHELIAL CELL,UR RARE /HPF (0-2)
--- NOTE | 2025-05-04 18:55 | HP ---
History of Present Illness Reason for Visit: le numbness History of Present Illness Ms. Peacock is an 79-year-old female that was seen and examined today on 05/04/2025. Patient is a good historian of personal health Patient reports that she came to the emergency department with a chief complaint of lower extremity numbness. Onset was two weeks ago. Location is left lower extremity. Duration is on and off. Character is described as tingling. There was no alleviating factors. Symptoms are aggravated with movement. Patient denies any associated chest pain or shortness of breath. Today in the emergency department CBC unremarkable, chemistry unremarkable, urinalysis unremarkable, arterial ultrasound shows greater than 80% occlusion in the right common femoral artery, 50-80% occlusion in the left common femoral artery. Patient has a known history of peripheral artery disease. Emergency room physician contacted trailer technician on-call who recommended patient be admitted under hospitalist service and they we will be evaluating patient in a.m. for possible intervention. Past Medical History Patient History: Cardiovascular disease MOTHER Hypertension MOTHER ADDITIONAL PAST MEDICAL HISTORY: [Hyperlipidemia, hypertension, hypothyroidism, peripheral artery disease] SOCIAL HISTORY: [Negative for smoking, alcohol use, drug use. Patient lives with the daughter, Jessica Gomez. Patient is typically independent of her ADLs. Patient denies difficulty paying her bills.] SURGICAL HISTORY: AAA repair Review of Systems General: No Fever, No Chills, No Night Sweats, No Fatigue, No Malaise, No Appetite, No Other HEENT: No Head Aches, No Visual Changes, No Eye Pain, No Ear Pain, No Dysphasia, No Sinus Congestion, No Post Nasal Drip, No Sore Throat, No Other Pulmonary: No Dyspnea, No Cough, No Pleuritic Chest Pain, No Other Cardiovascular: Edema (Lower extremity edema); No: Chest Pain, Palpitations, Orthopnea, Paroxysmal Noc. Dyspnea, Lt Headedness, Other Gastrointestinal: No: Nausea, Vomiting, Abdominal Pain, Diarrhea, Constipation, Melena, Hematochezia, Other Genitourinary: No Dysuria, No Frequency, No Incontinence, No Hematuria, No Retention, No Other Musculoskeletal: leg pain; No: other, neck pain, shoulder pain, arm pain, back pain, hand pain, foot pain Skin: No Urticaria, No Rash, No Other Neurological: No: Weakness, Numbness, Incoordination, Change in speech, Confusion, Seizures, Other Allergies: Coded Allergies: iron (Unverified Allergy, Unknown, 02/04/24) Scheduled Aspirin (Aspirin 81MG Chew Tab), 1 TAB PO DAILY, (Reported) Atorvastatin Calcium (Lipitor), 1 TAB PO HS, (Reported) Levothyroxine Sodium (Levothyroxine), 1 CAP PO DAILY, (Reported) Lisinopril (Lisinopril), 20 MG PO BID, (Reported) Exam Vital Signs Vital Signs Date Time Temp Pulse Resp B/P (MAP) Pulse Ox O2 Delivery O2 Flow Rate FiO2 05/04/25 17:05 98.8 69 20 187/82 95 Room Air* 0 21 General Appearance: Alert, Oriented X3, Cooperative, mild distress HEENT: Atraumatic, EOMI Respiratory: Clear to auscultation, Normal air movement, NL respiratory effort Cardiovascular: Regular rate, Regular rhythm, Normal S1, Normal S2 Abdominal: Normal bowel sounds, Soft, No tenderness Extremities: Other (Positive plus two pitting edema to bilateral lower extremities, positive decreased pedal pulses) Skin: No significant lesion Neuro: Normal speech, Strength at 5/5 X4 ext, Cranial nerves 3-12 NL Psych/Mental Status: Mental status NL, Mood NL, Thoughts/Content NL Assessment/Plan ASSESSMENT: [ Peripheral artery disease, POA Hyperlipidemia Hypertension Hypothyroidism] PLAN: [ Admit patient to medical floor as inpatient status. Place patient on telemetry monitoring. Patient will be followed by cardiology service. Keep patient NPO. Check preprocedure labs, CBC, BMP, magnesium, phosphorus, PTT, UA, type and screen, EKG, CXR IV fluid maintenance therapy lactated Ringer's at 75 mL/HR As needed analgesia with morphine Consider resuming home medications once they have been reconciled. At time of admission home medications have not been reconciled. For now: Atorvastatin 40 mg by mouth once daily Hydralazine 10 mg IV every 4 hours for systolic blood pressure greater than 160 mmHg Check TSH in a.m., follow up with the results GI prophylaxis, famotidine DVT prophylaxis, Milan's and SCDs avoid anticoagulation at this time due to impending Cardiology evaluation. ADVANCED CARE PLANNING 1. Which of the following were discussed? Hospice Care - Yes Therapeutic options - yes Advance Directives - Yes - patient states he does not have any advance directives in place at this time, however her daughter can make decisions for her if she becomes unable. Other discussions - patient wishes to remain a full code 2. Discussed with who? Patient 3. Voluntary nature of this service was explained to the patient? Yes 4. Amount of time spent - ___17 minutes____ 5. Reviewed by Physician? (if this service was performed by NPP) Yes This document was generated in part using voice recognition software, occasional wrong word or sound alike substitutions may have occurred due to the inherent limitations of voice recognition software. Read the chart carefully and recognize using context, where the substitutions have occurred. Although every effort was made to edit the content, locomotive switch operator and typing errors may occur ] [facility] May 04, 2025 18:55
--- NOTE | 2025-05-04 19:29 | NUR ---
PT CARE ASSUMED AT THIS TIME
[2025-05-04] MEDS ORDERED: LACTULOSE 20 GM/30 ML UDCUP PO PRN (19:30)
[2025-05-04] MEDS: LACTATED RINGERS 1000ML 1,000 ML IV SCH (20:30)
--- NOTE | 2025-05-05 00:15 | NUR ---
REPORT GIVEN TO [place]
[2025-05-05 05:44] LABS: IMMATURE GRANULOCYTE ABSOLUTE 0.01 K/uL (0-1); NUCLEATED RED BLOOD CELLS 0.0 % (0.0-0.19); PLATELET COUNT (AUTO) 226 K/uL (130-400); RED BLOOD CELL COUNT(AUTO) 3.87 MIL/uL (4.00-5.50); RED CELL DISTRIBUTION WIDTH 18.6 % (11.0-15.5); WHITE BLOOD COUNT (AUTO) 4.8 K/uL (4.8-10.8)
[2025-05-05 05:58] LABS: INR 1.04 (0.85-1.15)
[2025-05-05 06:21] LABS: CREATININE 0.5 mg/dL (0.5-1.0); GLOMERULAR FILTR. RATE CALC 95.0 mL/min (>90); GLUCOSE,RANDOM 97.0 mg/dL (70-105); PHOSPHORUS 2.9 mg/dL (2.5-4.9); SODIUM SERUM 144.0 mmol/L (136-145); UREA NITROGEN, BLOOD 6.0 mg/dL (7-18)
[2025-05-05 08:00] VITALS: BP 183/65; PULSE 68; RESP 13; TEMP 98.2
[2025-05-05] MEDS: FAMOTIDINE 20MG VIAL IV SCH (09:13)
--- NOTE | 2025-05-05 09:58 | NUR ---
DCP:HOME Pt currently lives at home with her and daughter. Pt denies any DME, home health, or provider services. Pt states that she is able to complete ADLs independently. PCP is Dr. Stepan Calderón and uses [facility] for any RX needs. At [place] pt will want to go home and family can assist with transportation.
[2025-05-05 10:00] VITALS: O2SAT 100
[2025-05-05 12:00] VITALS: BP 178/67; PULSE 69; RESP 15; TEMP 97.9
[2025-05-05 16:00] VITALS: BP 182/72; PULSE 71; RESP 14; TEMP 97.9
--- NOTE | 2025-05-05 17:06 | PN ---
[facility] PROGRESS NOTE Date of Service: May 05, 2025 Time of Service: 16:39 SUBJECTIVE: She is a 79 year old female with past medical history of hyperlipidemia, hypertension, hypothyroidism, peripheral artery disease with a surgical history of AAA repair came to the ER with lower extremity numbness. She has tingling sensation on her lower extremities. Her symptoms are aggravated with movement. she denies any chest pain or shortness of breath. She is a non smoker, doesn't drink alcohol and use illegal drugs. In the ER her CBC unremarkable, chemistry unremarkable, urinalysis unremarkable, arterial ultrasound shows greater than 80 % occlusion in the right common femoral artery, 50-80% occlusion in the left common femoral artery. Emergency room physician contacted stiff straw hat washer on-call who recommended patient be admitted under hospitalist service and they we will be evaluating patient in a.m. for possible intervention. 05/05/2025: Patient is seen and evaluated in the ED 12. She complained of numbn ess and tingling sensation in her lower limbs. She also told us that she had swelling of her limbs which got decreased. Her vitals are in the normal range except for BP is 142/58. Her labs are normal except for hemoglobin 11.9, BUN is 6, magnesium is 1.7, TSH is 4.17, free T4 is 1.51, free T3 is 1.52. Her urinalysis show RBC is 2 to 5, WBC is 2 to 5. Her venous doppler of bilateral lower extremities shows no DVT and right popliteal cyst. We consulted cardiology and we are waiting for their recommendations. REVIEW OF SYSTEMS CONSTITUTIONAL: Denies fevers, chills, or night sweats. No unintentional weight loss reported. NEUROLOGICAL:Numbness of legs Denies headache, amaurosis fugax, motor weakness, sensory deficit, vertigo/spinning sensation, gait abnormalities, or tremors. ENT: No hearing loss, otalgia, otorrhea, rhinitis, rhinorrhea, hoarseness, or sore throat. CARDIOVASCULAR: Denies any exertional angina, dyspnea on exertion, orthopnea, paroxysmal nocturnal dyspnea, palpitations, life-threatening arrhythmias, claudication. PULMONARY: Denies any shortness of breath, cough, phlegm/sputum, hemoptysis, pleuritic chest pain. SLEEP: Denies morning headaches, daytime somnolence or napping. Denies difficulty falling asleep, staying asleep, waking from sleep. Denies knowledge of snoring. GASTROINTESTINAL: Denies any type of dysphagia to either liquids or solids. Denies nausea, vomiting, pyrosis, early satiety, abdominal pain, diarrhea, co nstipation, or changes in stool consistency or caliber. Denies coffee-ground emesis, hematemesis, hematochezia, or melanotic stools. GENITOURINARY: Denies frequency, urgency, nocturia, hematuria or incontinence (Storage/Irritative symptoms.) Low urinary stream, straining to void, urinary intermittency or hesitancy, splitting of the voiding stream, terminal dribbling. ENDOCRINOLOGIC: Denies polyuria, polydipsia, polyphagia or heat/cold intolerances. HEMATOLOGIC: Denies thrombophilia/previous clots, or coagulopathy/bleeding disorders. ONCOLOGIC: Denies personal history of malignancy. DERMATOLOGIC: Denies rashes or pruritus. PSYCHIATRIC: Denies any suicidal or homicidal ideation. Denies hallucinations. PHYSICAL EXAM GENERAL APPEARANCE: The patient is awake, alert, and oriented, in no acute car diopulmonary distress. NEUROLOGICAL: Cranial nerves II-XII grossly intact. Motor is 5/5 in bilateral upper and lower extremities proximal to distal. No sensory deficits. HEENT: Face is symmetric. Pupils are equal and reactive. Extraocular movements are intact. NECK: Supple. No JVD. No thyromegaly. No submental, submandibular, pre- /postauricular, occipital or supraclavicular lymphadenopathy. CHEST: Normal chest expansion. No Telemetry. LUNGS: Absence of any rales, rhonchi or any wheezing. CARDIOVASCULAR: Regular. S1 and S2 normal. No appreciable rubs, murmurs or gallops. ABDOMEN: Soft, nontender, and nondistended. There is no rebound, voluntary guarding, or rigidity. : Deferred. No Pace. EXTREMITIES: Burises on left thigh and right thigh Non-edematous and not cyanotic. No clubbing. Good capillary refill. SKIN: No skin breakdown. Vital Signs Date Time Temp Pulse Resp B/P (MAP) Pulse Ox O2 Delivery O2 Flow Rate FiO2 05/05/25 06:12 98.4 66 18 142/58 97 Room Air* 0 21 LABS: Laboratory: Test 05/05/25 05:22 05/04/25 17:45 05/04/25 15:12 Range/Units White Blood Count 4.8 4.8-10.8 K/uL Red Blood Count 3.87 L 4.00-5.50 MIL/uL Hemoglobin 11.9 L 12.0-16.0 g/dL Hematocrit 37.0 36-48 % Mean Corpuscular Volume 95.6 79-99 fL Mean Corpuscular Hemoglobin 30.7 27.0-33.0 pg Mean Corpuscular Hemoglobin Concent 32.2 32.0-36.0 g/dL Red Cell Distribution Width 18.6 H 11.0-15.5 % Platelet Count 226 130-400 K/uL Mean Platelet Volume 9.9 7.5-10.5 fL Immature Granulocyte % (Auto) 0.2 0-1 % Neutrophils (%) (Auto) 55.2 40.0-77.0 % Lymphocytes (%) (Auto) 31.5 21.0-51.0 % Monocytes (%) (Auto) 9.2 3.0-13.0 % Eosinophils (%) (Auto) 2.9 0.0-8.0 % Basophils (%) (Auto) 1.0 0.0-5.0 % Neutrophils # (Auto) 2.7 1.8-7.7 K/uL Lymphocytes # (Auto) 1.5 1.0-4.8 K/uL Monocytes # (Auto) 0.4 0.1-1.0 K/uL Eosinophils # (Auto) 0.14 0.00-0.70 K/uL Basophils # (Auto) 0.05 0.00-0.20 K/uL Absolute Immature Granulocyte (auto 0.01 0-1 K/uL Nucleated Red Blood Cells 0.0 0.0-0.19 % Prothrombin Time 11.0 9.6-11.6 SEC Prothromb Time International Ratio 1.04 0.85-1.15 Activated Partial Thromboplast Time 25.2 L 26.3-35.5 SEC Sodium Level 144 136-145 mmol/L Potassium Level 3.9 3.5-5.1 mmol/L Chloride Level 106 101-111 mmol/L Carbon Dioxide Level 30 21-32 mmol/L Blood Urea Nitrogen 6 L 7-18 mg/dL Creatinine 0.5 0.5-1.0 mg/dL Glomerular Filtration Rate Calc 95 >90 mL/min Random Glucose 97 70-105 mg/dL Total Calcium 8.9 8.5-10.1 mg/dL Phosphorus Level 2.9 2.5-4.9 mg/dL Magnesium Level 1.70 L 1.80-2.40 mg/dL Thyroid Stimulating Hormone (TSH) 4.17 H 0.36-3.74 uIU/mL Free Thyroxine (T4) Direct 1.51 H 0.76-1.46 ng/dL Free Triiodothyronine (T3) pg/mL 1.52 L 2.18-3.98 pg/mL Urine Color LIGHT-YELLOW YELLOW Urine Appearance CLEAR CLEAR Urine pH 7.0 5.0-8.0 Urine Specific [place] 1.008 1.001-1.031 Urine Protein NEGATIVE NEGATIVE mg/dL Urine Glucose (UA) NEGATIVE NEGATIVE mg/dL Urine Ketones NEGATIVE NEGATIVE mg/dL Urine Occult Blood NEGATIVE NEGATIVE Urine Nitrate NEGATIVE NEGATIVE Urine Bilirubin NEGATIVE NEGATIVE mg/dL Urine Urobilinogen 0.2 0.2-1.0 mg/dL Urine Leukocyte Esterase NEGATIVE NEGATIVE Dasha/uL Urine RBC 2-5 H 0-1 /HPF Urine WBC 2-5 H 0-1 /HPF Urine Squamous Epithelial Cells RARE 0-2 /HPF Urine Bacteria MOD None Seen /HPF Red Blood Cell Morphology See comments Current Medications Medications (Trade) Dose Ordered Sig/Lucie Route PRN Reason Start Time Stop Time Status Last Admin Dose Admin Acetaminophen (TYLenol 325MG TAB) 650 mg Q6H PRN PO TEMPERATURE GREATER THAN 101.5 05/04/25 19:30 06/03/25 19:29 Amiodarone HCl (pacERONE 200MG) 200 mg DAILY PO 05/06/25 09:00 06/05/25 08:59 Amlodipine Besylate (NorvASC 5MG TAB) 5 mg DAILY PO 05/06/25 09:00 06/05/25 08:59 Atorvastatin Calcium (LIPItor 40MG) 40 mg HS PO 05/05/25 21:00 06/04/25 20:59 Famotidine (Pepcid 20mg Vial) 20 mg DAILY IV 05/05/25 09:00 06/04/25 08:59 05/05/25 09:13 20 MG Furosemide (LASix 20MG TAB) 20 mg DAILY PO 05/06/25 09:00 06/05/25 08:59 Gabapentin (NEURontin 100 mg CAP) 100 mg TID PO 05/05/25 14:00 06/04/25 13:59 05/05/25 14:00 100 MG Hydralazine HCl (APRESOLine 20MG INJ) 10 mg Q6H PRN IV For:SBP above 160;DBP above 90 05/04/25 19:30 06/03/25 19:29 05/04/25 20:30 10 MG Lactated Ringer's 1,000 ml @ 75 mls/hr [id number] IV 05/04/25 19:30 06/03/25 19:29 05/05/25 09:13 75 MLS/HR Lactulose (Constulose 20gm/ 30ml Udcup) 20 gm BID PRN PO CONSTIPATION 05/04/25 19:30 06/03/25 19:29 Levothyroxine Sodium (SYNTHroid 100MCG TAB) 100 mcg SYN PO 05/06/25 06:30 06/05/25 06:29 Magnesium Sulfate 50 ml @ 0 mls/hr PROTOCOL PRN IV MAG LEVEL BELOW 2.0 05/05/25 07:30 06/04/25 07:29 Metoprolol Tartrate (loprESSOR) 25 mg BID PO 05/05/25 21:00 06/04/25 20:59 Morphine Sulfate (morPHINE 4MG SYG) 2 mg Q4H PRN IVP SEVERE PAIN (7-10) 05/04/25 19:30 05/11/25 19:29 Ondansetron HCl (zoFRAN 4MG INJ) 4 mg Q6H PRN IV NAUSEA/VOMITING 05/04/25 19:30 06/03/25 19:29 DIAGNOSTICS / RADIOLOGY: [place] [address] IMAGING REPORT Signed PATIENT: ROGER DE LEÓN MR#: [id number] : 1945 SEX: F AGE: 79 LOCATION: [facility] ORDER [id number] STATUS: REG ER REPORT#: [id number] SERVICE 154 REASON: Lower Limb edema ORDERING PHYSICIAN: MARCELL THAKUR MD PROCEDURE: ART B LE - US ARTERIAL BILAT LOW EXT DUPL EXAM: US Duplex Bilateral Lower Extremity Arteries. CLINICAL HISTORY: Lower Limb edema TECHNIQUE: Real-time ultrasound scan of the arteries of bilateral lower extremity with 2-D james scale, color Doppler flow and spectral waveform analysis. COMPARISON: None provided. FINDINGS: RIGHT LOWER LIMB: Common femoral artery shows >80% stenosis with PSV 376 cm/s and triphasic flow. Posterior tibial artery PSV is 46 cm/s, with monophasic flow in post-stenotic vessel. Anterior tibial artery distal PSV is 256 cm/s, with monophasic flow . Dorsalis pedis artery PSV is 139 cm/s, with monophasic hyperemic flow LEFT LOWER LIMB: Common femoral artery PSV 249 cm/s with 5080% stenosis, triphasic flow. Distal popliteal artery PSV is 60 cm/s, monophasic flow. Posterior tibial artery PSV is 87 cm/s, monophasic flow. Anterior tibial artery PSV 175 cm/s, monophasic flow. Dorsalis pedis artery PSV 146 cm/s, monophasic with hyperemic flow. IMPRESSION: Severe stenosis (>80%) of the right common femoral artery. Moderate stenosis (5080%) in the left common femoral artery and distal right anterior tibial arteries. Post-stenotic monophasic flow in distal arteries indicates hemodynamically significant obstruction. Hyperemic flow in distal anterior tibial and dorsalis pedis arteries Multilevel atherosclerotic arterial disease is present. /[place] DICTATED BY: DIYA FIORE Jr., MD DATE: 05/04/251844 ELECTRONICALLY SIGNED BY: DIYA FIORE Jr., MD DATE: 05/04/251844 [place] [id number] IMAGING REPORT Signed PATIENT: ROGER DE LEÓN MR#: [id number] : 1945 SEX: F AGE: 79 LOCATION: [facility] ORDER [id number] STATUS: [facility] REPORT#: [id number] SERVICE 1541 REASON: Lower Limb edema ORDERING PHYSICIAN: MARCELL THAKUR MD PROCEDURE: VENOUS MYRTLE - US VENOUS DOPPLER BILATERAL EXAM: US for Deep Venous Thrombosis, bilateral Lower Extremity. CLINICAL HISTORY: Leg Pain and Swelling TECHNIQUE: Real-time ultrasound scan of the veins of the bilateral lower extremity with color Doppler flow, spectral waveform analysis and compression. COMPARISON: None provided. FINDINGS: DEEP VEINS: The common femoral, superficial femoral, and popliteal veins are echolucent and compressible. There is normal color Doppler flow throughout. The visualized calf veins appear patent. SOFT TISSUES: There is a 3.1 x 1.9 x 6.0 cm 's popliteal cyst within the right popliteal fossa. IMPRESSION: No deep venous thrombosis evident on bilateral lower extremity examination. Right 's popliteal cyst. /[place] DICTATED BY: DIYA FIORE Jr., MD DATE: 05/04/251801 ELECTRONICALLY SIGNED BY: DIYA FIORE Jr., MD DATE: 05/04/251801 ASSESSMENT: Peripheral artery disease, POA Hyperlipidemia Hypertension Hypothyroidism Hypomagnesemia History of AAA repair PLAN: Peripheral artery disease, POA She has a history of peripheral artery disease for which she is using aspirin, clopidogrel and cilostazol. She complained of numbness in her lower limbs. We consulted cardiology and we were awaiting for their recommendations. Hyperlipidemia Continue atorvastatin. Hypertension Today her blood pressure is 142/58. We started her on amlodipine 5mg, metoprolol 25mg. We will monitor her blood pressure. Hypothyroidism Her TSH level is 4.17, free T4 is 1.51 and free T3 is 1.52. Continue levothyroxine 100mcg. Hypomagnesemia Today her magnesium level is 1.70. We replaced it by giving magnesium sulfate. We will repeat her labs tomorrow. She is on heart healthy diet. DVT prophylaxis with SCD. GI prophylaxis with famotidine. ATTESTATION BY PHYSICIAN I have seen and examined the patient. I reviewed the documentation, medical decision making, and treatment plan as noted by the resident physician above. I agree with the findings and plan of care. ERICKA CHAIDEZ MD, AKSHAY MD May 05, 2025 17:06
[2025-05-06 05:18] LABS: NUCLEATED RED BLOOD CELLS 0.0 % (0.0-0.19); PLATELET COUNT (AUTO) 239.0 K/uL (130-400); RED BLOOD CELL COUNT(AUTO) 3.92 MIL/uL (4.00-5.50); RED CELL DISTRIBUTION WIDTH 18.6 % (11.0-15.5); WHITE BLOOD COUNT (AUTO) 5.1 K/uL (4.8-10.8)
[2025-05-06 05:32] LABS: CREATININE 0.6 mg/dL (0.5-1.0); GLOMERULAR FILTR. RATE CALC 91.0 mL/min (>90); GLUCOSE,RANDOM 94.0 mg/dL (70-105); SODIUM SERUM 142.0 mmol/L (136-145); UREA NITROGEN, BLOOD 7.0 mg/dL (7-18)
[2025-05-06] MEDS: amLODIPine 5 MG TAB PO SCH (09:14)
[2025-05-06] MEDS: MAGNESIUM 2GM PREMIX 50ML 50 ML IV PRN (09:14)
[2025-05-06 09:52] VITALS: O2SAT 100
--- NOTE | 2025-05-06 10:12 | NUR ---
REPORT REPORT GIVEN TO STEPHANIE MITCHELL.
--- NOTE | 2025-05-06 11:44 | NUR ---
ARRIVAL PT ARRIVED AT 1045 VIA STRETCHER FROM ER, NO SIGNS OF DISTRESS AT TIME OF ARRIVAL, WILL REVIEW ORDERS
[2025-05-06 12:00] VITALS: BP 168/76; PULSE 62; RESP 16; TEMP 97.8
--- NOTE | 2025-05-06 13:03 | CONS ---
[facility] CARDIOLOGY CONSULTATION REPORT Cardiology consultation note dictated for Jaqueline Whitney MD Primary defence force senior officer: Rosita Recinos MD Date Patient Seen: May 06, 2025 Time of Visit: 13:02 Reason for Consultation: PAD History of Present Illness: This is an 79-year-old female with a past medical history of hypertension, hyperlipidemia, diabetes mellitus type 2, hypothyroidism, history of tobacco use, negative Lexiscan Cardiolite on 03/09/2025, LVEF of 55% with stage I diastolic dysfunction by 2D echocardiogram on 03/08/2025, history of critical limb ischemia with severe peripheral vascular disease with Dai category 5 symptoms with threatened limbs and nonhealing ulcers in the toes both feet 02/2025, status post complex percutaneous intervention 03/12/2025 for severe stenosis of the abdominal aorta with extensive calcification, requiring shockwave lithotripsy, placement of 3 endoluminal tube grafts and placement of an intra stent with complication of impingement on the left renal artery, treated with left renal artery stenting with good results with additional complication of retroperitoneal bleeding, treated with a covered endoluminal graft, postoperative anemia requiring blood transfusion, and postoperative atrial fibrillation not on anticoagulation due to bleeding without recurrence who presented to the ED with complaints of bilateral lower extremity edema. Cardiology has been consulted for PAD. The patient endorsed bilateral lower extremity edema with the left side greater than right with numbness to bilateral lower extremities for approximately 2 weeks in duration. Bilateral lower extremity arterial duplex on 05/04/2025 revealed right common femoral artery with greater than 80% stenosis and left common femoral artery with 50-80% stenosis and monophasic flow in the distal arteries. Bilateral lower extremity venous Doppler on 05/04/2020 negative for DVT. The patient states she has had improvement in bilateral lower extremity edema which she attributes to oral diuretics. Bilateral femoral pulses are strong and equal, bilateral DP pulses 1+, no discoloration noted to bilateral lower extremities, left pedal edema noted. The patient denies having bilateral extremity discomfort. Past Medical History: As per HPI and summarized below Past Surgical History: None Family History: Noncontributory Social History: The patient lives with family. Habits: The patient denies alcohol, tobacco, or illicit drug use. Home Meds: Amiodarone 200 mg daily Metoprolol tartrate 25 mg b.i.d. Amlodipine 5 mg daily Atorvastatin 40 mg q.h.s. Aspirin 81 mg daily Cilostazol 100 mg b.i.d. Clopidogrel 75 mg daily Lasix 20 mg daily Gabapentin 100 mg t.i.d. Levothyroxine 100 mcg daily Current Meds: Medications Dose Ordered Sig/Lucie Start Time Stop Time Status Last Admin Acetaminophen 650 mg Q6H PRN 05/04/25 19:30 06/03/25 19:29 Famotidine 20 mg DAILY 05/05/25 09:00 06/04/25 08:59 05/06/25 09:14 Hydralazine HCl 10 mg Q6H PRN 05/04/25 19:30 06/03/25 19:29 05/05/25 17:36 Lactated Ringer's 1,000 ml @ 75 mls/hr [id number] 05/04/25 19:30 06/03/25 19:29 05/05/25 23:33 Lactulose 20 gm BID PRN 05/04/25 19:30 06/03/25 19:29 Morphine Sulfate 2 mg Q4H PRN 05/04/25 19:30 05/11/25 19:29 Ondansetron HCl 4 mg Q6H PRN 05/04/25 19:30 06/03/25 19:29 Atorvastatin Calcium 40 mg HS 05/05/25 21:00 06/04/25 20:59 05/05/25 21:27 Magnesium Sulfate 50 ml @ 0 mls/hr PROTOCOL PRN 05/05/25 07:30 06/04/25 07:29 05/06/25 09:14 Amiodarone HCl 200 mg DAILY 05/06/25 09:00 06/05/25 08:59 05/06/25 09:13 Amlodipine Besylate 5 mg DAILY 05/06/25 09:00 06/05/25 08:59 05/06/25 09:14 Furosemide 20 mg DAILY 05/06/25 09:00 06/05/25 08:59 05/06/25 09:13 Gabapentin 100 mg TID 05/05/25 14:00 06/04/25 13:59 05/06/25 09:13 Levothyroxine Sodium 100 mcg SYN 05/06/25 06:30 06/05/25 06:29 05/06/25 06:39 Metoprolol Tartrate 25 mg BID 05/05/25 21:00 06/04/25 20:59 05/06/25 09:13 Aspirin 81 mg DAILY 05/07/25 09:00 06/06/25 08:59 Cilostazol 100 mg BID 05/06/25 21:00 06/05/25 20:59 Clopidogrel Bisulfate 75 mg DAILY 05/07/25 09:00 06/06/25 08:59 Review of Systems: CONST: No fever, fatigue, or weight changes. EYES: No recent vision problems. ENT: No congestion, ear pain, or sore throat. C/V: No chest pain or palpitations. Admits to bilateral lower extremity edema. RESP: No cough, congestion, wheezing or shortness of breath. GI: No abdominal pain, nausea, vomiting, constipation, or diarrhea. : No incontinence or dysuria. SKIN: No rash. NEURO: No headache, focal numbness or weakness, dizziness, or seizures. PSYCH: No depression or anxiety. HEME: No abnormal bruising or bleeding. LYMPH: No swollen glands. Physical Examination: GENERAL: No acute distress. HEAD: Normal with no signs of head trauma. EYES: conjunctiva and sclera normal. ENT: Hearing grossly intact, normal oropharynx. NECK: Supple without JVD. Normal carotid upstrokes without bruits. LUNGS: Clear breath sounds bilaterally. No wheezes, or rhonchi. HEART: Normal rate and rhythm. Normal S1 and S2 without murmurs, gallop or rub. VASC: Bilateral DP pulses 1+. ABD: Bowel sounds normal, soft, nontender, no masses, no organomegaly. No audible bruits. : Not examined LYMPH: No lymphadenopathy noted. EXT: Left pedal edema. SKIN: No rashes or lesions noted. NEURO: Awake, alert, and oriented x3. No focal sensory or strength deficits noted. Vital Signs (last 8hr) Date Time Temp Pulse Resp B/P (MAP) Pulse Ox O2 Delivery O2 Flow Rate FiO2 05/06/25 12:00 97.9 62 16 168/76 99 Room Air 05/06/25 09:52 100 Room Air* 0 21 Laboratory: Hematology Labs: Test 05/06/25 05:10 05/05/25 05:22 05/04/25 15:12 Range/Units White Blood Count 5.1 4.8-10.8 K/uL Red Blood Count 3.92 L 4.00-5.50 MIL/uL Hemoglobin 12.2 12.0-16.0 g/dL Hematocrit 37.9 36-48 % Mean Corpuscular Volume 96.7 79-99 fL Mean Corpuscular Hemoglobin 31.1 27.0-33.0 pg Mean Corpuscular Hemoglobin Concent 32.2 32.0-36.0 g/dL Red Cell Distribution Width 18.6 H 11.0-15.5 % Platelet Count 239 130-400 K/uL Mean Platelet Volume 9.5 7.5-10.5 fL Nucleated Red Blood Cells 0.0 0.0-0.19 % Immature Granulocyte % (Auto) 0.2 0-1 % Neutrophils (%) (Auto) 55.2 40.0-77.0 % Lymphocytes (%) (Auto) 31.5 21.0-51.0 % Monocytes (%) (Auto) 9.2 3.0-13.0 % Eosinophils (%) (Auto) 2.9 0.0-8.0 % Basophils (%) (Auto) 1.0 0.0-5.0 % Neutrophils # (Auto) 2.7 1.8-7.7 K/uL Lymphocytes # (Auto) 1.5 1.0-4.8 K/uL Monocytes # (Auto) 0.4 0.1-1.0 K/uL Eosinophils # (Auto) 0.14 0.00-0.70 K/uL Basophils # (Auto) 0.05 0.00-0.20 K/uL Absolute Immature Granulocyte (auto 0.01 0-1 K/uL Red Blood Cell Morphology See comments Chemistry Labs: Test 05/06/25 05:10 05/05/25 05:22 Range/Units Sodium Level 142 136-145 mmol/L Potassium Level 3.8 3.5-5.1 mmol/L Chloride Level 105 101-111 mmol/L Carbon Dioxide Level 29 21-32 mmol/L Blood Urea Nitrogen 7 7-18 mg/dL Creatinine 0.6 0.5-1.0 mg/dL Glomerular Filtration Rate Calc 91 >90 mL/min Random Glucose 94 70-105 mg/dL Total Calcium 9.0 8.5-10.1 mg/dL Magnesium Level 1.80 1.80-2.40 mg/dL Phosphorus Level 2.9 2.5-4.9 mg/dL Thyroid Stimulating Hormone (TSH) 4.17 H 0.36-3.74 uIU/mL Free Thyroxine (T4) Direct 1.51 H 0.76-1.46 ng/dL Free Triiodothyronine (T3) pg/mL 1.52 L 2.18-3.98 pg/mL Coagulation Labs: Test 05/05/25 05:22 Range/Units Prothrombin Time 11.0 9.6-11.6 SEC Prothromb Time International Ratio 1.04 0.85-1.15 Activated Partial Thromboplast Time 25.2 L 26.3-35.5 SEC Diagnostics / Radiology: Impression and Plan: Bilateral lower extremity edema PAD Hypertension Hyperlipidemia Diabetes mellitus type 2 Hypothyroidism History of tobacco use Negative Lexiscan Cardiolite on 03/09/2025 LVEF of 55% with stage I diastolic dysfunction by 2D echocardiogram on 03/08/2025 History of critical limb ischemia with severe peripheral vascular disease with Dai category 5 symptoms with threatened limbs and nonhealing ulcers in the toes both feet 02/2025 Status post complex percutaneous intervention for severe stenosis of the abdominal aorta with extensive calcification, requiring shockwave lithotripsy, placement of 3 endoluminal tube grafts and placement of an intra stent with complication of impingement on the left renal artery, treated with left renal artery stenting with good results with additional complication of retroperitoneal bleeding, treated with a covered endoluminal graft and resolved with postoperative anemia requiring blood transfusion 03/12/2025 Bilateral Perclose x2 device closures at [employer] 12 Irish sheath on right and a 7 Irish on left Postoperative atrial fibrillation not on anticoagulation due to bleeding without recurrence PAD The patient endorsed bilateral lower extremity edema with the left side greater than right with numbness to bilateral lower extremities for approximately 2 weeks in duration. Bilateral lower extremity arterial duplex on 05/04/2025 revealed right common femoral artery with greater than 80% stenosis and left common femoral artery with 50-80% stenosis and monophasic flow in the distal arteries. Bilateral lower extremity venous Doppler on 05/04/2020 negative for DVT. -Obtain CTA abd aorta with BLE runoff -Continue aspirin 81 mg daily, [id number] mg daily, cilostazol 100 mg b.i.d., and atorvastatin 40 mg q.h.s. Postoperative atrial fibrillation not on anticoagulation due to bleeding without recurrence -Continue metoprolol tartrate 25 mg b.i.d. and amiodarone 200 mg daily [facility] May 06, 2025 13:03
[2025-05-06] MEDS ORDERED: IOHEXOL-350 50ML VIAL IV ONE (15:31)
[2025-05-06] MEDS ORDERED: IOHEXOL 350 MG/ML 100ML INFUS..BTL IV ONE (15:31)
--- NOTE | 2025-05-06 15:35 | PN ---
[facility] PROGRESS NOTE Date of Service: May 06, 2025 Time of Service: 15:32 SUBJECTIVE: She is a 79 year old female with past medical history of hyperlipidemia, hypertension, hypothyroidism, peripheral artery disease with a surgical history of AAA repair came to the ER with lower extremity numbness. She has tingling sensation on her lower extremities. Her symptoms are aggravated with movement. she denies any chest pain or shortness of breath. She is a non smoker, doesn't drink alcohol and use illegal drugs. In the ER her CBC unremarkable, chemistry unremarkable, urinalysis unremarkable, arterial ultrasound shows greater than 8 0% occlusion in the right common femoral artery, 50-80% occlusion in the left common femoral artery. Emergency room physician contacted associate professor of radiology on-call who recommended patient be admitted under hospitalist service and they we will be evaluating patient in a.m. for possible intervention. 05/05/2025: Patient is seen and evaluated in the ED 12. She complained of numb ness and tingling sensation in her lower limbs. She also told us that she had swelling of her limbs which got decreased. Her vitals are in the normal range except for BP is 142/58. Her labs are normal except for hemoglobin 11.9, BUN is 6, magnesium is 1.7, TSH is 4.17, free T4 is 1.51, free T3 is 1.52. Her urinalysis show RBC is 2 to 5, WBC is 2 to 5. Her venous doppler of bilateral lower extremities shows no DVT and right webster popliteal cyst. We consulted cardiology and we are waiting for their recommendations. 05/06/2025: Patient is seen and evaluated in the room 420. She complained of numbness and tingling sensation in lower limbs. She has not had any new wounds on her legs. There are some old wounds on her feet. Her vitals are in the normal range except for blood pressure which is 168/76. Her labs are normal. Cardiology saw the patient and they recommended CT angiogram of abdominal aorta with bilateral lower extremity runoff and she had it done today. Awaiting further recommendations from the Cardiology. In the evening her blood pressure is 166/75 so we added lisinopril 5mg daily. REVIEW OF SYSTEMS CONSTITUTIONAL: Denies fevers, chills, or night sweats. No unintentional weight loss reported. NEUROLOGICAL:Numbness of legs Denies headache, amaurosis fugax, motor weakness, sensory deficit, vertigo/spinning sensation, gait abnormalities, or tremors. ENT: No hearing loss, otalgia, otorrhea, rhinitis, rhinorrhea, hoarseness, or sore throat. CARDIOVASCULAR: Denies any exertional angina, dyspnea on exertion, orthopnea, paroxysmal nocturnal dyspnea, palpitations, life-threatening arrhythmias, claudication. PULMONARY: Denies any shortness of breath, cough, phlegm/sputum, hemoptysis, pleuritic chest pain. SLEEP: Denies morning headaches, daytime somnolence or napping. Denies difficulty falling asleep, staying asleep, waking from sleep. Denies knowledge of snoring. GASTROINTESTINAL: Denies any type of dysphagia to either liquids or solids. Denies nausea, vomiting, pyrosis, early satiety, abdominal pain, diarrhea, constipation, or changes in stool consistency or caliber. Denies coffee-ground emesis, hematemesis, hematochezia, or melanotic stools. GENITOURINARY: Denies frequency, urgency, nocturia, hematuria or incontinence (Storage/Irritative symptoms.) Low urinary stream, straining to void, urinary intermittency or hesitancy, splitting of the voiding stream, terminal dribbling. ENDOCRINOLOGIC: Denies polyuria, polydipsia, polyphagia or heat/cold intolerances. HEMATOLOGIC: Denies thrombophilia/previous clots, or coagulopathy/bleeding disorders. ONCOLOGIC: Denies personal history of malignancy. DERMATOLOGIC: Denies rashes or pruritus. PSYCHIATRIC: Denies any suicidal or homicidal ideation. Denies hallucinations. PHYSICAL EXAM GENERAL APPEARANCE: The patient is awake, alert, and oriented, in no acute cardiopulmonary distress. NEUROLOGICAL: Cranial nerves II-XII grossly intact. Motor is 5/5 in bilateral upper and lower extremities proximal to distal. No sensory deficits. HEENT: Face is symmetric. Pupils are equal and reactive. Extraocular movements are intact. NECK: Supple. No JVD. No thyromegaly. No submental, submandibular, pre- /postauricular, occipital or supraclavicular lymphadenopathy. CHEST: Normal chest expansion. No Telemetry. LUNGS: Absence of any rales, rhonchi or any wheezing. CARDIOVASCULAR: Regular. S1 and S2 normal. No appreciable rubs, murmurs or gallops. ABDOMEN: Soft, nontender, and nondistended. There is no rebound, voluntary guarding, or rigidity. : Deferred. No Pace. EXTREMITIES: Burises on left thigh and right thigh Non-edematous and not cyanotic. No clubbing. Good capillary refill. SKIN: No skin breakdown. Vital Signs (last 8hr) Date Time Temp Pulse Resp B/P (MAP) Pulse Ox O2 Delivery O2 Flow Rate FiO2 05/06/25 12:00 97.9 62 16 168/76 99 Room Air 05/06/25 09:52 100 Room Air* 0 21 LABS: Laboratory: Test 05/06/25 05:10 05/05/25 05:22 05/04/25 17:45 Range/Units White Blood Count 5.1 4.8-10.8 K/uL Red Blood Count 3.92 L 4.00-5.50 MIL/uL Hemoglobin 12.2 12.0-16.0 g/dL Hematocrit 37.9 36-48 % Mean Corpuscular Volume 96.7 79-99 fL Mean Corpuscular Hemoglobin 31.1 27.0-33.0 pg Mean Corpuscular Hemoglobin Concent 32.2 32.0-36.0 g/dL Red Cell Distribution Width 18.6 H 11.0-15.5 % Platelet Count 239 130-400 K/uL Mean Platelet Volume 9.5 7.5-10.5 fL Nucleated Red Blood Cells 0.0 0.0-0.19 % Sodium Level 142 136-145 mmol/L Potassium Level 3.8 3.5-5.1 mmol/L Chloride Level 105 101-111 mmol/L Carbon Dioxide Level 29 21-32 mmol/L Blood Urea Nitrogen 7 7-18 mg/dL Creatinine 0.6 0.5-1.0 mg/dL Glomerular Filtration Rate Calc 91 >90 mL/min Random Glucose 94 70-105 mg/dL Total Calcium 9.0 8.5-10.1 mg/dL Magnesium Level 1.80 1.80-2.40 mg/dL Immature Granulocyte % (Auto) 0.2 0-1 % Neutrophils (%) (Auto) 55.2 40.0-77.0 % Lymphocytes (%) (Auto) 31.5 21.0-51.0 % Monocytes (%) (Auto) 9.2 3.0-13.0 % Eosinophils (%) (Auto) 2.9 0.0-8.0 % Basophils (%) (Auto) 1.0 0.0-5.0 % Neutrophils # (Auto) 2.7 1.8-7.7 K/uL Lymphocytes # (Auto) 1.5 1.0-4.8 K/uL Monocytes # (Auto) 0.4 0.1-1.0 K/uL Eosinophils # (Auto) 0.14 0.00-0.70 K/uL Basophils # (Auto) 0.05 0.00-0.20 K/uL Absolute Immature Granulocyte (auto 0.01 0-1 K/uL Prothrombin Time 11.0 9.6-11.6 SEC Prothromb Time International Ratio 1.04 0.85-1.15 Activated Partial Thromboplast Time 25.2 L 26.3-35.5 SEC Phosphorus Level 2.9 2.5-4.9 mg/dL Thyroid Stimulating Hormone (TSH) 4.17 H 0.36-3.74 uIU/mL Free Thyroxine (T4) Direct 1.51 H 0.76-1.46 ng/dL Free Triiodothyronine (T3) pg/mL 1.52 L 2.18-3.98 pg/mL Urine Color LIGHT-YELLOW YELLOW Urine Appearance CLEAR CLEAR Urine pH 7.0 5.0-8.0 Urine Specific [place] 1.008 1.001-1.031 Urine Protein NEGATIVE NEGATIVE mg/dL Urine Glucose (UA) NEGATIVE NEGATIVE mg/dL Urine Ketones NEGATIVE NEGATIVE mg/dL Urine Occult Blood NEGATIVE NEGATIVE Urine Nitrate NEGATIVE NEGATIVE Urine Bilirubin NEGATIVE NEGATIVE mg/dL Urine Urobilinogen 0.2 0.2-1.0 mg/dL Urine Leukocyte Esterase NEGATIVE NEGATIVE Dasha/uL Urine RBC 2-5 H 0-1 /HPF Urine WBC 2-5 H 0-1 /HPF Urine Squamous Epithelial Cells RARE 0-2 /HPF Urine Bacteria MOD None Seen /HPF Current Medications Medications (Trade) Dose Ordered Sig/Lucie Route PRN Reason Start Time Stop Time Status Last Admin Dose Admin Acetaminophen (TYLenol 325MG TAB) 650 mg Q6H PRN PO TEMPERATURE GREATER THAN 101.5 05/04/25 19:30 06/03/25 19:29 Amiodarone HCl (pacERONE 200MG) 200 mg DAILY PO 05/06/25 09:00 1/9/26 08:59 05/06/25 09:13 200 MG Amlodipine Besylate (NorvASC 5MG TAB) 5 mg DAILY PO 05/06/25 09:00 06/05/25 08:59 05/06/25 09:14 5 MG Aspirin (Aspirin 81mg Chew Tab) 81 mg DAILY PO 05/07/25 09:00 06/06/25 08:59 Atorvastatin Calcium (LIPItor 40MG) 40 mg HS PO 05/05/25 21:00 06/04/25 20:59 05/05/25 21:27 40 MG Cilostazol (PLETal 100MG TAB) 100 mg BID PO 05/06/25 21:00 06/05/25 20:59 Clopidogrel Bisulfate (plaVIX 75MG) 75 mg DAILY PO 05/07/25 09:00 06/06/25 08:59 Famotidine (Pepcid 20mg Vial) 20 mg DAILY IV 05/05/25 09:00 06/04/25 08:59 05/06/25 09:14 20 MG Furosemide (LASix 20MG TAB) 20 mg DAILY PO 05/06/25 09:00 06/05/25 08:59 05/06/25 09:13 20 MG Gabapentin (NEURontin 100 mg CAP) 100 mg TID PO 05/05/25 14:00 06/04/25 13:59 05/06/25 09:13 100 MG Hydralazine HCl (APRESOLine 20MG INJ) 10 mg Q6H PRN IV For:SBP above 160;DBP above 90 05/04/25 19:30 06/03/25 19:29 05/05/25 17:36 10 MG Lactated Ringer's 1,000 ml @ 75 mls/hr [id number] IV 05/04/25 19:30 06/03/25 19:29 05/05/25 23:33 75 MLS/HR Lactulose (Constulose 20gm/ 30ml Udcup) 20 gm BID PRN PO CONSTIPATION 05/04/25 19:30 06/03/25 19:29 Levothyroxine Sodium (SYNTHroid 100MCG TAB) 100 mcg SYN PO 05/06/25 06:30 06/05/25 06:29 05/06/25 06:39 100 MCG Magnesium Sulfate 50 ml @ 0 mls/hr PROTOCOL PRN IV MAG LEVEL BELOW 2.0 05/05/25 07:30 06/04/25 07:29 05/06/25 09:14 25 MLS/HR Metoprolol Tartrate (loprESSOR) 25 mg BID PO 05/05/25 21:00 06/04/25 20:59 05/06/25 09:13 25 MG Morphine Sulfate (morPHINE 4MG SYG) 2 mg Q4H PRN IVP SEVERE PAIN (7-10) 05/04/25 19:30 05/11/25 19:29 Ondansetron HCl (zoFRAN 4MG INJ) 4 mg Q6H PRN IV NAUSEA/VOMITING 05/04/25 19:30 06/03/25 19:29 DIAGNOSTICS / RADIOLOGY: [ ] ASSESSMENT: Peripheral artery disease, POA Hyperlipidemia Hypertension Hypothyroidism Postoperative atrial fibrillation Hypomagnesemia History of AAA repair PLAN: Peripheral artery disease, POA She has a history of peripheral artery disease for which she is using aspirin, clopidogrel and cilostazol. She complained of numbness in her lower limbs. We consulted cardiology and the CT angiogram of the abdominal aorta with bilateral lower extremity runoff. Continue [id number] mg daily, [id number] mg daily, cilostazol 100 mg b.i.d. and atorvastatin 40 mg q.h.s. Hyperlipidemia Continue atorvastatin. Hypertension Today her blood pressure is 168/76. We started her on amlodipine 5mg, metoprolol 25mg and furosemide. We will monitor her blood pressure. In the evening her blood pressure is 166/75 so we added lisinopril 5mg daily. Hypothyroidism Her TSH level is 4.17, free T4 is 1.51 and free T3 is 1.52. Continue levothyroxine 100mcg. Postoperative atrial fibrillation Having any symptoms today. Continue amiodarone daily. She is not on any anticoagulation due to bleeding risk without reoccurrence. Hypomagnesemia Today her magnesium level is 1.80. We replaced it by giving magnesium sulfate. We will repeat her labs tomorrow. She is on heart healthy diet. DVT prophylaxis with SCD. GI prophylaxis with famotidine. ATTESTATION BY PHYSICIAN I have seen and examined the patient. I reviewed the documentation, medical decision making, and treatment plan as noted by the resident physician above. I agree with the findings and plan of care. Ankit Rebollar IV, MD, AKSHAY MD May 06, 2025 15:35
[2025-05-06 16:00] VITALS: BP 166/75; PULSE 65; RESP 18; TEMP 98.2
--- NOTE | 2025-05-06 17:04 | NUR ---
REFUSAL PT MADE AWARE OF B/P BEING ELEVATED, PT STATED SHE WISHED TO WAIT AND HAVE B/P BE MONITORED SINCE PRN MEDICATION MAKES HER FEEL SICK, WILL CONTINUE TO MONITOR B/P, WILL GIVE SCHEDULED MEDICATION FOR B/P SCHEDULED
[2025-05-06 20:00] VITALS: O2SAT 99
[2025-05-06 20:55] VITALS: BP 151/74; PULSE 71; RESP 18; TEMP 97.6
[2025-05-07 00:04] VITALS: BP 124/56; PULSE 64; RESP 18; TEMP 98
[2025-05-07 04:02] VITALS: BP 132/60; PULSE 62; RESP 18; TEMP 97.7
[2025-05-07 04:50] LABS: NUCLEATED RED BLOOD CELLS 0.0 % (0.0-0.19); PLATELET COUNT (AUTO) 214.0 K/uL (130-400); RED BLOOD CELL COUNT(AUTO) 3.52 MIL/uL (4.00-5.50); RED CELL DISTRIBUTION WIDTH 18.7 % (11.0-15.5); WHITE BLOOD COUNT (AUTO) 4.5 K/uL (4.8-10.8)
[2025-05-07 05:18] LABS: CREATININE 0.8 mg/dL (0.5-1.0); GLOMERULAR FILTR. RATE CALC 74.0 mL/min (>90); GLUCOSE,RANDOM 109.0 mg/dL (70-105); SODIUM SERUM 138.0 mmol/L (136-145); UREA NITROGEN, BLOOD 12.0 mg/dL (7-18)
[2025-05-07] MEDS: PoTASSium chloRIDE 20MEQ ER 20 MEQ ERTAB PO ONE (06:35)
[2025-05-07 08:00] VITALS: BP 152/50; PULSE 59; RESP 18; TEMP 98.1
[2025-05-07 08:10] VITALS: O2SAT 92
[2025-05-07] MEDS: ASPIRIN 81MG CHEW TAB PO SCH (08:20)
[2025-05-07] MEDS: LISINOPRIL 5 MG TABLET PO SCH (09:00)
[2025-05-07] MEDS ORDERED: LISINOPRIL 5 MG TABLET PO SCH (09:00)
--- NOTE | 2025-05-07 10:50 | HMCIMG ---
EXAM: CTA Abdomen and Pelvis With Runoff to the Lower Extremities with Intravenous Contrast CLINICAL HISTORY: PAD TECHNIQUE: Axial CTA images of the abdomen, pelvis and lower extremities with intravenous contrast in the arterial phase with coronal and sagittal reformatted images generated and reviewed. 3-D reformatted images generated on an independent workstation and also reviewed. CONTRAST: Contrast details not known. COMPARISON: None provided. FINDINGS: VASCULATURE: Aorta: Diffuse atheromatous wall calcifications are seen. Mild luminal narrowing of <20% in the abdominal aorta. Appropriately positioned abdominal aortic stent extending into the bilateral iliac vessels. No aneurysm or dissection. Celiac trunk: No occlusion or significant stenosis. Superior mesenteric artery: No occlusion or significant stenosis. Inferior mesenteric artery: No occlusion or significant stenosis. Renal arteries: No significant stenosis. Right iliac arteries: Patent with stent extension proximally. No hemodynamically significant stenosis. Right femoral arteries: Discrete atheromatous calcifications noted, left greater than right. No significant luminal stenosis. Right popliteal artery: Patent with no significant stenosis. Right calf arteries: Patent. Left iliac arteries: Stent extension proximally. Patent with no significant stenosis. Left femoral arteries: Discrete valve calcifications present, left greater than right. No significant stenosis. Left popliteal artery: Patent. Left calf arteries: Patent. LOWER THORAX: No basilar consolidation. ABDOMEN: Liver: Unremarkable. Gallbladder and bile ducts: No calcified stone. No ductal dilatation. Pancreas: Unremarkable. Spleen: Unremarkable. Adrenals: No mass. Kidneys and ureters: Bilateral hypodense non-enhancing renal cortical cysts, largest measuring up to 5 cm, consistent with Bosniak category I. Kidneys enhance symmetrically. No hydronephrosis or solid mass. Stomach and bowel: No obstruction. No bowel wall thickening. No CT evidence of acute diverticulitis. PELVIS: Bladder: Unremarkable. Reproductive organs: Uterus and ovaries are suboptimally visualized. Peritoneum: No free fluid. No free air. Lymph nodes: No lymphadenopathy. Bones: No acute osseous abnormality. LOWER EXTREMITIES: Soft tissues: Unremarkable. Lymph nodes: No lymphadenopathy. Bones: No acute osseous abnormality. IMPRESSION: No abdominal aortic aneurysm or dissection. Diffuse atheromatous disease of the abdominal aorta with mild luminal narrowing <20%. Abdominal aortic stent extending into the bilateral iliac vessels in appropriate position. Discrete atheromatous calcifications of the bilateral common femoral arteries, more on the left. No occlusion or hemodynamically significant stenosis in the arterial system of the abdomen, pelvis, or lower extremities. No acute abdominal or pelvic pathology. /[place]
[2025-05-07 12:00] VITALS: BP 103/37; PULSE 73; RESP 18; TEMP 97.6
--- NOTE | 2025-05-07 14:51 | DS ---
Discharge Summary Hospital Course Summary: Patient information: Name: Roger Peacock Date of : 1945 Admission date: 05/04/2025 Attending physician: Dr. Ankit Rebollar IV Admitting diagnosis: Peripheral artery disease, POA Hyperlipidemia Hypertension Hypothyroidism Course in hospital: She is a 79 year old female with past medical history of hyperlipidemia, hypertension, hypothyroidism, peripheral artery disease with a surgical history of AAA repair came to the ER with lower extremity numbness. She has tingling sensation on her lower extremities. Her symptoms are aggravated with movement. she denies any chest pain or shortness of breath. She is a non smoker, doesn't drink alcohol and use illegal drugs. In the ER her CBC unremarkable, chemistry unremarkable, urinalysis unremarkable, arterial ultrasound shows greater than 80% occlusion in the right common femoral artery, 50-80% occlusion in the left common femoral artery. Emergency room physician contacted engineering technology instructor on-call who recommended patient be admitted under hospitalist service and they we will be evaluating patient in a.m. for possible intervention. Cardiology saw the patient and they recommended CT angiogram of abdominal aorta with bilateral lower extremity runoff. We ordered abdominal arterial ultrasound and added amlodipine and lisinopril because of high blood pressure. Her abdominal arterial ultrasound is unremarkable and her blood pressure is controlled with these medication. CT angiogram of abdominal aorta with bilateral lower extremity runoff didn't show any occlusion. So cardiology cleared the patient for discharge and advised her to follow up with them as an outpatient. On 05/07/2025, patient has numbness but she said that it's improving. Her vitals are in the normal range. Her labs are normal except for hemoglobin 11.1, potassium 3. So we replaced potassium today. We rechecked her potassium level and it is 4.6. She is medically stable and ready for discharge. So we discharged him. Wire Bound Box Machine Helper(s): CONSULTATION REPORT Name: ROGER PEACOCK Acct: [id number] MR: [id number] : 1945 Admit Date: 05/04/25 LEONEL ALSTON [facility] [address] [place] [id number] [facility] CARDIOLOGY CONSULTATION REPORT Cardiology consultation note dictated for Jaqueline Whitney MD Primary engineering technology instructor: Rosita Recinos MD Date Patient Seen: May 06, 2025 Time of Visit: 13:02 Reason for Consultation: PAD History of Present Illness: This is an 79-year-old female with a past medical history of hypertension, hyperlipidemia, diabetes mellitus type 2, hypothyroidism, history of tobacco use, negative Lexiscan Cardiolite on 03/09/2025, LVEF of 55% with stage I diastolic dysfunction by 2D echocardiogram on 03/08/2025, history of critical limb ischemia with severe peripheral vascular disease with Buena category 5 symptoms with threatened limbs and nonhealing ulcers in the toes both feet 02/2025, status post complex percutaneous intervention 03/12/2025 for severe stenosis of the abdominal aorta with extensive calcification, requiring shockwave lithotripsy, placement of 3 endoluminal tube grafts and placement of an intra stent with complication of impingement on the left renal artery, treated with left renal artery stenting with good results with additional complication of retroperitoneal bleeding, treated with a covered endoluminal graft, postoperative anemia requiring blood transfusion, and postoperative atrial fibrillation not on anticoagulation due to bleeding without recurrence who presented to the ED with complaints of bilateral lower extremity edema. Cardiology has been consulted for PAD. The patient endorsed bilateral lower extremity edema with the left side greater than right with numbness to bilateral lower extremities for approximately 2 weeks in duration. Bilateral lower extremity arterial duplex on 05/04/2025 revealed right common femoral artery with greater than 80% stenosis and left common femoral artery with 50-80% stenosis and monophasic flow in the distal arteries. Bilateral lower extremity venous Doppler on 05/04/2020 negative for DVT. The patient states she has had improvement in bilateral lower extremity edema which she attributes to oral diuretics. Bilateral femoral pulses are strong and equal, bilateral DP pulses 1+, no discoloration noted to bilateral lower extremities, left pedal edema noted. The patient denies having bilateral extremity discomfort. Past Medical History: As per HPI and summarized below Past Surgical History: None Family History: Noncontributory Social History: The patient lives with family. Habits: The patient denies alcohol, tobacco, or illicit drug use. Home Meds: Amiodarone 200 mg daily Metoprolol tartrate 25 mg b.i.d. Amlodipine 5 mg daily Atorvastatin 40 mg q.h.s. Aspirin 81 mg daily Cilostazol 100 mg b.i.d. Clopidogrel 75 mg daily Lasix 20 mg daily Gabapentin 100 mg t.i.d. Levothyroxine 100 mcg daily Current Meds: Medications Dose Ordered Sig/Lucie Start Time Stop Time Status Last Admin Acetaminophen 650 mg Q6H PRN 05/04/25 19:30 06/03/25 19:29 Famotidine 20 mg DAILY 05/05/25 09:00 06/04/25 08:59 05/06/25 09:14 Hydralazine HCl 10 mg Q6H PRN 05/04/25 19:30 06/03/25 19:29 05/05/25 17:36 Lactated Ringer's 1,000 ml @ 75 mls/hr [id number] 05/04/25 19:30 06/03/25 19:29 05/05/25 23:33 Lactulose 20 gm BID PRN 05/04/25 19:30 06/03/25 19:29 Morphine Sulfate 2 mg Q4H PRN 05/04/25 19:30 05/11/25 19:29 Ondansetron HCl 4 mg Q6H PRN 05/04/25 19:30 06/03/25 19:29 Atorvastatin Calcium 40 mg HS 05/05/25 21:00 06/04/25 20:59 05/05/25 21:27 Magnesium Sulfate 50 ml @ 0 mls/hr PROTOCOL PRN 05/05/25 07:30 06/04/25 07:29 05/06/25 09:14 Amiodarone HCl 200 mg DAILY 05/06/25 09:00 06/05/25 08:59 05/06/25 09:13 Amlodipine Besylate 5 mg DAILY 05/06/25 09:00 06/05/25 08:59 05/06/25 09:14 Furosemide 20 mg DAILY 05/06/25 09:00 06/05/25 08:59 05/06/25 09:13 Gabapentin 100 mg TID 05/05/25 14:00 06/04/25 13:59 05/06/25 09:13 Levothyroxine Sodium 100 mcg SYN 05/06/25 06:30 06/05/25 06:29 05/06/25 06:39 Metoprolol Tartrate 25 mg BID 05/05/25 21:00 06/04/25 20:59 05/06/25 09:13 Aspirin 81 mg DAILY 05/07/25 09:00 06/06/25 08:59 Cilostazol 100 mg BID 05/06/25 21:00 06/05/25 20:59 Clopidogrel Bisulfate 75 mg DAILY 05/07/25 09:00 06/06/25 08:59 Review of Systems: CONST: No fever, fatigue, or weight changes. EYES: No recent vision problems. ENT: No congestion, ear pain, or sore throat. C/V: No chest pain or palpitations. Admits to bilateral lower extremity edema. RESP: No cough, congestion, wheezing or shortness of breath. GI: No abdominal pain, nausea, vomiting, constipation, or diarrhea. : No incontinence or dysuria. SKIN: No rash. NEURO: No headache, focal numbness or weakness, dizziness, or seizures. PSYCH: No depression or anxiety. HEME: No abnormal bruising or bleeding. LYMPH: No swollen glands. Physical Examination: GENERAL: No acute distress. HEAD: Normal with no signs of head trauma. EYES: conjunctiva and sclera normal. ENT: Hearing grossly intact, normal oropharynx. NECK: Supple without JVD. Normal carotid upstrokes without bruits. LUNGS: Clear breath sounds bilaterally. No wheezes, or rhonchi. HEART: Normal rate and rhythm. Normal S1 and S2 without murmurs, gallop or rub. VASC: Bilateral DP pulses 1+. ABD: Bowel sounds normal, soft, nontender, no masses, no organomegaly. No audible bruits. : Not examined LYMPH: No lymphadenopathy noted. EXT: Left pedal edema. SKIN: No rashes or lesions noted. NEURO: Awake, alert, and oriented x3. No focal sensory or strength deficits noted. Vital Signs (last 8hr) Date Time Temp Pulse Resp B/P (MAP) Pulse Ox O2 Delivery O2 Flow Rate FiO2 05/06/25 12:00 97.9 62 16 168/76 99 Room Air 05/06/25 09:52 100 Room Air* 0 21 Laboratory: Hematology Labs: Test 05/06/25 05:10 05/05/25 05:22 05/04/25 15:12 Range/Units White Blood Count 5.1 4.8-10.8 K/uL Red Blood Count 3.92 L 4.00-5.50 MIL/uL Hemoglobin 12.2 12.0-16.0 g/dL Hematocrit 37.9 36-48 % Mean Corpuscular Volume 96.7 79-99 fL Mean Corpuscular Hemoglobin 31.1 27.0-33.0 pg Mean Corpuscular Hemoglobin Concent 32.2 32.0-36.0 g/dL Red Cell Distribution Width 18.6 H 11.0-15.5 % Platelet Count 239 130-400 K/uL Mean Platelet Volume 9.5 7.5-10.5 fL Nucleated Red Blood Cells 0.0 0.0-0.19 % Immature Granulocyte % (Auto) 0.2 0-1 % Neutrophils (%) (Auto) 55.2 40.0-77.0 % Lymphocytes (%) (Auto) 31.5 21.0-51.0 % Monocytes (%) (Auto) 9.2 3.0-13.0 % Eosinophils (%) (Auto) 2.9 0.0-8.0 % Basophils (%) (Auto) 1.0 0.0-5.0 % Neutrophils # (Auto) 2.7 1.8-7.7 K/uL Lymphocytes # (Auto) 1.5 1.0-4.8 K/uL Monocytes # (Auto) 0.4 0.1-1.0 K/uL Eosinophils # (Auto) 0.14 0.00-0.70 K/uL Basophils # (Auto) 0.05 0.00-0.20 K/uL Absolute Immature Granulocyte (auto 0.01 0-1 K/uL Red Blood Cell Morphology See comments Chemistry Labs: Test 05/06/25 05:10 05/05/25 05:22 Range/Units Sodium Level 142 136-145 mmol/L Potassium Level 3.8 3.5-5.1 mmol/L Chloride Level 105 101-111 mmol/L Carbon Dioxide Level 29 21-32 mmol/L Blood Urea Nitrogen 7 7-18 mg/dL Creatinine 0.6 0.5-1.0 mg/dL Glomerular Filtration Rate Calc 91 >90 mL/min Random Glucose 94 70-105 mg/dL Total Calcium 9.0 8.5-10.1 mg/dL Magnesium Level 1.80 1.80-2.40 mg/dL Phosphorus Level 2.9 2.5-4.9 mg/dL Thyroid Stimulating Hormone (TSH) 4.17 H 0.36-3.74 uIU/mL Free Thyroxine (T4) Direct 1.51 H 0.76-1.46 ng/dL Free Triiodothyronine (T3) pg/mL 1.52 L 2.18-3.98 pg/mL Coagulation Labs: Test 05/05/25 05:22 Range/Units Prothrombin Time 11.0 9.6-11.6 SEC Prothromb Time International Ratio 1.04 0.85-1.15 Activated Partial Thromboplast Time 25.2 L 26.3-35.5 SEC Diagnostics / Radiology: Impression and Plan: Bilateral lower extremity edema PAD Hypertension Hyperlipidemia Diabetes mellitus type 2 Hypothyroidism History of tobacco use Negative Lexiscan Cardiolite on 03/09/2025 LVEF of 55% with stage I diastolic dysfunction by 2D echocardiogram on 03/08/2025 History of critical limb ischemia with severe peripheral vascular disease with Buena category 5 symptoms with threatened limbs and nonhealing ulcers in the toes both feet 02/2025 Status post complex percutaneous intervention for severe stenosis of the abdominal aorta with extensive calcification, requiring shockwave lithotripsy, placement of 3 endoluminal tube grafts and placement of an intra stent with complication of impingement on the left renal artery, treated with left renal artery stenting with good results with additional complication of retroperitoneal bleeding, treated with a covered endoluminal graft and resolved with postoperative anemia requiring blood transfusion 03/12/2025 Bilateral Perclose x2 device closures at EXCHANGE OPERATOR 12 [place]eg[place]e sheath on right and a 7 [place]e on left Postoperative atrial fibrillation not on anticoagulation due to bleeding without recurrence PAD The patient endorsed bilateral lower extremity edema with the left side greater than right with numbness to bilateral lower extremities for approximately 2 weeks in duration. Bilateral lower extremity arterial duplex on 05/04/2025 revealed right common femoral artery with greater than 80% stenosis and left common femoral artery with 50-80% stenosis and monophasic flow in the distal arteries. Bilateral lower extremity venous Doppler on 05/04/2020 negative for DVT. -Obtain CTA abd aorta with BLE runoff -Continue aspirin 81 mg daily, [id number] mg daily, cilostazol 100 mg b.i.d., and atorvastatin 40 mg q.h.s. Postoperative atrial fibrillation not on anticoagulation due to bleeding without recurrence -Continue metoprolol tartrate 25 mg b.i.d. and amiodarone 200 mg daily LEONEL ALSTON [facility] May 06, 2025 13:03 Electronically Signed by: LEONEL Imani [facility]07/07/24 1414 Electronically Co-Signed by: Procedure(s): [facility] [address] [place] [address] IMAGING REPORT Signed PATIENT: ROGER PEACOCK MR#: [id number] : 1945 SEX: F AGE: 79 LOCATION: [facility] ORDER 1550 STATUS: REG ER REPORT#: [id number] SERVICE 1547 REASON: Lower Limb edema ORDERING PHYSICIAN: MARCELL THAKUR MD PROCEDURE: ART B LE - US ARTERIAL BILAT LOW EXT DUPL EXAM: US Duplex Bilateral Lower Extremity Arteries. CLINICAL HISTORY: Lower Limb edema TECHNIQUE: Real-time ultrasound scan of the arteries of bilateral lower extremity with 2-D james scale, color Doppler flow and spectral waveform analysis. COMPARISON: None provided. FINDINGS: RIGHT LOWER LIMB: Common femoral artery shows >80% stenosis with PSV 376 cm/s and triphasic flow. Posterior tibial artery PSV is 46 cm/s, with monophasic flow in post-stenotic vessel. Anterior tibial artery distal PSV is 256 cm/s, with monophasic flow . Dorsalis pedis artery PSV is 139 cm/s, with monophasic hyperemic flow LEFT LOWER LIMB: Common femoral artery PSV 249 cm/s with 5080% stenosis, triphasic flow. Distal popliteal artery PSV is 60 cm/s, monophasic flow. Posterior tibial artery PSV is 87 cm/s, monophasic flow. Anterior tibial artery PSV 175 cm/s, monophasic flow. Dorsalis pedis artery PSV 146 cm/s, monophasic with hyperemic flow. IMPRESSION: Severe stenosis (>80%) of the right common femoral artery. Moderate stenosis (5080%) in the left common femoral artery and distal right anterior tibial arteries. Post-stenotic monophasic flow in distal arteries indicates hemodynamically significant obstruction. Hyperemic flow in distal anterior tibial and dorsalis pedis arteries Multilevel atherosclerotic arterial disease is present. /[place] DICTATED BY: DIYA FIORE Jr., MD DATE: 05/04/251844 ELECTRONICALLY SIGNED BY: DIYA FIORE Jr., MD DATE: 05/04/251844 [facility] [address] [place] [id number] IMAGING REPORT Signed PATIENT: ROGER PEACOCK MR#: [id number] : 1945 SEX: F AGE: 79 LOCATION: [facility] ORDER 1550 STATUS: [facility] REPORT#: [id number] SERVICE 1548 REASON: Lower Limb edema ORDERING PHYSICIAN: MARCELL THAKUR MD PROCEDURE: VENOUS MYRTLE - US VENOUS DOPPLER BILATERAL EXAM: US for Deep Venous Thrombosis, bilateral Lower Extremity. CLINICAL HISTORY: Leg Pain and Swelling TECHNIQUE: Real-time ultrasound scan of the veins of the bilateral lower extremity with color Doppler flow, spectral waveform analysis and compression. COMPARISON: None provided. FINDINGS: DEEP VEINS: The common femoral, superficial femoral, and popliteal veins are echolucent and compressible. There is normal color Doppler flow throughout. The visualized calf veins appear patent. SOFT TISSUES: There is a 3.1 x 1.9 x 6.0 cm 's popliteal cyst within the right popliteal fossa. IMPRESSION: No deep venous thrombosis evident on bilateral lower extremity examination. Right 's popliteal cyst. /[place] DICTATED BY: DIYA FIORE Jr., MD DATE: 05/04/251801 ELECTRONICALLY SIGNED BY: DIYA FIORE Jr., MD DATE: 05/04/251801 [facility] [address] [place] [id number] IMAGING REPORT Signed PATIENT: ROGER PEACOCK MR#: [id number] : 1945 SEX: F AGE: 79 LOCATION: 4CH ORDER 1300 STATUS: ADM IN REPORT#: [id number] SERVICE 1251 REASON: PAD ORDERING PHYSICIAN: LEONEL ALSTON MAINTENANCE TECHNICIAN 3RD SHIFT PROCEDURE: CTA ABDAOR - CT ANGIO ABD AORTA W RUNOFF EXAM: CTA Abdomen and Pelvis With Runoff to the Lower Extremities with Intravenous Contrast CLINICAL HISTORY: PAD TECHNIQUE: Axial CTA images of the abdomen, pelvis and lower extremities with intravenous contrast in the arterial phase with coronal and sagittal reformatted images generated and reviewed. 3-D reformatted images generated on an independent workstation and also reviewed. CONTRAST: Contrast details not known. COMPARISON: None provided. FINDINGS: VASCULATURE: Aorta: Diffuse atheromatous wall calcifications are seen. Mild luminal narrowing of <20% in the abdominal aorta. Appropriately positioned abdominal aortic stent extending into the bilateral iliac vessels. No aneurysm or dissection. Celiac trunk: No occlusion or significant stenosis. Superior mesenteric artery: No occlusion or significant stenosis. Inferior mesenteric artery: No occlusion or significant stenosis. Renal arteries: No significant stenosis. Right iliac arteries: Patent with stent extension proximally. No hemodynamically significant stenosis. Right femoral arteries: Discrete atheromatous calcifications noted, left greater than right. No significant luminal stenosis. Right popliteal artery: Patent with no significant stenosis. Right calf arteries: Patent. Left iliac arteries: Stent extension proximally. Patent with no significant stenosis. Left femoral arteries: Discrete valve calcifications present, left greater than right. No significant stenosis. Left popliteal artery: Patent. Left calf arteries: Patent. LOWER THORAX: No basilar consolidation. ABDOMEN: Liver: Unremarkable. Gallbladder and bile ducts: No calcified stone. No ductal dilatation. Pancreas: Unremarkable. Spleen: Unremarkable. Adrenals: No mass. Kidneys and ureters: Bilateral hypodense non-enhancing renal cortical cysts, largest measuring up to 5 cm, consistent with Bosniak category I. Kidneys enhance symmetrically. No hydronephrosis or solid mass. Stomach and bowel: No obstruction. No bowel wall thickening. No CT evidence of acute diverticulitis. PELVIS: Bladder: Unremarkable. Reproductive organs: Uterus and ovaries are suboptimally visualized. Peritoneum: No free fluid. No free air. Lymph nodes: No lymphadenopathy. Bones: No acute osseous abnormality. LOWER EXTREMITIES: Soft tissues: Unremarkable. Lymph nodes: No lymphadenopathy. Bones: No acute osseous abnormality. IMPRESSION: No abdominal aortic aneurysm or dissection. Diffuse atheromatous disease of the abdominal aorta with mild luminal narrowing <20%. Abdominal aortic stent extending into the bilateral iliac vessels in appropriate position. Discrete atheromatous calcifications of the bilateral common femoral arteries, more on the left. No occlusion or hemodynamically significant stenosis in the arterial system of the abdomen, pelvis, or lower extremities. No acute abdominal or pelvic pathology. /[place] DICTATED BY: KENRICK DUARTE MD DATE: 05/07/251148 ELECTRONICALLY SIGNED BY: KENRICK DUARTE MD DATE: 05/07/251148 Assessment/Plan: DISCHARGE DIAGNOSIS: Peripheral artery disease, POA Hyperlipidemia Hypertension Hypothyroidism Postoperative atrial fibrillation Hypomagnesemia Hypokalemia History of AAA repair ASSESSMENT/PLAN: Peripheral artery disease, POA She has a history of peripheral artery disease for which she is using aspirin, clopidogrel and cilostazol. She complained of numbness in her lower limbs. We consulted cardiology and the CT angiogram of the abdominal aorta with bilateral lower extremity runoff. Continue aspirin 81 mg daily, clopidogrel 75 mg daily, cilostazol 100 mg b.i.d. and atorvastatin [address] angiogram of the abdominal aorta with bilateral lower extremity runoff was done and they did not show any evidence of occlusion. Cardiology saw the patient and they cleared her for discharge. They also advised her to follow-up with them after the discharge. Hyperlipidemia Continue atorvastatin. Hypertension Her blood pressure at the time of admission is 183/82. We started her on amlodipine 5mg, metoprolol 25mg and furosemide. Yesterday her blood pressure is 168/76 In the evening her blood pressure is 166/75 so we added lisinopril 5mg daily. We ordered abdominal arterial study ultrasound and it did not show any evidence of renal artery stenosis. Today her blood pressure is 132/60 Continue amlodipine 5 mg 1 tab PO daily, furosemide 20 mg 1 tab PO daily, metoprolol tartrate 25 mg 1 tab PO BID. Hypothyroidism Her TSH level is 4.17, free T4 is 1.51 and free T3 is 1.52. Continue levothyroxine 100mcg. Postoperative atrial fibrillation Having any symptoms today. Continue amiodarone daily. She is not on any anticoagulation due to bleeding risk without reoccurrence. Hypomagnesemia Today her magnesium level is 1.90. We replaced it by giving magnesium sulfate. Advised to repeat her labs as an outpatient. Hypokalemia Her potassium level is 3. We replaced it by giving potassium chloride. After replacing her potassium level is increased to 4.6. Discharge Instructions: Discharge date: 05/07/2025 Discharge instructions: 1) Follow up with primary care physician within 2 to 3 days after discharge. 2) Follow up with cardiology within 1 week after discharge 3) Continue all medications as prescribed. Do not discontinue or change doses without consulting your PCP. 4) Gradually resume normal activities as tolerated. 5) Continue a balanced diet. 6 Seek immediate medical attention if you experience chest pain, SOB, or severe headache. Discharge to: Home Condition on discharge: Stable Home Medications: Reported Medications Amlodipine Besylate (Amlodipine Besylate) 5 Mg Tablet, 1 TAB PO DAILY for 30 Days, #30 TAB 0 Refills 05/05/25 Metoprolol Tartrate (Metoprolol Tartrate) 25 Mg Tablet, 1 TAB PO BID for 30 Days, #60 TAB 0 Refills 05/05/25 Gabapentin (Gabapentin) 100 Mg Capsule, 1 CAP PO TID for 30 Days, #90 CAP 0 Refills 05/05/25 Furosemide (Furosemide) 20 Mg Tablet, 1 TAB PO DAILY for 30 Days, #30 TAB 0 Refills 05/05/25 Clopidogrel Bisulfate (Clopidogrel) 75 Mg Tablet, 1 TAB PO DAILY for 30 Days, #30 TAB 0 Refills 05/05/25 Amiodarone HCl (Amiodarone HCl) 200 Mg Tablet, 1 TAB PO DAILY for 30 Days, #30 TAB 0 Refills 05/05/25 Cilostazol (Cilostazol) 100 Mg Tablet, 1 TAB PO BID for 30 Days, #60 TAB 0 Refills 05/05/25 Atorvastatin Calcium (LIPITOR) 40 Mg Tablet, 1 TAB PO HS for 30 Days, #30 TAB 0 Refills 05/05/25 Levothyroxine Sodium (Levothyroxine Sodium) 100 Mcg Tablet, 1 TAB PO ACBKFST for 30 Days, #30 TAB 0 Refills 05/05/25 Aspirin (ASPIRIN 81MG CHEW TAB) 81 Mg Tab.chew, 1 TAB PO DAILY for 30 Days, #30 TAB 0 Refills 03/07/25 Discontinued Reported Medications Atorvastatin Calcium (LIPITOR) 20 Mg Tab, 1 TAB PO HS for 30 Days, #30 TAB 0 Refills 03/07/25 Levothyroxine Sodium (Levothyroxine) 88 Mcg Capsule, 1 CAP PO DAILY for 30 Days, #30 CAP 0 Refills 03/07/25 Lisinopril (Lisinopril) 20 Mg Tablet, 20 MG PO BID, TAB 03/07/25 Continued Medications: Amiodarone HCl (Amiodarone HCl) 200 Mg Tablet 1 TAB PO DAILY for 30 Days, #30 TAB 0 Refills Amlodipine Besylate (Amlodipine Besylate) 5 Mg Tablet 1 TAB PO DAILY for 30 Days, #30 TAB 0 Refills Aspirin (Aspirin 81MG Chew Tab) 81 Mg Tab.chew 1 TAB PO DAILY for 30 Days, #30 TAB 0 Refills Atorvastatin Calcium (Lipitor) 40 Mg Tablet 1 TAB PO HS for 30 Days, #30 TAB 0 Refills Cilostazol (Cilostazol) 100 Mg Tablet 1 TAB PO BID for 30 Days, #60 TAB 0 Refills Clopidogrel Bisulfate (Clopidogrel) 75 Mg Tablet 1 TAB PO DAILY for 30 Days, #30 TAB 0 Refills Furosemide (Furosemide) 20 Mg Tablet 1 TAB PO DAILY for 30 Days, #30 TAB 0 Refills Gabapentin (Gabapentin) 100 Mg Capsule 1 CAP PO TID for 30 Days, #90 CAP 0 Refills Levothyroxine Sodium (Levothyroxine Sodium) 100 Mcg Tablet 1 TAB PO ACBKFST for 30 Days, #30 TAB 0 Refills Metoprolol Tartrate (Metoprolol Tartrate) 25 Mg Tablet 1 TAB PO BID for 30 Days, #60 TAB 0 Refills Time spent arranging discharge: 1-30 minutes ATTESTATION BY PHYSICIAN I have seen and examined the patient. I reviewed the documentation, medical decision making, and treatment plan as noted by the resident physician above. I agree with the findings and plan of care. PAUL Ochoa IV, MD, MD May 07, 2025 14:51
--- NOTE | 2025-05-07 14:52 | NUR ---
DISCHARGE DISCHARGE ORDERS OBTAINED FOR PATIENT TO BE DISCHARGED HOME. DISCHARGE INSTRUCTIONS AND DOCUMENTATION GIVEN TO PATIENT AT BEDSIDE. VOICED UNDERSTANDING. MIDLINE REMOVED/DISCONTINUED BY SUYAPA EDWARDS, NO S/S OF INFECTION NOTED TO SITE. PATIENT TOLERATED WELL. BANDS REMOVED PRIOR TO DISCHARGE. PENDING TRANSPORTATION.
--- NOTE | 2025-05-07 14:58 | NUR ---
DISCHARGE PATIENT LEFT VIA WHEELCHAIR ACCOMPANIED BY DAUGHTER. NO S/S OF DISTRESS NOTED.
--- NOTE | 2025-05-07 15:02 | HMCIMG ---
*:first-child]:[id number]"> EXAM: US - US Renal Artery Doppler. CLINICAL HISTORY: Assess for renal artery stenosis. TECHNIQUE: Real-time grayscale and Doppler ultrasound of the kidneys, abdominal aorta, and main/segmental renal arteries with image and spectral waveform documentation. COMPARISON: None provided. FINDINGS: AORTA: The proximal, mid, and distal abdominal aorta are normal in caliber. Peak systolic velocity in the aorta measures approximately 150 cm/sec. KIDNEYS: Right kidney measures approximately 10.2 x 4.8 x 4.0 cm and is normal in size and cortical thickness without focal solid mass or hydronephrosis. Left kidney measures approximately 10.7 x 4.6 x 5.5 cm and is normal in size and cortical thickness without hydronephrosis. Multiple cysts are present, including a simple-appearing cyst measuring approximately 3.9 x 4.5 x 4.4 cm and a left renal cortical cyst measuring approximately 3.7 x 4.3 x 4.1 cm. No suspicious complex cystic mass is identified. RENAL ARTERIES (MAIN): Right main renal artery peak systolic velocity measures approximately 169 cm/sec, with a renal arterytoaorta velocity ratio (RAR) of approximately 1.1. Left main renal artery peak systolic velocity measures approximately 187 cm/sec, with an RAR of approximately 1.7. Peak systolic velocity greater than 180 cm/sec with RAR less than 3.5 corresponds to less than 60% stenosis on the left, and right-sided velocities and ratios are within non-hemodynamically significant range. SEGMENTAL/INTRARENAL ARTERIES: Right kidney: Superior pole segmental waveform demonstrates tardus-parvus morphology. Mid pole segmental artery demonstrates mild tardus-parvus changes. Inferior pole segmental artery demonstrates normal waveform morphology. Left kidney: Superior pole segmental artery demonstrates mild tardus-parvus changes. Mid pole segmental artery shows normal waveform morphology. Inferior pole segmental artery demonstrates mild tardus-parvus changes. IMPRESSION: * Doppler parameters in the main renal arteries (peak systolic velocities and renal arterytoaorta ratios) correspond to less than 60% stenosis bilaterally, without hemodynamically significant main renal artery stenosis. * Mild segmental-level waveform abnormalities (tardus-parvus changes) in both kidneys, which may reflect more distal or intrarenal vascular disease but without supportive main renal artery criteria for high-grade stenosis. * Bilateral kidneys normal in size without hydronephrosis, with multiple simple-appearing left renal cysts including cortical cysts; no suspicious renal mass identified. * Normal-caliber abdominal aorta without aneurysm. /Randall
--- NOTE | 2025-05-07 23:31 | PN ---
This patient was hospitalized because of edema in the lower extremities. The patient has had extensive peripheral vascular disease and had a fairly complex intervention because of extensive atherosclerosis and calcification of the infrarenal abdominal aorta with compromised flow. The patient had endoluminal graft and stent placement in the abdominal aorta and in the renal arteries in February. The patient also had a left renal artery stent. 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 On assessing the patient, currently, she is complaining of no symptoms pertaining to her circulation or abdominal intervention. She has basically stated that her family physician sent her to the hospital because she had some swelling in her ankles. On assessing the patient today, she has an excellent pulses in both lower extremities. The ulcerations that she has had are completely healed. She has excellent capillary refill and both feet are warm and well perfused and there is no appreciable edema. A CT angiogram of the abdominal aorta was performed and identified patency of the renal stent as well as the abdominal aortic endoluminal graft with no significant compromise. Both lower extremities exhibited adequate circulation. Venous flow studies were obtained and showed no evidence of deep vein thrombosis. The patient has been stable and has no active complaints. Her vital signs have been stable. She has been afebrile and is saturating well on room air. The patient's laboratory studies have been stable as well. She has hypokalemia, which is managed per protocol with normal renal function. The patient is currently maintained on lisinopril, clopidogrel, baby aspirin, cilostazol, which ideally should be continued, low-dose furosemide, and amlodipine, which is the likely etiology of the pedal edema. She is also on amlodipine because of paroxysmal atrial fibrillation and levothyroxine. She is on low-dose metoprolol, atorvastatin, gabapentin, and famotidine with additional p.r.n. medications. At this point, I think the patient should be managed medically as she has been. I am comfortable with the fact that the circulation is adequate. We will assess this patient as an outpatient once she has been dismissed. TID: [id number] RECEIPT: [id number]
== END 2025-05-07 15:00 | disposition home or self-care (01) ==
LOC: EDH 14:42 → INTOOBSV 18:54 → EDHIP 18:54 → UNDOADMOB 18:54 → EDHIP 21:50 → 4CH 05-06 10:42 → EDHIP 05-06 10:42 → 4CH 05-07 08:30 → UNDODISOB 05-07 15:00
PROVIDERS: ADMIT Internal Medicine; ATTEND Internal Medicine
DX: R60.0 Localized edema (principal); I70.203 Unspecified atherosclerosis of native arteries of extremities, bilateral legs; E03.9 Hypothyroidism, unspecified; I10 Essential (primary) hypertension; E83.42 Hypomagnesemia; M79.606 Pain in leg, unspecified; E78.00 Pure hypercholesterolemia, unspecified; E11.51 Type 2 diabetes mellitus with diabetic peripheral angiopathy without gangrene; E87.6 Hypokalemia; I25.10 Atherosclerotic heart disease of native coronary artery without angina pectoris; M71.20 Synovial cyst of popliteal space [Baker], unspecified knee; R20.2 Paresthesia of skin; Z79.02 Long term (current) use of antithrombotics/antiplatelets; Z79.82 Long term (current) use of aspirin; Z79.899 Other long term (current) drug therapy; Z86.79 Personal history of other diseases of the circulatory system; Z87.891 Personal history of nicotine dependence; Z98.890 Other specified postprocedural states
CPT/HCPCS: 96361 ×3; 96375 ×2; 80048 ×4; 85027 ×3; 81001; 36415 ×4; 93970; 93925; 99291; 93005; 96376 ×3; 84443; 83735 ×3; 84100; 85025; 85610; 85730; 86850; 86900; 86901; 84439; 84481; 96365; 96366; 75635; 84132; 93975; J0360 ×3; J1308 ×3; J3475; Q9967 ×2; G0378 ×6; 96372; 96374; 99285